=== PATIENT | female | born 1955 | race Caucasian/White ===

== ENCOUNTER → 2019-11-25 13:45 | Outpatient (BNVA) | payer MEDICAID, SELFPAY | PROVIDERS: PCP Family Medicine; Referring Provider Family Medicine; Visit Provider Internal Medicine | DX: E03.9 Hypothyroidism, unspecified (principal); E21.3 Hyperparathyroidism, unspecified; D35.02 Benign neoplasm of left adrenal gland; E55.9 Vitamin D deficiency, unspecified | CPT/HCPCS: 99214 ==

== ENCOUNTER 2019-11-26 08:34 | Outpatient (REF) | payer MEDICAID, SELFPAY | END 2019-11-26 08:35 | disposition home or self-care (01) | LOC: HO.LAB 08:34 | PROVIDERS: PCP Family Medicine; Visit Provider Internal Medicine | DX: E55.9 Vitamin D deficiency, unspecified (principal); E03.9 Hypothyroidism, unspecified; E21.3 Hyperparathyroidism, unspecified ==

== ENCOUNTER 2019-11-27 06:18 | Outpatient (REF) | payer MEDICAID, SELFPAY ==
[2019-11-27 07:30] LABS: Calcium 8.5 mg/dL (8.4-10.2)
[2019-11-27 11:39] LABS: Albumin Level 4.1 g/dL (3.5-5.0); Anion Gap 12 (12-20); Blood Urea Nitrogen 15 mg/dL (9-16); Carbon Dioxide 28 mmol/L (22-29); Chloride 103 mmol/L (96-108); Estimated Glomerular Filt Rate > 60; Glucose Random 317 mg/dL (60-115); Sodium 139 mmol/L (135-145)
[2019-11-27 12:01] LABS: Free T4 (Free Thyroxine) 0.99 ng/dL (0.71-1.85); Vitamin D 25-OH Total 27.6 ng/mL (>30)
== END 2019-11-27 06:19 | disposition home or self-care (01) ==
LOC: HO.LAB 06:18
PROVIDERS: PCP Family Medicine; Visit Provider Internal Medicine
DX: E21.3 Hyperparathyroidism, unspecified (principal)
CPT/HCPCS: 80048; 82040; 82306; 82310; 84439; 84443

== ENCOUNTER 2019-12-05 10:10 | Outpatient (REF) | payer MEDICAID, SELFPAY ==
--- NOTE | 2019-12-05 | US_ITS ---
EXAMINATION: US THYROID CLINICAL INFORMATION: Hypothyroidism. COMPARISON: CT soft tissue neck 07/05/2018. TECHNIQUE: Linear transducer ge-scale and color Doppler examination with attention to the region of the thyroid. FINDINGS: SIZE: Measurements of the thyroid lobes and nodules are given in sagittal, anteroposterior and transverse dimensions respectively. Right Thyroid Lobe: 4.1 x 1.5 x 1.2 cm, volume 3.7 mL. Parenchyma: The gland echotexture is homogeneous. Thyroid vascularity is normal. Left Thyroid Lobe: 3.5 x 1.5 x 0.9 cm, volume 2.6 mL. Parenchyma: The gland echotexture is homogeneous. Thyroid vascularity is normal. Isthmus: 0.3 cm in maximum AP dimension. RIGHT THYROID LOBE: There are 2 nodules seen. 1. Location: Lower pole. Size: 0.4 x 0.3 x 0.3 cm. Nodule characteristics: Hypoechoic with smooth margins. Calcification present without intranodular flow. This appears cystic. 2. Location: Lower pole. Size: 0.3 x 0.2 x 0.2 cm. Nodule characteristics: Hypoechoic with smooth margins. No internal calcification or intranodular flow. This appears cystic. ISTHMUS: No nodules. LEFT THYROID LOBE: No nodules. NODES: No lymphadenopathy is seen in the tissue surrounding the thyroid gland. IMPRESSION: Subcentimeter nodules in the right lobe of the thyroid gland which appear cystic. No suspicious findings.
== END 2019-12-05 10:11 | disposition home or self-care (01) ==
LOC: HO.US 10:10
PROVIDERS: PCP Family Medicine; Visit Provider Internal Medicine
DX: E03.9 Hypothyroidism, unspecified (principal)
CPT/HCPCS: 76536

== ENCOUNTER 2019-12-20 13:53 | Outpatient (REF) | payer MEDICAID, SELFPAY ==
--- NOTE | 2019-12-20 13:56 | CT_ITS ---
EXAMINATION: CT ABDOMEN WITHOUT AND WITH CONTRAST CLINICAL INFORMATION: Benign neoplasm of left adrenal gland. COMPARISON: CT abdomen and pelvis 08/08/2014. TECHNIQUE: Contiguous axial thin section helical images of the abdomen were performed before and after the administration of oral contrast and 85 mL of Omnipaque 350 intravenous contrast. The data set was reformatted in the coronal and sagittal planes and reviewed on an independent workstation. This CT examination was performed using dose optimization techniques as appropriate, variously including the following: *Automated exposure control *Adjustment of mA and/or kV according to patient size (this includes techniques or standardized protocols for targeted exams where dose is matched to indication/reason for exam; i.e. extremities or head) *Use of iterative reconstruction technique DLP: 660 mGy-cm FINDINGS: LUNG BASES: The heart size is normal. There is a 4 mm right middle lobe nodule image 03/02. The rest of the lower lobes are unremarkable. The heart size is normal. LIVER, GALLBLADDER, AND BILIARY TREE: The liver is normal size, shape and density. No focal lesion or intrahepatic ductal dilatation seen. There are several mobile radiopaque gallstones without wall thickening. PANCREAS: The pancreas is unremarkable. SPLEEN: Unremarkable. ADRENAL GLANDS AND KIDNEYS: There is focal nodular enlargement left adrenal gland measuring 7 mm. Immediately postcontrast it measures 98 Hounsfield units and on 15-minute delayed image it measures 55 Hounsfield units. The absolute washout is 56.6% and relative washout is 43.9%. Most likely adenoma or benign tissue. The right adrenal gland is relatively unremarkable. No abnormal enhancement seen. Kidneys are normal size, shape and position. There is normal cortical thickness. Postcontrast there are symmetrical bilateral nephrograms without focal lesion. There is good opacification of bilateral extrarenal kidney pelvis and proximal ureters without any intraluminal filling defect. BOWEL LOOPS: There is scattered stool and gas seen throughout the colon without distention. The small-bowel loops are normal caliber. The terminal ileum is unremarkable. Appendix is normal. The stomach is unremarkable. LYMPH NODES: Normal. VASCULAR: There are mild atherosclerotic changes of abdominal aorta without aneurysmal dilatation. BONES: There is mild spondylosis lower dorsal and mid lumbar spine. No lytic process. CT/CT abdomen wo/w con IMPRESSION: Small benign adenoma left adrenal gland. Unremarkable right adrenal gland. Mild constipation.
[2019-12-20] MEDS: iohexoL 350 MG/ML 100 ML INFUS..BTL IV (15:07)
== END 2019-12-20 13:54 | disposition home or self-care (01) ==
LOC: HO.CT 13:53
PROVIDERS: Visit Provider Internal Medicine
DX: D35.02 Benign neoplasm of left adrenal gland (principal)
CPT/HCPCS: 74170; Q9967

== ENCOUNTER → 2020-01-20 07:35 | Outpatient (BNVA) | payer MEDICAID, SELFPAY | PROVIDERS: PCP Family Medicine; Visit Provider Internal Medicine | DX: Z76.89 Persons encountering health services in other specified circumstances (principal) ==

== ENCOUNTER 2020-01-21 06:35 | Outpatient (REF) | payer MEDICAID, SELFPAY ==
[2020-01-21 07:47] LABS: Calcium 8.8 mg/dL (8.4-10.2)
[2020-01-21 07:56] LABS: Albumin Level 4.3 g/dL (3.5-5.0); Anion Gap 12 (12-20); Blood Urea Nitrogen 10 mg/dL (9-16); Calcium 8.8 mg/dL (8.4-10.2); Carbon Dioxide 30 mmol/L (22-29); Chloride 104 mmol/L (96-108); Estimated Glomerular Filt Rate > 60; Glucose Random 189 mg/dL (60-115); Potassium 4.2 mmol/l (3.3-5.1); Sodium 142 mmol/L (135-145)
[2020-01-21 08:11] LABS: Free T4 (Free Thyroxine) 0.95 ng/dL (0.71-1.85); Thyroid Stimulating Hormone 7.19 uIU/mL (0.32-4.0); Vitamin D 25-OH Total 28.5 ng/mL (>30)
[2020-01-22 21:32] LABS: DHEA Sulfate 67 mcg/dL (12-133)
[2020-01-22 22:43] LABS: Adrenocorticotropic Hormone 21 pg/mL (6-50)
[2020-01-24 06:58] LABS: PTHI 72 pg/mL (14-64); Triiodothyronine T3 Total 128 ng/dL (76-181)
[2020-01-25 11:27] LABS: Metanephrine, Free 50 pg/mL (<=57); Normetanephrines, Free 100 pg/mL (<=148); Total Metanephrine, Free 150 pg/mL (<=205)
[2020-01-25 14:32] LABS: Calcium (PTHI) 9.5 mg/dL (8.6-10.4)
[2020-01-25 19:12] LABS: 11-Deoxycortisol, LC/MS <20 ng/dL
[2020-01-29 16:13] LABS: Catecholamine Frac, Total 705 pg/mL
== END 2020-01-21 06:36 | disposition home or self-care (01) ==
LOC: HO.LAB 06:35
PROVIDERS: PCP Family Medicine; Visit Provider Internal Medicine
DX: E55.9 Vitamin D deficiency, unspecified (principal); E03.9 Hypothyroidism, unspecified; E04.2 Nontoxic multinodular goiter; D35.02 Benign neoplasm of left adrenal gland; E21.3 Hyperparathyroidism, unspecified
CPT/HCPCS: 80048; 82024; 82040; 82088; 82306; 82310; 82384; 82533; 82627; 82634; 83835; 83970; 84244; 84439; 84443; 84480

== ENCOUNTER → 2020-03-12 09:54 | Outpatient (BNVA) | payer MEDICAID, SELFPAY | PROVIDERS: PCP Family Medicine; Visit Provider Internal Medicine Pulmonary Disease | DX: R91.1 Solitary pulmonary nodule (principal) | CPT/HCPCS: 99202 ==

== ENCOUNTER → 2020-03-23 07:55 | Outpatient (BNVA) | payer MEDICAID, SELFPAY | PROVIDERS: PCP Family Medicine; Visit Provider Internal Medicine ==

== ENCOUNTER 2020-04-15 09:28 | Outpatient (REF) | payer MEDICAID, SELFPAY ==
--- NOTE | ~2020-04-15 | CT_ITS ---
EXAMINATION: CT CHEST WITHOUT CONTRAST CLINICAL INFORMATION: Solitary pulmonary nodule COMPARISON: 05/25/2019. CT abdomen pelvis 12/20/2019 TECHNIQUE: Multidetector volumetric CT imaging of the chest was done. Axial MIP volume rendering provided. Sagittal and coronal reformatted images were obtained. This CT examination was performed using dose optimization techniques as appropriate, variously including the following: *Automated exposure control *Adjustment of mA and/or kV according to patient size (this includes techniques or standardized protocols for targeted exams where dose is matched to indication/reason for exam; i.e. extremities or head) *Use of iterative reconstruction technique DLP: 114 mGy-cm FINDINGS: RACING SECRETARY AND HANDICAPPER: No additional findings. LUNGS: 4.8 mm groundglass opacity in the right lung apex image 68/347. Typically no follow-up is required for groundglass opacities less than 5 mm in size. Likely atelectasis in the anterior aspect of the left lower lobe and posterior aspect of the lingula, adjacent the left major fissure. There is a 3 mm left upper lobe nodule in image 110; this was present 05/25/2019 and is unchanged. MEDIASTINUM: No hilar or mediastinal lymphadenopathy. Normal heart size. PLEURA: There is no pleural effusion. No pleural mass or thickening. AXILLA: No lymphadenopathy. UPPER ABDOMEN: Calcified gallstones are seen in the gallbladder. No adrenal mass. OSSEOUS STRUCTURES: Multilevel degenerative changes of the thoracic spine are present. No acute or suspicious osseous abnormality. CT/CT chest wo con IMPRESSION: Right middle lobe nodule seen. A 3 mm left upper lobe nodule was present for 06/10/2019 and is unchanged suggesting a benign etiology. There is likely atelectasis at the left lung base.
== END 2020-04-15 09:29 | disposition home or self-care (01) ==
LOC: HO.CT 09:28
PROVIDERS: Visit Provider Internal Medicine Pulmonary Disease
DX: R91.1 Solitary pulmonary nodule (principal)
CPT/HCPCS: 71250

== ENCOUNTER 2020-04-21 15:39 | Outpatient (REF) | payer MEDICAID, SELFPAY ==
--- NOTE | ~2020-04-21 | MM_ITS ---
EXAMINATION: MM SCREENING DIGITAL BREAST TOMOSYNTHESIS, BILATERAL CLINICAL INFORMATION: Screening. Asymptomatic. The lifetime risk of breast cancer based on the Tyrer-Cuzick Model is 5%. COMPARISON: Mammography: 04/16/2019, 03/05/2018, 02/01/2017 TECHNIQUE: Digital breast tomosynthesis is performed in both the craniocaudal and mediolateral oblique views along with computer-aided detection (CAD). Synthesized 2D images are generated from the tomosynthesis. FINDINGS: The breasts are almost entirely fatty (ACR BI-RADS breast composition Category a). There are background fibroglandular and stromal densities similar to prior studies. There is no developing density or interval mass or architectural abnormality. No abnormal calcifications. The axilla and skin contours are unremarkable. MM/MM tomosynthesis screening BI IMPRESSION: No mammographic evidence of malignancy. ASSESSMENT: BI-RADS 1: Negative RECOMMENDATION: Routine annual mammography screening. This patient's information was entered into a reminder system with a target due date for their next mammogram.
== END 2020-04-21 15:40 | disposition home or self-care (01) ==
LOC: HO.MAMMO 15:39
PROVIDERS: PCP Family Medicine; Visit Provider Family Medicine
DX: Z12.31 Encounter for screening mammogram for malignant neoplasm of breast (principal)
CPT/HCPCS: 77063; 77067

== ENCOUNTER 2020-05-27 06:15 | Outpatient (REF) | payer MEDICAID, SELFPAY ==
[2020-05-27 07:57] LABS: Albumin Level 4.2 g/dL (3.5-5.0); Anion Gap 11 (12-20); Blood Urea Nitrogen 15 mg/dL (9-16); Calcium 9.2 mg/dL (8.4-10.2); Carbon Dioxide 30 mmol/L (22-29); Chloride 102 mmol/L (96-108); Estimated Glomerular Filt Rate > 60; Glucose Random 337 mg/dL (60-115); Potassium 4.4 mmol/L (3.3-5.1); Sodium 139 mmol/L (135-145)
[2020-05-27 08:18] LABS: Free T4 (Free Thyroxine) 0.84 ng/dL (0.71-1.85); Thyroid Stimulating Hormone 3.48 uIU/mL (0.32-4.0); Vitamin D 25-OH Total 27.1 ng/mL (>30)
[2020-05-28 11:26] LABS: Calcium (PTHI) 9.2 mg/dL (8.6-10.4); PTHI 69 pg/mL (14-64)
[2020-05-28 21:28] LABS: Adrenocorticotropic Hormone 16 pg/mL (6-50)
[2020-06-02 07:32] LABS: Renin 5.91 ng/mL/h (0.25-5.82)
== END 2020-05-27 06:16 | disposition home or self-care (01) ==
LOC: HO.LAB 06:15
PROVIDERS: PCP Family Medicine; Visit Provider Internal Medicine
DX: E21.3 Hyperparathyroidism, unspecified (principal); D35.02 Benign neoplasm of left adrenal gland; E55.9 Vitamin D deficiency, unspecified; E04.2 Nontoxic multinodular goiter
CPT/HCPCS: 36415; 80048; 82024; 82040; 82088; 82306; 82533; 83970; 84244; 84439; 84443

== ENCOUNTER → 2020-07-13 08:10 | Outpatient (BNVA) | payer MEDICAID, SELFPAY | PROVIDERS: PCP Family Medicine; Visit Provider Internal Medicine ==

== ENCOUNTER 2020-08-20 07:23 | Outpatient (REF) | payer MEDICAID, SELFPAY ==
[2020-08-21 08:17] LABS: Cortisol 30 Minute 25.3 mcg/dL; Cortisol 60 Minute 30.6 mcg/dL; Cortisol Baseline 11.5 mcg/dL
== END 2020-08-20 07:24 | disposition home or self-care (01) ==
LOC: HO.MDS 07:23
PROVIDERS: PCP Family Medicine; Visit Provider Internal Medicine
DX: E27.40 Unspecified adrenocortical insufficiency (principal)
CPT/HCPCS: 36415; 82533; 96374; J0834

== ENCOUNTER → 2020-09-14 08:39 | Outpatient (BNVA) | payer MEDICAID, SELFPAY | PROVIDERS: Visit Provider Internal Medicine ==

== ENCOUNTER 2020-09-21 09:31 | Outpatient (REF) | payer MEDICAID, SELFPAY ==
--- NOTE | ~2020-09-21 | CT_ITS ---
EXAMINATION: CT CHEST WITHOUT CONTRAST CLINICAL INFORMATION: Follow up pulmonary nodules. COMPARISON: March 2020 TECHNIQUE: Multidetector volumetric CT imaging of the chest was done. Axial MIP volume rendering provided. Sagittal and coronal reformatted images were obtained. This CT examination was performed using dose optimization techniques as appropriate, variously including the following: *Automated exposure control *Adjustment of mA and/or kV according to patient size (this includes techniques or standardized protocols for targeted exams where dose is matched to indication/reason for exam; i.e. extremities or head) *Use of iterative reconstruction technique DLP: 153 mGy-cm. FINDINGS: LUNGS: Exam is limited due to artifact from respiratory motion. There is a 2 mm right apical nodule, axial image 62 series 7 that is stable. The 5 mm ground-glass attenuation right upper lobe nodule, axial image 112 series 7 is stable. The 4 mm left upper lobe nodule, axial image 149 series 7 is stable. There is atelectasis at the lung bases. MEDIASTINUM: There is atherosclerotic disease and mild coronary artery calcification. The mediastinum is otherwise normal. PLEURA: There is no pleural effusion. No pleural mass or thickening. AXILLA: No lymphadenopathy. UPPER ABDOMEN: There are gallstones in the gallbladder. OSSEOUS STRUCTURES: There are degenerative changes of the spine. CT/CT chest wo con IMPRESSION: Stable pulmonary nodules.
== END 2020-09-21 09:32 | disposition home or self-care (01) ==
LOC: HO.CT 09:31
PROVIDERS: PCP Family Medicine; Visit Provider Internal Medicine Pulmonary Disease
DX: R91.1 Solitary pulmonary nodule (principal)
CPT/HCPCS: 71250

== ENCOUNTER → 2020-10-01 15:17 | Outpatient (BNVA) | payer MEDICAID, SELFPAY | PROVIDERS: PCP Family Medicine; Visit Provider Internal Medicine Pulmonary Disease | DX: R91.1 Solitary pulmonary nodule (principal); E04.2 Nontoxic multinodular goiter; E03.9 Hypothyroidism, unspecified; E21.3 Hyperparathyroidism, unspecified; E78.5 Hyperlipidemia, unspecified; G62.9 Polyneuropathy, unspecified | CPT/HCPCS: 99212 ==

== ENCOUNTER 2020-12-17 06:19 | Outpatient (REF) | payer MEDICAID, SELFPAY ==
[2020-12-17 07:13] LABS: Alanine Aminotransferase 27 U/L (0-31); Albumin Level 3.9 g/dL (3.5-5.0); Alkaline Phosphatase 85 U/L (39-117); Anion Gap 11 (12-20); Aspartate Amino Transferase 18 U/L (5-31); Bilirubin Total 0.5 mg/dL (0.0-1.0); Blood Urea Nitrogen 11 mg/dL (9-16); Calcium 8.9 mg/dL (8.4-10.2); Carbon Dioxide 29 mmol/L (22-29); Chloride 105 mmol/L (96-108); Estimated Glomerular Filt Rate > 60; Glucose Random 292 mg/dL (60-115); Phosphorus 3.4 mg/dL (2.7-4.5); Potassium 4.2 mmol/L (3.3-5.1); Sodium 141 mmol/L (135-145); Total Protein 6.2 g/dL (6.5-8.0)
[2020-12-17 07:34] LABS: Free T4 (Free Thyroxine) 0.92 ng/dL (0.71-1.85); Thyroid Stimulating Hormone 5.34 uIU/mL (0.32-4.0); Vitamin D 25-OH Total 30.7 ng/mL (>30)
[2020-12-19 01:51] LABS: Triiodothyronine T3 Total 104 ng/dL (76-181)
[2020-12-21 11:06] LABS: Metanephrine, Free 47 pg/mL (<=57); Normetanephrines, Free 81 pg/mL (<=148); Total Metanephrine, Free 128 pg/mL (<=205)
[2020-12-22 04:01] LABS: Calcium (PTHI) 8.8 mg/dL (8.6-10.4); PTHI 76 pg/mL (14-64)
[2020-12-27 09:32] LABS: Catecholamine Frac, Total 500 pg/mL
== END 2020-12-17 06:20 | disposition home or self-care (01) ==
LOC: HO.LAB 06:19
PROVIDERS: PCP Family Medicine; Visit Provider Internal Medicine
DX: E21.3 Hyperparathyroidism, unspecified (principal); E55.9 Vitamin D deficiency, unspecified; E04.2 Nontoxic multinodular goiter; D35.02 Benign neoplasm of left adrenal gland
CPT/HCPCS: 36415; 80053; 82306; 82384; 83835; 83970; 84100; 84439; 84443; 84480

== ENCOUNTER 2020-12-21 09:43 | Outpatient (REF) | payer MEDICAID, SELFPAY ==
[2020-12-21 11:22] LABS: Creatinine, mg/dL 53.68
[2020-12-21 11:59] LABS: Creatinine, 24Hr Urine 0.4 G/Day (1.0-2.0); Total Volume 24 Hour Urine 825 mL
[2020-12-24 23:47] LABS: Metanephrine, Free 24U 69 mcg/24 h (90-315); Normetanephrine, Free 24U 153 mcg/24 h (122-676); Total Metanephrine, Free 24U 222 mcg/24 h (224-832); Total Volume 24U 825 mL
[2020-12-25 21:41] LABS: CATF, 24 Ur Volume 825 mL; CATF-24Ur Creatinine 0.43 g/24 h (0.50-2.15); Catecholamines,Tot. (E+NE) 24U 25 mcg/24 h (26-121); Cortisol Free, 24 Hr Urine 9.7 mcg/24 h (4.0-50.0); Creatinine, 24 Hr Urine 0.44 g/24 h (0.50-2.15); Dopamine, 24 Ur 136 mcg/24 h (52-480); Norepinephrine, 24 Ur 25 mcg/24 h (15-100); Total Volume, 24 Hr Urine 825 mL
[2020-12-25 22:37] LABS: Calcium, 24 Hr Urine 107 mg/24 h; Calcium/Creatinine Ratio 241 mg/g creat (30-275); Creatinine 24Hr Urine 0.45 g/24 h (0.50-2.15)
== END 2020-12-21 09:44 | disposition home or self-care (01) ==
LOC: HO.LNP 09:43
PROVIDERS: Visit Provider Internal Medicine
DX: D35.02 Benign neoplasm of left adrenal gland (principal); E21.3 Hyperparathyroidism, unspecified
CPT/HCPCS: 82340; 82384; 82530; 82570; 83835

== ENCOUNTER → 2021-01-04 11:49 | Outpatient (BNVA) | payer MEDICAID, SELFPAY | PROVIDERS: PCP Family Medicine; Visit Provider Internal Medicine ==

== ENCOUNTER 2021-01-19 12:41 | Outpatient (REF) | payer MEDICAID, SELFPAY ==
--- NOTE | 2021-01-19 16:50 | MHC.AU.MED ---
Medical Clearance for Hearing Instrumentation Date: 01/19/21 Patient Name: Cori Marino Date of : 1955 Referring Provider: Alma Quijano MD We have seen your patient on 01/19/21 and have determined that they are a candidate for amplification (See accompanying report). Specifically, they would benefit from: Hearing aid use in both ears There is a statute that addresses Medical Evaluation Requirements prior to fitting a patient with a hearing aid. According to [place] statute 265 CMR:6.03(1), (a) General. Except as provided in 265 CMR 6.03(1)(b), a hearing therapist shall not sell a hearing aid unless the prospective user has presented to the hearing therapist a written statement signed by a licensed physician that states that the patient's hearing loss has been medically evaluated and the patient may be considered a candidate for a hearing aid. The medical evaluation must have taken place within the preceding six months. Please note: Due to the [place] Statute referenced above, we cannot accept a signature other than that of a licensed physician. GATHERING MACHINE FEEDER and PA signatures cannot be accepted. I am in agreement with the above recommendation. There is no medical contraindication for hearing instrumentation. Physician Signature Date Physician Name (Printed)
--- NOTE | 2021-01-19 16:51 | MHC.AU.AHA ---
Adult Audiological Evaluation Date of Visit: 01/19/21 Armored Transport Service Manager Used: Angolan- In Person Reason for Appointment: Audiological re-evaluation to monitor the status of Ms. Marino's hearing loss. She has a known bilateral, sensorineural hearing loss. She has used a hearing aid in her right ear, but notes that it was lost. She is interested in pursuing a new hearing aid, and would like to try hearing aids in both ears. She notes significant difficulties hearing and understanding speech in most situations. [place] [facility] [place] Moderate to profound sensorineural hearing loss bilaterally. Medical History: Medical History: Diabetes, High Blood Pressure Medical History: Peripheral neuropathy, allergic rhinosinusitis, Positive Antinuclear antibody, retinopathy of both eyes, coronary artery disease, Cardiac catheterization 05/27/17, asthma, inflammatory arthritis, Medication List: See list Hearing Instrument History- Right Ear: Rotor Winder: GetPromotd Model: Rambus V50-SP Serial Number: [id number] Battery Size: 13 Repair Warranty: 07/13/2017 Loss and Damage Warranty: 07/13/2017 Dispensed By: [facility] Date of Fittin05/04/2015 Otoscopy: Right Ear: Unremarkable Left Ear: Unremarkable Hearing Evaluation: Transducer(s) Used: Insert Earphones, Bone Conduction Method: Conventional Audiometry Stimuli Used: Pure Tones Right Ear: Description of Hearing: Moderately-severe to severe sensorineural hearing loss from 250-8000 Hz. Left Ear: Description of Hearing: Moderately-severe to profound sensorineural hearing loss from 250-8000 Hz. Speech Recognition Threshold (SRT): Method Used: Recorded Lists Stimuli Used: Angolan Trisyllable Words Right Ear: 80 dBHL Left Ear: 80 dBHL Word Discrimination: Method: Recorded Lists Word Lists Used: Lista Bisil?bica (Angolan) Right Ear: 84% at 100 dBHL Left Ear: 72% at 100 dBHL Comparison: Compared to the most recent evaluation: Hearing is stable. Recommendations: Audiological re-evaluation in one year. Trial with amplification is recommended. Medical clearance from a physician is required before fitting. Hearing Aid Fitting will be scheduled when all materials arrive. Hearing aid(s) will be ordered after approval is received. Diagnosis: Primary Diagnosis: H90.3 Bilateral Sensorineural Hearing Loss Services Performed: Comprehensive Audiological Evaluation (CPT 34943) Signature: Provider: Shiv Fall, CCC-A
--- NOTE | 2021-01-19 16:52 | MHC.AU.HAS ---
Hearing Aid Evaluation Date of Visit: 01/19/21 Road Mixer Operator Used: Syriac- In Person Historical Information: Description of Hearing: Moderately-severe to severe/profound sensorineural hearing loss bilaterally. Current personal amplification information, if applicable: 2015 Phonak Bolero V50-SP Summary: Updated binaural amplification is recommended as Ms. Marino has lost her previous hearing aids. Her previous aids were over 5 years old, and she is due for updated hearing aids. Discussed options with Ms. Marino. She found the last ones very uncomfortable due to the large standard earmold. She is interested in a JAM style hearing aid with a small earmold. She is interested in rechargeability. Hearing Aid Prescription: Based on the individual?s shared listening needs, communication environments, dexterity, desire for connectivity, and personal preferences, the following prescription for amplification has been made: Right ear: Office Messenger: Phonak Model: Audeo P70-R Battery Size: Rechargeable Color: H0 - Beige Family Medicine Physician Assistant: Size 0 P Type of Mold: cShell Left ear: Left ear prescription to be same as Right Hearing Aid above: Office Messenger: Phonak Model: Audeo P70-R Battery Size: Rechargeable Color: H0-Beige Family Medicine Physician Assistant: Szie 0 P Type of Mold: cShell Plan of Care: Earmold Impressions Taken. Medical Clearance to be requested from PCP/ENT. Hearing Instrument Fitting to be scheduled when materials arrive. Hearing aids will be ordered once medical clearance is received. Primary Diagnosis: H90.3 Bilateral Sensorineural Hearing Loss Signature: Provider: Shiv Fall, ZBIGNIEW-A
== END 2021-01-19 12:42 | disposition home or self-care (01) ==
LOC: HO.SH 12:41
PROVIDERS: Visit Provider Family Medicine
DX: Z46.1 Encounter for fitting and adjustment of hearing aid (principal); H90.3 Sensorineural hearing loss, bilateral
CPT/HCPCS: 92557; 92591; V5275

== ENCOUNTER 2021-01-29 09:10 | Outpatient (REF) | payer MEDICAID, SELFPAY ==
[2021-01-29 10:10] LABS: Alanine Aminotransferase 21 U/L (0-31); Alkaline Phosphatase 85 U/L (39-117); Anion Gap 12 (12-20); Aspartate Amino Transferase 18 U/L (5-31); Bilirubin Total 0.6 mg/dL (0.0-1.0); Blood Urea Nitrogen 9 mg/dL (9-16); Calcium 9.2 mg/dL (8.4-10.2); Carbon Dioxide 29 mmol/L (22-29); Chloride 104 mmol/L (96-108); Estimated Glomerular Filt Rate > 60; Glucose Random 387 mg/dL (60-115); Phosphorus 3.4 mg/dL (2.7-4.5); Potassium 4.7 mmol/L (3.3-5.1); Sodium 140 mmol/L (135-145); Total Protein 6.3 g/dL (6.5-8.0)
[2021-01-29 10:20] LABS: Free T4 (Free Thyroxine) 1.03 ng/dL (0.71-1.85); Thyroid Stimulating Hormone 3.11 uIU/mL (0.32-4.0); Vitamin D 25-OH Total 30.1 ng/mL (>30)
[2021-02-01 16:26] LABS: Calcium (PTHI) 9.1 mg/dL (8.6-10.4); PTHI 49 pg/mL (14-64)
== END 2021-01-29 09:11 | disposition home or self-care (01) ==
LOC: HO.LAB 09:10
PROVIDERS: PCP Family Medicine; Visit Provider Internal Medicine
DX: E03.9 Hypothyroidism, unspecified (principal); E55.9 Vitamin D deficiency, unspecified
CPT/HCPCS: 36415; 80053; 82306; 83970; 84100; 84439; 84443

== ENCOUNTER 2021-02-02 10:10 | Outpatient (REF) | payer MEDICAID, SELFPAY ==
--- NOTE | ~2021-02-02 | CT_ITS ---
EXAMINATION: CT ABDOMEN WITHOUT AND WITH CONTRAST CLINICAL INFORMATION: Left adrenal lesion COMPARISON: Previous CT of the abdomen and pelvis most recent November 2019 TECHNIQUE: Contiguous axial thin section helical images of the abdomen were performed before and after the administration of oral contrast and 85 mL of Omnipaque 350 intravenous contrast. The data set was reformatted in the coronal and sagittal planes and reviewed on an independent workstation. This CT examination was performed using dose optimization techniques as appropriate, variously including the following: *Automated exposure control *Adjustment of mA and/or kV according to patient size (this includes techniques or standardized protocols for targeted exams where dose is matched to indication/reason for exam; i.e. extremities or head) *Use of iterative reconstruction technique DLP: 419 mGy-cm FINDINGS: LUNG BASES: Unremarkable LIVER, GALLBLADDER, AND BILIARY TREE: The liver is normal in size, shape and attenuation. No focal liver lesion. There are gallstones in the gallbladder. PANCREAS: Unremarkable SPLEEN: Unremarkable ADRENAL GLANDS AND KIDNEYS: There is an 8 x 10 mm left adrenal nodule. This may be minimally increased from 8 mm in size on November 2019 exam. Hounsfield units precontrast measure 21. Immediate Hounsfield units following IV contrast measure 123. Delayed Hounsfield units postcontrast measure 48. Washout percentages are 61 and 75%. This is suggestive of a benign adenoma. The right adrenal gland is normal. BOWEL LOOPS: Unremarkable LYMPH NODES: Normal. VASCULAR: Unremarkable. BONES: Degenerative changes of the spine. CT/CT abdomen wo/w con IMPRESSION: 8 x 10 mm left adrenal nodule suggestive of a benign adenoma. Gallstones. Fleischner guidelines were followed.
[2021-02-02] MEDS: iohexoL 350 MG/ML 100 ML INFUS..BTL IV (11:07)
== END 2021-02-02 10:11 | disposition home or self-care (01) ==
LOC: HO.CT 10:10
PROVIDERS: PCP Family Medicine; Visit Provider Internal Medicine
DX: D35.02 Benign neoplasm of left adrenal gland (principal)
CPT/HCPCS: 74170; Q9967

== ENCOUNTER 2021-02-10 14:25 | Outpatient (REF) | payer MEDICAID, SELFPAY ==
--- NOTE | ~2021-02-10 | US_ITS ---
EXAMINATION: US THYROID CLINICAL INFORMATION: Nontoxic multinodular goiter. COMPARISON: Ultrasound soft tissue head/neck thyroid dated 12/05/2019. CT soft tissue neck 07/05/2018. TECHNIQUE: Linear transducer grayscale and color Doppler examination with attention to the region of the thyroid. FINDINGS: SIZE: Measurements of the thyroid lobes and nodules are given in sagittal, anteroposterior and transverse dimensions respectively. Right Thyroid Lobe: 3.2 x 0.7 x 0.9 cm, volume 1.06 mL. Previously 4.1 x 1.5 x 1.2 cm, volume 3.7 mL. Parenchyma: The gland echotexture is homogeneous. Thyroid vascularity is normal. Left Thyroid Lobe: 3.5 x 0.9 x 0.9 cm, volume 1.5 mL. Previously 3.5 x 1.5 x 0.9 cm, volume 2.6 mL. Parenchyma: The gland echotexture is homogeneous. Thyroid vascularity is normal. Isthmus: 0.4 cm in maximum AP dimension. Previously 0.3 cm. Estimated total number of nodules greater than or equal to 1 cm: 0. Counsellors nodules are described as follows: 1. Location: Right inferior. Size: 0.3 x 0.3 x 0.4 cm, volume 0.02 mL. Previously: 0.4 x 0.3 x 0.3 cm, volume 0.02 mL. Nodule characteristics: Composition: Cystic(0). ACR TI-RADS total points: 0 ACR TI-RADS category: 1 Significant change in size (>/= 20% in 2 dimensions and minimal increase of 2 mm or 50% or greater increase in volume): Change in features: Change in ACR TI-RADS risk category: 2. Location: Right inferior. Size: 0.2 x 0.2 x 0.2 cm, volume 0.004 mL. Previously: 0.3 x 0.2 x 0.2 cm, volume 0.005 mL. Nodule characteristics: Composition: Cystic(0). ACR TI-RADS total points: 0 ACR TI-RADS category: 1 Significant change in size (>/= 20% in 2 dimensions and minimal increase of 2 mm or 50% or greater increase in volume): Change in features: Change in ACR TI-RADS risk category: 3. Location: Left mid. Size: 0.3 x 0.2 x 0.2 cm, volume 0.005 mL. Previously: Not documented on the prior study. Nodule characteristics: Composition: Cystic(0). ACR TI-RADS total points: 0 ACR TI-RADS category: 1 NODES: No lymphadenopathy is seen in the tissue surrounding the thyroid gland. US/US thyroid IMPRESSION: Small thyroid gland. Stable small bilateral thyroid nodules. ACR TI-RADS RECOMMENDATION REFERENCE: Ultrasound-guided fine-needle aspiration, followup ultrasound, no further follow up. * TR1 (0 point) and TR 2 (2 points): No FNA or follow up * TR3 (3 points): FNA if more than or equal to 2.5 cm in maximum dimension, followup ultrasound in 1, 3 and 5 years if 1.5 to 2.4 cm in maximum dimension. * TR4 (4-6 points): FNA if more than or equal to 1.5 cm in maximum dimension, followup ultrasound in 1, 2, 3 and 5 years if 1 to 1.4 cm in maximum dimension. * TR5 (more than or equal to 7 points): FNA if more than or equal to 1 cm in maximum dimension, followup ultrasound every year for 5 years if 0.5 to 0.9 cm in maximum dimension. * TR3, TR4 or TR5 nodules that are below the size threshold for follow up receive no follow up.
== END 2021-02-10 14:26 | disposition home or self-care (01) ==
LOC: HO.US 14:25
PROVIDERS: PCP Family Medicine; Visit Provider Internal Medicine
DX: E04.2 Nontoxic multinodular goiter (principal)
CPT/HCPCS: 76536

== ENCOUNTER 2021-03-10 09:20 | Outpatient (REF) | payer MEDICAID, SELFPAY | END 2021-03-10 09:21 | disposition home or self-care (01) | LOC: HO.HAP 09:20 | PROVIDERS: Visit Provider Family Medicine | DX: Z46.1 Encounter for fitting and adjustment of hearing aid (principal); H90.3 Sensorineural hearing loss, bilateral | CPT/HCPCS: V5011; V5020; V5160; V5261; V5264 ==

== ENCOUNTER 2021-03-24 13:45 | Outpatient (REF) | payer MEDICAID, SELFPAY | END 2021-03-24 13:46 | disposition home or self-care (01) | LOC: HO.HAP 13:45 | PROVIDERS: Visit Provider Family Medicine | DX: Z13.89 Encounter for screening for other disorder (principal) ==

== ENCOUNTER 2021-04-07 16:57 | Emergency (ER) | payer MEDICAID, SELFPAY ==
--- NOTE | ~2021-04-07 | CT_ITS ---
EXAMINATION: CT HEAD WITHOUT CONTRAST CLINICAL INFORMATION: Left-sided mastoiditis. COMPARISON: None TECHNIQUE: Contiguous axial imaging was performed from the skull base to vertex without intravenous administration of contrast. Coronal and sagittal reformatted images are performed at CT scanner This CT examination was performed using dose optimization techniques as appropriate, variously including the following: *Automated exposure control *Adjustment of mA and/or kV according to patient size (this includes techniques or standardized protocols for targeted exams where dose is matched to indication/reason for exam; i.e. extremities or head) *Use of iterative reconstruction technique DLP: 668 mGy-cm FINDINGS: There is no evidence of acute intracranial hemorrhage or territorial infarction. No abnormal mass effect or midline shift is seen. Hinds to white matter differentiation is well preserved. No extra-axial fluid collections are identified. The ventricles are normal in size. There is no abnormal attenuation within the brain parenchyma. The osseous structures and soft tissues are normal. The mastoid air cells, middle ear cavities and visualized portions of the paranasal sinuses are well aerated. CT/CT head/brain wo con IMPRESSION: No acute intracranial pathology. Normal aeration of the visualized paranasal sinuses and mastoid air cells and middle ear cavities.
[2021-04-07 17:31] VITALS: BP 136/44; PULSE 58; RESP 16; TEMP 36.4; O2SAT 96; BMI 38.1
[2021-04-07 17:58] LABS: MANUAL DIFF FLAG NO
[2021-04-07 18:01] LABS: Basophils Percent Auto 0.1 % (0-2); Eosinophils Absolute Auto 0.1 X10*3/uL (0.0-0.4); Eosinophils Percent Auto 0.6 % (0-4); Hematocrit 40.3 % (37.0-47.0); Hemoglobin 14.2 g/dl (12.0-16.0); Imm Gran Abs Auto 0.02 X10*3/uL (0.00-0.03); Imm Gran Pct Auto 0.2 % (0.0-0.4); Lymphocytes Absolute Auto 2.1 X10*3/uL (1.2-4.9); Lymphocytes Percent Auto 26.1 % (20-40); Mean Corpuscular HGB Conc 35.2 g/dl (31.0-35.0); Mean Corpuscular Hemoglobin 31.2 pg (27.0-33.0); Mean Corpuscular Volume 88.6 fL (80.0-98.0); Monocytes Absolute Auto 0.6 X10*3/uL (0.1-1.2); Neutrophils Absolute Auto 5.3 x10*3/uL (2.0-8.3); Platelet Count 197 X10*3/uL (160-400); Red Blood Count 4.55 X10*6/uL (4.20-5.50); Red Cell Distribution Width 13.2 % (11.0-16.0); White Blood Count 8.1 X10*3/uL (4.8-10.8)
[2021-04-07 18:14] LABS: Anion Gap 12 (12-20); Blood Urea Nitrogen 12 mg/dL (9-16); Calcium 9.7 mg/dL (8.4-10.2); Carbon Dioxide 32 mmol/L (22-29); Chloride 99 mmol/L (96-108); Creatinine Clr Calc Pharmacy 29.4; Estimated Glomerular Filt Rate 54; Glucose Random 313 mg/dL (60-115); Potassium 4.8 mmol/L (3.3-5.1); Sodium 138 mmol/L (135-145)
--- NOTE | 2021-04-07 19:55 | ED.HA ---
HPI - Headache General Chief Complaint: Headache Stated Complaint: headache and lump on neck Time Seen by Provider: 04/07/21 19:54 Source: patient and family Mode of arrival: ambulatory Limitations: no limitations History of Present Illness HPI Narrative: Patient complaining of headache and left ear pain for last 2 days headache is localized more behind the left ear no fever no chills, no ear discharge no recent head injury Related Data Home Medications Medication Instructions Recorded Confirmed albuterol sulfate 90 mcg/actuation 2 puff INHALATION Q4-6H PRN 11/25/19 01/04/21 aerosol inhaler amitriptyline 25 mg tablet 25 mg PO DAILY 11/25/19 01/04/21 aspirin 81 mg tablet,delayed 81 mg PO DAILY 11/25/19 01/04/21 release (Adult Aspirin Regimen) atorvastatin 40 mg tablet 40 mg PO DAILY 11/25/19 01/04/21 buspirone 15 mg tablet 15 mg PO BID 11/25/19 01/04/21 cholecalciferol (vitamin D3) 25 25 mcg PO DAILY 11/25/19 01/04/21 mcg (1,000 unit) capsule cyanocobalamin (vitamin B-12) 1,000 mcg PO DAILY 11/25/19 01/04/21 1,000 mcg capsule fluticasone propionate 220 1 puff INHALATION Q12H 11/25/19 01/04/21 mcg/actuation HFA aerosol inhaler (Flovent HFA) fluticasone propionate 50 1 spray INTRANASAL DAILY 11/25/19 01/04/21 mcg/actuation nasal spray,suspension gabapentin 300 mg capsule 300 mg PO BID 11/25/19 01/04/21 hydroxychloroquine 200 mg tablet 200 mg PO DAILY 11/25/19 01/04/21 ibuprofen 600 mg tablet 600 mg PO TID 11/25/19 01/04/21 lisinopril 2.5 mg tablet 2.5 mg PO DAILY 11/25/19 01/04/21 loratadine 10 mg tablet (Allergy 10 mg PO DAILY 11/25/19 01/04/21 Relief (loratadine)) metformin 500 mg tablet 500 mg PO DAILY 11/25/19 01/04/21 mirtazapine 30 mg tablet 30 mg PO BEDTIME 11/25/19 01/04/21 omeprazole 20 mg capsule,delayed 20 mg PO DAILY 11/25/19 01/04/21 release insulin glargine 100 unit/mL (3 24 unit SUBCUT QPM ml 03/23/20 01/04/21 mL) subcutaneous pen (Lantus Solostar U-100 Insulin) tramadol 50 mg tablet 50 mg PO DAILY 03/23/20 01/04/21 insulin lispro 100 unit/mL 3 unit SUBCUT TID ml 09/14/20 01/04/21 subcutaneous pen (Humalog KwikPen (U-100) Insulin) Previous Rx's Medication Instructions Recorded levothyroxine 50 mcg capsule 50 mcg PO DAILY 30 Days #30 cap 01/04/21 amoxicillin 875 mg-potassium 1 tab PO BID #20 tab 04/07/21 clavulanate 125 mg tablet tramadol 50 mg tablet 50 mg PO Q8H PRN #20 tab 04/07/21 Allergies Allergy/AdvReac Type Severity Reaction Status Date / Time No Known Allergies Allergy Mild NONE Verified 04/07/21 17:31 Review of Systems Review of Systems: Yes all other systems are reviewed and are negative [facility] Past Medical History Medical History 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 Asthma HLD (hyperlipidemia) Hyperparathyroidism Hypothyroidism Multinodular thyroid Peripheral neuropathy Pulmonary nodule T2DM (type 2 diabetes mellitus) Vitamin D deficiency Surgical History History of surgery on arm Hx of section Hx of tubal ligation Family History Family History Mother Diabetes Social History Social History Alcohol intake: current Alcohol intake frequency: does not drink Patient Tobacco Use Status: Never used Tobacco Advance Directives: Yes Advance Directives on File: Yes Advance Directives Date on File: 12/05/19 Physical Exam Vital Signs: Vital Signs: Last Vital Signs Temp 98.2 F 04/07/21 21:35 Pulse 57 04/07/21 21:35 Resp 16 04/07/21 21:35 BP 128/49 L 04/07/21 21:35 Pulse Ox 97 04/07/21 21:35 BMI result Body Mass Index 38.1 Appearance: Alert. Oriented X3. No acute distress. ENT: Pharynx normal. Oral Mucosa moist ,erythematous left tympanic , tenderness left mastoid area with slight soft tissue swelling tympanic membrane intact no discharge Neck: Normal inspection. Neck supple. CVS: Normal heart rate and rhythm. Pulses normal. Respiratory: No respiratory distress. Equal air entry bilateral, no wheezing/rales/rhonchi Abdomen: Soft and nontender. Bowel sounds are present, no mass palpable, Skin: Skin warm and dry. Normal skin color. Normal skin turgor. Extremities: No lower extremity edema. No calf tenderness Neuro: Oriented X 3. No motor deficit. No sensory deficit.No cerebellar signs , cranial nerves II-XII intact MDM - Headache Medical Records Medical records narrative: CT scan is negative for mastoiditis patient pain likely from otitis media Lab Data Attestation: I reviewed the patient's lab results. Result diagrams: 04/07/21 17:53 04/07/21 17:53 Labs: Lab Results 04/07/21 04/07/21 04/07/21 Range/Units 17:53 17:53 17:53 WBC 8.1 (4.8-10.8) X10*3/uL RBC 4.55 (4.20-5.50) X10*6/uL Hgb 14.2 (12.0-16.0) g/dl Hct 40.3 (37.0-47.0) % MCV 88.6 (80.0-98.0) fL MCH 31.2 (27.0-33.0) pg MCHC 35.2 H (31.0-35.0) g/dl RDW 13.2 (11.0-16.0) % Plt Count 197 (160-400) X10*3/uL MPV 10.0 (9.4-12.3) fL Immature Gran % (Auto) 0.2 (0.0-0.4) % Neut % (Auto) 66.0 (45-73) % Lymph % (Auto) 26.1 (20-40) % Carbon % (Auto) 7.0 (2-11) % Eos % (Auto) 0.6 (0-4) % Baso % (Auto) 0.1 (0-2) % Lymph # (Auto) 2.1 (1.2-4.9) X10*3/uL Carbon # (Auto) 0.6 (0.1-1.2) X10*3/uL Eos # (Auto) 0.1 (0.0-0.4) X10*3/uL Baso # (Auto) 0.0 (0.0-0.2) X10*3/uL Abs Immat Gran (auto) 0.02 (0.00-0.03) X10*3/uL Absolute Neuts (auto) 5.3 (2.0-8.3) x10*3/uL Absolute Nucleated RBC 0.000 (0.0-0.012) X10*3/uL Nucleated RBC % (auto) 0.0 (0.0-0.2) /100WBC ESR 17 (0-20) MM/HR Sodium 138 (135-145) mmol/L Potassium 4.8 (3.3-5.1) mmol/L Chloride 99 (96-108) mmol/L Carbon Dioxide 32 H (22-29) mmol/L Anion Gap 12 (12-20) BUN 12 (9-16) mg/dL Creatinine 1.03 (0.5-1.4) mg/dL Estim Creat Clear Calc 29.4 Estimated GFR 54 Random Glucose 313 H (60-115) mg/dL Calcium 9.7 (8.4-10.2) mg/dL C-Reactive Protein 0.63 H (< or = 0.50) mg/dL Discharge Plan Discharge Clinical Impression: Acute left otitis media Patient Disposition: Home, Self-Care Instructions: Ear Infection (ED) Additional Instructions: Take antibiotic as advised Pain medication as advised Follow with PCP if not better Prescriptions: New tramadol 50 mg tablet 50 mg PO Q8H PRN (Reason: pain) Qty: 20 0RF amoxicillin-pot clavulanate 875-125 mg tablet 1 tab PO BID Qty: 20 0RF No Action insulin lispro [Humalog KwikPen Insulin] 100 unit/mL insulin pen 3 unit subcut TID 0RF levothyroxine 50 mcg capsule 50 mcg PO DAILY 30 Days Qty: 30 11RF buspirone 15 mg tablet 15 mg PO BID 0RF lisinopril 2.5 mg tablet 2.5 mg PO DAILY 0RF loratadine [Allergy Relief (loratadine)] 10 mg tablet 10 mg PO DAILY 0RF metformin 500 mg tablet 500 mg PO DAILY 0RF Flovent HFA 220 mcg/actuation HFA aerosol inhaler 1 puff inhalation Q12H 0RF fluticasone propionate 50 mcg/actuation spray,suspension 1 spray intranasal DAILY 0RF Rx Instructions: administer into each nostril gabapentin 300 mg capsule 300 mg PO BID 0RF aspirin [Adult Aspirin Regimen] 81 mg tablet,delayed release (DR/EC) 81 mg PO DAILY 0RF cyanocobalamin (vitamin B-12) 1,000 mcg capsule 1,000 mcg PO DAILY 0RF albuterol sulfate 90 mcg/actuation HFA aerosol inhaler 2 puff inhalation Q4-6H PRN0RF ibuprofen 600 mg tablet 600 mg PO TID 0RF amitriptyline 25 mg tablet 25 mg PO DAILY 0RF cholecalciferol (vitamin D3) 25 mcg (1,000 unit) capsule 25 mcg PO DAILY 0RF mirtazapine 30 mg tablet 30 mg PO BEDTIME 0RF omeprazole 20 mg capsule,delayed release(DR/EC) 20 mg PO DAILY 0RF atorvastatin 40 mg tablet 40 mg PO DAILY 0RF hydroxychloroquine 200 mg tablet 200 mg PO DAILY 0RF tramadol 50 mg tablet 50 mg PO DAILY 0RF Lankaitlinus Solostar U-100 Insulin 100 unit/mL (3 mL) insulin pen 24 unit subcut QPM 0RF Interventions: ED Discharge Assessment Last Done: 04/07/21 21:40 Discharge Date/Time: 04/07/21 21:42
[2021-04-07 20:13] VITALS: BP 122/42; PULSE 61; RESP 18; O2SAT 97
[2021-04-07] MEDS: traMADoL HCL 50 MG TABLET PO (20:22)
[2021-04-07] MEDS: Amoxicillin/Potassium Clav 875 MG TABLET PO (20:22)
[2021-04-07 20:29] LABS: C Reactive Protein 0.63 mg/dL (< or = 0.50)
[2021-04-07 20:54] LABS: Erythrocyte Sedimentation Rate 17 MM/HR (0-20)
[2021-04-07 21:35] VITALS: BP 128/49; PULSE 57; RESP 16; TEMP 36.8; O2SAT 97
== END 2021-04-07 21:42 | disposition home or self-care (01) ==
PROVIDERS: Emergency Provider Internal Medicine
DX: H66.92 Otitis media, unspecified, left ear (principal); E11.9 Type 2 diabetes mellitus without complications; E78.5 Hyperlipidemia, unspecified; Z79.4 Long term (current) use of insulin; Z79.82 Long term (current) use of aspirin; Z79.02 Long term (current) use of antithrombotics/antiplatelets
CPT/HCPCS: 36415; 70450; 80048; 85025; 85652; 86140; 99284

== ENCOUNTER 2021-04-22 | Outpatient (REF) | payer MEDICAID, SELFPAY ==
--- NOTE | ~2021-04-22 | CT_ITS ---
EXAMINATION: CT CHEST WITHOUT CONTRAST CLINICAL INFORMATION: Solitary pulmonary nodule. COMPARISON: Previous chest CT September 2020 TECHNIQUE: Multidetector volumetric CT imaging of the chest was done. Axial MIP volume rendering provided. Sagittal and coronal reformatted images were obtained. This CT examination was performed using dose optimization techniques as appropriate, variously including the following: *Automated exposure control *Adjustment of mA and/or kV according to patient size (this includes techniques or standardized protocols for targeted exams where dose is matched to indication/reason for exam; i.e. extremities or head) *Use of iterative reconstruction technique DLP: 163 mGy-cm FINDINGS: LUNGS: Exam is limited due to artifact from respiratory motion. There is a 2 mm right apical nodule (axial image 69 series 5) that is stable. There is a 5 mm heterogeneous or semisolid predominately ground-glass attenuation right upper lobe nodule (axial image 112 series 5) that is stable. There is a 3 mm left upper lobe nodule (axial image 138 series 5) that is stable. There is a 3 mm superior segment left lower lobe nodule (axial image 193 series 5) that is new. The 2 lateral pulmonary nodules in the left upper and left lower lobes are triangular in shape and are suggestive of intrapulmonary lymph nodes. No other new pulmonary nodule is seen. There is scarring or subsegmental atelectasis in the left lower lobe and lingula. MEDIASTINUM: There is coronary artery calcification. The mediastinum is otherwise normal. PLEURA: There is no pleural effusion. No pleural mass or thickening. AXILLA: No chest wall mass or enlarged axillary lymph nodes are seen. There is new stranding of the subcutaneous fat in the medial upper chest, for example axial image 19 series 3. Appearance is nonspecific. UPPER ABDOMEN: There are gallstones in the gallbladder. OSSEOUS STRUCTURES: There are degenerative changes of the spine. CT/CT chest wo con IMPRESSION: Limited exam due to artifact from respiratory motion. New superior segment left lower lobe nodule. This is triangular in shape and may represent an intrapulmonary lymph node. Otherwise, the pulmonary nodules are stable. Coronary artery calcification. New small area of stranding of the subcutaneous fat of the upper medial left chest wall. Gallstones. Fleischner guidelines were followed.
== END 2021-04-22 00:01 | disposition home or self-care (01) ==
LOC: HO.CT
PROVIDERS: Visit Provider Internal Medicine Pulmonary Disease
DX: R91.1 Solitary pulmonary nodule (principal)
CPT/HCPCS: 71250

== ENCOUNTER 2021-04-29 13:49 | Outpatient (REF) | payer MEDICAID, SELFPAY ==
--- NOTE | ~2021-04-29 | MM_ITS ---
EXAMINATION: MM SCREENING DIGITAL BREAST TOMOSYNTHESIS, BILATERAL CLINICAL INFORMATION: Screening. Asymptomatic. The lifetime risk of breast cancer based on the Tyrer-Cuzick Model is 5%. COMPARISON: Mammography: 04/21/2020, 04/16/2019, 03/05/2018 TECHNIQUE: Digital breast tomosynthesis is performed in both the craniocaudal and mediolateral oblique views along with computer-aided detection (CAD). Synthesized 2D images are generated from the tomosynthesis. FINDINGS: The breasts are almost entirely fatty (ACR BI-RADS breast composition Category a). There are no significant masses, abnormal calcifications, or other abnormalities. Background stromal and fibroglandular densities are stable. No developing density. There are no significant changes. MM/MM tomosynthesis screening BI IMPRESSION: No mammographic evidence of malignancy. ASSESSMENT: BI-RADS 1: Negative RECOMMENDATION: Routine annual mammography screening. This patient's information was entered into a reminder system with a target due date for their next mammogram.
== END 2021-04-29 13:50 | disposition home or self-care (01) ==
LOC: HO.MAMMO 13:49
PROVIDERS: Visit Provider Family Medicine
DX: Z12.31 Encounter for screening mammogram for malignant neoplasm of breast (principal)
CPT/HCPCS: 77063; 77067

== ENCOUNTER → 2021-05-05 14:52 | Outpatient (BNVA) | payer MEDICAID, SELFPAY | PROVIDERS: PCP Family Medicine; Visit Provider Internal Medicine Pulmonary Disease | DX: R91.8 Other nonspecific abnormal finding of lung field (principal) | CPT/HCPCS: 99212 ==

== ENCOUNTER 2021-06-12 11:23 | Emergency (ER) | payer MEDICAID, SELFPAY ==
--- NOTE | ~2021-06-12 | XR_ITS ---
EXAMINATION: XR CHEST CLINICAL INFORMATION: Shortness of breath COMPARISON: Previous chest x-ray most recent May [address] April 2021 TECHNIQUE: 2 views of the chest were obtained. FINDINGS: The cardiac and mediastinal contours are stable. The lungs are clear. There is no pleural effusion or pneumothorax. There are degenerative changes of the spine. XR/XR chest 2V IMPRESSION: Unremarkable examination.
[2021-06-12 11:46] VITALS: BP 160/34; PULSE 81; RESP 20; TEMP 37.4; O2SAT 95; BMI 30.2
[2021-06-12 12:14] LABS: COVID-19 Test Negative (Negative); IDNOW Serial# 55D5AD1C; Influenza A Positive (Negative); Influenza B2 Negative (Negative)
--- NOTE | 2021-06-12 13:01 | ED.GENADULT ---
HPI - General Adult General Chief complaint: General Medical Stated complaint: Fever/Cough/SOB Time Seen by Provider: 06/12/21 11:45 Source: patient, family (daughter) and japanese interpreter Mode of arrival: ambulatory Limitations: language barrier History of Present Illness HPI narrative: Patient is a 65 year old female presenting to the emergency department today with a cough and feeling generally unwell. Patient states that over the last few days, she has had a cough and felt generally unwell. Patient denies any dizziness, lightheadedness, abdominal pain, nausea, vomiting, fever, chills, blurry vision, double vision, loss of vision, chest pain, difficulty breathing, shortness of breath, back pain, night sweats, pain with urination, increased urinary frequency, increased urinary urgency, blood in her urine or stool, syncope or a near syncopal episode, recent trauma or falls, bowel incontinence, bladder incontinence, bowel retention, bladder retention, or any other complaints at this time. Onset (ago): day(s) Radiation: non-radiation Relieving factors: none Exacerbating factors: none Associated symptoms: cough Treatments prior to arrival: none Related Data Home Medications Medication Instructions Recorded Confirmed albuterol sulfate 90 mcg/actuation 2 puff INHALATION Q4-6H PRN 11/25/19 01/04/21 aerosol inhaler amitriptyline 25 mg tablet 25 mg PO DAILY 11/25/19 01/04/21 aspirin 81 mg tablet,delayed 81 mg PO DAILY 11/25/19 01/04/21 release (Adult Aspirin Regimen) atorvastatin 40 mg tablet 40 mg PO DAILY 11/25/19 01/04/21 buspirone 15 mg tablet 15 mg PO BID 11/25/19 01/04/21 cholecalciferol (vitamin D3) 25 25 mcg PO DAILY 11/25/19 01/04/21 mcg (1,000 unit) capsule cyanocobalamin (vitamin B-12) 1,000 mcg PO DAILY 11/25/19 01/04/21 1,000 mcg capsule fluticasone propionate 220 1 puff INHALATION Q12H 11/25/19 01/04/21 mcg/actuation HFA aerosol inhaler (Flovent HFA) fluticasone propionate 50 1 spray INTRANASAL DAILY 11/25/19 01/04/21 mcg/actuation nasal spray,suspension gabapentin 300 mg capsule 300 mg PO BID 11/25/19 01/04/21 hydroxychloroquine 200 mg tablet 200 mg PO DAILY 11/25/19 01/04/21 ibuprofen 600 mg tablet 600 mg PO TID 11/25/19 01/04/21 lisinopril 2.5 mg tablet 2.5 mg PO DAILY 11/25/19 01/04/21 loratadine 10 mg tablet (Allergy 10 mg PO DAILY 11/25/19 01/04/21 Relief (loratadine)) metformin 500 mg tablet 500 mg PO DAILY 11/25/19 01/04/21 mirtazapine 30 mg tablet 30 mg PO BEDTIME 11/25/19 01/04/21 omeprazole 20 mg capsule,delayed 20 mg PO DAILY 11/25/19 01/04/21 release insulin glargine 100 unit/mL (3 24 unit SUBCUT QPM ml 03/23/20 01/04/21 mL) subcutaneous pen (Lantus Solostar U-100 Insulin) insulin lispro 100 unit/mL 3 unit SUBCUT TID ml 09/14/20 01/04/21 subcutaneous pen (Humalog KwikPen (U-100) Insulin) Previous Rx's Medication Instructions Recorded levothyroxine 50 mcg capsule 50 mcg PO DAILY 30 Days #30 cap 01/04/21 tramadol 50 mg tablet 50 mg PO Q8H PRN #20 tab 04/07/21 albuterol sulfate 90 mcg/actuation 2 puff INHALATION Q6H PRN #8.5 g 06/12/21 aerosol inhaler levofloxacin 750 mg tablet 750 mg PO DAILY 5 Days #5 tab 06/12/21 prednisone 20 mg tablet 20 mg PO DAILY 12 Days #26 tab 06/12/21 Allergies Allergy/AdvReac Type Severity Reaction Status Date / Time No Known Allergies Allergy Mild NONE Verified 05/05/21 14:57 Review of Systems Constitutional: Constitutional: Reports no additional constitutional complaints, Denies chills, Denies fever(s) and Denies night sweats Eyes: Eyes: Reports no additional eye complaints, Denies blurry vision, Denies change in vision, Denies diplopia, Denies eye discharge, Denies loss of vision and Denies eye pain ENT: Denies dizziness Cardiovascular: Cardiovascular: Reports no additional cardiovascular complaints, Denies chest pain, Denies lightheadedness, Denies Loss of Consciousness and Denies dyspnea Respiratory: Respiratory: Reports no additional respiratory complaints, Reports cough and Denies dyspnea Gastrointestinal: Gastrointestinal: Reports no additional gastrointestinal complaints, Denies abdominal pain, Denies melena, Denies hematochezia, Denies change in bowel habits and Denies change in stool character Genitourinary: Genitourinary: Denies hematuria, Denies urinary frequency, Denies dysuria, Denies urinary incontinence, Denies urinary hesitancy and Denies urinary urgency Musculoskeletal: Musculoskeletal: Reports no additional musculoskeletal complaints, Denies numbness and Denies tingling Neurologic: Denies dizziness, Denies loss of vision, Denies numbness and Denies tingling Psychiatric: Psychiatric: Reports no additional psychiatric complaints Endocrine: Endocrine: Reports no additional endocrine complaints Hematologic/Lymphatic: Hematologic/Lymphatic: Reports no additional hematologic/lymphatic complaints Allergic/Immunologic: Allergic/Immunologic: Reports no additional allergic/immunologic complaints PMFSH Past Medical History Attestation statement: The following information was validated with the patient. 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 Asthma HLD (hyperlipidemia) Hyperparathyroidism Hypothyroidism Multinodular thyroid Peripheral neuropathy Pulmonary nodule T2DM (type 2 diabetes mellitus) Vitamin D deficiency Surgical History History of surgery on arm Hx of section Hx of tubal ligation Family History Family History Mother Diabetes Social History Social History Alcohol intake: current Alcohol intake frequency: does not drink Patient Tobacco Use Status: Never used Tobacco Advance Directives: Yes Advance Directives Information Provided: Yes Advance Directives on File: No Advance Directives Date on File: 12/05/19 Physical Exam ED Vital Signs: Vital Signs - 24 hr 06/12/21 11:46 Temperature 99.4 F Pulse Rate 81 Respiratory Rate 20 Blood Pressure 160/34 H Pulse Oximetry 95 BMI result Body Mass Index 30.2 Const General: cooperative, no acute distress, alert and awake Nutritional Appearance: well nourished Orientation/consciousness: patient oriented x3 Limitations: no limitations HENMT Head: Yes normal to inspection and Yes atraumatic Ears: hearing grossly normal bilaterally and external ears normal General nose exam: Normal external nose present, no nasal discharge noted and no epistaxis Face and sinus: Yes normal facial exam, No abrasion and No laceration Mouth: Normal oral and palatal mucosa present, no drooling and no muffled voice Eyes General: appearance normal, both eyes and all related structures Periorbital: periorbital findings normal Eyelids: Yes eyelids normal Conjunctivae: conjunctivae normal Pupils: Equal, round and reactive pupils present EOM: EOMs intact bilaterally Neck Neck: Yes normal visual inspection, Yes full ROM and Yes no lymphadenopathy Chest Chest palpation & inspection: normal inspection of the chest Resp Effort & Inspection: normal respiratory effort and able to speak in complete sentences Auscultation: clear to auscultation bilaterally Cardio Rate: regular rate Rhythm: regular rhythm GI Inspection: Yes normal to inspection Neuro General: patient oriented x3 and moves all extremities Cranial nerves: Yes Equal, round and reactive pupils present Cognition (Neuro): normal cognition Motor exam (neuro): 5/5 motor strength present throughout Sensory Exam: Normal double simultaneous stimulation for sensation Coordination: [id number] test normal Extrem General: Yes normal to inspection, Yes full ROM and Yes capillary refill normal Psych Appearance: grossly normal Mental Status: mental status grossly normal Affect: normal affect Attitude: cooperative Thought process: Normal thought process present Thought content: Normal thought content present Insight: Good insight present (Psych) Medical Decision Making MDM Narrative Medical decision making narrative: Patient is a 65 year old female presenting to the emergency department today with a cough and feeling generally unwell. Patient's physical exam was unremarkable. Patient's rapid influenza was positive. Patient's chest x-ray showed no acute process. I explained my physical exam findings as well as all test results to the patient and the patient's daughter. I answered all questions asked by the patient and the patient's daughter. I stressed the importance of the patient taking her medication as prescribed. I stressed the importance of the patient following up with her primary care provider. I stressed the importance of the patient returning to the emergency department immediately if her symptoms were to worsen or if she were to develop any dizziness, shortness of breath, difficulty breathing, chest pain, blurry vision, loss of vision, nausea, vomiting, abdominal pain, fever, chills, back pain, or any other complaints. Patient and her daughter verbalized agreement and understanding with this treatment plan and discharge. Differential Diagnosis Differential Diagnosis: cough, URI, pneumonia, influenza Medical Records Medical records reviewed: Yes I reviewed the patient's medical records. Lab Data Lab results reviewed: Yes I reviewed the patient's lab results. Labs: Lab Results 06/12/21 06/12/21 Range/Units 11:50 11:50 COVID-19 (LEXA) Negative (Negative) COVID-19 Clin Com See Note Influenza Type A (NILES) Positive A (Negative) Influenza Type B (NILES) Negative (Negative) Influenza A & B Note See Note Imaging Data Chest x-ray: Attestation: I personally reviewed and interpreted this imaging study as follows: My impression: No acute process. Radiologist's impression: EXAMINATION: XR CHEST CLINICAL INFORMATION: Shortness of breath COMPARISON: Previous chest x-ray most recent May [address] April 2021 TECHNIQUE: 2 views of the chest were obtained. FINDINGS: The cardiac and mediastinal contours are stable. The lungs are clear. There is no pleural effusion or pneumothorax. There are degenerative changes of the spine. XR/XR chest 2V IMPRESSION: Unremarkable examination. Dictated By: Mariana Ibarra MD Signed By: Electronically signed by Mariana Ibarra MD 06/12/21 1249 Discharge Plan Discharge Clinical Impression: Influenza, Cough Patient Disposition: Home, Self-Care Additional Instructions: Follow up with your primary care provider. Return to the emergency department immediately if your symptoms worsen or if you develop any dizziness, shortness of breath, difficulty breathing, chest pain, blurry vision, loss of vision, nausea, vomiting, abdominal pain, fever, chills, back pain, or any other complaints. Prescriptions: New albuterol sulfate 90 mcg/actuation HFA aerosol inhaler 2 puff inhalation Q6H PRN (Reason: shortness of breath or wheezing) Qty: 8.5 0RF prednisone 20 mg tablet 20 mg PO DAILY 12 Days Qty: 26 0RF Rx Instructions: Take 3 tablets by mouth for 5 days THEN; Take 2 tablets by mouth for 4 days THEN; Take 1 tablet by mouth for 3 days levofloxacin 750 mg tablet 750 mg PO DAILY 5 Days Qty: 5 0RF No Action tramadol 50 mg tablet 50 mg PO Q8H PRN (Reason: pain) Qty: 20 0RF insulin lispro [Humalog KwikPen Insulin] 100 unit/mL insulin pen 3 unit subcut TID 0RF levothyroxine 50 mcg capsule 50 mcg PO DAILY 30 Days Qty: 30 11RF buspirone 15 mg tablet 15 mg PO BID 0RF lisinopril 2.5 mg tablet 2.5 mg PO DAILY 0RF loratadine [Allergy Relief (loratadine)] 10 mg tablet 10 mg PO DAILY 0RF metformin 500 mg tablet 500 mg PO DAILY 0RF Flovent HFA 220 mcg/actuation HFA aerosol inhaler 1 puff inhalation Q12H 0RF fluticasone propionate 50 mcg/actuation spray,suspension 1 spray intranasal DAILY 0RF Rx Instructions: administer into each nostril gabapentin 300 mg capsule 300 mg PO BID 0RF aspirin [Adult Aspirin Regimen] 81 mg tablet,delayed release (DR/EC) 81 mg PO DAILY 0RF cyanocobalamin (vitamin B-12) 1,000 mcg capsule 1,000 mcg PO DAILY 0RF albuterol sulfate 90 mcg/actuation HFA aerosol inhaler 2 puff inhalation Q4-6H PRN0RF ibuprofen 600 mg tablet 600 mg PO TID 0RF amitriptyline 25 mg tablet 25 mg PO DAILY 0RF cholecalciferol (vitamin D3) 25 mcg (1,000 unit) capsule 25 mcg PO DAILY 0RF mirtazapine 30 mg tablet 30 mg PO BEDTIME 0RF omeprazole 20 mg capsule,delayed release(DR/EC) 20 mg PO DAILY 0RF atorvastatin 40 mg tablet 40 mg PO DAILY 0RF hydroxychloroquine 200 mg tablet 200 mg PO DAILY 0RF Lantus Solostar U-100 Insulin 100 unit/mL (3 mL) insulin pen 24 unit subcut QPM 0RF Referrals: Alma Quijano MD [Primary Care Provider] - (Follow up with your PCP. ) Interventions: ED Discharge Assessment Last Done: 06/12/21 13:35 Discharge Date/Time: 06/12/21 13:37 Print Language: Jordanian
[2021-06-12] MEDS: Acetaminophen 325 MG TABLET 650 MG PO (13:05)
== END 2021-06-12 13:37 | disposition home or self-care (01) ==
PROVIDERS: Physician Assistant Medical; Emergency Provider Emergency Medicine; PCP Family Medicine
DX: J11.1 Influenza due to unidentified influenza virus with other respiratory manifestations (principal); R06.02 Shortness of breath; R50.9 Fever, unspecified; R05.9 Cough, unspecified; Z20.822 Contact with and (suspected) exposure to COVID-19; Z79.899 Other long term (current) drug therapy
CPT/HCPCS: 71046; 87502; 87635; 99283

== ENCOUNTER 2021-10-07 14:58 | Outpatient (REF) | payer MEDICAID, SELFPAY | END 2021-10-07 14:59 | disposition home or self-care (01) | LOC: HO.HAP 14:58 | PROVIDERS: Visit Provider Family Medicine | DX: Z46.1 Encounter for fitting and adjustment of hearing aid (principal); H90.3 Sensorineural hearing loss, bilateral | CPT/HCPCS: 92593 ==

== ENCOUNTER 2022-05-04 09:29 | Outpatient (REF) | payer MEDICAID, SELFPAY ==
--- NOTE | ~2022-05-04 | CT_ITS ---
EXAMINATION: CT CHEST WITHOUT CONTRAST CLINICAL INFORMATION: Solitary pulmonary nodule. COMPARISON: CT chest 04/22/2021. TECHNIQUE: Multidetector volumetric CT imaging of the chest was done. Axial MIP volume rendering provided. Sagittal and coronal reformatted images were obtained. This CT examination was performed using dose optimization techniques as appropriate, variously including the following: *Automated exposure control *Adjustment of mA and/or kV according to patient size (this includes techniques or standardized protocols for targeted exams where dose is matched to indication/reason for exam; i.e. extremities or head) *Use of iterative reconstruction technique DLP: 125 mGy-cm. FINDINGS: IMAGERY INTELLIGENCE: Well-expanded lungs. LUNGS: The lungs are well expanded without acute pneumonic process. There is minimal bilateral apical parenchymal scarring and pleural thickening. There is a 2 mm right apical nodule axial image 62/6, a 5 mm ill-defined density in right upper lobe axial image 112/6, a 2 mm calcified nodule left upper lobe axial image 147/6, previously measured 3 mm, a 2 mm nodule along the left major fissure axial image 235/6, a linear 4 mm thickening along right major fissure axial image 234/6, linear atelectasis left lower lobe axial image 318/6 and a 2 mm nodule right lower lobe medial basal segment axial image 349/6. MEDIASTINUM: The thyroid lobes are symmetrical and normal. The central trachea and bronchi are widely patent. Heart size and the great vessels are normal caliber. No abnormal size mediastinal or hilar lymph nodes seen. Central trachea and the bronchi widely patent. No pericardial effusion seen. CORONARY ARTERY CALCIFICATION: Mild coronary artery calcifications are present. PLEURA: There is no pleural effusion. No pleural mass or thickening. AXILLA: No lymphadenopathy. UPPER ABDOMEN: Visualized liver, spleen, pancreas and bilateral adrenal glands unremarkable. There are multiple radiopaque gallstones without wall thickening. OSSEOUS STRUCTURES: No aggressive lytic or sclerotic process seen. There is mild ventral spondylosis mid and lower dorsal spine. CT/CT chest wo IV con IMPRESSION: 1. Multiple bilateral pulmonary nodules, largest measuring 5 mm in right upper lobe. These nodules are stable. No new nodules seen. Minimal atelectatic changes as described above. 2. No abnormal mediastinal or axillary lymph nodes seen. 3. Cholelithiasis without wall thickening. Fleischner guidelines were followed.
== END 2022-05-04 09:30 | disposition home or self-care (01) ==
LOC: HO.CT 09:29
PROVIDERS: PCP Family Medicine; Visit Provider Internal Medicine Pulmonary Disease
DX: R91.1 Solitary pulmonary nodule (principal)
CPT/HCPCS: 71250

== ENCOUNTER 2022-05-05 13:39 | Outpatient (REF) | payer MEDICAID, SELFPAY ==
--- NOTE | ~2022-05-05 | MM_ITS ---
EXAMINATION: MM SCREENING DIGITAL BREAST TOMOSYNTHESIS, BILATERAL CLINICAL INFORMATION: Screening. Asymptomatic. The lifetime risk of breast cancer based on the Tyrer-Cuzick Model is 4%. COMPARISON: Mammography: April 29, 2021 and studies dating back to October 03, 2013 TECHNIQUE: Digital breast tomosynthesis is performed in both the craniocaudal and mediolateral oblique views along with computer-aided detection (CAD). Synthesized 2D images are generated from the tomosynthesis. FINDINGS: The breasts are almost entirely fatty (ACR BI-RADS breast composition Category a). There are no significant masses, abnormal calcifications, or other abnormalities. MM/MM tomosynthesis screening BI IMPRESSION: No significant changes from prior exam. ASSESSMENT: BI-RADS 1: Negative RECOMMENDATION: Routine annual mammography screening. This patient's information was entered into a reminder system with a target due date for their next mammogram.
== END 2022-05-05 13:40 | disposition home or self-care (01) ==
LOC: HO.MAMMO 13:39
PROVIDERS: PCP Family Medicine; Visit Provider Family Medicine
DX: Z12.31 Encounter for screening mammogram for malignant neoplasm of breast (principal)
CPT/HCPCS: 77063; 77067

== ENCOUNTER 2022-05-23 09:37 | Emergency (ER) | payer MEDICAID, SELFPAY ==
--- NOTE | ~2022-05-23 | CT_ITS ---
EXAMINATION: CT ABDOMEN AND PELVIS WITH CONTRAST CLINICAL INFORMATION: Abdominal pain COMPARISON: 02/02/2021 TECHNIQUE: Multidetector volumetric images were obtained from the superior aspect of the liver through the pubic symphysis following administration 85 mL of Omnipaque 350 intravenous contrast. Sagittal and coronal reformatted images were obtained on the technologist's workstation. Oral contrast: No This CT examination was performed using dose optimization techniques as appropriate, variously including the following: *Automated exposure control *Adjustment of mA and/or kV according to patient size (this includes techniques or standardized protocols for targeted exams where dose is matched to indication/reason for exam; i.e. extremities or head) *Use of iterative reconstruction technique DLP: 420 mGy-cm FINDINGS: LUNG BASES: Bibasilar atelectasis. LIVER, GALLBLADDER, AND BILIARY TREE: The liver is normal in size, shape, and attenuation. No focal hepatic lesion or biliary ductal dilatation is present. Stones in the gallbladder lumen. No definite wall thickening or adjacent inflammation. Possible gallbladder wall polyp. This measures 0.4 cm. PANCREAS: Mild atrophy with no focal abnormality. SPLEEN: Unremarkable. ADRENAL GLANDS: Mild thickening of the left adrenal gland again noted, unchanged. KIDNEYS AND URETERS: The kidneys are normal in size, shape, and attenuation. No hydronephrosis, hydroureter, or calculi seen. No perinephric stranding. BLADDER: Unremarkable. GASTROINTESTINAL TRACT: The stomach is unremarkable. Normal caliber small bowel. No obstruction. Diminutive appendix is unremarkable. No colonic wall thickening or inflammation. Scattered diverticulosis without diverticulitis. This is greatest at the sigmoid colon. No free air or free fluid. ABDOMINAL WALL: No significant hernia is appreciated. LYMPH NODES: Normal. VASCULAR: Normal caliber aorta with moderate atherosclerotic calcification. PELVIC VISCERA: Anteverted uterus with subtle lobulation, suggestive of fibroids. No adnexal mass. OSSEOUS STRUCTURES: No acute or suspicious osseous abnormality. Moderate degenerative change throughout the spine. CT/CT abdomen pelvis w IV con IMPRESSION: 1. No acute findings in the abdomen or pelvis. No inflammatory changes. 2. Cholelithiasis. Possible gallbladder wall polyp. Consider nonemergent ultrasound evaluation. 3. Colonic diverticulosis without diverticulitis. Fleischner guidelines were followed.
[2022-05-23 09:45] VITALS: BP 131/38; PULSE 61; RESP 18; TEMP 36.6; O2SAT 98; BMI 36.9
--- NOTE | 2022-05-23 09:56 | ED_ITS ---
HPI - General Adult General Chief complaint: Abdominal Pain Stated complaint: lump on abd painful Time Seen by Provider: 05/23/22 09:56 Source: patient and brim blocker Mode of arrival: ambulatory Limitations: language barrier History of Present Illness HPI narrative: Patient is a 66 year old assigned female at with a history of hypothyroidism presenting to the emergency department today with a moving bump in her abdomen. Patient states that she has been feeling a bump on her lower right abdominal quadrant that moves at times and causes intermittent pain. Patient denies any dizziness, lightheadedness, nausea, vomiting, fever, chills, blurry vision, double vision, loss of vision, chest pain, difficulty breathing, shortness of breath, back pain, night sweats, pain with urination, increased urinary frequency, increased urinary urgency, blood in her urine or stool, syncope or a near syncopal episode, recent trauma or falls, bowel incontinence, bladder incontinence, bowel retention, bladder retention, or any other complaints at this time. MD complaint: abdominal pain Onset (ago): day(s) Location: abdomen and right Radiation: non-radiation Severity: mild Severity scale (1-10): 3 Relieving factors: none Exacerbating factors: none Associated symptoms: denies other symptoms Treatments prior to arrival: none Related Data Home Medications Medication Instructions Recorded Confirmed albuterol sulfate 90 mcg/actuation 2 puff inhalation Q4-6H PRN 11/25/19 01/04/21 aerosol inhaler amitriptyline 25 mg tablet 25 mg PO DAILY 11/25/19 01/04/21 aspirin 81 mg tablet,delayed 81 mg PO DAILY 11/25/19 01/04/21 release (Adult Aspirin Regimen) atorvastatin 40 mg tablet 40 mg PO DAILY 11/25/19 01/04/21 buspirone 15 mg tablet 15 mg PO BID 11/25/19 01/04/21 cholecalciferol (vitamin D3) 25 25 mcg PO DAILY 11/25/19 01/04/21 mcg (1,000 unit) capsule cyanocobalamin (vitamin B-12) 1,000 mcg PO DAILY 11/25/19 01/04/21 1,000 mcg capsule fluticasone propionate 220 1 puff inhalation Q12H 11/25/19 01/04/21 mcg/actuation HFA aerosol inhaler (Flovent HFA) fluticasone propionate 50 1 spray intranasal DAILY 11/25/19 01/04/21 mcg/actuation nasal spray,suspension gabapentin 300 mg capsule 300 mg PO BID 11/25/19 01/04/21 hydroxychloroquine 200 mg tablet 200 mg PO DAILY 11/25/19 01/04/21 ibuprofen 600 mg tablet 600 mg PO TID 11/25/19 01/04/21 lisinopril 2.5 mg tablet 2.5 mg PO DAILY 11/25/19 01/04/21 loratadine 10 mg tablet (Allergy 10 mg PO DAILY 11/25/19 01/04/21 Relief (loratadine)) metformin 500 mg tablet 500 mg PO DAILY 11/25/19 01/04/21 mirtazapine 30 mg tablet 30 mg PO BEDTIME 11/25/19 01/04/21 omeprazole 20 mg capsule,delayed 20 mg PO DAILY 11/25/19 01/04/21 release insulin glargine 100 unit/mL (3 24 unit subcut QPM 03/23/20 01/04/21 mL) subcutaneous pen (Lantus Solostar U-100 Insulin) insulin lispro 100 unit/mL 3 unit subcut TID 09/14/20 01/04/21 subcutaneous pen (Humalog KwikPen (U-100) Insulin) Previous Rx's Medication Instructions Recorded levothyroxine 50 mcg capsule 50 mcg PO DAILY 30 days #30 caps 01/04/21 tramadol 50 mg tablet 50 mg PO Q8H PRN pain #20 tabs 04/07/21 albuterol sulfate 90 mcg/actuation 2 puff inhalation Q6H PRN 06/12/21 aerosol inhaler shortness of breath or wheezing #8.5 grams levofloxacin 750 mg tablet 750 mg PO DAILY 5 days #5 tabs 06/12/21 prednisone 20 mg tablet 20 mg PO DAILY 12 days #26 tabs 06/12/21 Allergies Allergy/AdvReac Type Severity Reaction Status Date / Time No Known Allergies Allergy Mild NONE Verified 05/23/22 09:44 Review of Systems Constitutional: Constitutional: Reports no additional constitutional complaints, Denies chills, Denies fever(s) and Denies night sweats Eyes: Eyes: Reports no additional eye complaints, Denies blurry vision, Denies change in vision, Denies diplopia, Denies eye discharge, Denies loss of vision and Denies eye pain ENT: Denies dizziness Cardiovascular: Cardiovascular: Reports no additional cardiovascular complaints, Denies chest pain, Denies lightheadedness, Denies Loss of Consciousness and Denies dyspnea Respiratory: Respiratory: Reports no additional respiratory complaints and Denies dyspnea Gastrointestinal: Gastrointestinal: Reports no additional gastrointestinal complaints, Reports abdominal pain, Denies melena, Denies hematochezia, Denies change in bowel habits and Denies change in stool character Genitourinary: Genitourinary: Denies hematuria, Denies urinary frequency, Denies dysuria, Denies urinary incontinence, Denies urinary hesitancy and Denies urinary urgency Musculoskeletal: Musculoskeletal: Reports no additional musculoskeletal complaints, Denies numbness and Denies tingling Neurologic: Denies dizziness, Denies loss of vision, Denies numbness and Denies tingling Psychiatric: Psychiatric: Reports no additional psychiatric complaints Endocrine: Endocrine: Reports no additional endocrine complaints Hematologic/Lymphatic: Hematologic/Lymphatic: Reports no additional hematologic/lymphatic complaints Allergic/Immunologic: Allergic/Immunologic: Reports no additional allergic/immunologic complaints [facility] Past Medical History Attestation statement: The following information was validated with the patient. 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 Asthma HLD (hyperlipidemia) Hyperparathyroidism Hypothyroidism Multinodular thyroid Peripheral neuropathy Pulmonary nodule T2DM (type 2 diabetes mellitus) Vitamin D deficiency Surgical History History of surgery on arm Hx of section Hx of tubal ligation Family History Family History Mother Diabetes Social History Social History Alcohol intake: never Patient Tobacco Use Status: Never used Tobacco Smoked in Last 30 Days: No Use of substances other than those prescribed or required for medical reasons: No Advance Directives: No Advance Directives Information Provided: Yes Advance Directives Date on File: 12/05/19 Patient : No Physical Exam ED Vital Signs: Vital Signs - 24 hr 05/23/22 09:45 05/23/22 12:00 Temperature 98 F 97.7 F Pulse Rate 61 58 Respiratory Rate 18 12 Blood Pressure 131/38 L 133/51 L Pulse Oximetry 98 98 Oxygen Delivery Method Room Air Room Air BMI result Body Mass Index 36.9 Const General: cooperative, no acute distress, alert and awake Nutritional Appearance: well nourished Orientation/consciousness: patient oriented x3 Limitations: no limitations HENMT Head: Yes normal to inspection and Yes atraumatic Ears: hearing grossly normal bilaterally and external ears normal General nose exam: Normal external nose present, no nasal discharge noted and no epistaxis Face and sinus: Yes normal facial exam, No abrasion and No laceration Mouth: Normal oral and palatal mucosa present, no drooling and no muffled voice Eyes General: appearance normal, both eyes and all related structures Periorbital: periorbital findings normal Eyelids: Yes eyelids normal Conjunctivae: conjunctivae normal Pupils: Equal, round and reactive pupils present EOM: EOMs intact bilaterally Neck Neck: Yes normal visual inspection, Yes full ROM and Yes no lymphadenopathy Chest Chest palpation & inspection: normal inspection of the chest Resp Effort & Inspection: normal respiratory effort and able to speak in complete sentences Auscultation: clear to auscultation bilaterally Cardio Rate: regular rate Rhythm: regular rhythm GI Other: scar present in the center of the abodmen Palpation (GI): Soft to palpation, not firm, nontender and no guarding Neuro General: patient oriented x3 and moves all extremities Cranial nerves: Yes Equal, round and reactive pupils present Cognition (Neuro): normal cognition Motor exam (neuro): 5/5 motor strength present throughout Sensory Exam: Normal double simultaneous stimulation for sensation Coordination: [id number] test normal Extrem General: Yes normal to inspection, Yes full ROM and Yes capillary refill normal Psych Appearance: grossly normal Mental Status: mental status grossly normal Affect: normal affect Attitude: cooperative Thought process: Normal thought process present Thought content: Normal thought content present Insight: Good insight present (Psych) Medications Administered Discontinued Medications Generic Name Dose Route Start Last Admin Trade Name Freq PRN Reason Stop Dose Admin Iohexol 100 ml 05/23/22 12:02 05/23/22 12:02 Iohexol 350 Mg/Ml 100 Ml Infus..Btl IV 05/23/22 12:03 85 ml ONCE ONE Administration Medical Decision Making Medical Decision Making MDM Narrative: Patient is a 66 year old assigned female at with a history of hypothyroidism presenting to the emergency department today with intermittent abdominal pain with a moving lump . Patient's physical exam was unremarkable. Patient's blood work was unremarkable. Patient's urine showed no acute process. Patient's abdominal CT showed no acute process. I explained my physical exam findings as well as all test results to the patient and the patient's daughter. I answered all questions asked by the patient and the patient's daughter. I stressed the importance of the patient taking her medication as prescribed. I stressed the importance of the patient following up with her primary care provider and a GI Specialist. I stressed the importance of the patient returning to the emergency department immediately if her symptoms were to worsen or if she were to develop any dizziness, shortness of breath, difficulty breathing, chest pain, blurry vision, loss of vision, nausea, vomiting, abdominal pain, fever, chills, back pain, or any other complaints. Patient and the patient's daughter verbalized agreement and understanding with this treatment plan and discharge. Differential Diagnosis Differential Diagnoses: The differential diagnosis associated with the presentation includes gastritis, gas, abdominal pain Lab Data MDM Lab Attestation statement: I reviewed the patient's lab results. 05/23/22 11:01 05/23/22 11:00 Labs: Lab Results 05/23/22 05/23/22 05/23/22 Range/Units 11:00 11:00 11:01 WBC 6.2 (4.8-10.8) X10*3/uL RBC 4.12 L (4.20-5.50) X10*6/uL Hgb 13.1 (12.0-16.0) g/dl Hct 38.4 (37.0-47.0) % MCV 93.2 (80.0-98.0) fL MCH 31.8 (27.0-33.0) pg MCHC 34.1 (31.0-35.0) g/dl RDW 13.0 (11.0-16.0) % Plt Count 173 (160-400) X10*3/uL MPV 10.4 (9.4-12.3) fL Immature Gran % (Auto) 0.6 H (0.0-0.4) % Neut % (Auto) 66.2 (45-73) % Lymph % (Auto) 23.7 (20-40) % Price % (Auto) 8.8 (2-11) % Eos % (Auto) 0.5 (0-4) % Baso % (Auto) 0.2 (0-2) % Lymph # (Auto) 1.5 (1.2-4.9) X10*3/uL Price # (Auto) 0.6 (0.1-1.2) X10*3/uL Eos # (Auto) 0.0 (0.0-0.4) X10*3/uL Baso # (Auto) 0.0 (0.0-0.2) X10*3/uL Abs Immat Gran (auto) 0.04 H (0.00-0.03) X10*3/uL Absolute Neuts (auto) 4.1 (2.0-8.3) x10*3/uL Absolute Nucleated RBC 0.000 (0.0-0.012) X10*3/uL Nucleated RBC % (auto) 0.0 (0.0-0.2) /100WBC Sodium 139 (135-145) mmol/L Potassium 4.7 (3.3-5.1) mmol/L Chloride 104 (96-108) mmol/L Carbon Dioxide 30 H (22-29) mmol/L Anion Gap 10 L (12-20) BUN 13 (9-16) mg/dL Creatinine 0.91 (0.5-1.4) mg/dL Estim Creat Clear Calc 32.2 Estimated GFR > 60 Random Glucose 309 H (60-115) mg/dL Calcium 8.9 D (8.4-10.2) mg/dL Magnesium 1.9 (1.6-2.6) mg/dL Total Bilirubin 0.7 (0.0-1.0) mg/dL AST 20 (5-31) U/L ALT 23 (0-31) U/L Alkaline Phosphatase 79 (39-117) U/L Total Protein 5.7 L (6.5-8.0) g/dL Albumin 3.8 (3.5-5.0) g/dL Urine Color Urine Appearance Urine pH (5.0-9.0) Ur Specific [place] (1.005-1.025) Urine Protein (Neg-Trace) mg/dL Urine Glucose (UA) (Negative) mg/dL Urine Ketones (Negative) mg/dL Urine Blood (Negative) Urine Nitrite (Negative) Ur Leukocyte Esterase (Negative) COVID-19 (LEXA) Negative (Negative) COVID-19 Clin Com See Note 05/23/22 Range/Units 12:58 WBC (4.8-10.8) X10*3/uL RBC (4.20-5.50) X10*6/uL Hgb (12.0-16.0) g/dl Hct (37.0-47.0) % MCV (80.0-98.0) fL MCH (27.0-33.0) pg MCHC (31.0-35.0) g/dl RDW (11.0-16.0) % Plt Count (160-400) X10*3/uL MPV (9.4-12.3) fL Immature Gran % (Auto) (0.0-0.4) % Neut % (Auto) (45-73) % Lymph % (Auto) (20-40) % Price % (Auto) (2-11) % Eos % (Auto) (0-4) % Baso % (Auto) (0-2) % Lymph # (Auto) (1.2-4.9) X10*3/uL Price # (Auto) (0.1-1.2) X10*3/uL Eos # (Auto) (0.0-0.4) X10*3/uL Baso # (Auto) (0.0-0.2) X10*3/uL Abs Immat Gran (auto) (0.00-0.03) X10*3/uL Absolute Neuts (auto) (2.0-8.3) x10*3/uL Absolute Nucleated RBC (0.0-0.012) X10*3/uL Nucleated RBC % (auto) (0.0-0.2) /100WBC Sodium (135-145) mmol/L Potassium (3.3-5.1) mmol/L Chloride (96-108) mmol/L Carbon Dioxide (22-29) mmol/L Anion Gap (12-20) BUN (9-16) mg/dL Creatinine (0.5-1.4) mg/dL Estim Creat Clear Calc Estimated GFR Random Glucose (60-115) mg/dL Calcium (8.4-10.2) mg/dL Magnesium (1.6-2.6) mg/dL Total Bilirubin (0.0-1.0) mg/dL AST (5-31) U/L ALT (0-31) U/L Alkaline Phosphatase (39-117) U/L Total Protein (6.5-8.0) g/dL Albumin (3.5-5.0) g/dL Urine Color Yellow Urine Appearance Clear Urine pH 6.0 (5.0-9.0) Ur Specific [place] >= 1.030 H (1.005-1.025) Urine Protein Negative (Neg-Trace) mg/dL Urine Glucose (UA) 250 H (Negative) mg/dL Urine Ketones Negative (Negative) mg/dL Urine Blood Negative (Negative) Urine Nitrite Negative (Negative) Ur Leukocyte Esterase Negative (Negative) COVID-19 (LEXA) (Negative) COVID-19 Clin Com Independent Interpretation I performed an independent interpretation of an: CT Scan Interpretation: My interpretation is in agreement with the radiologist's impression of this imaging study. -- EXAMINATION: CT ABDOMEN AND PELVIS WITH CONTRAST? CLINICAL INFORMATION: Abdominal pain? COMPARISON: 02/02/2021 ? TECHNIQUE: Multidetector volumetric images were obtained from the superior aspect of the liver through the pubic symphysis following administration 85 mL of Omnipaque 350 intravenous contrast. Sagittal and coronal reformatted images were obtained on the technologist's workstation.? Oral contrast: No This CT examination was performed using dose optimization techniques as appropriate, variously including the following: *Automated exposure control *Adjustment of mA and/or kV according to patient size (this includes techniques or standardized protocols for targeted exams where dose is matched to indication/reason for exam; i.e. extremities or head) *Use of iterative reconstruction technique DLP: 420 mGy-cm FINDINGS: LUNG BASES: Bibasilar atelectasis.? LIVER, GALLBLADDER, AND BILIARY TREE: The liver is normal in size, shape, and attenuation. No focal hepatic lesion or biliary ductal dilatation is present. Stones in the gallbladder lumen. No definite wall thickening or adjacent inflammation. Possible gallbladder wall polyp. This measures 0.4 cm.? PANCREAS: Mild atrophy with no focal abnormality.? SPLEEN: Unremarkable.? ADRENAL GLANDS: Mild thickening of the left adrenal gland again noted, unchanged.? KIDNEYS AND URETERS: The kidneys are normal in size, shape, and attenuation. No hydronephrosis, hydroureter, or calculi seen. No perinephric stranding. ? BLADDER: Unremarkable.? GASTROINTESTINAL TRACT: The stomach is unremarkable. Normal caliber small bowel. No obstruction. Diminutive appendix is unremarkable. No colonic wall thickening or inflammation. Scattered diverticulosis without diverticulitis. This is greatest at the sigmoid colon. No free air or free fluid.? ABDOMINAL WALL: No significant hernia is appreciated.? LYMPH NODES: Normal. VASCULAR: Normal caliber aorta with moderate atherosclerotic calcification. PELVIC VISCERA: Anteverted uterus with subtle lobulation, suggestive of fibroids. No adnexal mass.? OSSEOUS STRUCTURES: No acute or suspicious osseous abnormality. Moderate degenerative change throughout the spine.? CT/CT abdomen pelvis w IV con IMPRESSION: 1.? No acute findings in the abdomen or pelvis. No inflammatory changes. 2.? Cholelithiasis. Possible gallbladder wall polyp. Consider nonemergent ultrasound evaluation. 3.? Colonic diverticulosis without diverticulitis. ? Fleischner guidelines were followed. Dictated By: Nino Dietrich MD Signed By: Electronically signed by Nino Dietrich MD 05/23/22 [id number] Independent Historian Clinical information obtained from an independent historian. History obtained from or confirmed by: Other (patient's daughter) Discharge Plan Discharge Clinical Impression: Abdominal pain Patient Disposition: Home, Self-Care Instructions: Abdominal Pain (ED) Additional Instructions: Follow up with your primary care provider and a GI specialist. Return to the emergency department immediately if your symptoms worsen or if you develop any dizziness, shortness of breath, difficulty breathing, chest pain, blurry vision, loss of vision, nausea, vomiting, abdominal pain, fever, chills, back pain, or any other complaints. Ami un seguimiento con carmen proveedor de atenci?n primaria y un especialista en gastroenterolog?a. Regrese al departamento de emergencias de inmediato si rosaline s?ntomas empeoran o si presenta mareos, falta de aire, dificultad para respirar, dolor de pecho, visi?n borrosa, p?rdida de la visi?n, n?useas, v?mitos, dolor abdominal, fiebre, escalofr?os, dolor de espalda o cualquier otras quejas. Prescriptions: No Action albuterol sulfate 90 mcg/actuation HFA aerosol inhaler 2 puff inhalation Q6H PRN (Reason: shortness of breath or wheezing) Qty: 8.5 0RF prednisone 20 mg tablet 20 mg PO DAILY 12 Days Qty: 26 0RF Rx Instructions: Take 3 tablets by mouth for 5 days THEN; Take 2 tablets by mouth for 4 days THEN; Take 1 tablet by mouth for 3 days levofloxacin 750 mg tablet 750 mg PO DAILY 5 Days Qty: 5 0RF tramadol 50 mg tablet 50 mg PO Q8H PRN (Reason: pain) Qty: 20 0RF insulin lispro [Humalog KwikPen Insulin] 100 unit/mL insulin pen 3 unit subcut TID levothyroxine 50 mcg capsule 50 mcg PO DAILY 30 Days Qty: 30 11RF buspirone 15 mg tablet 15 mg PO BID lisinopril 2.5 mg tablet 2.5 mg PO DAILY loratadine [Allergy Relief (loratadine)] 10 mg tablet 10 mg PO DAILY metformin 500 mg tablet 500 mg PO DAILY Flovent HFA 220 mcg/actuation HFA aerosol inhaler 1 puff inhalation Q12H fluticasone propionate 50 mcg/actuation spray,suspension 1 spray intranasal DAILY Rx Instructions: administer into each nostril gabapentin 300 mg capsule 300 mg PO BID aspirin [Adult Aspirin Regimen] 81 mg tablet,delayed release (DR/EC) 81 mg PO DAILY cyanocobalamin (vitamin B-12) 1,000 mcg capsule 1,000 mcg PO DAILY albuterol sulfate 90 mcg/actuation HFA aerosol inhaler 2 puff inhalation Q4-6H PRN ibuprofen 600 mg tablet 600 mg PO TID amitriptyline 25 mg tablet 25 mg PO DAILY cholecalciferol (vitamin D3) 25 mcg (1,000 unit) capsule 25 mcg PO DAILY mirtazapine 30 mg tablet 30 mg PO BEDTIME omeprazole 20 mg capsule,delayed release(DR/EC) 20 mg PO DAILY atorvastatin 40 mg tablet 40 mg PO DAILY hydroxychloroquine 200 mg tablet 200 mg PO DAILY Lantus Solostar U-100 Insulin 100 unit/mL (3 mL) insulin pen 24 unit subcut QPM Referrals: Alma Quijano MD [Primary Care Provider] - Print Language: Kyrgyz
--- NOTE | 2022-05-23 11:05 | PC.NURSE ---
Addendum entered by Diana Singer RN 05/23/22 13:43: rt abd soft, non tender to palpation Original Note: assumed care for this patient at 11 am, patient a&ox3, c/o rt abd pain, iv inserted, labs drawn, family at bedside, vss, pt awaiting ct scan, call burton within reach will continue to monitor.
[2022-05-23 11:06] LABS: MANUAL DIFF FLAG NO
[2022-05-23 11:13] LABS: Basophils Percent Auto 0.2 % (0-2); Eosinophils Percent Auto 0.5 % (0-4); Hematocrit 38.4 % (37.0-47.0); Hemoglobin 13.1 g/dl (12.0-16.0); Imm Gran Abs Auto 0.04 X10*3/uL (0.00-0.03); Imm Gran Pct Auto 0.6 % (0.0-0.4); Lymphocytes Absolute Auto 1.5 X10*3/uL (1.2-4.9); Lymphocytes Percent Auto 23.7 % (20-40); Mean Corpuscular HGB Conc 34.1 g/dl (31.0-35.0); Mean Corpuscular Hemoglobin 31.8 pg (27.0-33.0); Mean Corpuscular Volume 93.2 fL (80.0-98.0); Mean Platelet Volume 10.4 fL (9.4-12.3); Monocytes Absolute Auto 0.6 X10*3/uL (0.1-1.2); Monocytes Percent Auto 8.8 % (2-11); Neutrophils Absolute Auto 4.1 x10*3/uL (2.0-8.3); Neutrophils Percent Auto 66.2 % (45-73); Platelet Count 173 X10*3/uL (160-400); Red Blood Count 4.12 X10*6/uL (4.20-5.50); White Blood Count 6.2 X10*3/uL (4.8-10.8)
[2022-05-23 11:36] LABS: Alanine Aminotransferase 23 U/L (0-31); Albumin Level 3.8 g/dL (3.5-5.0); Alkaline Phosphatase 79 U/L (39-117); Anion Gap 10 (12-20); Aspartate Amino Transferase 20 U/L (5-31); Bilirubin Total 0.7 mg/dL (0.0-1.0); Blood Urea Nitrogen 13 mg/dL (9-16); Calcium 8.9 mg/dL (8.4-10.2); Carbon Dioxide 30 mmol/L (22-29); Chloride 104 mmol/L (96-108); Creatinine Clr Calc Pharmacy 32.2; Estimated Glomerular Filt Rate > 60; Glucose Random 309 mg/dL (60-115); Magnesium 1.9 mg/dL (1.6-2.6); Potassium 4.7 mmol/L (3.3-5.1); Sodium 139 mmol/L (135-145); Total Protein 5.7 g/dL (6.5-8.0)
[2022-05-23 11:43] LABS: COVID-19 Test Negative (Negative); IDNOW Serial# 9DB6401D
--- NOTE | 2022-05-23 11:50 | PC.NURSE ---
pt to ct scan
[2022-05-23 12:00] VITALS: BP 133/51; PULSE 58; RESP 12; TEMP 36.5; O2SAT 98
[2022-05-23] MEDS: iohexoL 350 MG/ML 100 ML INFUS..BTL IV (12:02)
--- NOTE | 2022-05-23 12:26 | PC.NURSE ---
pt reporting right abd pain with palpation. vitals stable. will cont to monitor
--- NOTE | 2022-05-23 13:00 | PC.NURSE ---
pt ambulated with stby assist to bathroom- urine obtained
[2022-05-23 13:10] LABS: Appearance Urine Clear; Color Urine Yellow; Glucose Urine UA 250 mg/dL (Negative); Leukocyte Esterase Urine Negative (Negative); Nitrite Urine Negative (Negative); Specific Gravity - Urine >= 1.030 (1.005-1.025); Urine Blood Negative (Negative); Urine Ketones Negative (Negative); Urine Protein Negative (Neg-Trace)
[2022-05-23 13:45] VITALS: BP 127/54; PULSE 60; RESP 16; O2SAT 98
== END 2022-05-23 13:48 | disposition home or self-care (01) ==
PROVIDERS: Physician Assistant Medical; Emergency Provider Emergency Medicine; PCP Family Medicine
DX: R10.9 Unspecified abdominal pain (principal); R19.03 Right lower quadrant abdominal swelling, mass and lump; Z79.899 Other long term (current) drug therapy; Z20.822 Contact with and (suspected) exposure to COVID-19; Z20.828 Contact with and (suspected) exposure to other viral communicable diseases
CPT/HCPCS: 74177; 80053; 81003; 83735; 85025; 87635; 99284; Q9967

== ENCOUNTER → 2022-06-30 14:46 | Outpatient (BNVA) | payer MEDICAID, SELFPAY | PROVIDERS: PCP Family Medicine; Visit Provider Internal Medicine Pulmonary Disease | DX: J45.909 Unspecified asthma, uncomplicated (principal); R91.1 Solitary pulmonary nodule | CPT/HCPCS: 99212 ==

== ENCOUNTER 2022-07-08 09:32 | Outpatient (REF) | payer MEDICAID, SELFPAY ==
--- NOTE | ~2022-07-08 | US_ITS ---
EXAMINATION: US ABDOMEN COMPLETE CLINICAL INFORMATION: Abdominal pain. COMPARISON: CT abdomen and pelvis 05/23/2022. TECHNIQUE: Real-time imaging of the abdominal viscera. FINDINGS: PANCREAS: Pancreas is limited for evaluation, being obscured by bowel ABDOMINAL AORTA: The proximal, mid, and distal segments are normal in caliber. INFERIOR VENA CAVA: Visualized portions are normal. LIVER: Normal. The liver is normal in size. The liver contour is normal. Parenchymal echogenicity is normal. No focal hepatic lesion. There is no intrahepatic biliary duct dilatation seen. GALLBLADDER: The gallbladder is physiologically distended. Multiple mobile gallstones are present. No evidence of gallbladder wall thickening or pericholecystic fluid. COMMON BILE DUCT: Not seen RIGHT KIDNEY: Normal. No hydronephrosis. No renal calculi or focal parenchymal lesions. The kidney measures 10.2 cm in maximum dimension. LEFT KIDNEY: Normal. No hydronephrosis. No renal calculi or focal parenchymal lesions. The kidney measures 10.6 cm in maximum dimension. SPLEEN: Normal. The spleen measures 11.7 cm in maximum dimension. FREE FLUID: None. US/US abdomen complete IMPRESSION: Cholelithiasis.
== END 2022-07-08 09:33 | disposition home or self-care (01) ==
LOC: HO.US 09:32
PROVIDERS: PCP Family Medicine; Visit Provider Family Medicine
DX: K82.4 Cholesterolosis of gallbladder (principal)
CPT/HCPCS: 76700

== ENCOUNTER → 2022-07-29 10:30 | Outpatient (BNVA) | payer MEDICAID, SELFPAY | PROVIDERS: PCP Family Medicine; Referring Provider Family Medicine; Visit Provider Surgery | DX: K80.50 Calculus of bile duct without cholangitis or cholecystitis without obstruction (principal) | CPT/HCPCS: 99202 ==

== ENCOUNTER 2022-08-17 06:09 | Day surgery (SDC) | payer MEDICAID, SELFPAY ==
--- NOTE | 2022-08-16 12:05 | HO.ANESPROP2 ---
Documented by User: Michelle Maddox NP 08/16/22 13:51 HPI - Anesthesia Eval Consult details Narrative: 66yo F for Cholecystectomy Laparoscopic,poss open Stable at f/u cardiology office visit 11/2021 - nonobstructive CAD without any CP/palps; htn well controlled; ECHO ok. 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 Asthma HLD (hyperlipidemia) Hyperparathyroidism Hypothyroidism Multinodular thyroid Peripheral neuropathy Pulmonary nodule T2DM (type 2 diabetes mellitus) Vitamin D deficiency Family History Family History (Updated 07/29/22 @ 11:00 by YIMI Lundberg) Mother Diabetes Family/Other Breast cancer Surgical History Surgical History (Updated 08/15/22 @ 10:31 by Myrtle Hawkins RN) H/O colonoscopy History of surgery on arm Hx of section Hx of tubal ligation Social History Social History Alcohol intake: never Patient Tobacco Use Status: Never used Tobacco Advance Directives Date on File: 12/05/19 Meds Allergies Allergy/AdvReac Type Severity Reaction Status Date / Time No Known Allergies Allergy Mild NONE Verified 07/29/22 10:56 Home Medications Medication Instructions Recorded Confirmed Last Taken Type amitriptyline 25 mg tablet 25 mg PO DAILY 11/25/19 08/15/22 Unknown History aspirin 81 mg tablet,delayed 81 mg PO DAILY 11/25/19 08/15/22 Unknown History release (Adult Aspirin Regimen) atorvastatin 40 mg tablet 40 mg PO DAILY 11/25/19 08/15/22 Unknown History buspirone 15 mg tablet 15 mg PO BID 11/25/19 08/15/22 Unknown History cholecalciferol (vitamin D3) 25 25 mcg PO DAILY 11/25/19 08/15/22 Unknown History mcg (1,000 unit) capsule cyanocobalamin (vitamin B-12) 1,000 mcg PO DAILY 11/25/19 08/15/22 Unknown History 1,000 mcg capsule fluticasone propionate 220 1 puff inhalation Q12H 11/25/19 08/15/22 Unknown History mcg/actuation HFA aerosol inhaler (Flovent HFA) fluticasone propionate 50 1 spray intranasal DAILY 11/25/19 08/15/22 Unknown History mcg/actuation nasal spray,suspension gabapentin 300 mg capsule 300 mg PO BID 11/25/19 08/15/22 Unknown History lisinopril 2.5 mg tablet 2.5 mg PO DAILY 11/25/19 08/15/22 Unknown History loratadine 10 mg tablet (Allergy 10 mg PO DAILY 11/25/19 08/15/22 Unknown History Relief (loratadine)) mirtazapine 30 mg tablet 30 mg PO BEDTIME 11/25/19 08/15/22 Unknown History omeprazole 20 mg capsule,delayed 20 mg PO DAILY 11/25/19 08/15/22 Unknown History release insulin glargine 100 unit/mL (3 24 unit subcut QPM 03/23/20 08/15/22 Unknown History mL) subcutaneous pen (Lantus Solostar U-100 Insulin) insulin lispro 100 unit/mL 3 unit subcut TID 09/14/20 08/15/22 Unknown History subcutaneous pen (Humalog KwikPen (U-100) Insulin) dulaglutide 1.5 mg/0.5 mL 1.5 mg subcut QWEEK 07/29/22 08/15/22 Unknown History subcutaneous pen injector (Trulicity) Exam Exam Date and Time: August 16, 2022 1205 Pertinent Lab Results Pertinent Lab Results: Laboratory Tests 05/23/22 05/23/22 11:00 11:01 WBC 6.2 Hgb 13.1 Hct 38.4 Plt Count 173 Sodium 139 Potassium 4.7 Chloride 104 Carbon Dioxide 30 H BUN 13 Creatinine 0.91 Narrative Narrative: ECHO 11/2021 1. Nml LV function 2. LV systolic function nml with EF 65-70% 3. Diastolic filling pattern nml 4. 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 Asthma HLD (hyperlipidemia) Hyperparathyroidism Hypothyroidism Multinodular thyroid Peripheral neuropathy Pulmonary nodule T2DM (type 2 diabetes mellitus) Vitamin D deficiency Family History Family History (Updated 07/29/22 @ 11:00 by YIMI Lundberg) Mother Diabetes Family/Other Breast cancer Family history of problems with anesthesia: No Surgical History Surgical History (Updated 08/15/22 @ 10:31 by Myrtle Hawkins RN) H/O colonoscopy History of surgery on arm Hx of section Hx of tubal ligation History of Problems with Anesthesia: No Social History Social History Alcohol intake: never Patient Tobacco Use Status: Never used Tobacco Advance Directives Date on File: 12/05/19 Meds Allergies Allergy/AdvReac Type Severity Reaction Status Date / Time No Known Allergies Allergy Mild NONE Verified 07/29/22 10:56 Home Medications Medication Instructions Recorded Confirmed Last Taken Type amitriptyline 25 mg tablet 25 mg PO DAILY 11/25/19 08/15/22 Unknown History aspirin 81 mg tablet,delayed 81 mg PO DAILY 11/25/19 08/15/22 Unknown History release (Adult Aspirin Regimen) atorvastatin 40 mg tablet 40 mg PO DAILY 11/25/19 08/15/22 Unknown History buspirone 15 mg tablet 15 mg PO BID 11/25/19 08/15/22 Unknown History cholecalciferol (vitamin D3) 25 25 mcg PO DAILY 11/25/19 08/15/22 Unknown History mcg (1,000 unit) capsule cyanocobalamin (vitamin B-12) 1,000 mcg PO DAILY 11/25/19 08/15/22 Unknown History 1,000 mcg capsule fluticasone propionate 220 1 puff inhalation Q12H 11/25/19 08/15/22 Unknown History mcg/actuation HFA aerosol inhaler (Flovent HFA) fluticasone propionate 50 1 spray intranasal DAILY 11/25/19 08/15/22 Unknown History mcg/actuation nasal spray,suspension gabapentin 300 mg capsule 300 mg PO BID 11/25/19 08/15/22 Unknown History lisinopril 2.5 mg tablet 2.5 mg PO DAILY 11/25/19 08/15/22 Unknown History loratadine 10 mg tablet (Allergy 10 mg PO DAILY 11/25/19 08/15/22 Unknown History Relief (loratadine)) mirtazapine 30 mg tablet 30 mg PO BEDTIME 11/25/19 08/15/22 Unknown History omeprazole 20 mg capsule,delayed 20 mg PO DAILY 11/25/19 08/15/22 Unknown History release insulin glargine 100 unit/mL (3 24 unit subcut QPM 03/23/20 08/15/22 Unknown History mL) subcutaneous pen (Lantus Solostar U-100 Insulin) insulin lispro 100 unit/mL 3 unit subcut TID 09/14/20 08/15/22 Unknown History subcutaneous pen (Humalog KwikPen (U-100) Insulin) dulaglutide 1.5 mg/0.5 mL 1.5 mg subcut QWEEK 07/29/22 08/15/22 Unknown History subcutaneous pen injector (Trulicity) Exam Airway Mallampati Class: III TM Dist: <=3cm Neck ROM: Full Denture: Upper and Lower Loose/Missing/Broken Teeth: Yes, Upper and Lower Heart: ok. See above. Lungs: ok. Assessment and Plan Assessment Anesthesia Assessment: Anesthesia Plan Discussed and Chart Reviewed Final Anesthetic Review Family History of Problems with Anesthesia: No History of Problems with Anesthesia: No NPO: Yes ASA Class: III Final Preanesthetic Review: No Changes in Pt Med Stat, Meds/Allgs Chart Reviewed, Consent Obtained/Reviewed and Anes Risks/Benef Reviewed Patient Risk: Intermediate Procedure Risk: Intermediate Anesthetic Plan Anesthetic Plan: GA and Agree w/ Assess. and Plan Disposition: Standard PACU
[2022-08-17 06:32] VITALS: BMI 37.5
[2022-08-17 06:33] VITALS: BP 133/29; PULSE 63; RESP 16; TEMP 36.2; O2SAT 97
[2022-08-17] MEDS: Lactated Ringers 1,000 ML 100 ML IVCONT (06:46)
[2022-08-17 06:48] LABS: Glucose, Whole Blood 201 mg/dL (60-115)
--- NOTE | 2022-08-17 07:27 | MHC.SHP ---
Pre-Procedural Eval Section A Date of Service: 08/17/22 The patient is an INPATIENT: No Changes since office visit: Yes Patient answered all questions; No Cold of Flu in the past 2 weeks, No New Medical Problems and No Changes in Medication The History & Physical has been completed within 30 days and I have reviewed it.: Yes Section B Chief Complaint: Calculus of bile duct without cholangitis or bassam Allergies: Allergies Allergy/AdvReac Type Severity Reaction Status Date / Time No Known Allergies Allergy Mild NONE Verified 07/29/22 10:56 Plan Diagnosis/Plan: Unchanged I have reviewed the history and physical and performed a pertinent physical examination on my patient. No changes have occurred unless specified. Time Spent With Patient Time: Total time managing care of this patient today ____ minutes.
--- NOTE | 2022-08-17 07:31 | W.PM.OPN ---
Operative Note Operative Note Date of Service: 08/17/22 Narrative: Preoperative diagnosis: biliary colic Postoperative diagnosis: Same Procedure: Laparoscopic cholecystectomy Surgeon: Antonio Mistry MD Librarian Head: Clementine Hutson RN Anesthesia: General endotracheal Indications for procedure: 66-year-old female patient presenting with complaints of upper abdominal pain in the right upper quadrant associated with fatty food intake found to have gallstones within the gallbladder Operative findings: evidence of chronic cholecystitis with adhesions to the gallbladder wall. Specimen: gallbladder Estimated blood loss: Less than 2 mL Complications: none Procedure details: Patient was brought to the OR and placed in a supine position. After administering general anesthesia the patient's abdomen was prepped with ChloraPrep and draped in a sterile fashion. Local anesthesia consisting of 0.5% Sensorcaine without epinephrine was infiltrated in a periumbilical region. A 5 mm incision was made above the umbilicus in a transverse fashion. The Veress needle was then inserted while elevating abdominal cavity with towel clips. After positive drop test the abdomen was insufflated to a pressure of 15 mm of mercury. The Veress needle was then removed and a 5 mm trocar inserted. The camera was inserted in the abdomen explored. A 12 mm trocar was then placed in the epigastrium. Two 5 mm trocars placed in the right upper quadrant by the special ed assistant. The patient was placed in reverse Trendelenburg positioning and rotated to the left. The gallbladder was grasped with the fundus and retracted cephalad by the special ed assistant. The infundibulum was then grasped and retracted away from the liver bed, also by the special ed assistant. The Dolphin dissected was then used by the surgeon to dissect the peritoneum off the infundibulum to reveal the junction with the cystic duct. Cystic artery was noted slightly medial and posterior to the cystic duct. After obtaining a critical view the cystic duct was doubly clipped and divided. The cystic artery was then doubly clipped and divided. The gallbladder was then dissected off the liver bed using electrocautery with an L hook. Hemostasis was assured all times using the electrocautery. When the gallbladder is completely dissected off the liver bed was placed in an Endo-Catch bag and brought out through the epigastric incision. The gallbladder was sent to pathology for further examination. The abdomen was then re-examined. The liver bed was irrigated and suctioned dry. No bleeding or bile leak could be identified. CO2 was then evacuated and all trocars removed. Fascia was closed at the epigastric incision using a [id number] Polysorb suture. Skin was closed in all incisions using a subcuticular 4 0 Polysorb suture by both the surgeon and special ed assistant. Sterile dressings consisting of Steri-Strips, 2 x 2 gauze, and Tegaderm were then applied. The patient tolerated the procedure well. Sponge instrument and needle counts reported as correct. The patient was transferred to PACU in stable condition.
[2022-08-17 08:52] VITALS: BP 134/50; BP 143/55; PULSE 59; RESP 10; RESP 11; TEMP 36.1; O2SAT 94; O2SAT 95
[2022-08-17 08:57] VITALS: BP 152/65; PULSE 67; RESP 9; O2SAT 95
[2022-08-17] MEDS: oxyCODONE HCl Immed Release 5 MG TABLET PO (09:06)
[2022-08-17 09:07] VITALS: BP 151/53; PULSE 93; RESP 14; O2SAT 95
[2022-08-17 09:22] VITALS: BP 138/49; PULSE 58; RESP 14; TEMP 36.2; O2SAT 95
== END 2022-08-17 09:55 | disposition home or self-care (01) ==
PROVIDERS: PCP Family Medicine; Visit Provider Surgery
PROC: 0FT44ZZ Resection of Gallbladder, Percutaneous Endoscopic Approach (ICD-10-PCS; CPT 47562; principal; 2022-08-17 07:30)
DX: K80.10 Calculus of gallbladder with chronic cholecystitis without obstruction (principal); E11.9 Type 2 diabetes mellitus without complications; D35.02 Benign neoplasm of left adrenal gland; G62.9 Polyneuropathy, unspecified; E04.2 Nontoxic multinodular goiter; E78.5 Hyperlipidemia, unspecified; E55.9 Vitamin D deficiency, unspecified; J45.909 Unspecified asthma, uncomplicated; Z79.51 Long term (current) use of inhaled steroids; Z79.4 Long term (current) use of insulin; Z79.85 Long-term (current) use of injectable non-insulin antidiabetic drugs; Z79.82 Long term (current) use of aspirin; Z79.899 Other long term (current) drug therapy; Z98.890 Other specified postprocedural states
CPT/HCPCS: 47562; 82947; 88304; J1885; J2405; J3010

== ENCOUNTER → 2022-08-26 10:12 | Outpatient (BNVA) | payer MEDICAID, SELFPAY | PROVIDERS: PCP Family Medicine; Visit Provider Surgery ==

== ENCOUNTER 2022-09-02 08:05 | Outpatient (REF) | payer MEDICAID, SELFPAY ==
[2022-09-02 12:04] LABS: Creatinine Urine 140.89 mg/dL; Microalbum/Creatinine Ratio Ur 8.5 ug/mg cr
[2022-09-02 12:36] LABS: Estimated Average Glucose 183 mg/dL
[2022-09-02 13:05] LABS: Vitamin B12 1243 pg/mL (200-900)
[2022-09-02 13:13] LABS: Alanine Aminotransferase 24 U/L (0-31); Alkaline Phosphatase 86 U/L (39-117); Anion Gap 11 (12-20); Aspartate Amino Transferase 20 U/L (5-31); Bilirubin Total 0.7 mg/dL (0.0-1.0); Blood Urea Nitrogen 15 mg/dL (9-16); Carbon Dioxide 30 mmol/L (22-29); Chloride 104 mmol/L (96-108); Cholesterol 147 mg/dL; Estimated Glomerular Filt Rate > 60; Glucose Random 223 mg/dL (60-115); HDL Cholesterol 40 mg/dL; LDL Cholesterol Calculated 81 mg/dl; Potassium 4.2 mmol/L (3.3-5.1); Sodium 141 mmol/L (135-145); Total Protein 6.7 g/dL (6.5-8.0); Triglycerides 133 mg/dL
[2022-09-02 13:14] LABS: Free T4 (Free Thyroxine) 0.86 ng/dL (0.71-1.85); Thyroid Stimulating Hormone 4.08 uIU/mL (0.32-4.0)
== END 2022-09-02 08:06 | disposition home or self-care (01) ==
LOC: HO.CHCLDS 08:05
PROVIDERS: Visit Provider Family Medicine
DX: E11.65 Type 2 diabetes mellitus with hyperglycemia (principal); Z79.4 Long term (current) use of insulin; E03.9 Hypothyroidism, unspecified
CPT/HCPCS: 36415; 80053; 80061; 82043; 82607; 83036; 84439; 84443

== ENCOUNTER 2023-05-02 13:37 | Outpatient (REF) | payer OTHER, SELFPAY ==
[2023-05-04 15:19] LABS: C. trachomatis RNA TMA NOT DETECTED (NOT DETECTED); Candida glabrata RNA NOT DETECTED (NOT DETECTED); Candida species RNA DETECTED (NOT DETECTED); N. gonorrhoeae RNA TMA NOT DETECTED (NOT DETECTED); Trichomonas vaginalis RNA NOT DETECTED (NOT DETECTED)
[2023-05-05 06:33] LABS: HPV mRNA E6/E7 rflx Not Detected (Not Detected)
== END 2023-05-02 13:38 | disposition home or self-care (01) ==
LOC: HO.LNP 13:37
PROVIDERS: Visit Provider Family Medicine
DX: Z01.419 Encounter for gynecological examination (general) (routine) without abnormal findings (principal); N89.8 Other specified noninflammatory disorders of vagina
CPT/HCPCS: 81513; 87481; 87491; 87591; 87624; 87661; 88142

== ENCOUNTER 2023-05-08 13:26 | Outpatient (REF) | payer OTHER, SELFPAY | END 2023-05-08 13:27 | disposition home or self-care (01) | LOC: HO.MAMMO 13:26 | PROVIDERS: PCP Family Medicine; Visit Provider Family Medicine | DX: Z12.31 Encounter for screening mammogram for malignant neoplasm of breast (principal) | CPT/HCPCS: 77063; 77067 ==

== ENCOUNTER → 2023-05-08 13:45 | Outpatient (BNV) | payer OTHER, SELFPAY | PROVIDERS: PCP Family Medicine; Visit Provider Radiology Diagnostic Radiology | DX: Z12.31 Encounter for screening mammogram for malignant neoplasm of breast (principal) | CPT/HCPCS: 77063; 77067 ==

== ENCOUNTER 2023-05-15 08:51 | Outpatient (REF) | payer OTHER, SELFPAY ==
--- NOTE | ~2023-05-15 | CT_ITS ---
EXAMINATION: CT CHEST WITHOUT CONTRAST CLINICAL INFORMATION: Solitary pulmonary nodule COMPARISON: 05/04/2022. TECHNIQUE: Multidetector volumetric CT imaging of the chest was done. Axial MIP volume rendering provided. Sagittal and coronal reformatted images were obtained. This CT examination was performed using dose optimization techniques as appropriate, variously including the following: *Automated exposure control *Adjustment of mA and/or kV according to patient size (this includes techniques or standardized protocols for targeted exams where dose is matched to indication/reason for exam; i.e. 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 LUNGS: Evaluation limited by body habitus and respiratory motion. Trachea and bronchi are patent. Unchanged left lower lobe linear scarring/atelectasis. No consolidations. RUL: No change in ill-defined opacity 5:106, 2 mm medial apical nodule, 5:50. RLL: No change 2 mm medial, 5:355. JERED: No change 2 mm, 5:148. MEDIASTINUM: Unremarkable thyroid. No pathologic lymphadenopathy. Heart size within normal limits. No pericardial effusion. Nonaneurysmal aorta with atherosclerotic calcifications. Nonenlarged pulmonary arteries. CORONARY ARTERY CALCIFICATION: Mild. PLEURA: There is no pleural effusion. No pleural mass or thickening. Previously described left major fissural nodularity and right major fissural thickening not appreciated on today's study. AXILLA: No lymphadenopathy. UPPER ABDOMEN: Status post cholecystectomy. OSSEOUS STRUCTURES: Unremarkable. CT/CT chest wo IV con IMPRESSION: Stable pulmonary nodules. Interval cholecystectomy.
== END 2023-05-15 08:52 | disposition home or self-care (01) ==
LOC: HO.CT 08:51
PROVIDERS: PCP Family Medicine; Visit Provider Internal Medicine Pulmonary Disease
DX: R91.1 Solitary pulmonary nodule (principal)
CPT/HCPCS: 71250

== ENCOUNTER 2023-05-26 08:59 | Outpatient (REF) | payer OTHER, SELFPAY ==
--- NOTE | ~2023-05-26 | MM_ITS ---
EXAMINATION: BONE DENSITOMETRY CLINICAL INDICATION: Postmenopausal. COMPARISON: This is the patient's baseline examination. TECHNIQUE: Using a [employer] DXA System (software version: 13.1) manufactured by [employer], dual-energy x-ray absorptiometry was performed of the lumbar spine and left hip. The images are of good technical quality. Summary results are attached. FINDINGS: LEFT FEMUR, NECK: BMD 0.538 g/cm2, Z-score -1.9, T-score -3.6, osteoporosis. LEFT FEMUR, TOTAL: BMD 0.582 g/cm2, Z-score -2.0, T-score -3.4, osteoporosis. AP SPINE L1-L4: BMD 1.093 g/cm2, Z-score 1.2, T-score -0.7, normal. IDENTIFIED RISK FACTORS: Menopause, rheumatoid arthritis, secondary osteoporosis (hyperthyroidism). HISTORY OF FRACTURE: None listed. MEDICATIONS: Vitamin D. MM/XR DEXA axial skeleton IMPRESSION: 1. DIAGNOSIS: Osteoporosis based on the lowest T-score value of -3.6 in the femoral neck applying World Health Organization criteria. 2. 10-YEAR FRACTURE RISK PREDICTION, FRAX: According to the guidelines, FRAX calculation should only be performed on patients in the osteopenia bone density category. Therefore, FRAX was not performed on this patient. 3. Treatment Recommendations: NOF guidelines recommend consideration for treatment in postmenopausal women and men age 50 and older presenting with the following: -A hip or vertebral (clinical or morphometric) fracture. -T-score less than or equal to -2.5 at the femoral neck or spine after appropriate evaluation to exclude secondary causes. -Low bone mass at the hip or spine and a 10-year fracture probability by FRAX of greater than or equal to 3% for hip fracture or greater than or equal to 20% for major osteoporotic fracture based on the [place] adapted WHO algorithm. 4. Other Recommendations: All treatment decisions require clinical judgment and consideration of individual patient factors, including patient preferences, comorbidities, previous drug use, risk factors not captured in the FRAX model (e.g. frailty, falls, vitamin D deficiency, increased bone turnover, interval significant decline in bone density) and possible under or overestimation of fracture risk by FRAX. Additional medical evaluation for secondary cause of low bone mineral density may be appropriate. FUTURE SCAN RECOMMENDATION: People with diagnosed cases of osteoporosis or at high risk for fracture should have regular bone mineral density tests. For patients eligible for Medicare, routine testing is allowed once every 2 years. The testing frequency can be increased to one year for patients who have rapidly progressing disease, those who are receiving or discontinuing medical therapy to restore bone mass, or have additional risk factors.
== END 2023-05-26 09:00 | disposition home or self-care (01) ==
LOC: HO.MAMMO 08:59
PROVIDERS: PCP Family Medicine; Visit Provider Family Medicine
DX: Z13.820 Encounter for screening for osteoporosis (principal); Z78.0 Asymptomatic menopausal state
CPT/HCPCS: 77080

== ENCOUNTER 2023-06-07 13:45 | Outpatient (AMB) | payer OTHER, SELFPAY ==
[2023-06-07 13:53] VITALS: BP 108/62; PULSE 66; O2SAT 97; BMI 37.7
--- NOTE | 2023-06-07 13:53 | MHC.OFFVIS ---
Intake Vital Signs 06/07/23 13:53 Height 4 ft Weight 123 lb 7.342 oz BMI 37.7 BP 108/62 Blood Pressure Location Rt brachial Position Sitting Pulse 66 Pulse Source Pulse Oximeter Pulse Oximetry (%) 97 Oxygen Delivery Method Room Air Intake Visit Reasons: pulmonary nodules Allergies No Known Allergies Allergy (Mild, Verified 06/07/23 13:56) NONE HPI pulmonary nodules HPI Details 67-year-old lady, lifetime nonsmoker, has had a CT abdomen for an ongoing endocrinologic workup that demonstrated 4 mm lower lobe lung nodule and the she was referred for further follow-up and evaluation.? Patient denies any family or personal history of lung disease.? She denies any pulmonary related concerns or complaints at this time. Patient has had a follow-up CT scan in April of 2023 that showed stable pulmonary nodules. She has been previously using Flovent with good control of her asthma symptoms that has recently been switched to Asmanex secondary to Flovent no longer being available. She denies any recent exacerbations. 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 Asthma HLD (hyperlipidemia) Hyperparathyroidism Hypothyroidism Multinodular thyroid Peripheral neuropathy Pulmonary nodule T2DM (type 2 diabetes mellitus) Vitamin D deficiency Surgical History H/O colonoscopy History of surgery on arm Hx laparoscopic cholecystectomy (08/17/22) Hx of section Hx of tubal ligation Family History Mother Diabetes Family/Other Breast cancer Social History Alcohol intake: never Patient Tobacco Use Status: Never used Tobacco Advance Directives Date on File: 12/05/19 Review of Systems Const Denies daytime sleepiness, Denies excessive sweating, Denies fatigue, Denies fever(s), Denies lethargy, Denies malaise, Denies night sweats, Denies snoring and Denies weight loss Eyes Denies blurry vision and Denies itchy eyes ENT Denies nasal congestion, Denies post nasal drip, Denies sinus pain, Denies sinus pressure and Denies other ( Thrush) Card Denies chest pain, Denies pedal edema, Denies dyspnea, Denies orthopnea and Denies paroxysmal nocturnal dyspnea Resp Denies cough, Denies hemoptysis, Denies excessive phlegm production, Denies dyspnea, Denies snoring and Denies wheezing GI Denies abdominal pain and Denies heartburn Musc Denies myalgias, Denies arthralgias and Denies joint swelling Skin/Breast Denies rash Neuro Denies memory loss and Denies seizure-like activity Psych Denies abnormal sleep pattern, Denies anxiety and Denies memory loss Endo Denies excessive sweating, Denies fatigue and Denies heat intolerance Edmundo/Lymph Denies easy bruising Aller/Immun Denies itchy eyes, Denies seasonal rhinorrhea and Denies wheezing Physical Exam Vital Signs: Last Vital Signs Pulse 66 06/07/23 13:53 BP 108/62 06/07/23 13:53 Pulse Ox 97 06/07/23 13:53 Oxygen Delivery Method Room Air 06/07/23 13:53 BMI result Body Mass Index 37.7 Const General: no acute distress and alert Nutritional Appearance: not obese Orientation/consciousness: Other orientation findings ( oriented) HEENT Head: Yes atraumatic Eyes General: appearance normal, both eyes and all related structures Sclerae: sclerae normal EOM: EOMs intact bilaterally Neck Neck: Yes supple Lymphatic: no lymphadenopathy noted Resp Effort & Inspection: normal respiratory effort and no use of accessory muscles Auscultation: clear to auscultation bilaterally Cardio Rate: regular rate Rhythm: regular rhythm Heart sounds: no gallops, no murmurs and no rubs Skin General skin exam: other ( warm) Extrem General: No clubbing, No cyanosis and No edema Assessment & Plan Assessment & Plan (1) Asthma: Code(s): J45.909 - Unspecified asthma, uncomplicated Plan: Well controlled on Asmanex and albuterol MDI. Continue current regimen. (2) Pulmonary nodule: Code(s): R91.1 - Solitary pulmonary nodule Plan: Follow-up CT chest reviewed, stable pulmonary nodules. Will repeat CT chest in 12 months, if stable at that time, then no further imaging follow-up would be required. Orders: Orders CT chest wo IV con 05/06/24 R91.1 - Solitary pulmonary nodule Coding Level of Care Code Est Pt Level 4 (14435) Diagnoses Asthma J45.909 Pulmonary nodule R91.1
== END 2023-06-07 14:22 | disposition home or self-care (01) ==
PROVIDERS: PCP Family Medicine; Visit Provider Internal Medicine Pulmonary Disease
DX: J45.909 Unspecified asthma, uncomplicated (principal); R91.1 Solitary pulmonary nodule
CPT/HCPCS: 99214

== ENCOUNTER → 2023-06-07 13:45 | Outpatient (BNVA) | payer OTHER, SELFPAY | PROVIDERS: PCP Family Medicine; Visit Provider Internal Medicine Pulmonary Disease | DX: R91.1 Solitary pulmonary nodule (principal); J45.909 Unspecified asthma, uncomplicated | CPT/HCPCS: 99212 ==

== ENCOUNTER 2023-08-01 08:23 | Outpatient (REF) | payer OTHER, SELFPAY ==
[2023-08-01 11:56] LABS: Creatinine Urine 80.05 mg/dL; Microalbum/Creatinine Ratio Ur 22.4 ug/mg cr (<30)
[2023-08-01 12:14] LABS: Alanine Aminotransferase 18 U/L (0-31); Albumin Level 4.1 g/dL (3.5-5.0); Alkaline Phosphatase 68 U/L (39-117); Anion Gap 12 (12-20); Aspartate Amino Transferase 16 U/L (5-31); Bilirubin Direct 0.2 mg/dL (0.0-0.5); Bilirubin Total 0.6 mg/dL (0.0-1.0); Blood Urea Nitrogen 17 mg/dL (9-16); Calcium 9.5 mg/dL (8.4-10.2); Carbon Dioxide 27 mmol/L (22-29); Chloride 108 mmol/L (96-108); Cholesterol 125 mg/dL (<200); Estimated Glomerular Filt Rate > 60; Glucose Random 161 mg/dL (60-115); HDL Cholesterol 34 mg/dL (>40); LDL Cholesterol Calculated 73 mg/dL (<100); Potassium 4.1 mmol/L (3.3-5.1); Sodium 143 mmol/L (135-145); Total Protein 7.3 g/dL (6.5-8.0); Triglycerides 93 mg/dL (<150)
[2023-08-01 12:17] LABS: Free T4 (Free Thyroxine) 0.87 ng/dL (0.71-1.85); Thyroid Stimulating Hormone 3.13 uIU/mL (0.32-4.0)
[2023-08-01 12:53] LABS: Reflex LDLD? No
== END 2023-08-01 08:24 | disposition home or self-care (01) ==
LOC: HO.HHCL 08:23
PROVIDERS: Visit Provider Family Medicine
DX: E03.9 Hypothyroidism, unspecified (principal); E11.65 Type 2 diabetes mellitus with hyperglycemia; Z79.4 Long term (current) use of insulin
CPT/HCPCS: 36415; 80053; 80061; 82043; 82248; 82570; 84439; 84443

== ENCOUNTER 2023-11-20 09:22 | Outpatient (REF) | payer OTHER, SELFPAY ==
--- NOTE | ~2023-11-20 | XR_ITS ---
EXAMINATION: XR HIP, RIGHT CLINICAL INFORMATION: Right hip pain for 2 months COMPARISON: None available. TECHNIQUE: Two views of the right hip. FINDINGS: Normal bone mineralization. No fracture, dislocation, or suspicious focal bony abnormality. Normal alignment of the right hip joint. Femoral head demonstrates normal contour. Joint space is preserved. Minimal superolateral acetabular spurring. Soft tissues demonstrate mild vascular calcifications but are otherwise normal. Presumed metallic artifact lateral right hip region. XR/XR hip RT min 2V IMPRESSION: 1. No acute findings right hip. 2. Minimal osteoarthritis. Electronically signed by: Yariel Vasquez MD 01/26/2024 03:47 PM EST
== END 2023-11-20 09:23 | disposition home or self-care (01) ==
LOC: HO.XRAY 09:22
PROVIDERS: PCP Family Medicine; Visit Provider Family Medicine
DX: M25.551 Pain in right hip (principal)
CPT/HCPCS: 73502

== ENCOUNTER → 2023-11-20 09:26 | Outpatient (BNV) | payer OTHER, SELFPAY | PROVIDERS: PCP Family Medicine; Visit Provider Radiology Diagnostic Radiology | DX: M25.551 Pain in right hip (principal) | CPT/HCPCS: 73502 ==

== ENCOUNTER 2024-05-10 08:06 | Outpatient (REF) | payer OTHER, SELFPAY ==
--- NOTE | ~2024-05-10 | XR_ITS ---
EXAMINATION: XR WRIST 3 OR MORE VIEWS RIGHT, XR FOREARM 2 VIEWS RIGHT HISTORY: pain COMPARISON: There are no prior studies available for comparison. FINDINGS: Four views of the right wrist and AP and lateral views of the right forearm are submitted. Osseous mineralization is normal. The patient is status post internal fixation of the mid to distal radius and ulna with sideplates and multiple orthopedic screws. No acute fracture is seen. There is mild degenerative change of the wrist. The elbow joint spaces are maintained. There are vascular calcifications. XR/XR forearm RT 2V IMPRESSION: Internal fixation of the mid to distal radius and ulna. No acute fracture is seen. Electronically signed by: Baltazar Barba MD 05/10/2024 09:31 AM EDT
--- NOTE | ~2024-05-10 | XR_ITS ---
EXAMINATION: XR WRIST 3 OR MORE VIEWS RIGHT, XR FOREARM 2 VIEWS RIGHT HISTORY: pain COMPARISON: There are no prior studies available for comparison. FINDINGS: Four views of the right wrist and AP and lateral views of the right forearm are submitted. Osseous mineralization is normal. The patient is status post internal fixation of the mid to distal radius and ulna with sideplates and multiple orthopedic screws. No acute fracture is seen. There is mild degenerative change of the wrist. The elbow joint spaces are maintained. There are vascular calcifications. XR/XR wrist RT min 3V IMPRESSION: Internal fixation of the mid to distal radius and ulna. No acute fracture is seen. Electronically signed by: Baltazar Barba MD 05/10/2024 09:31 AM EDT
[2024-05-10 11:11] LABS: MANUAL DIFF FLAG NO
[2024-05-10 11:30] LABS: Basophils Percent Auto 0.1 % (0-2); Eosinophils Percent Auto 0.4 % (0-4); Hematocrit 41.5 % (37.0-47.0); Imm Gran Abs Auto 0.02 X10*3/uL (0.00-0.03); Imm Gran Pct Auto 0.3 % (0.0-0.4); Lymphocytes Absolute Auto 1.3 X10*3/uL (1.2-4.9); Lymphocytes Percent Auto 19.4 % (20-40); Mean Corpuscular HGB Conc 33.7 g/dl (31.0-35.0); Mean Corpuscular Hemoglobin 31.9 pg (27.0-33.0); Mean Corpuscular Volume 94.5 fL (80.0-98.0); Mean Platelet Volume 10.5 fL (9.4-12.3); Monocytes Absolute Auto 0.5 X10*3/uL (0.1-1.2); Monocytes Percent Auto 7.6 % (2-11); Neutrophils Absolute Auto 4.8 x10*3/uL (2.0-8.3); Neutrophils Percent Auto 72.2 % (45-73); Platelet Count 168 X10*3/uL (160-400); Red Blood Count 4.39 X10*6/uL (4.20-5.50); Red Cell Distribution Width 13.2 % (11.0-16.0); White Blood Count 6.7 X10*3/uL (4.8-10.8)
[2024-05-10 11:45] LABS: Alanine Aminotransferase 24 U/L (0-31); Alkaline Phosphatase 69 U/L (39-117); Anion Gap 11 (12-20); Aspartate Amino Transferase 23 U/L (5-31); Bilirubin Total 0.7 mg/dL (0.0-1.0); Blood Urea Nitrogen 14 mg/dL (9-16); Calcium 9.3 mg/dL (8.4-10.2); Carbon Dioxide 29 mmol/L (22-29); Chloride 107 mmol/L (96-108); Cholesterol 102 mg/dL (<200); Estimated Glomerular Filt Rate > 60; Glucose Random 141 mg/dL (60-115); HDL Cholesterol 35 mg/dL (>40); LDL Cholesterol Calculated 48 mg/dL (<100); Potassium 4.2 mmol/L (3.3-5.1); Sodium 143 mmol/L (135-145); Total Protein 6.9 g/dL (6.5-8.0); Triglycerides 97 mg/dL (<150)
[2024-05-10 12:04] LABS: TSH reflex Free T4 2.58 uIU/mL (0.32-4.0); Vitamin D 25-OH Total 40.6 ng/mL (>30)
[2024-05-10 12:09] LABS: Folate 12.1 ng/mL (> or = 4.0); Vitamin B12 1812 pg/mL (200-900)
[2024-05-10 12:25] LABS: Reflex LDLD? No
[2024-05-10 12:33] LABS: Microalbum/Creatinine Ratio Ur 9.3 ug/mg cr (<30)
== END 2024-05-10 08:07 | disposition home or self-care (01) ==
LOC: HO.HHCL 08:06
PROVIDERS: Visit Provider Family Medicine
DX: E11.65 Type 2 diabetes mellitus with hyperglycemia (principal); Z79.4 Long term (current) use of insulin; E53.8 Deficiency of other specified B group vitamins; E03.9 Hypothyroidism, unspecified; E55.9 Vitamin D deficiency, unspecified; M79.631 Pain in right forearm; M25.531 Pain in right wrist
CPT/HCPCS: 36415; 73090; 73110; 80053; 80061; 82043; 82306; 82570; 82607; 82746; 84443; 85025

== ENCOUNTER → 2024-05-10 08:38 | Outpatient (BNV) | payer OTHER, SELFPAY | PROVIDERS: Visit Provider Radiology Diagnostic Radiology | DX: M25.531 Pain in right wrist (principal); M79.631 Pain in right forearm | CPT/HCPCS: 73090; 73110 ==

== ENCOUNTER 2024-05-24 14:07 | Outpatient (REF) | payer OTHER, SELFPAY ==
--- OUTSIDE RECORDS SUMMARY | 2024-05-24 15:51 | XMS_ITS | Clinical Summary ---
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 daily Treatment Hx -Metformin was discontinued in April 2018 due to GI side effects. She could not tolerate even lower dosage or ER formulation. -Worked with ZANA RN and RD several times. -Prandin 1.5 mg was discontinued in april 2020 Last eye exam: Nov 2022, b/l non-proliferative diabetic retinopathy Last foot exam: 10/05/23. Pt has neuropathy. Pt has diabetic footwear Last microalbumin test: 08/01/23 UACR 22.4 Last lipid profile: 08/01/23 TC 125; TG 93; HDL 34; LDL 73 Last dental exam: edentulous Assessment & Plan (07/11/2023 11:11 AM EDT): - A1C 7.1% on 07/11/23 -Hx hypoglycemia (pt is hesitant to intensify treatment) -Continue working on lifestyle modifications -Glucose monitoring: Freestyle James CGM and Freestyle lite BG monitor -Continue Lantus 28 units qhs. -Continue bolus insulin, Humalog or Novolog 3 units breakfast, 4 units with large midday meal, 3 units with afternoon meal, 2 units with large nighttime snack -Continue Trulicity 4.5 mg weekly -Continue Dapagliflozin (Farxiga) 10 mg daily -Consider SGLT-2 inhibitor for cardiac benefit in the future if she needs an additional medication Treatment Hx -Metformin was discontinued in April 2018 due to GI side effects. She could not tolerate even lower dosage or ER formulation. -Worked with CDE RN and RD several times. -Prandin 1.5 mg was discontinued in april 2020 -Currently co-managed with our pharmacist, Jose Angel Martinez, [facility], PharmD. Last seen in Nov 2022. Last eye exam: Nov 2021, b/l non-proliferative diabetic retinopathy Last foot exam: 09/01/22. Pt has neuropathy. Pt has diabetic footwear Last microalbumin test: 09/02/22 UACR 8.5 Last lipid profile: 09/02/22 TC 147; TG 133; HDL 40; LDL 81 Last dental exam: edentulous Follow-up in 3 mo Assessment & Plan (05/15/2023 5:34 AM EDT): - A1C 7.9% on 04/26/23, 7.8% on 01/24/23, -Hx hypoglycemia (pt is hesitant to intensify treatment) -Continue working on lifestyle modifications -Glucose monitoring: Freestyle James CGM and Freestyle lite BG monitor -Continue Lantus 28 units qhs. -Continue bolus insulin, Humalog or Novolog 3 units breakfast, 4 units with large midday meal, 3 units with afternoon meal, 2 units with large nighttime snack -Continue Trulicity 4.5 mg weekly -Continue Dapagliflozin (Farxiga) 10 mg daily -Consider SGLT-2 inhibitor for cardiac benefit in the future if she needs an additional medication Treatment Hx -Metformin was discontinued in April 2018 due to GI side effects. She could not tolerate even lower dosage or ER formulation. -Worked with ZANA RN and RD several times. -Prandin 1.5 mg was discontinued in april 2020 -Currently co-managed with our pharmacist, Jose Angel Martinez RPh, PharmD. Last seen in Nov 2022. Last eye exam: Nov 2021, b/l non-proliferative diabetic retinopathy Last foot exam: 09/01/22. Pt has neuropathy. Pt has diabetic footwear Last microalbumin test: 09/02/22 UACR 8.5 Last lipid profile: 09/02/22 TC 147; TG 133; HDL 40; LDL 81 Last dental exam: edentulous Follow-up in 3 mo Assessment & Plan (01/24/2023 1:35 PM EST): - A1C 7.8% on 01/24/23, slight improvement from 8.0% on 09/02/22 -Hx hypoglycemia (pt is hesitant to intensify treatment) -Continue working on lifestyle modifications -Glucose monitoring: Freestyle James CGM and Freestyle lite BG monitor -Continue Lantus 28 units qhs. -Continue bolus insulin, Humalog or Novolog 3 units breakfast, 4 units with large midday meal, 3 units with afternoon meal, 2 units with large nighttime snack -Continue Trulicity 3 mg weekly (increased in August 2021) -Consider SGLT-2 inhibitor for cardiac benefit in the future if she needs an additional medication Treatment Hx -Metformin was discontinued in April 2018 due to GI side effects. She could not tolerate even lower dosage or ER formulation. -Worked with ZANA RN and RD several times. -Prandin 1.5 mg was discontinued in april 2020 -Currently co-managed with our pharmacist, Jose Angel Martinez RPh, PharmD. Last seen in Nov 2022. Last eye exam: Nov 2021, b/l non-proliferative diabetic retinopathy Last foot exam: 09/01/22. Pt has neuropathy. Pt has diabetic footwear Last microalbumin test: 09/02/22 UACR 8.5 Last lipid profile: 09/02/22 TC 147; TG 133; HDL 40; LDL 81 Last dental exam: edentulous Follow-up in 3 mo Assessment & Plan (09/06/2022 4:34 PM EDT): A1C 8.1% on 06/07/22, worsened from 7.6% on 03/01/22 -a1c was not checked on 09/02/22 -Fluctuating BG, hypo and hyperglycemic episodes, less hypoglycemia recently; had frequent episodes of hyperglycemia -Continue working on lifestyle modifications -Will prescribe CGM; pt previously had test CGM but not for personal use -Continue Lantus 28 units qhs. -Continue bolus insulin, Humalog or Novolog 3 units breakfast, 4 units with large midday meal, 3 units with afternoon meal, 2 units with large nighttime snack -Continue Trulicity 1.5 mg weekly (increased in August 2021) -Consider SGLT-2 inhibitor for cardiac benefit in the future if she needs an additional medication Treatment Hx -Metformin was discontinued in April 2018 due to GI side effects. She could not tolerate even lower dosage or ER formulation. -Worked with MOHINDERE RN and RD several times. -Prandin 1.5 mg was discontinued in april 2020 Last eye exam: Nov 2021, b/l non-proliferative diabetic retinopathy Last foot exam: 09/01/22. Pt has neuropathy. Pt has diabetic footwear Last microalbumin test: 08/10/21 UACR 15 Last lipid profile: 08/10/21 TC 201; TG 173; HDL 39; LDL 131 Last dental exam: edentulous Follow-up in 3 mo Assessment & Plan (06/07/2022 4:32 PM EDT): A1C 8.1% on 06/07/22, worsened from 7.6% on 03/01/22 -Fluctuating BG, hypo and hyperglycemic episodes, less hypoglycemia recently; had frequent episodes of hyperglycemia -Continue working on lifestyle modifications -s/p CGM evaluation by ZANA MARSHALL -Continue Lantus 28 units qhs. -Continue bolus insulin, Humalog or Novolog 3 units breakfast, 4 units with large midday meal, 3 units with afternoon meal, 2 units with large nighttime snack -Continue Trulicity 1.5 mg weekly (increased in August 2021) -Consider SGLT-2 inhibitor for cardiac benefit in the future if she needs an additional medication Treatment Hx -Metformin was discontinued in April 2018 due to GI side effects. She could not tolerate even lower dosage or ER formulation. -Worked with ZANA RN and RD several times. -Prandin 1.5 mg was discontinued in april 2020 Last eye exam: Nov 2021, b/l non-proliferative diabetic retinopathy Last foot exam: 07/06/21. Pt has neuropathy. Pt has diabetic footwear Last microalbumin test: 08/10/21 UACR 15 Last lipid profile: 08/10/21 TC 201; TG 173; HDL 39; LDL 131 Last dental exam: edentulous Follow-up in 3 mo Assessment & Plan (03/01/2022 6:45 AM EST): -A1C 8.4% -Fluctuating BG, hypo and hyperglycemic episodes, less hypoglycemia recently -Continue working on lifestyle modifications -s/p CGM evaluation by ZANA MARSHALL -Continue Lantus to 28 units qhs. -Continue bolus insulin, Humalog or Novolog 3 units with each meal -Continue Trulicity 1.5 mg weekly (increased in August 2021) -Consider SGLT-2 inhibitor for cardiac benefit in the future if she needs an additional medication Treatment Hx -Metformin was discontinued in April 2018 due to GI side effects. She could not tolerate even lower dosage or ER formulation. -Worked with ZANA RN and RD several times. -Prandin 1.5 mg was discontinued in april 2020 Last eye exam: Nov 2021, b/l non-proliferative diabetic retinopathy Last foot exam: 07/06/21. Pt has neuropathy. Pt has diabetic footwear Last microalbumin test: 08/10/21 UACR 15 Last lipid profile: 08/10/21 TC 201; TG 173; HDL 39; LDL 131 Last dental exam: edentulous Follow-up in 3 mo Uterine leiomyoma 09/18/2014 Diabetic neuropathy 05/15/2014 Assessment & Plan (02/01/2024 5:39 PM EST): -currently prescribed gabapentin by bending roll hand. -current gabapentin dose is 800 mg bid, and it seems high for pt -discussed about judicious use Assessment & Plan (09/01/2022 12:42 PM EDT): -currently prescribed gabapentin by bending roll hand. -current gabapentin dose is 800 mg bid, and it seems high for pt -discussed about judicious use Assessment & Plan (06/21/2022 9:25 AM EDT): -currently prescribed gabapentin by bending roll hand. -current gabapentin dose is 800 mg bid, and it seems high for pt -discussed about judicious use Assessment & Plan (03/01/2022 6:30 AM EST): -currently prescribed gabapentin by bending roll hand. -current gabapentin dose is 800 mg bid, and it seems high for pt -discussed about judicious use Allergic rhinitis 08/03/2012 Assessment & Plan (03/02/2022 3:13 PM EST): -continue montelukast, cetirizine, and fluticasone nasal Dyslipidemia 04/26/2012 Assessment & Plan (05/08/2024 5:34 AM EDT): Last lipid profile: 08/01/23 -Current medication(s): Atorvastatin 80 mg -According to ACC/AHA guideline, high intensity statin therapy is recommended. -continue working on lifestyel modifications Assessment & Plan (02/03/2024 6:37 AM EST): Last lipid profile: 08/01/23 -Current medication(s): Atorvastatin 80 mg -According to ACC/AHA guideline, high intensity statin therapy is recommended. -continue working on lifestyel modifications Assessment & Plan (10/08/2023 6:57 AM EDT): Last lipid profile: 08/01/23 -Current medication(s): Atorvastatin 80 mg -According to ACC/AHA guideline, high intensity statin therapy is recommended. -continue working on lifestyel modifications Assessment & Plan (07/11/2023 11:14 AM EDT): Last lipid profile:09/02/22 TC 147; TG 133; HDL 40; LDL 81 -Current medication(s): Atorvastatin 40 mg at bedtime, will increase to 80 mg -According to ACC/AHA guideline, high intensity statin therapy is recommended. -continue working on lifestyel modifications -Check lipid profile q6-12 mo. Assessment & Plan (05/02/2023 5:17 AM EDT): Last lipid profile:09/02/22 TC 147; TG 133; HDL 40; LDL 81 -Current medication(s): Atorvastatin 40 mg at bedtime -According to ACC/AHA guideline, high intensity statin therapy is recommended. -continue working on lifestyel modifications -Check lipid profile q6-12 mo. Assessment & Plan (09/06/2022 4:32 PM EDT): Last lipid profile: 08/10/21 TC 201; TG 173; HDL 39; LDL 131 -Current medication(s): Atorvastatin 40 mg at bedtime -According to ACC/AHA guideline, high intensity statin therapy is recommended. -continue working on lifestyel modifications -Check lipid profile q6-12 mo. Assessment & Plan (06/07/2022 5:12 PM EDT): Last lipid profile: 08/10/21 TC 201; TG 173; HDL 39; LDL 131 -Current medication(s): Atorvastatin 40 mg at bedtime -According to ACC/AHA guideline, 10-year ASCVD risk is 8.7%, and high intensity statin therapy is recommended. According to ATPIII guideline, pt's goal LDL is < 100. Emphasized the importance of lifestyle modification. Repeat fasting lipid profile in 1 year. Positive YAHAIRA (antinuclear antibody) 11/16/2011 Vitamin B12 deficiency 10/21/2011 Assessment & Plan (05/08/2024 1:08 PM EDT): - Ordered Vitamin B12 (Cobalamin) and Folate Panel, Serum 05/08/24 - Ordered CBC auto differential 05/08/24 Obesity 10/21/2011 Peripheral neuropathy 10/10/2011 Resolved Problems Problem Noted Date Diagnosed Date Resolved Date Biliary colic 10/21/2022 10/08/2023 Cholelithiasis 06/07/2022 01/24/2023 Assessment & Plan (09/06/2022 4:29 PM EDT): - s/p laparoscopic cholecystectomy on 08/17/22 - Pt is recovering slowly from surgery Assessment & Plan (06/21/2022 9:27 AM EDT): - Incidental fiding on CT Scan - pt has abdominal pain, especially RUQ. - discussed about elective cholecystectomy - CT Scan on 05/23/22, recommended follow-up ultrasound due to gallbladder polyp - will evaluate with Ultrasound Cholelithiasis with obstruction 12/11/2014 06/07/2022 Encounters Date Type Department Care Team Description 05/08/2024 9:30 AM EDT Office Visit [facility] [address] [place] [address] Alma Quijano MD Primary hypertension (Primary Dx); Coronary artery disease involving [place] coronary artery of [place] heart without angina pectoris; Moderate persistent asthma without complication; Type 2 diabetes mellitus with hyperglycemia, with long-term current use of insulin ([facility]); Dyslipidemia; Major depressive disorder, remission status unspecified, unspecified whether recurrent; Bilateral hearing loss, unspecified hearing loss type; Osteoporosis without current pathological fracture, unspecified osteoporosis type; Acquired hypothyroidism; Vitamin D deficiency; Vitamin B12 deficiency; Right forearm pain; Right wrist pain; History of fracture of forearm; Dietary counseling; Exercise counseling; Class 1 obesity due to excess calories with serious comorbidity and body mass index (BMI) of 30.0 to 30.9 in adult 05/08/2024 Travel 05/06/2024 Telephone [facility] [address] [place] [address] Alma Quijano MD chart prep 05/02/2024 Refill [facility] [address], [place] [phone] Alma Quijano MD 04/22/2024 Travel 03/10/2024 Refill [facility] [address], [place] [phone] Alma Quijano MD Vitamin B12 deficiency from Last 3 Months Immunizations Name Administration Dates Next Due Hep B, adult 03/17/2015,05/15/2014,05/20/2013 Influenza High-dose Quadriva lent Preservative Free 01/24/2023 Influenza injectable quadriv alent IIV4 with preservative 01/10/2017,12/29/2015,12/11/2014 Influenza injectable quadriv alent preservative free 11/25/2021,11/09/2019,12/31/2018,03/07,05/15/2014 Influenza, IIV3, injectable 11/19/2010,1 ,10/28/2008,11/29,01/04/2006,02/18/2005,01/23/2004 ,12/12/2001,05/06/2001,12/19/2000,12/21 Influenza, Split (incl. ani fied surface antigen) 12/03/2012,10/21/2011 Pneumococcal Conjugate PCV 20 01/24/2023 Pneumococcal Polysaccharide PPSV23 08/27/2007, RSV Bivalent 04/26/2023 TD (adult), 2 Lf tetanus tox oid, preservative free, adsorbed 04/14/2008,08/18/1997 Tdap 07/06/2021,01/26/2020,06/29/2011 Zoster, Recombinant 09/16/2019,02/25/2019 Social History Tobacco Use Types Packs/Day Years Used Date Smoking Tobacco: Never Passive Smoke Exposure: Never Smokeless Tobacco: Never Tobacco Cessation:Counseling Given: Not Answered Alcohol Use Standard Drinks/Week Comments Never 0 (1 standard drink = 0.6 oz pur e alcohol) Depression Answer Date Recorded Patient Health Questionnaire-9 Score 5 01/31/2024 Patient Health Questionnaire-9 Score 5 01/31/2024 Last PHQ-9: Questionnaire Data Not on file 1 04/02/2023 Housing Stability Answer Date Recorded What is your housing situation today? I have clarissa lucas 01/31/[address] you li ve. Do you have problems with any of the following? None of the above 01/31/2024 Food Insecurity Answer Date Recorded Within the past 12 months, y ou worried that your food would run out before you got money to buy more: Never True 01/31/2024 Within the past 12 months,th e food you bought just didn't last and you didn't have enough money to get more: Never True 12/2023 Transportation Answer Date Recorded In the past 12 months, has l ack of transportation kept you from medical appts, meetings, work or from getting things needed for daily living? No 01/31/2024 Utilities Answer Date Recorded In the past 12 months, has t he electric, gas, oil or water company threatened to shut off services in your home? No 01/31/2024 Depression Answer Date Recorded Patient Health Questionnaire-2 Score 2 01/31/2024 Internet Access Answer Date Recorded Internet Access Q1 Yes 01/31/2024 Internet Access Q2 Not on file 01/31/2024 Comments Unknown Sex and Gender Information Value Date Recorded Sex Assigned at Female 12/20/2021 10:14 AM EDT Legal Sex Female 10:14 AM EDT Gender Identity Female 12/20/2021 10:14 AM EDT Sexual Orientation Straight 12/20/2021 10 :14 AM EDT Last Filed Vital Signs Vital Sign Reading Time Taken Comments Blood Pressure 118/56 05/08/2024 9:39 AM EDT Pulse 59 05/08/2024 9:39 AM EDT Temperature 36.1 ??C (96.9 ??F) 05/08/2024 9:39 AM ED T Respiratory Rate 22 05/08/2024 9:39 AM EDT Oxygen Saturation 97% 05/08/2024 9:39 AM EDT Inhaled Oxygen Concentration - - Weight 53.3 kg (117 lb 6.4 oz) 05/08/2024 9:39 A M EDT Height 132.1 cm (4' 4 ) 05/08/2024 9:39 AM EDT Body Mass Index 30.53 05/08/2024 9:39 AM EDT Plan of Treatment Upcoming Encounters Date Type Department Care Team (Late st Contact Info) Description 07/25/2024 9:30 AM EDT Medication Management [facility] [address] [place] [address] Jose Angel Martinez, PharmD [address] [place] [address] Health Maintenance Due Date Last Done Comments CT Colonography 1955 FIT DNA/Cologuard 1955 FIT 1955 FOBT 1955 Sigmoidoscopy 1955 Hepatitis C Screening 12/15/1975 COVID-19 Vaccine ( season) 2023 01/25/2021, 01/04/2021 Influenza Vaccine (#1) 2023 3, 11/25/2021, 11/09/2019, Additional history exists Diabetes: Hemoglobin A1C 07/23/2024 025, 01/22/2024, 10/05/2023, Additional history exists Diabetes: Foot Exam 10/04/2024 10/05/2023, 10/05/2023, 10/05/2023, Additional history exists Eye Exam 12/09/2024 12/09/2022 Alcohol/Substance Use Screening 01/30/2025 01/31/2024 Depression Screening 01/30/2025 01/31/2024, 01/31/20 SDOH Screening 01/30/2025 01/31/2024 Mammogram 05/07/2025 05/08/2023, 04/20, 04/29/2021, Additional history exists Diabetes: Urine Protein Screening 05/10/2025 05/10/2024, 08/01/2023, 09/02/2022, Additional history exists Lipid Panel 05/10/2025 05/10/2024, 07/21, 09/02/2022, Additional history exists Tobacco Screening 05/12/2025 05/12/2024 Colonoscopy 01/05/2030 01/06/2020 Colorectal Cancer Screening 01/05/2030 DTaP/Tdap/Td Vaccines (4 - Td or Tdap) 07/07/2031 07/06/2021, 01/26/2020, 06/29/2011, Additional history exists Hepatitis B Vaccines Completed 03/17/2015, 05/15/2014, 05/20/2013 Zoster Vaccines Completed 09/16/2019, 02/25/2019 Pneumococcal Vaccine: 50+ Years Completed 01/24/2023, 08/27/2007, 03/07/2000 RSV Patients and Patients Aged 60 years or older Completed 04/26/2023 HPV/Cotest Discontinued 05/02/2023 Pap Smear Discontinued 05/02/2023 Cervical Cancer Screening Discontinued HIB Vaccines Aged Out No longer eligi ble based on patient's age to complete this topic HPV Vaccines Aged Out No longer eligi ble based on patient's age to complete this topic Hepatitis A Vaccines Aged Out No long er eligible based on patient's age to complete this topic IPV Vaccines Aged Out No longer eligi ble based on patient's age to complete this topic Meningococcal Vaccine Aged Out No mya daljit eligible based on patient's age to complete this topic RSV under 20 months Aged Out No longe r eligible based on patient's age to complete this topic Rotavirus Vaccines Aged Out No longer eligible based on patient's age to complete this topic Goals Goal Patient Goal Type Associated Problems Recent Progress Patient-Stated? Author Blood Pressure < 140/90 Blood Pressure 118/56(2024 9:39 AM EDT) No Jose Angel Martinez, Giovanna Hemoglobin A1c < 7 Result Component 7.7( 9:50 AM EST) No Jose Angel Martinez PharmD Procedures Procedure Name Priority Date/Time Associated Diagnosis Comments XR FOREARM 2 VIEWS RIGHT Routine 05/10/2024 8:38 AM EDT Right forearm pain Right wrist pain XR WRIST 3+ VIEWS RIGHT Routine 05/10/2024 8:38 AM EDT Right forearm pain Right wrist pain CBC WITH AUTO DIFFERENTIAL Routine 05/10/2024 8:09 AM EDT Vitamin B12 deficiency VITAMIN D,25-OH,TOTAL,IA Routine 05/10/2024 8:09 AM EDT Vitamin D deficiency TSH W/REFLEX TO FT4 Routine 05/10/2024 8 :09 AM EDT Acquired hypothyroidism COMPREHENSIVE METABOLIC PANEL Routine 05/10/2024 8:09 AM EDT Type 2 diabetes mellitus with hyperglycemia, with long-term current use of insulin ([facility]) ALBUMIN, RANDOM URINE W/CREATININE Routine 05/10/2024 8:09 AM EDT Type 2 diabetes mellitus with hyperglycemia, with long-term current use of insulin ([facility]) LIPID PANEL WITH REFLEX TO DIRECT LDL Routine 05/10/2024 8:09 AM EDT Type 2 diabetes mellitus with hyperglycemia, with long-term current use of insulin ([facility]) VITAMIN B12/FOLATE, SERUM PANEL Routine 05/10/2024 8:09 AM EDT Vitamin B12 deficiency POCT GLUCOSE Routine 05/08/2024 9:40 AM EDT Type 2 diabetes mellitus with hyperglycemia, with long-term current use of insulin ([facility]) POCT GLYCATED HEMOGLOBIN, TOTAL Routine 04/22/2024 9:50 AM EST Type 2 diabetes mellitus with hyperglycemia, with long-term current use of insulin ([facility]) BI MAMMOGRAM SCREENING TOMOSYNTHESIS BILATERAL Routine 05/08/2023 1:50 PM EDT HPV MRNA E6/E7 REFLEX TO HPV 16, 18/45 Routine 05/02/2023 9:48 AM EDT Encounter for well woman exam with routine gynecological exam PAP SMEAR Routine 05/02/2023 9:48 AM EDT Encounter for well woman exam with routine gynecological exam DIABETES EYE EXAM Routine 12/09/2022 COLONOSCOPY Routine 01/06/2020 from Last 3 Months or Most Recently Relevant to Health Maintenance Results * XR Wrist 3+ Views Right (05/10/2024 8:38 AM EDT) Anatomical Region Laterality Modality Upper Extremities, Wrist Right Radiogr aphic Imaging 05/10/2024 8:38 AM EDT Narrative 05/10/2024 9:34 AM EDT ? [facility] ?[address] ?[place] [address] ?XRay Report ? Signed ? Patient: Marino,Cori E ?MR#: [id number] ? : 1955 ?Acct:[id number] ? Age/Sex: 68 / F ?ADM Date: 03/21/25 ? Loc: HO.HHCL ? Attending Dr: Alma Quijano MD ? Ordering Physician: Alma Quijano MD ?? Date of Service: 05/10/24 ?? Procedure(s): XR wrist RT min 3V ?? Accession Number(s): [id number] ? cc: Alma Quijano MD ? EXAMINATION: ??XR WRIST 3 OR MORE VIEWS RIGHT, XR FOREARM 2 VIEWS RIGHT ? HISTORY: pain ? COMPARISON: There are no prior studies available for comparison. ? FINDINGS: ? Four views of the right wrist and AP and lateral views of the right ?? forearm are submitted. ??Osseous mineralization is normal. ??The patient ?? is status post internal fixation of the mid to distal radius and ulna ?? with sideplates and multiple orthopedic screws. No acute fracture is ?? seen. ??There is mild degenerative change of the wrist. The elbow joint ?? spaces are maintained. ??There are vascular calcifications. ? XR/XR wrist RT min 3V ?? IMPRESSION: ? Internal fixation of the mid to distal radius and ulna. No acute ?? fracture is seen. ? Electronically signed by: ??Baltazar Barba MD ??05/10/2024 09:31 AM EDT ? Dictated By: ?Baltazar Barba MD ? Signed By: ?<Electronically signed by Baltazar Barba MD in OV> ?05/10/24 0931 ? DD/ 0838 ? TD/TT: 05/10/24 0900 ? Watch Assembler: ? Procedure Note Belen Jolly - 05/10/2024 [place] [address] XRay Report Signed Patient: Cori Marino EMR#: [id number] : 1955cct:[id number] Age/Sex: 68 / FADM Date: 05/10/24 Loc: HO.HHCL Attending Dr: Alma Quijano MD Ordering Physician: Alma Quijano MD Date of Service: 05/10/24 Procedure(s): XR wrist RT min 3V Accession Number(s): [id number] cc: Alma Quijano MD EXAMINATION: XR WRIST 3 OR MORE VIEWS RIGHT, XR FOREARM 2 VIEWS RIGHT HISTORY: pain COMPARISON: There are no prior studies available for comparison. FINDINGS: Four views of the right wrist and AP and lateral views of the right forearm are submitted. Osseous mineralization is normal. The patient is status post internal fixation of the mid to distal radius and ulna with sideplates and multiple orthopedic screws. No acute fracture is seen. There is mild degenerative change of the wrist. The elbow joint spaces are maintained. There are vascular calcifications. XR/XR wrist RT min 3V IMPRESSION: Internal fixation of the mid to distal radius and ulna. No acute fracture is seen. Electronically signed by: Baltazar Barba MD 05/10/2024 09:31 AM EDT RP Dictated By: Baltazar Barba MD Signed By: <Electronically signed by Baltazar Barba MD in OV> 05/10/24930 DD/ 7 TD/TT: 05/10/24 09 Watch Assembler: us Alma Quijano MD IMG XR PROCEDURES Final Result * XR Forearm 2 Views Right (05/10/2024 8:38 AM EDT) Anatomical Region Laterality Modality Upper Extremities, Forearm Right Radio graphic Imaging 05/10/2024 8:38 AM EDT Narrative 05/10/2024 9:34 AM EDT ? [facility] ?[address] ?[place] [address] ?XRay Report ? Signed ? Patient: Cori Marino ?MR#: [id number] ? : 1955 ?Acct:[id number] ? Age/Sex: 68 / F ?ADM Date: 05/10/24 ? Loc: HO.HHCL ? Attending Dr: Alma Quijano MD ? Ordering Physician: Alma Quijano MD ?? Date of Service: 05/10/24 ?? Procedure(s): XR forearm RT 2V ?? Accession Number(s): [id number] ? cc: Alma Quijano MD ? EXAMINATION: ??XR WRIST 3 OR MORE VIEWS RIGHT, XR FOREARM 2 VIEWS RIGHT ? HISTORY: pain ? COMPARISON: There are no prior studies available for comparison. ? FINDINGS: ? Four views of the right wrist and AP and lateral views of the right ?? forearm are submitted. ??Osseous mineralization is normal. ??The patient ?? is status post internal fixation of the mid to distal radius and ulna ?? with sideplates and multiple orthopedic screws. No acute fracture is ?? seen. ??There is mild degenerative change of the wrist. The elbow joint ?? spaces are maintained. ??There are vascular calcifications. ? XR/XR forearm RT 2V ?? IMPRESSION: ? Internal fixation of the mid to distal radius and ulna. No acute ?? fracture is seen. ? Electronically signed by: ??Baltazar Barba MD ??05/10/2024 09:31 AM EDT ? Dictated By: ?Baltazar Barba MD ? Signed By: ?<Electronically signed by Baltazar Barba MD in OV> ?05/10/24 0931 ? DD/ 0838 ? TD/TT: 05/10/24 0900 ? Watch Assembler: ? Procedure Note Rik, Image - 05/10/2024 [place] [address] XRay Report Signed Patient: Cori Marino EMR#: [id number] : 1955cct:[id number] Age/Sex: 68 / FADM Date: 05/10/24 Loc: .[facility] Attending Dr: Alma Quijano MD Ordering Physician: Alma Quijano MD Date of Service: 05/10/24 Procedure(s): XR forearm RT 2V Accession Number(s): [id number] cc: Alma Quijano MD EXAMINATION: XR WRIST 3 OR MORE VIEWS RIGHT, XR FOREARM 2 VIEWS RIGHT HISTORY: pain COMPARISON: There are no prior studies available for comparison. FINDINGS: Four views of the right wrist and AP and lateral views of the right forearm are submitted. Osseous mineralization is normal. The patient is status post internal fixation of the mid to distal radius and ulna with sideplates and multiple orthopedic screws. No acute fracture is seen. There is mild degenerative change of the wrist. The elbow joint spaces are maintained. There are vascular calcifications. XR/XR forearm RT 2V IMPRESSION: Internal fixation of the mid to distal radius and ulna. No acute fracture is seen. Electronically signed by: Baltazar Barba MD 05/10/2024 09:31 AM EDT RP Dictated By: Baltazar Barba MD Signed By: <Electronically signed by Baltazar Barba MD in OV> 05/10/24930 DD/ 7 TD/TT: 05/10/24 09 Watch Assembler: Alma Quijano MD IMG XR PROCEDURES Final Result * Vitamin D, 25-Hydroxy, Total, Immunoassay (05/10/2024 8:09 AM EDT) Vitamin D 25-OH Total 40.6 >30 ng/mL [facility] Comment: Health Based Reference Values*< 20 ??ng/mL ??Oxvkrtktg37-11 ng/mL ??Insufficient> 30 ??ng/mL ??Sufficient*Eboni REID. N Engl J Med. 2007;357:266-280There is no well-established upper level of normal vitamin Dlevels. Some laboratories use 50 ng/mL as an upper limit ofnormal. However, toxicity is patient-dependent and may occurat any level. Careful correlation with the patient'spresentation is necessary and, if there is concern forvitamin D toxicity, treatment should be consideredirrespective of the serum level.Care must be taken in interpreting Vitamin D results fromdifferent laboratories and methodologies. ??Published datademonstrated that results from patients undergoinghemodialysis may show a negative bias when tested withvarious automated 25-OH vitamin D assays when compared toLC- MS/MS.When testing samples from patients whose predominant form ofVitamin D is Vitamin D2, such as patients receiving VitaminD2 supplementation, results that are subtherapeutic shouldbe confirmed with another method such as LC-MS/MS. Blood Venous blood specimen / Unknown 05/10/2024 8:09 AM EDT 05/10/2024 11:07 AM EDT us Alma Quijano MD LAB BLOOD ORDERABLES Final Resul t [facility] [address] [place] [phone] * (ABNORMAL) Vitamin B12 (Cobalamin) and Folate Panel, Serum (05/10/2024 8:09 AM EDT) Vitamin B12 1,812(H) 200 - 900 pg/mL [facility] Comment:NORMAL 200-900 PG/ML INDETERMINATE 160-199 PG/ML DEFICIENT < 160 PG/ML Folate 12.1 > or = 4.0 ng/mL [facility] Comment:Reference Values:> o r = 4.0 ng/mL< 4.0 ng/mL suggests folate deficiency Methotrexate, aminopterin and folinic acid(leucovorin) are chemotherapeutic agents whose molecularstructures are similar to folate; therefore, the Architectfolate assay cannot be used for patients using these drugs. Blood 05/10/2024 8:09 AM EDT 05/10/2024 11:07 AM EDT Alma Quijano MD LAB BLOOD ORDERABLES Final Resul t [facility] [address] [place] [phone] * TSH with Reflex to Free T4 (05/10/2024 8:09 AM EDT) Pathologist [facility] TSH reflex Free T4 2.58 0.32 - 4.0 uIU/mL [facility] Blood 05/10/2024 8:09 AM EDT 05/10/2024 11:07 AM EDT Alma Quijano MD LAB BLOOD ORDERABLES Final Resul t [facility] [address] [place] [phone] * (ABNORMAL) Lipid Panel with Reflex to Direct LDL (05/10/2024 8:09 AM EDT) Triglycerides 97 <150 mg/dL [facility] Comment:Desirable Triglyceri de: less than 150 mg/dLBorderline High Triglyceride 150-199 mg/dLHigh Triglyceride: 200-499 mg/dLVery High Triglyceride: greater than or equal to 5OO mg/dL Cholesterol 102 <200 mg/dL [facility] Comment:Desirable Cholestero l: less than 200 mg/dLBorderline High Cholesterol: 200-239 mg/dLHigh Cholesterol: greater than 239 mg/dL LDL Cholesterol Calculated 48 <100 mg/dL [facility] Comment:Desirable LDL: less than 100 mg/dLNear Optimal/Above Optimal LDL: 110- 129 mg/dLBorderline High LDL: 130-159 mg/dLHigh LDL: 160-189 mg/dLVery High LDL: greater than or equal to 190 mg/dL HDL Cholesterol 35(L) >40 mg/dL [facility] Comment:Desirable HDL: great er than 40 mg/dL Note: This HDL assay may give artificially low results in patients with liver disease. Blood 05/10/2024 8:09 AM EDT 05/10/2024 11:07 AM EDT us Alma Quijano MD LAB BLOOD ORDERABLES Final Resul t Performing Organization Address City/[facility] Co de Phone Number [facility] [address] [place], [place] [phone] * Albumin, Random Urine W/Creatinine (05/10/2024 8:09 AM EDT) Creatinine, Urine 64.00 mg/dL [facility] Microalbumin Urine 6.0 mg/L [facility] Microalbum Creatinine Ratio Ur 9.3 <30 ug/mg cr [facility] Comment:Albumin/Creatinine R atio Reference Ranges: Normal: < 30 ug/mg creatinine Microalbuminuria: 30 - 300 ug/mg creatinineClinical Albuminuria: > 300 ug/mg creatinine Urine 05/10/2024 8:09 AM EDT 05/10/2024 11:18 AM EDT us Alma Quijano MD LAB URINE ORDERABLES Final Resul t [facility] [address] [place] [phone] [phone] * (ABNORMAL) CBC auto differential (05/10/2024 8:09 AM EDT) White Blood Count 6.7 4.8 - 10.8 X10*3/uL [facility] Red Blood Count 4.39 4.20 - 5.50 X10*6/uL [facility] Hemoglobin 14.0 12.0 - 16.0 g/dl [facility] Hematocrit 41.5 37.0 - 47.0 % [facility] Mean Corpuscular Volume 94.5 80.0 - 98.0 fL [facility] Mean Corpuscular Hemoglobin 31.9 27.0 - 33.0 pg [facility] Mean Corpuscular HGB Conc 33.7 31.0 - 35.0 g/dl [facility] Red Cell Distribution Width 13.2 11.0 - 16.0 % [facility] Platelet Count 168 160 - 400 X10*3/uL [facility] Mean Platelet Volume 10.5 9.4 - 12.3 fL [facility] Neutrophils Percent Auto 72.2 45 - 73 % [facility] Imm Gran Pct Auto 0.3 0.0 - 0.4 % [facility] Lymphocytes Percent Auto 19.4(L) 20 - 40 % [facility] Monocytes Percent Auto 7.6 2 - 11 % [facility] Eosinophils Percent Auto 0.4 0 - 4 % [facility] Basophils Percent Auto 0.1 0 - 2 % [facility] NRBC Pct Auto 0.0 0.0 - 0.2 /100WBC [facility] Neutrophils Absolute Auto 4.8 2.0 - 8.3 x10*3/uL [facility] Imm Gran Abs Auto 0.02 0.00 - 0.03 X10*3/uL [facility] Lymphocytes Absolute Auto 1.3 1.2 - 4.9 X10*3/uL [facility] Monocytes Absolute Auto 0.5 0.1 - 1.2 X10*3/uL [facility] Eosinophils Absolute Auto 0.0 0.0 - 0.4 X10*3/uL [facility] Basophils Absolute Auto 0.0 0.0 - 0.2 X10*3/uL [facility] NRBC Abs Auto 0.000 0.0 - 0.012 X10*3/uL [facility] Blood Venous blood specimen / Unknown 05/10/2024 8:09 AM EDT 05/10/2024 11:07 AM EDT us Alma Quijano MD LAB BLOOD ORDERABLES Final Resul t [facility] [address] [place] [phone] * (ABNORMAL) Comprehensive Metabolic Panel (05/10/2024 8:09 AM EDT) Sodium 143 135 - 145 mmol/L [facility] Potassium 4.2 3.3 - 5.1 mmol/L [facility] Chloride 107 96 - 108 mmol/L [facility] Carbon Dioxide 29 22 - 29 mmol/L [facility] Anion Gap 11(L) 12 - 20 [facility] Urea Nitrogen (BUN) 14 9 - 16 mg/dL [facility] Creatinine, Serum 0.76 0.5 - 1.4 mg/dL [facility] Estimated Glomerular Filt Rate >60 [facility] Comment:Chronic Kidney Disea se: Estimated GFR < 60 mL/min/1.94j3Hxrddp Kidney Disease: Estimated GFR < 15 mL/min/1.73m2 Glucose 141(H) 60 - 115 mg/dL [facility] Calcium 9.3 8.4 - 10.2 mg/dL [facility] Bilirubin, Total 0.7 0.0 - 1.0 mg/dL [facility] Aspartate Amino Transferase 23 5 - 31 U/L [facility] Alanine Aminotransferase 24 0 - 31 U/L [facility] Total Protein 6.9 6.5 - 8.0 g/dL [facility] Albumin Level 4.0 3.5 - 5.0 g/dL [facility] Alkaline Phosphatase 69 39 - 117 U/L [facility] Blood Venous blood specimen / Unknown 05/10/2024 8:09 AM EDT 05/10/2024 11:07 AM EDT Alma Quijano MD LAB BLOOD ORDERABLES Final Resul t [facility] [address] [place] [phone] * (ABNORMAL) POCT glucose manually resulted (05/08/2024 9:40 AM EDT) Glucose Blood, POC 275(A) 60 - 200 mg/dL QC Media Lot # [id number] Lot# Expiration Date Blood Capillary blood specimen / Unknown 05/08/2024 9:40 AM EDT Alma Quijano MD POINT OF CARE TEST ENTER/EDIT OR DERABLES Final Result * (ABNORMAL) POCT HGB A1C (04/22/2024 9:50 AM EST) Hemoglobin A1C 7.7(A) 4.0 - 6.0 % QC Media Lot # [id number] Lot# Expiration Date Blood 04/22/2024 9:50 AM EST Alma Quijano MD POINT OF CARE TEST ENTER/EDIT OR DERABLES Final Result * BI Mammogram Screening Tomosynthesis Bilateral (05/08/2023 1:50 PM EDT) Anatomical Region Laterality Modality Breast Bilateral Mammography 05/08/2023 1:50 PM EDT Narrative 05/30/2023 11:19 PM EDT ? [place] [facility] ? [address] ?[place] [address] ? Mammography Report ? Signed ? Patient: Marino,Cori E ?MR#: [id number] ? : 1955 ?Acct:[id number] ? Age/Sex: 67 / F ?ADM Date: 05/08/23 ? Loc: HO.MAMMO ? Attending Dr: Alma Quijano MD ? Ordering Physician: Alma Quijano MD ?Results: 1Negative ? Date of Service: 05/08/23 ?Follow Up: 1 Year From Orig ?? inal Mammogram ? Procedure(s): MM tomosynthesis screening BI ?? Accession Number(s): [id number] ? cc: Alma Quijano MD ? EXAMINATION: ?? MM SCREENING DIGITAL BREAST TOMOSYNTHESIS, BILATERAL ? CLINICAL INFORMATION: ? Screening. Asymptomatic. ? COMPARISON: ?? Mammography: This study is compared with prior exams dating back to ?? 2019. ? TECHNIQUE: ?? Digital breast tomosynthesis is performed in both the craniocaudal and ?? mediolateral oblique views along with computer-aided detection (CAD). ?? Synthesized 2D images are generated from the tomosynthesis. ? FINDINGS: ?? The breasts are almost entirely fatty (ACR BI-RADS breast composition ?? Category a). ? There are no significant masses, abnormal calcifications, or other ?? abnormalities. ? MM/MM tomosynthesis screening BI ?? IMPRESSION: ?? No mammographic evidence of malignancy. ? ASSESSMENT: ? BI-RADS BI-RADS 1 - Negative ? RECOMMENDATION: ?? Routine annual mammography screening. ? 1 year F/U ? This examination should not preclude the clinical evaluation of a ?? suspicious palpable abnormality. ? This patient's information was entered into a reminder system with a ?? target due date for their next mammogram. ? Dictated By: ?Rachana Magaña MD ? Signed By: ?<Electronically signed by Rachana Magaña MD in OV> ? 05/30/232315 ? DD/ 1350 ? TD/TT: ? Watch Assembler: ? Procedure Note Rik, Belen - 05/30/2023 [place] [facility] [address] [place] [address] Mammography Report Signed Patient: Cori Marino EMR#: [id number] : 1955cct:[id number] Age/Sex: 67 / FADM Date: 05/08/23 Loc: TIM Attending Dr: Alma Quijano MD Ordering Physician: Alma Quijano MDResults: 1Negative Date of Service: 05/08/23Follow Up: 1 Year From Orig inal Mammogram Procedure(s): MM tomosynthesis screening BI Accession Number(s): [id number] cc: Alma Quijano MD EXAMINATION: MM SCREENING DIGITAL BREAST TOMOSYNTHESIS, BILATERAL CLINICAL INFORMATION: Screening. Asymptomatic. COMPARISON: Mammography: This study is compared with prior exams dating back to 2019. TECHNIQUE: Digital breast tomosynthesis is performed in both the craniocaudal and mediolateral oblique views along with computer-aided detection (CAD). Synthesized 2D images are generated from the tomosynthesis. FINDINGS: The breasts are almost entirely fatty (ACR BI-RADS breast composition Category a). There are no significant masses, abnormal calcifications, or other abnormalities. MM/MM tomosynthesis screening BI IMPRESSION: No mammographic evidence of malignancy. ASSESSMENT: BI-RADS BI-RADS 1 - Negative RECOMMENDATION: Routine annual mammography screening. 1 year F/U This examination should not preclude the clinical evaluation of a suspicious palpable abnormality. This patient's information was entered into a reminder system with a target due date for their next mammogram. Dictated By: Rachana Magaña MD Signed By: <Electronically signed by Rachana Magaña MD in OV> 05/30/23 2316 DD/ 1350 TD/TT: Watch Assembler: Alma Quijano MD IMG BI PROCEDURES Final Result * HPV mRNA E6/E7 w/Reflex to HPV Genotypes 16, 18/45 (05/02/2023 9:48 AM EDT) HPV nRNA E6/E7 Not Detected Not Detected [facility] Comment:Methodology: Transcr iption-Mediated AmplificationThis assay detects E6/E7 viral messenger RNA (mRNA) from 14high-risk HPV types (16,18,31,33,35,39,45,51,52,56,58,59,66,68).Cervical sources are required for HPV testing.If a vaginal source from a patient who has had atotal hysterectomy with removal of cervix wassubmitted, please contact the testing laboratoryfor alternative testing options.For additional information, please refer tohttp://education.[employer]/faq/VOL194e0(This link if provided for information/educational purposes only.)THIS TEST WAS PERFORMED AT:[facility] [place] [phone] GODINEZ MD HPV mRNA E6/E7 [facility] HPV 16 RNA [facility] HPV 18/45 RNA [facility] Vaginal Fluid Cervix uteri structure / Unknown 05/02/2023 9:48 AM EDT 05/03/2023 2:23 PM EDT Narrative [facility] - 05/05/2023 7:38 AM EDT Collection Date: [id number] by: KIMI Colby: Cervix Alma Quijano MD LAB CYTOLOGY ORDERABLES Final Re sult [facility] [address] [place] [address] [phone] * Pap Smear (05/02/2023 9:48 AM EDT) Swab 05/02/2023 9:48 AM EDT 05/03/2023 12:25 PM EDT Narrative [facility] - 05/11/2023 6:49 AM EDT ----- ------- Name: Cori Marino ? Age/Sex: 67/F ? : 1955 Unit#: [id number] ?? Attend Dr: Alma Quijano MD ?Re05/02/23 ?Status: DEP REF ? Location: HO.LNP ?Disch: ? ----- ------- SPEC : [id number] ? RECD: 05/03/23-7110 ? STATUS: ??SOUT ? REQ NUM: [id number] ? VU: 05/02/23 ? SUBM DR: Alma Quijano MD ? ENTERED: ??05/03/23-1251 ?SP TYPE: Pap Smr ?OTHR DR: ? ORDERED: ??Pap Smear ? Interpretation ?? Satisfactory for evaluation. ?? No endocervical cells seen. ?? Fungal organisms consistent with Carmelita species. ?? Negative for intraepithelial lesion or malignancy. ?HPV mRNA E6/E7: ?NOT DETECTED ? This assay detects E6/E7 viral messenger RNA (mRNA) from 14 high-risk HPV types (16, 18, ?? 31, 33, 35, 39, 45, 51, 52, 56, 58, 59, 66, 68) ?? HPV testing performed by [facility], [place], [place]. ??See reference laboratory ?? portion of the EMR for entire report. ?Clinical Information LMP: Postmenopausal Previous PAP test: Unknown date/findings ? Material Received ?? ThinPrep-Vaginal/Cervical ----- ------- Signed (signature on file) HAZEL Brown ([facility]) 05/11/23 0649 ? ----- ------- ? END OF REPORT ? Alma Quijano MD LAB CYTOLOGY ORDERABLES Final Re sult [facility] [address] [place] [address] [phone] * Diabetes Eye Exam (12/09/2022) Eye Exam Normal Normal [facility] HEALTH MAINTENANCE Final Result * Colonoscopy (01/06/2020) Colonoscopy Normal Normal Jarrett Craft MD HEALTH MAINTENANCE Final Res ult from Last 3 Months or Most Recently Relevant to Health Maintenance Insurance [facility] Care Teams Exhibits Curator Relationship Specialty Start Date End Date Alma Quijano MD [address] [place] [phone] PCP - General Family Medicine 02/20/18 Jose Angel Martinez, PharmD [address] [place] [phone] Pharmacist Internal Medicine 09/19/22
--- OUTSIDE RECORDS SUMMARY | 2024-05-24 15:51 | XMS_ITS | Encounter Summary ---
Author Organization [employer] Address [address] [facility] [address] [address] [place] [address] Care Team Providers Care Video Game Designer Name Role Phone Alma Quijano MD Primary Care Provider [phone] Jose Angel Martinez PharmD Unavailable [phone] Encounter Details Date Type Department Care Team (Late st Contact Info) Description 01/24/2023 Abstract [facility] [address] [place] [address] Ewa Waldrop [place] Social History Tobacco Use Types Packs/Day Years Used Date Smoking Tobacco: Never Passive Smoke Exposure: Never Smokeless Tobacco: Never Depression Answer Date Recorded Patient Health Questionnaire-9 Score 0 06/07/2022 Housing Stability Answer Date Recorded What is your housing situation today? I have clarissa lucas 12/05/[address] you li ve. Do you have problems with any of the following? None of the above 12/05/2022 Food Insecurity Answer Date Recorded Within the past 12 months, y ou worried that your food would run out before you got money to buy more: Never True 12/05/2022 Within the past 12 months,th e food you bought just didn't last and you didn't have enough money to get more: Never True Transportation Answer Date Recorded In the past 12 months, has l ack of transportation kept you from medical appts, meetings, work or from getting things needed for daily living? No 12/05/2022 Utilities Answer Date Recorded In the past 12 months, has t he electric, gas, oil or water company threatened to shut off services in your home? No 12/05/2022 Depression Answer Date Recorded Patient Health Questionnaire-2 Score 0 06/07/2022 Comments Unknown Sex and Gender Information Value Date Recorded Sex Assigned at Female 12/20/2021 10:14 AM EDT Legal Sex Female 10:14 AM EDT Gender Identity Female 12/20/2021 10:14 AM EDT Sexual Orientation Straight 12/20/2021 10 :14 AM EDT documented as of this encounter Plan of Treatment Upcoming Encounters Date Type Department Care Team (Late st Contact Info) Description 07/25/2024 9:30 AM EDT Medication Management [facility] [address] [place] [address] Jose Angel Martinez PharmD [address] [place] [address] documented as of this encounter Goals Goal Patient Goal Type Associated Problems Recent Progress Patient-Stated? Author Blood Pressure < 140/90 Blood Pressure 118/56(2024 9:39 AM EDT) No Jose Angel Martinez PharmD Hemoglobin A1c < 7 Result Component 7.7( 9:50 AM EST) No Jose Angel Martinez PharmD documented as of this encounter Procedures Procedure Name Priority Date/Time Associated Diagnosis Comments DIABETES EYE EXAM Routine 12/09/2022 documented in this encounter Results * Diabetes Eye Exam (12/09/2022) Eye Exam Normal Normal [facility] HEALTH MAINTENANCE Final Result documented in this encounter Visit Diagnoses Not on filedocumented in this encounter Additional Health Concerns Assessment Noted Time PHQ-9 Depression Total Score: 0 06/08/19 23 1:07 PM EDT documented as of this encounter Care Teams Video Game Designer Relationship Specialty Start Date End Date Alma Quijano MD [address] [place] [address] [phone] PCP - General Family Medicine 02/20/18 Jose Angel Martinez PharmD [address] [place] [phone] Pharmacist Internal Medicine 09/19/22 documented as of this encounter
--- OUTSIDE RECORDS SUMMARY | 2024-05-24 15:51 | XMS_ITS | Encounter Summary ---
Author Organization [employer] Address [address] [facility] 7t [place] [address] Care Team Providers Care Polysomnographic Technician Name Role Phone Alma Quijano MD Primary Care Provider [phone] Jose Angel Martinez PharmD Unavailable [phone] Reason for Visit * Reason Onset Date Comments Appointment Request 11/08/2022 Encounter Details Date Type Department Care Team ([facility] st Contact Info) Description 11/08/2022 Telephone [facility] MEDICINE [address] [place], [place] [phone] Alma Quijano MD [address] [place], [place] [phone] Appointment Request Social History Tobacco Use Types Packs/Day Years Used Date Smoking Tobacco: Never Passive Smoke Exposure: Never Smokeless Tobacco: Never Depression Answer Date Recorded Patient Health Questionnaire-9 Score 0 06/07/2022 Depression Answer Date Recorded Patient Health Questionnaire-2 Score 0 06/07/2022 Comments Unknown Sex and Gender Information Value Date Recorded Sex Assigned at Female 12/20/2021 10:14 AM EDT Legal Sex Female 10:14 AM EDT Gender Identity Female 12/20/2021 10:14 AM EDT Sexual Orientation Straight 12/20/2021 10 :14 AM EDT documented as of this encounter Miscellaneous Notes * Telephone Encounter - Nya Snow - 11/08/2022 9:41 AM EDT Tc from patients daughter calling to r/s 12/05/22 f/u appt, due to traveling. Patient will be back 12/15/22. [employer] Operator attempted to r/s appt and was unable to due to last week being unavailable. documented in this encounter Plan of Treatment Upcoming Encounters Date Type Department Care Team (Late st Contact Info) Description 07/25/2024 9:30 AM EDT Medication Management [facility] MEDICINE [address] [place] [address] Jose Angel Martinez PharmD [address] [place] [address] documented as of this encounter Goals Goal Patient Goal Type Associated Problems Recent Progress Patient-Stated? Author Blood Pressure < 140/90 Blood Pressure 118/56(2024 9:39 AM EDT) No Jose Angel Martinez PharmD Hemoglobin A1c < 7 Result Component 7.7( 9:50 AM EST) No Jose Angel Martinez PharmD documented as of this encounter Visit Diagnoses Not on filedocumented in this encounter Additional Health Concerns Assessment Noted Time PHQ-9 Depression Total Score: 0 06/08/19 23 1:07 PM EDT documented as of this encounter Care Teams Polysomnographic Technician Relationship Specialty Start Date End Date Alma Quijano MD [address] [place] [address] PCP - General Family Medicine 02/20/18 Jose Angel Martinez PharmD [address] [place] [address] Pharmacist Internal Medicine 09/19/22 documented as of this encounter
--- OUTSIDE RECORDS SUMMARY | 2024-05-24 15:51 | XMS_ITS | Encounter Summary ---
Author Organization [facility] [facility] Address [address] [facility] 7t [place] [address] Care Team Providers Care Administration Internship Name Role Phone Alma Quijano MD Primary Care Provider [phone] Jose Angel Martinez PharmD Unavailable [phone] Encounter Details Date Type Department Care Team (Late Contact Info) Description 07/13/2022 Orders Only [facility] MEDICINE [address] [place] [address] Alma Quijano MD [address] [place] [address] Calculus of gallbladder without cholecystitis without obstruction (Primary Dx); RUQ pain Social History Tobacco Use Types Packs/Day Years [...] Encounters Date Type Department Care Team (Late Contact Info) Description 07/25/2024 9:30 AM EDT Medication Management [facility] MEDICINE [address] [place] [phone] Jose Angel Martinez, PharmD 230 [place] [address] documented as of this encounter Visit Diagnoses Diagnosis Calculus of gallbladder without cholecystitis without obstruction- Primary RUQ pain Abdominal pain, right upper quadrant documented in this encounter Additional Health Concerns Assessment Noted Time PHQ-9 Depression Total Score: 0 06/08/19 23 1:07 PM EDT documented as of this encounter Care Teams Administration Internship Relationship Specialty Start Date End Date Alma Quijano MD 230 [place] [address] PCP - General Family Medicine 02/20/18 Jose Angel Martinez, MarissaD [address] [place] [address] Pharmacist Internal Medicine 09/19/22 documented as of this encounter
--- OUTSIDE RECORDS SUMMARY | 2024-05-24 15:51 | XMS_ITS | Encounter Summary ---
Author Organization [employer] Address [address] [facility] 7t [place] [address] Care Team Providers Care Disaster Recovery Analyst Name Role Phone Alma Quijano MD Primary Care Provider [phone] Jose Angel Martinez PharmD Unavailable [phone] Encounter Details Date Type Department Care Team (Late st Contact Info) Description 01/24/2023 Abstract [facility] MEDICINE 230 [place] [address] Alma Quijano MD 230 [place], [place] [phone] Social History Tobacco Use Types Packs/Day Years [...] Description 07/25/2024 9:30 AM EDT Medication Management [facility] MEDICINE 230 [place] [address] Jose Angel Martinez PharmD 230 [place], [place] [phone] documented as of this encounter Goals Goal Patient Goal Type Associated Problems Recent Progress Patient-Stated? Author Blood Pressure < 140/90 Blood Pressure 118/56(2024 9:39 AM EDT) No Jose Angel Martinez PharmD Hemoglobin A1c < 7 Result Component 7.7( 9:50 AM EST) No Jose Angel Martinez PharmD documented as of this encounter Procedures Procedure Name Priority Date/Time Associated Diagnosis Comments COLONOSCOPY Routine 01/06/2020 documented in this encounter Results * Hm Colonoscopy (01/06/2020) Colonoscopy Normal Normal Jarrett Craft MD HEALTH MAINTENANCE Final Res ult documented in this encounter Visit Diagnoses Not on filedocumented in this encounter Additional Health Concerns Assessment Noted Time PHQ-9 Depression Total Score: 0 06/08/19 23 1:07 PM EDT documented as of this encounter Care Teams Disaster Recovery Analyst Relationship Specialty Start Date End Date Alma Quijano MD [address] [place] [address] [phone] PCP - General Family Medicine 02/20/18 Jose Angel Martinez PharmD [address] [place] [address] [phone] Pharmacist Internal Medicine 09/19/22 documented as of this encounter
--- OUTSIDE RECORDS SUMMARY | 2024-05-24 15:51 | XMS_ITS | Encounter Summary ---
Author Organization [email or web address] [facility] Address [address] [place] [address] 7[place] [address] Care Team Providers Care Admitting Manager Name Role Phone Alma Quijano MD Primary Care Provider [phone] Jose Angel Martinez PharmD Unavailable [phone] Reason for Visit * Reason Comments Med Refill Encounter Details Date Type Department Care Team (Late Contact Info) Description 07/27/2022 Refill [facility] MEDICINE [address] [place] [phone] Alma Quijano MD [address] [place] [phone] Social History Tobacco Use Types Packs/Day Years [...] Description 07/25/2024 9:30 AM EDT Medication Management [facility] MEDICINE [address] [place] [address] Jose Angel Martinez, PharmD 230 [place] [address] documented as of this encounter Visit Diagnoses Not on filedocumented in this encounter Additional Health Concerns Assessment Noted Time PHQ-9 Depression Total Score: 0 06/08/19 23 1:07 PM EDT documented as of this encounter Care Teams Admitting Manager Relationship Specialty Start Date End Date Alma Quijano MD 230 [place] [address] PCP - General Family Medicine 02/20/18 Jose Angel Martinez, MarissaD 230 [place] [address] Pharmacist Internal Medicine 09/19/22 documented as of this encounter
--- OUTSIDE RECORDS SUMMARY | 2024-05-24 15:51 | XMS_ITS | Encounter Summary ---
Author Organization [employer] Address 75 [facility] 7t [place] [address] Care Team Providers Care Bowling Teacher Name Role Phone Alma Quijano MD Primary Care Provider [phone] Jose Angel Martinez PharmD Unavailable [phone] Reason for Visit * Reason Comments Med Refill Encounter Details Date Type Department Care Team ([facility] Contact Info) Description 03/17/2023 Refill [facility] MEDICINE 230 [place], [place] [phone] Jose Angel Martinez, PharmD 230 [place] [address] Type 2 diabetes mellitus with hyperglycemia, with long-term current use of insulin ([facility]) Social History Tobacco Use Types Packs/Day Years [...] Description 07/25/2024 9:30 AM EDT Medication Management [facility] MEDICINE 230 [place], [place] [phone] Jose Angel Martinez PharmD [address] [place] [address] documented as of this encounter Goals Goal Patient Goal Type Associated Problems Recent Progress Patient-Stated? Author Blood Pressure < 140/90 Blood Pressure 118/56(2024 9:39 AM EDT) No Jose Angel Martinez PharmD Hemoglobin A1c < 7 Result Component 7.7( 9:50 AM EST) No Jose Angel Martinez PharmD documented as of this encounter Visit Diagnoses Diagnosis Type 2 diabetes mellitus with hyperglycemia, with long-term current use of insulin ([facility]) documented in this encounter Additional Health Concerns Assessment Noted Time PHQ-9 Depression Total Score: 0 06/08/19 23 1:07 PM EDT documented as of this encounter Care Teams Bowling Teacher Relationship Specialty Start Date End Date Alma Quijano MD [address] [place] [address] [phone] PCP - General Family Medicine 02/20/18 Jose Angel Martinez PharmD [address] [place] [phone] Pharmacist Internal Medicine 09/19/22 documented as of this encounter
--- OUTSIDE RECORDS SUMMARY | 2024-05-24 15:51 | XMS_ITS | Encounter Summary ---
Author Organization [employer] Address [address] [facility] 7t [place] [address] Care Team Providers Care Architectural Drafting Instructor Name Role Phone Alma Quijano MD Primary Care Provider [phone] Jose Angel Martinez PharmD Unavailable [phone] Encounter Details Date Type Department Care Team ([facility] Contact Info) Description 02/28/2022 Orders Only [facility] [address] [place], [place] [phone] Anu Robledo LPN Social History Tobacco Use Types Packs/Day Years Used Date Smoking Tobacco: Never Assessed Comments Unknown Sex and Gender Information Value Date Recorded Sex Assigned at Female 12/20/2021 10:14 AM EDT Legal Sex Female 10:14 AM EDT Gender Identity Female 12/20/2021 10:14 AM EDT Sexual Orientation Straight 12/20/2021 10 :14 AM EDT COVID-19 Exposure Response Date Recorded In the last 10 days, have yo u been in contact with someone who was confirmed or suspected to have Coronavirus/COVID-19? No / Unsure 03/01/2022 1:13 PM EST documented as of this encounter Plan of Treatment Upcoming Encounters Date Type Department Care Team (Late Contact Info) Description 07/25/2024 9:30 AM EDT Medication Management [facility] MEDICINE 230 [place] [address] Jose Angel Martinez, PharmD 230 [place] [address] documented as of this encounter Visit Diagnoses Not on filedocumented in this encounter Care Teams Architectural Drafting Instructor Relationship Specialty Start Date End Date Alma Quijano MD 230 [place] [address] PCP - General Family Medicine 02/20/18 Jose Angel Martinez, PharmD [address] [place] [address] Pharmacist Internal Medicine 09/19/22 documented as of this encounter
--- OUTSIDE RECORDS SUMMARY | 2024-05-24 15:51 | XMS_ITS | Encounter Summary ---
Author Organization [employer] Address [address] [facility] 7t [place] [address] Care Team Providers Care Steno Typist Name Role Phone Alma Quijano MD Primary Care Provider [phone] Jose Angel Martinez PharmD Unavailable [phone] Encounter Details Date Type Department Care Team (Late st Contact Info) Description 05/26/2023 Orders Only [facility] MEDICINE 230 [place], [place] [phone] Alma Quijano MD 230 [place], [place] [phone] Osteoporosis, unspecified osteoporosis type, unspecified pathological fracture presence (Primary Dx) Social History Tobacco Use Types Packs/Day Years [...] Description 07/25/2024 9:30 AM EDT Medication Management [facility] MEDICINE 230 [place] [address] Jose Angel Martinez PharmD 230 [place] [address] documented as of this encounter Goals Goal Patient Goal Type Associated Problems Recent Progress Patient-Stated? Author Blood Pressure < 140/90 Blood Pressure 118/56(2024 9:39 AM EDT) No Jose Angel Martinez PharmD Hemoglobin A1c < 7 Result Component 7.7( 9:50 AM EST) No Jose Angel Martinez PharmD documented as of this encounter Visit Diagnoses Diagnosis Osteoporosis, unspecified osteoporosis type, unspecified pathological fracture presence- Primary documented in this encounter Additional Health Concerns Assessment Noted Time PHQ-9 Depression Total Score: 0 06/08/19 23 1:07 PM EDT documented as of this encounter Care Teams Steno Typist Relationship Specialty Start Date End Date Alma Quijano MD [address] [place] [address] PCP - General Family Medicine 02/20/18 Jose Angel Martinez PharmD [address] [place] [phone] Pharmacist Internal Medicine 09/19/22 documented as of this encounter
--- OUTSIDE RECORDS SUMMARY | 2024-05-24 15:51 | XMS_ITS | Encounter Summary ---
Author Organization [employer] [facility] Address [address] [place] [address] 7[address] [place] [address] Care Team Providers Care Executive Wellness Programs Director Name Role Phone Alma Quijano MD Primary Care Provider [phone] Jose Angel Martinez PharmD Unavailable [phone] Reason for Visit * Reason Comments Med Refill Encounter Details Date Type Department Care Team ([facility] Contact Info) Description 05/09/2022 Refill [facility] MEDICINE [address] [place] [address] Alma Quijano MD 230 [place] [address] Social History Tobacco Use Types Packs/Day Years Used Date Smoking Tobacco: Never Passive Smoke Exposure: Never Smokeless Tobacco: Never Comments Unknown Sex and Gender Information Value Date Recorded Sex Assigned at Female 12/20/2021 10:14 AM EDT Legal Sex Female 10:14 AM EDT Gender Identity Female 12/20/2021 10:14 AM EDT Sexual Orientation Straight 12/20/2021 10 :14 AM EDT documented as of this encounter Plan of Treatment Upcoming Encounters Date Type Department Care Team ([facility] Contact Info) Description 07/25/2024 9:30 AM EDT Medication Management [facility] MEDICINE [address] [place] [address] Jose Angel Martinez, PharmD [address] [place] [address] documented as of this encounter Visit Diagnoses Not on filedocumented in this encounter Care Teams Executive Wellness Programs Director Relationship Specialty Start Date End Date Alma Quijano MD [address] [place] [address] PCP - General Family Medicine 02/20/18 Jose Angel Martinez, MarissaD [address] [place] [phone] Pharmacist Internal Medicine 09/19/22 documented as of this encounter
--- OUTSIDE RECORDS SUMMARY | 2024-05-24 15:51 | XMS_ITS | Encounter Summary ---
Author Organization [employer] Address [address] [facility] 7t [place] [address] Care Team Providers Care Media Reconciliation Specialist Name Role Phone Alma Quijano MD Primary Care Provider [phone] Jose Angel Martinez PharmD Unavailable [phone] Encounter Details Date Type Department Care Team (Late st Contact Info) Description 07/31/2023 Orders Only [facility] MEDICINE 230 [place], [place] [phone] Alma Quijano MD 230 [place], [place] [phone] Type 2 diabetes mellitus with hyperglycemia, with long-term current use of insulin ([facility]) (Primary Dx); Osteoporosis without current pathological fracture, unspecified osteoporosis type; Primary hypertension; Acquired hypothyroidism Social History Tobacco Use Types Packs/Day Years [...] 9:30 AM EDT Medication Management [facility] MEDICINE 230 [place], [place] [phone] Jose Angel Martinez PharmD [address] [place], [place] [phone] Scheduled Orders Name Type Priority Associated Diagnoses Orde r Schedule Lipid Panel with Reflex to Direct LDL Lab Routine Type 2 diabetes mellitus with hyperglycemia, with long-term current use of insulin (CMS/HCC) Expected: 07/31/2023 (Approximate), Expires: 07/30/2024 documented as of this encounter Goals Goal Patient Goal Type Associated Problems Recent Progress Patient-Stated? Author Blood Pressure < 140/90 Blood Pressure 118/56(2024 9:39 AM EDT) No Jose Angel Martinez PharmD Hemoglobin A1c < 7 Result Component 7.7( 9:50 AM EST) No Jose Angel Martinez PharmD documented as of this encounter Procedures Procedure Name Priority Date/Time Associated Diagnosis Comments ALBUMIN, RANDOM URINE W/CREATININE Routine 08/01/2023 8:24 AM EDT Type 2 diabetes mellitus with hyperglycemia, with long-term current use of insulin (CMS/HCC) TSH Routine 08/01/2023 8:24 AM EDT Acquired hypothyroidism T4, FREE Routine 08/01/2023 8:24 AM EDT Acquired hypothyroidism COMPREHENSIVE METABOLIC PANEL Routine 08/01/2023 8:24 AM EDT Type 2 diabetes mellitus with hyperglycemia, with long-term current use of insulin ([facility]) documented in this encounter Results * TSH (08/01/2023 8:24 AM EDT) Thyroid Stimulating Hormone 3.13 0.32 - 4.0 uIU/mL [facility] Comment:Note: A sustained TS H level above 2.5 uIU/mL may warrant further investigation. TSH 3rd Generation ([facility]) Blood Venous blood specimen / Unknown 08/01/2023 8:24 AM EDT 08/01/2023 11:09 AM EDT Alma Quijano MD LAB BLOOD ORDERABLES Final Resul t Performing Organization Address [facility]/ZIP Co de Phone Number [facility] [address] [place] [phone] * T4, Free (08/01/2023 8:24 AM EDT) Free T4 (Free Thyroxine) 0.87 0.71 - 1.85 ng/dL [facility] Blood Venous blood specimen / Unknown 08/01/2023 8:24 AM EDT 08/01/2023 11:09 AM EDT Alma Quijano MD LAB BLOOD ORDERABLES Final Resul t Performing Organization Address [facility]/ZIP Co de Phone Number [facility] [address] [place] [phone] * (ABNORMAL) Comprehensive Metabolic Panel (08/01/2023 8:24 AM EDT) Sodium 143 135 - 145 mmol/L [facility] Potassium 4.1 3.3 - 5.1 mmol/L [facility] Chloride 108 96 - 108 mmol/L [facility] Carbon Dioxide 27 22 - 29 mmol/L [facility] Anion Gap 12 12 - 20 [facility] Urea Nitrogen (BUN) 17(H) 9 - 16 mg/dL [facility] Creatinine, Serum 0.79 0.5 - 1.4 mg/dL [facility] Estimated Glomerular Filt Rate >60 [facility] Comment:NOTE: For -Am erican individuals, multiply the result by 1.210.Chronic Kidney Disease: Estimated GFR < 60 mL/min/1.02l7Sdrabu Kidney Disease: Estimated GFR < 15 mL/min/1.73m2 Glucose 161(H) 60 - 115 mg/dL [facility] Calcium 9.5 8.4 - 10.2 mg/dL [facility] Bilirubin, Total 0.6 0.0 - 1.0 mg/dL [facility] Aspartate Amino Transferase 16 5 - 31 U/L [facility] Alanine Aminotransferase 18 0 - 31 U/L [facility] Total Protein 7.3 6.5 - 8.0 g/dL [facility] Albumin Level 4.1 3.5 - 5.0 g/dL [facility] Alkaline Phosphatase 68 39 - 117 U/L [facility] Blood Venous blood specimen / Unknown 08/01/2023 8:24 AM EDT 08/01/2023 11:09 AM EDT us Alma Quijano MD LAB BLOOD ORDERABLES Final Resul t [facility] [address] [place] [phone] * Albumin, Random Urine W/Creatinine (08/01/2023 8:24 AM EDT) Creatinine, Urine 80.05 mg/dL [facility] Microalbumin Urine 18.0 mg/L [facility] Microalbum Creatinine Ratio Ur 22.4 <30 ug/mg cr [facility] Comment:Albumin/Creatinine R atio Reference Ranges: Normal: < 30 ug/mg creatinine Microalbuminuria: 30 - 300 ug/mg creatinineClinical Albuminuria: > 300 ug/mg creatinine Urine 08/01/2023 8:24 AM EDT 08/01/2023 11:14 AM EDT Alma Quijano MD LAB URINE ORDERABLES Final Resul t [facility] [address] [place] [phone] documented in this encounter Visit Diagnoses Diagnosis Type 2 diabetes mellitus with hyperglycemia, with long-term current use of insulin ([facility])- Primary Osteoporosis without current pathological fracture, unspecified osteoporosis type Primary hypertension Unspecified essential hypertension Acquired hypothyroidism Unspecified hypothyroidism documented in this encounter Additional Health Concerns Assessment Noted Time PHQ-9 Depression Total Score: 0 06/08/19 23 1:07 PM EDT documented as of this encounter Care Teams Media Reconciliation Specialist Relationship Specialty Start Date End Date Alma Quijano MD [address] [place] [address] PCP - General Family Medicine 02/20/18 Jose Angel Martinez, PharmD [address] [place] [address] Pharmacist Internal Medicine 09/19/22 documented as of this encounter
--- OUTSIDE RECORDS SUMMARY | 2024-05-24 15:51 | XMS_ITS | Encounter Summary ---
Author Organization [employer] [facility] Address [address] [place] [address] 7[place] [address] Care Team Providers Care Casing Soaker Name Role Phone Alma Quijano MD Primary Care Provider [phone] Jose Angel Martinez PharmD Unavailable [phone] Encounter Details Date Type Department Care Team (Late Contact Info) Description 09/08/2022 Orders Only [facility] MEDICINE [address] [place] [address] [phone] Alma Quijano MD [address] [place] [address] [phone] Acquired hypothyroidism (Primary Dx) Social History Tobacco Use Types [...] Description 07/25/2024 9:30 AM EDT Medication Management [facility] MEDICINE [address] [place] [address] [phone] Jose Angel Martinez, PharmD [address] [place], [place] [phone] Scheduled Orders Name Type Priority Associated Diagnoses Orde r Schedule TSH W/Reflex to FT4 Lab Routine Acquired hypothyroidism Expected: 12/09/2022 (Approximate), Expires: 09/09/2023 documented as of this encounter Visit Diagnoses Diagnosis Acquired hypothyroidism- Primary Unspecified hypothyroidism documented in this encounter Additional Health Concerns Assessment Noted Time PHQ-9 Depression Total Score: 0 06/08/19 1:07 PM EDT documented as of this encounter Care Teams Casing Soaker Relationship Specialty Start Date End Date Alma Quijano MD [address] [place] [address] PCP - General Family Medicine 02/20/18 Jose Angel Martinez, MarissaD [address] [place] [phone] Pharmacist Internal Medicine 09/19/22 documented as of this encounter
--- OUTSIDE RECORDS SUMMARY | 2024-05-24 15:51 | XMS_ITS | Encounter Summary ---
Author Organization [facility] [facility] Address [address] [facility] [address] [place] [address] Care Team Providers Care Tour Narrator Name Role Phone Alma Quijano MD Primary Care Provider [phone] Jose Angel Martinez PharmD Unavailable [phone] Encounter Details Date Type Department Care Team (Late Contact Info) Description 03/01/2022 Abstract [facility] [address] [place] [phone] Alma Quijano MD [address] [place] [address] [phone] Social History Tobacco Use Types Packs/Day Years [...] Medication Management [facility] [address] [place] [phone] Jose Angel Martinez, PharmD [address] [place] [address] documented as of this encounter Visit Diagnoses Not on filedocumented in this encounter Care Teams Tour Narrator Relationship Specialty Start Date End Date Alma Quijano MD [address] [place] [address] PCP - General Family Medicine 02/20/18 Jose Angel Martinez PharmD [address] [place] [address] Pharmacist Internal Medicine 09/19/22 documented as of this encounter
--- OUTSIDE RECORDS SUMMARY | 2024-05-24 15:51 | XMS_ITS | Encounter Summary ---
Author Organization [employer] Address [address] [facility] 7[address] [place] [address] Care Team Providers Care Piercing Mill Operator Name Role Phone Alma Quijano MD Primary Care Provider [phone] Jose Angel Martinez PharmD Unavailable [phone] Reason for Referral * Consultation (Routine) - Authorized Specialty Diagnoses / Procedures Referred By Contirais t Referred To Contact Pharmacy Diagnoses Type 2 diabetes mellitus with hyperglycemia, with long-term current use of insulin (CMS/HCC) Primary hypertension Moderate persistent asthma without complication Alma Quijano MD [address] [place] [phone] Phone: tel: fax: Referral ID Status Reason Start Date Expiration Date Visits Requested Visits Authorized [id number] Authorized Consult and Treat 01/02/2024 01/01/2025 6 6 Encounter Details Date Type Department Care Team ([facility] st Contact Info) Description 01/02/2024 Orders Only [facility] [address] [place] [address] [phone] Alma Quijano MD [address] [place] [phone] Type 2 diabetes mellitus with hyperglycemia, with long-term current use of insulin (CMS/HCC) (Primary Dx); Primary hypertension; Moderate persistent asthma without complication Social History Tobacco Use Types Packs/Day Years Used Date Smoking Tobacco: Never Passive Smoke Exposure: Never Smokeless Tobacco: Never Alcohol Use Standard Drinks/Week Comments Never 0 [...] Description 07/25/2024 9:30 AM EDT Medication Management [facility] [address] [place] [address] Jose Angel Martinez, PharmD [address] [place] [address] Scheduled Referrals Name Type Priority Associated Diagnoses Orde r Schedule Referral to Pharmacy CDTM Outpatient Referral Routine Type 2 diabetes mellitus with hyperglycemia, with long-term current use of insulin ([facility]) Primary hypertension Moderate persistent asthma without complication Ordered: 01/02/2024 documented as of this encounter Goals Goal Patient Goal Type Associated Problems Recent Progress Patient-Stated? Author Blood Pressure < 140/90 Blood Pressure 118/56(2024 9:39 AM EDT) No Jose Angel Martinez PharmD Hemoglobin A1c < 7 Result Component 7.7( 5 9:50 AM EST) No Jose Angel Martinez PharmD documented as of this encounter Visit Diagnoses Diagnosis Type 2 diabetes mellitus with hyperglycemia, with long-term current use of insulin ([facility])- Primary Primary hypertension Unspecified essential hypertension Moderate persistent asthma without complication documented in this encounter Additional Health Concerns Assessment Noted Time PHQ-9 Depression Total Score: 0 06/08/19 23 1:07 PM EDT documented as of this encounter Care Teams Piercing Mill Operator Relationship Specialty Start Date End Date Alma Quijano MD [address] [place] [address] PCP - General Family Medicine 02/20/18 Jose Angel Martinez PharmD [address] [place] [address] Pharmacist Internal Medicine 09/19/22 documented as of this encounter
--- OUTSIDE RECORDS SUMMARY | 2024-05-24 15:51 | XMS_ITS | Encounter Summary ---
Author Organization [employer] [facility] Address [address] [place] [address] [address] [place] [address] Care Team Providers Care Accounting Machine Servicer Name Role Phone Alma Quijano MD Primary Care Provider [phone] Jose Angel Martinez PharmD Unavailable [phone] Reason for Visit * Reason Comments Med Refill Encounter Details Date Type Department Care Team ([facility] Contact Info) Description 04/28/2022 Refill [facility] [address] [place] [phone] Geetha Macedo ANP [address] [place] [address] Social History Tobacco Use Types Packs/Day Years [...] Upcoming Encounters Date Type Department Care Team ([facility] Contact Info) Description 07/25/2024 9:30 AM EDT Medication Management [facility] [address] [place] [phone] Jose Angel Martinez, PharmD [address] [place] [address] documented as of this encounter Visit Diagnoses Not on filedocumented in this encounter Care Teams Accounting Machine Servicer Relationship Specialty Start Date End Date Alma Quijano MD [address] [place] [address] PCP - General Family Medicine 02/20/18 Jose Angel Martinez, MarissaD [address] [place] [address] Pharmacist Internal Medicine 09/19/22 documented as of this encounter
--- OUTSIDE RECORDS SUMMARY | 2024-05-24 15:51 | XMS_ITS | Encounter Summary ---
Author Organization [employer] [facility] Address [address] [place] [address] [address] [place] [address] Care Team Providers Care Heel Sander Name Role Phone Alma Quijano MD Primary Care Provider [phone] Jose Angel Martinez PharmD Unavailable [phone] Reason for Visit * Reason Comments Med Refill Encounter Details Date Type Department Care Team ([facility] Contact Info) Description 10/19/2022 Refill [facility] [address] [place] [phone] Name, MD Jovi [address] [place] [phone] Vitamin B12 deficiency Social History Tobacco Use Types Packs/Day Years [...] Description 07/25/2024 9:30 AM EDT Medication Management [facility] [address] [place] [phone] Jose Angel Martinez, PharmD [address] [place] [phone] documented as of this encounter Goals Goal Patient Goal Type Associated Problems Recent Progress Patient-Stated? Author Blood Pressure < 140/90 Blood Pressure 118/56(2024 9:39 AM EDT) No Jose Angel Martinez PharmD Hemoglobin A1c < 7 Result Component 7.7( 9:50 AM EST) No Jose Angel Martinez PharmD documented as of this encounter Visit Diagnoses Diagnosis Vitamin B12 deficiency Other B-complex deficiencies documented in this encounter Additional Health Concerns Assessment Noted Time PHQ-9 Depression Total Score: 0 06/08/19 23 1:07 PM EDT documented as of this encounter Care Teams Heel Sander Relationship Specialty Start Date End Date Alma Quijano MD [address] [place] [address] PCP - General Family Medicine 02/20/18 Jose Angel Martinez PharmD [address] [place] [address] Pharmacist Internal Medicine 09/19/22 documented as of this encounter
== END 2024-05-24 14:08 | disposition home or self-care (01) ==
LOC: HO.MAMMO 14:07
PROVIDERS: PCP Family Medicine; Visit Provider Family Medicine
DX: Z12.31 Encounter for screening mammogram for malignant neoplasm of breast (principal)
CPT/HCPCS: 77063; 77067

== ENCOUNTER → 2024-05-24 14:30 | Outpatient (BNV) | payer OTHER, SELFPAY | PROVIDERS: PCP Family Medicine; Visit Provider Internal Medicine | DX: Z12.31 Encounter for screening mammogram for malignant neoplasm of breast (principal) | CPT/HCPCS: 77063; 77067 ==

== ENCOUNTER 2024-06-05 09:52 | Outpatient (REF) | payer OTHER, SELFPAY ==
--- NOTE | ~2024-06-05 | CT_ITS ---
CLINICAL HISTORY: R91.1 - Solitary pulmonary nodule CT chest with contrast Comparison: 05/15/2023 Findings: Stable tiny bilateral nodules. No acute infiltrate or new nodule. Stable left lower lobe linear scar. No significant mediastinal adenopathy. No significant free pleural fluid. No significant focal bony abnormalities. Impression: No acute processes This document has been electronically signed by: Sandro Douglas MD on 06/05/2024 22:02:02
--- OUTSIDE RECORDS SUMMARY | 2024-06-05 11:13 | XMS_ITS | Clinical Summary ---
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 [phone] GODINEZ MD HPV mRNA E6/E7 [facility] HPV 16 [facility] HPV 18/45 RNA [facility] Vaginal Fluid Cervix uteri structure / Unknown 05/02/2023 9:48 AM EDT 05/03/2023 2:23 PM EDT [facility] - 05/05/2023 7:38 AM EDT Collection Date: [id number] by: KIMI Colby: Cervix Alma Quijano MD LAB CYTOLOGY ORDERABLES Final Re sult [facility] [address] [place] [phone] [phone] * Pap Smear (05/02/2023 9:48 AM EDT) Swab 05/02/2023 9:48 AM EDT 05/03/2023 12:25 PM EDT [facility] - 05/11/2023 6:49 AM EDT ----- ------- Name: MarinoCori newman ? Age/Sex: 67/F ? : 1955 Unit#: [id number] ?? Attend Dr: Alma Quijano MD ?Re05/02/23 ?Status: DEP REF ? Location: HO.LNP ?Disch: ? ----- ------- SPEC : [id number] ? RECD: 05/03/23 ? STATUS: ??SOUT ? REQ NUM: [id number] ? VU: 05/02/23-947 ? SUBM DR: Alma Quijano MD ? [...] 66, 68) ?? HPV testing performed by [facility], [place], [place]. ??See reference laboratory ?? portion of the EMR for entire report. ?Clinical Information LMP: Postmenopausal Previous PAP test: Unknown date/findings ? Material Received ?? ThinPrep-Vaginal/Cervical ----- ------- Signed (signature on file) HAZEL Brown (ASCP) 05/11/23 0649 ? ----- ------- ? END OF REPORT ? Alma Quijano MD LAB CYTOLOGY ORDERABLES Final Re sult [facility] [address] [place] [address] [phone] * Diabetes Eye Exam (12/09/2022) Eye Exam Normal Normal [facility] HEALTH MAINTENANCE Final Result * Colonoscopy (01/06/2020) Colonoscopy Normal Normal Jarrett Craft MD HEALTH MAINTENANCE Final Res ult from Last 3 Months or Most Recently Relevant to Health Maintenance Insurance [facility] Care Teams Manager Study Relationship Specialty Start Date End Date Alma Quijano MD [address] [place] [address] PCP - General Family Medicine 02/20/18 Jose Angel Martinez, MarissaD [address] [place] [address] Pharmacist Internal Medicine 09/19/22
--- OUTSIDE RECORDS SUMMARY | 2024-06-05 11:13 | XMS_ITS | Encounter Summary ---
Author Organization [employer] [facility] Address [address] [place] [address] [address] [place] [address] Care Team Providers Care Red Cap Name Role Phone Alma Quijano MD Primary Care Provider [phone] Jose Angel Martinez PharmD Unavailable [phone] Reason for Visit * Reason Comments Med Refill Encounter Details Date Type Department Care Team ([facility] Contact Info) Description 05/09/2022 Refill [facility] [address] [place] [address] Alma Quijano MD [address] [place] [address] Social History Tobacco Use Types Packs/Day Years [...] Upcoming Encounters Date Type Department Care Team ([facility] Contact Info) Description 07/25/2024 9:30 AM EDT Medication Management [facility] [address] [place] [address] Jose Angel Martinez, PharmD [address] [place] [address] documented as of this encounter Visit Diagnoses Not on filedocumented in this encounter Care Teams Red Cap Relationship Specialty Start Date End Date Alma Quijano MD [address] [place] [phone] PCP - General Family Medicine 02/20/18 Jose Angel Martinez, MarissaD [address] [place] [address] Pharmacist Internal Medicine 09/19/22 documented as of this encounter
--- OUTSIDE RECORDS SUMMARY | 2024-06-05 11:13 | XMS_ITS | Encounter Summary ---
Author Organization [employer] Address [address] [facility] 7t [place] [address] Care Team Providers Care Transfer Car Operator Drier Name Role Phone Alma Quijano MD Primary Care Provider [phone] Jose Angel Martinez PharmD Unavailable [phone] Encounter Details Date Type Department Care Team (Late st Contact Info) Description 05/24/2024 Orders Only [facility] [address] [place], [place] [phone] Alma Quijano MD [address] [place], [place] [phone] Social History Tobacco Use Types Packs/Day Years [...] Description 07/25/2024 9:30 AM EDT Medication Management [facility] [address] [place] [address] Jose Angel Martinez PharmD [address] [place] [address] documented as of this encounter Goals Goal [...] TOMOSYNTHESIS BILATERAL Routine 05/24/2024 2:15 PM EDT documented in this encounter Results * BI Mammogram Screening Tomosynthesis Bilateral (05/24/2024 2:15 PM EDT) Anatomical Region Laterality Modality Breast Bilateral Mammography 05/24/2024 2:15 PM EDT Narrative 05/31/2024 3:24 PM EDT ? [facility] ? [address] ?[place] [address] ?[phone] ? Mammography Report ? Signed ? Patient: Marino,Cori E ?MR#: [id number] ? : 1955 ?Acct:[id number] ? Age/Sex: 68 / F ?ADM Date: 05/24/24 ? Loc: HO.MAMMO ? Attending Dr: Alma Quijano MD ? Ordering Physician: Alma Quijano MD ?Results: 1Negative ? Date of Service: 05/24/24 ?Follow Up: 1 Year From Orig ?? inal Mammogram ? Procedure(s): MM tomosynthesis screening BI ?? Accession Number(s): [id number] ? cc: Alma Quijano MD ? EXAMINATION: [...] ??Aminata Garland DO ??05/31/2024 03:21 PM EDT ? Dictated By: ?Aminata Garland DO ? Signed By: ?<Electronically signed by Aminata Garland, DO in OV> ? 05/31/24 1521 ? DD/ 1415 ? TD/TT: 05/24/24 1436 ? Training And Development Assistant: ? Procedure Note Tihsater, Image - 05/31/2024 [facility] [address] [place] [address] Mammography Report Signed Patient: Cori Marino EMR#: [id number] : 1955cct:[id number] Age/Sex: 68 / FADM Date: 05/24/24 Loc: TIM Attending Dr: Alma Quijano MD Ordering Physician: Alma Quijano MDResults: 1Negative Date of Service: 05/24/24Follow Up: 1 Year From Orig inal Mammogram Procedure(s): MM tomosynthesis screening BI Accession Number(s): [id number] cc: Alma Quijano MD EXAMINATION: MM SCREENING [...] Aminata Garland DO 05/31/2024 03:21 PM EDT RP Dictated By: Aminata Garland DO Signed By: <Electronically signed by Aminata Garland DO in OV> 05/31/24 1521 DD/ 1415 TD/TT: 05/24/24 1436 Training And Development Assistant: Alma Quijano MD IMG BI PROCEDURES Final Result documented in this encounter Visit Diagnoses Not on filedocumented in this encounter Additional Health Concerns Assessment Noted Time PHQ-9 Depression Total Score: 5 01/31/20 24 11:17 AM EST documented as of this encounter Care Teams Transfer Car Operator Drier Relationship Specialty Start Date End Date Alma Quijano MD [address] [place] [address] PCP - General Family Medicine 02/20/18 Jose Angel Martinez, Giovanna [address] [place] [address] Pharmacist Internal Medicine 09/19/22 documented as of this encounter
--- OUTSIDE RECORDS SUMMARY | 2024-06-05 11:13 | XMS_ITS | Encounter Summary ---
Author Organization [employer] [facility] Address [address] [place] [address] [address] [address] Care Team Providers Care Bottle Capper Name Role Phone Alma Quijano MD Primary Care Provider [phone] Jose Angel Martinez PharmD Unavailable [phone] Reason for Visit * Reason Comments Med Refill Encounter Details Date Type Department Care Team ([facility] Contact Info) Description 04/28/2022 Refill [facility] [address] [place] [address] Geetha Macedo ANP [address] [place] [address] Social History Tobacco Use Types Packs/Day Years [...] Upcoming Encounters Date Type Department Care Team ([facility] Contact Info) Description 07/25/2024 9:30 AM EDT Medication Management [facility] [address] [place] [phone] Jose Angel Martinez, PharmD [address] [place] [address] documented as of this encounter Visit Diagnoses Not on filedocumented in this encounter Care Teams Bottle Capper Relationship Specialty Start Date End Date Alma Quijano MD [address] [place] [address] PCP - General Family Medicine 02/20/18 Jose Angel Martinez, MarissaD [address] [place] [address] Pharmacist Internal Medicine 09/19/22 documented as of this encounter
--- OUTSIDE RECORDS SUMMARY | 2024-06-05 11:13 | XMS_ITS | Encounter Summary ---
Author Organization [email or web address] Address [address] [facility] 7t [place] [address] Care Team Providers Care Forms Examiner Name Role Phone Alma Quijano MD Primary Care Provider Jose Angel Martinez PharmD Unavailable [phone] Reason for Referral * Consultation (Routine) - Authorized Specialty Diagnoses / Procedures Referred By Contirais t Referred To Contact Pharmacy Diagnoses Type 2 diabetes mellitus with hyperglycemia, with long-term current use of insulin (CMS/HCC) Primary hypertension Moderate persistent asthma without complication Alma Quijano MD [address] [place] [address] Phone: tel: fax: Referral ID Status Reason Start Date Expiration Date Visits Requested Visits Authorized [id number] Authorized Consult and Treat 01/02/2024 01/01/2025 6 6 Encounter Details Date Type Department Care Team ([facility] st Contact Info) Description 01/02/2024 Orders Only [facility] [address] [place] [address] Alma Quijano MD [address] [place] [address] Type 2 diabetes mellitus with hyperglycemia, with [...] Description 07/25/2024 9:30 AM EDT Medication Management [facility] [address] [place] [address] Jose Angel Martinez, PharmD [address] [place] [address] Scheduled Referrals Name Type Priority Associated Diagnoses Orde r Schedule Referral to Pharmacy CDTM Outpatient Referral Routine Type 2 diabetes mellitus with hyperglycemia, with long-term current use of insulin ([facility]) Primary hypertension Moderate persistent asthma without complication [...] hyperglycemia, with long-term current use of insulin ([facility])- Primary Primary hypertension Unspecified essential hypertension Moderate persistent asthma without complication documented in this encounter Additional Health Concerns Assessment Noted Time PHQ-9 Depression Total Score: 0 06/08/19 23 1:07 PM EDT documented as of this encounter Care Teams Forms Examiner Relationship Specialty Start Date End Date Alma Quijano MD [address] [place] [address] PCP - General Family Medicine 02/20/18 Jose Angel Martinez PharmD [address] [place] [address] Pharmacist Internal Medicine 09/19/22 documented as of this encounter
--- OUTSIDE RECORDS SUMMARY | 2024-06-05 11:14 | XMS_ITS | Encounter Summary ---
Author Organization [email or web address] Address [address] [facility] 7t [place] [address] Care Team Providers Care Elementary School Director Name Role Phone Alma Quijano MD Primary Care Provider [phone] Jose Angel Martinez PharmD Unavailable [phone] Encounter Details Date Type Department Care Team (Late st Contact Info) Description 07/31/2023 Orders Only [facility] [address] [place], [place] [phone] Alma Quijano MD [address] [place], [place] [phone] Type 2 diabetes mellitus with hyperglycemia, with long-term current use of insulin ([facility]) (Primary Dx); Osteoporosis without current pathological fracture, [...] Medication Management [facility] [address] [place], [place] [phone] Jose Angel Martinez PharmD [address] [place], [place] [phone] Scheduled Orders Name Type Priority Associated Diagnoses [...] hyperglycemia, with long-term current use of insulin ([facility]) documented in this encounter Results * TSH (08/01/2023 8:24 AM EDT) Thyroid Stimulating Hormone 3.13 0.32 - 4.0 uIU/mL [facility] Comment:Note: A sustained TS H level above 2.5 uIU/mL may warrant further investigation. TSH 3rd Generation ([facility]) Blood Venous blood specimen / Unknown 08/01/2023 8:24 AM EDT 08/01/2023 11:09 AM EDT Alma Quijano MD LAB BLOOD ORDERABLES Final Resul t Performing Organization Address [facility]/ZIP Co de Phone Number [facility] [address] [place] [phone] * T4, Free (08/01/2023 8:24 AM EDT) Free T4 (Free Thyroxine) 0.87 0.71 - 1.85 ng/dL [facility] Blood Venous blood specimen / Unknown 08/01/2023 8:24 AM EDT 08/01/2023 11:09 AM EDT Alma Quijano MD LAB BLOOD ORDERABLES Final Resul t Performing Organization Address [facility]/ZIP Co de Phone Number [facility] [address] [place] [phone] * (ABNORMAL) Comprehensive Metabolic Panel (08/01/2023 8:24 AM EDT) Sodium 143 135 - 145 mmol/L [facility] Potassium 4.1 3.3 - 5.1 mmol/L [facility] Chloride 108 96 - 108 mmol/L [facility] Carbon Dioxide 27 22 - 29 mmol/L [facility] Anion Gap 12 12 - 20 [facility] Urea Nitrogen (BUN) 17(H) 9 - 16 mg/dL [facility] Creatinine, Serum 0.79 0.5 - 1.4 mg/dL [facility] Estimated Glomerular Filt Rate >60 [facility] Comment:NOTE: For -Am erican individuals, multiply the result by 1.210.Chronic Kidney Disease: Estimated GFR < 60 mL/min/1.02q1Izystk Kidney Disease: Estimated GFR < 15 mL/min/1.73m2 Glucose 161(H) 60 - 115 mg/dL [facility] Calcium 9.5 8.4 - 10.2 mg/dL [facility] Bilirubin, Total 0.6 0.0 - 1.0 mg/dL [facility] Aspartate Amino Transferase 16 5 - 31 U/L [facility] Alanine Aminotransferase 18 0 - 31 U/L [facility] Total Protein 7.3 6.5 - 8.0 g/dL [facility] Albumin Level 4.1 3.5 - 5.0 g/dL [facility] Alkaline Phosphatase 68 39 - 117 U/L [facility] Blood Venous blood specimen / Unknown 08/01/2023 8:24 AM EDT 08/01/2023 11:09 AM EDT us Alma Quijano MD LAB BLOOD ORDERABLES Final Resul t [facility] [address] [place] [phone] * Albumin, Random Urine W/Creatinine (08/01/2023 8:24 AM EDT) Creatinine, Urine 80.05 mg/dL [facility] Microalbumin Urine 18.0 mg/L [facility] Microalbum Creatinine Ratio Ur 22.4 <30 ug/mg cr [facility] Comment:Albumin/Creatinine R atio Reference Ranges: Normal: < 30 ug/mg creatinine Microalbuminuria: 30 - 300 ug/mg creatinineClinical Albuminuria: > 300 ug/mg creatinine Urine 08/01/2023 8:24 AM EDT 08/01/2023 11:14 AM EDT Alma Quijano MD LAB URINE ORDERABLES Final Resul t [facility] [address] [place] [address] [phone] documented in this encounter Visit Diagnoses Diagnosis Type 2 diabetes mellitus with hyperglycemia, with long-term current use of insulin ([facility])- Primary Osteoporosis without current pathological fracture, unspecified osteoporosis type Primary hypertension Unspecified essential hypertension Acquired hypothyroidism Unspecified hypothyroidism documented in this encounter Additional Health Concerns Assessment Noted Time PHQ-9 Depression Total Score: 0 06/08/19 23 1:07 PM EDT documented as of this encounter Care Teams Elementary School Director Relationship Specialty Start Date End Date Alma Quijano MD [address] [place] [address] PCP - General Family Medicine 02/20/18 Jose Angel Martinez, PharmD [address] [place] [address] Pharmacist Internal Medicine 09/19/22 documented as of this encounter
--- OUTSIDE RECORDS SUMMARY | 2024-06-05 11:14 | XMS_ITS | Encounter Summary ---
Author Organization [employer] Address [address] [facility] 7t [place] [address] Care Team Providers Care Toll Transmission Worker Name Role Phone Alma Quijano MD Primary Care Provider [phone] Jose Angel Martinez PharmD Unavailable [phone] Encounter Details Date Type Department Care Team (Late st Contact Info) Description 01/24/2023 Abstract [facility] [address] [place] [address] Ewa Waldrop [place] Social History Tobacco Use [...] Medication Management [facility] [address] [place] [address] Jose Angel Martinez PharmD [address] [place] [address] documented as of this encounter Goals Goal [...] Eye Exam (12/09/2022) Eye Exam Normal Normal [facility] HEALTH MAINTENANCE Final Result documented in this encounter Visit Diagnoses Not on filedocumented in this encounter Additional Health Concerns Assessment Noted Time PHQ-9 Depression Total Score: 0 06/08/19 23 1:07 PM EDT documented as of this encounter Care Teams Toll Transmission Worker Relationship Specialty Start Date End Date Alma Quijano MD [address] [place] [phone] PCP - General Family Medicine 02/20/18 Jose Angel Martinez PharmD [address] [place] [phone] Pharmacist Internal Medicine 09/19/22 documented as of this encounter
--- OUTSIDE RECORDS SUMMARY | 2024-06-05 11:14 | XMS_ITS | Encounter Summary ---
Author Organization [employer] [facility] Address [address] [place] [address] [address] [address] Care Team Providers Care Research Associate Professor Name Role Phone Alma Quijano MD Primary Care Provider [phone] Jose Angel Martinez PharmD Unavailable [phone] Reason for Visit * Reason Comments Med Refill Encounter Details Date Type Department Care Team ([facility] Contact Info) Description 10/19/2022 Refill [facility] [address] [place] [phone] Name, MD Jovi [address] [place] [address] Vitamin B12 deficiency Social History Tobacco Use [...] Description 07/25/2024 9:30 AM EDT Medication Management [facility] [address] [place] [phone] Jose Angel Martinez, PharmD [address] [place] [address] documented as of this encounter Goals Goal [...] documented as of this encounter Care Teams Research Associate Professor Relationship Specialty Start Date End Date Alma Quijano MD [address] [place] [address] PCP - General Family Medicine 02/20/18 Jose Angel Martinez PharmD [address] [place] [address] Pharmacist Internal Medicine 09/19/22 documented as of this encounter
--- OUTSIDE RECORDS SUMMARY | 2024-06-05 11:14 | XMS_ITS | Encounter Summary ---
Author Organization [employer] Address [address] [facility] 7t [place] [address] Care Team Providers Care Christmas Tree Grower Name Role Phone Alma Quijano MD Primary Care Provider [phone] Jose Angel Martinez PharmD Unavailable [phone] Reason for Visit * Reason Comments Med Refill Encounter Details Date Type Department Care Team ([facility] Contact Info) Description 06/01/2024 Refill [facility] [address] [place] [address] Alma Quijano MD [address] [place] [address] Dyslipidemia Social History Tobacco Use Types Packs/Day Years [...] 9:30 AM EDT Medication Management [facility] [address] [place] [phone] Jose Angel Martinez PharmD [address] [place] [address] documented as of this encounter Goals Goal Patient Goal Type Associated Problems Recent Progress Patient-Stated? Author Blood Pressure < 140/90 Blood Pressure 118/56(2024 9:39 AM EDT) No Jose Angel Martinez PharmD Hemoglobin A1c < 7 Result Component 7.7( 9:50 AM EST) No Jose nAgel Martinez PharmD documented as of this encounter Visit Diagnoses Diagnosis Dyslipidemia Other and unspecified hyperlipidemia documented in this encounter Additional Health Concerns Assessment Noted Time PHQ-9 Depression Total Score: 5 01/31/20 24 11:17 AM EST documented as of this encounter Care Teams Christmas Tree Grower Relationship Specialty Start Date End Date Alma Quijano MD [address] [place] [address] PCP - General Family Medicine 02/20/18 Jose Angel Martinez PharmD [address] [place] [phone] Pharmacist Internal Medicine 09/19/22 documented as of this encounter
--- OUTSIDE RECORDS SUMMARY | 2024-06-05 11:14 | XMS_ITS | Encounter Summary ---
Author Organization [employer] [facility] Address [address] [place] [address] [address] [place] [address] Care Team Providers Care Shotgun Shell Reprinting Unit Operator Name Role Phone Alma Quijano MD Primary Care Provider [phone] Jose Angel Martinez PharmD Unavailable [phone] Reason for Visit * Reason Comments Med Refill Encounter Details Date Type Department Care Team (Late Contact Info) Description 07/27/2022 Refill [facility] MEDICINE [address] [place] [address] Alma Quijano MD [address] [place] [address] Social History Tobacco Use Types Packs/Day Years [...] 9:30 AM EDT Medication Management [facility] MEDICINE [address] [place] [address] Jose Angel Martinez, PharmD 230 [place] [address] documented as of this encounter Visit Diagnoses Not on filedocumented in this encounter Additional Health Concerns Assessment Noted Time PHQ-9 Depression Total Score: 0 06/08/19 23 1:07 PM EDT documented as of this encounter Care Teams Shotgun Shell Reprinting Unit Operator Relationship Specialty Start Date End Date Alma Quijano MD 230 [place] [address] PCP - General Family Medicine 02/20/18 Jose Angel Martinez, MarissaD 230 [place] [address] Pharmacist Internal Medicine 09/19/22 documented as of this encounter
--- OUTSIDE RECORDS SUMMARY | 2024-06-05 11:14 | XMS_ITS | Encounter Summary ---
Author Organization [employer] Address [address] [facility] 7t [place] [address] Care Team Providers Care Dermatologist Managing Partner Name Role Phone Alma Quijano MD Primary Care Provider [phone] Jose Angel Martinez PharmD Unavailable [phone] Reason for Visit * Reason Comments Med Refill Encounter Details Date Type Department Care Team ([facility] Contact Info) Description 06/05/2024 Refill [facility] MEDICINE 230 [place], [place] [phone] Alma Quijano MD 230 [place] [address] Social History Tobacco Use Types Packs/Day Years [...] Description 07/25/2024 9:30 AM EDT Medication Management [facility] MEDICINE 230 [place] [address] Jose Angel Martinez PharmD 230 [place] [address] documented as of this encounter Goals Goal [...] documented as of this encounter Care Teams Dermatologist Managing Partner Relationship Specialty Start Date End Date Alma Quijano MD [address] [place] [address] PCP - General Family Medicine 02/20/18 Jose Angel Martinez PharmD [address] [place] [address] Pharmacist Internal Medicine 09/19/22 documented as of this encounter
--- OUTSIDE RECORDS SUMMARY | 2024-06-05 11:14 | XMS_ITS | Encounter Summary ---
Author Organization [employer] [facility] Address 75 [facility] 7t [place] [address] Care Team Providers Care Electron Beam Photo Mask Maker Name Role Phone Alma Quijano MD Primary Care Provider [phone] Jose Angel Martinez PharmD Unavailable [phone] Encounter Details Date Type Department Care Team (Late Contact Info) Description 03/01/2022 Abstract [facility] MEDICINE [address] [place] [phone] Alma Quijano MD [address] [place] [address] [phone] Social History Tobacco Use Types Packs/Day Years [...] Medication Management [facility] MEDICINE [address] [place] [address] Jose Angel Martinez, PharmD 230 [place] [address] documented as of this encounter Visit Diagnoses Not on filedocumented in this encounter Care Teams Electron Beam Photo Mask Maker Relationship Specialty Start Date End Date Alma Quijano MD 230 [place] [address] PCP - General Family Medicine 02/20/18 Jose Angel Martinez PharmD 230 [place] [address] Pharmacist Internal Medicine 09/19/22 documented as of this encounter
--- OUTSIDE RECORDS SUMMARY | 2024-06-05 11:14 | XMS_ITS | Encounter Summary ---
Author Organization [employer] Address [address] [facility] 7t [place] [address] Care Team Providers Care Rail Detector Car Operator Name Role Phone Alma Quijano MD Primary Care Provider [phone] Jose Angel Martinez PharmD Unavailable [phone] Encounter Details Date Type Department Care Team ([facility] Contact Info) Description 02/28/2022 Orders Only [facility] CHC MED & PEDS [address] [place], [place] [phone] Anu Robledo LPN Social History Tobacco Use [...] 9:30 AM EDT Medication Management [facility] MEDICINE 230 [place] [address] Jose Angel Martinez, PharmD 230 [place] [address] documented as of this encounter Visit Diagnoses Not on filedocumented in this encounter Care Teams Rail Detector Car Operator Relationship Specialty Start Date End Date Alma Quijano MD 230 [place] [address] PCP - General Family Medicine 02/20/18 Jose Angel Martinez, PharmD [address] [place] [address] Pharmacist Internal Medicine 09/19/22 documented as of this encounter
--- OUTSIDE RECORDS SUMMARY | 2024-06-05 11:14 | XMS_ITS | Encounter Summary ---
Author Organization [employer] Address [address] [facility] 7t [place] [address] Care Team Providers Care Product Marketing Coordinator Name Role Phone Alma Quijano MD Primary Care Provider [phone] Jose Angel Martinez PharmD Unavailable [phone] Reason for Visit * Reason Onset Date Comments Appointment Request 11/08/2022 Encounter Details Date Type Department Care Team ([facility] st Contact Info) Description 11/08/2022 Telephone [facility] MEDICINE 230 [place], [place] [phone] Alma Quijano MD 230 [place], [place] [phone] Appointment Request Social History Tobacco Use Types [...] to traveling. Patient will be back 12/15/22. Other Sports Coach Or Instructor attempted to r/s appt and was unable to due to last week being unavailable. documented in this encounter Plan of Treatment Upcoming Encounters Date Type Department Care Team (Late st Contact Info) Description 07/25/2024 9:30 AM EDT Medication Management [facility] MEDICINE 230 [place] [address] Jose Angel Martinez PharmD 230 [place] [address] documented as of this encounter Goals Goal [...] documented as of this encounter Care Teams Product Marketing Coordinator Relationship Specialty Start Date End Date Alma Quijano MD 230 [place] [address] PCP - General Family Medicine 02/20/18 Jose Angel Martinez PharmD 230 [place] [address] Pharmacist Internal Medicine 09/19/22 documented as of this encounter
--- OUTSIDE RECORDS SUMMARY | 2024-06-05 11:14 | XMS_ITS | Encounter Summary ---
Author Organization [employer] Address [address] [facility] 7t [place] [address] Care Team Providers Care Roofing Layer Name Role Phone Alma Quijano MD Primary Care Provider [phone] Jose Angel Martinez PharmD Unavailable [phone] Encounter Details Date Type Department Care Team (Late st Contact Info) Description 01/24/2023 Abstract [facility] MEDICINE 230 [place] [address] Alma Quijano MD 230 [place], [place] [phone] Social History Tobacco Use Types Packs/Day Years [...] Description 07/25/2024 9:30 AM EDT Medication Management [facility] MEDICINE 230 [place] [address] Jose Angel Martinez PharmD 230 [place], [place] [phone] documented as of this encounter Goals Goal [...] documented as of this encounter Care Teams Roofing Layer Relationship Specialty Start Date End Date Alma Quijano MD [address] [place] [address] [phone] PCP - General Family Medicine 02/20/18 Jose Angel Martinez PharmD [address] [place] [address] [phone] Pharmacist Internal Medicine 09/19/22 documented as of this encounter
--- OUTSIDE RECORDS SUMMARY | 2024-06-05 11:14 | XMS_ITS | Encounter Summary ---
Author Organization [employer] [facility] Address [address] [place] [address] 7t [place] [address] Care Team Providers Care Staff Respiratory Therapist Name Role Phone Alma Quijano MD Primary Care Provider [phone] Jose Angel Martinez PharmD Unavailable [phone] Encounter Details Date Type Department Care Team (Late Contact Info) Description 09/08/2022 Orders Only [facility] MEDICINE [address] [place] [address] [phone] Alma Quijano MD [address] [place] [address] [phone] Acquired hypothyroidism (Primary Dx) Social History Tobacco [...] Description 07/25/2024 9:30 AM EDT Medication Management [facility] MEDICINE [address] [place] [address] [phone] Jose Angel Martinez, PharmD 230 [place], [place] [phone] Scheduled Orders Name Type Priority Associated Diagnoses Orde r Schedule TSH W/Reflex to FT4 Lab Routine Acquired hypothyroidism Expected: 12/09/2022 (Approximate), Expires: 09/09/2023 documented as of this encounter Visit Diagnoses Diagnosis Acquired hypothyroidism- Primary Unspecified hypothyroidism documented in this encounter Additional Health Concerns Assessment Noted Time PHQ-9 Depression Total Score: 0 06/08/19 1:07 PM EDT documented as of this encounter Care Teams Staff Respiratory Therapist Relationship Specialty Start Date End Date Alma Quijano MD 230 [place] [address] PCP - General Family Medicine 02/20/18 Jose Angel Martinez, MarissaD [address] [place] [address] Pharmacist Internal Medicine 09/19/22 documented as of this encounter
--- OUTSIDE RECORDS SUMMARY | 2024-06-05 11:14 | XMS_ITS | Encounter Summary ---
Author Organization [employer] Address 75 [facility] 7t [place] [address] Care Team Providers Care Blueprint Reproducer Name Role Phone Alma Quijano MD Primary Care Provider [phone] Jose Angel Martinez PharmD Unavailable [phone] Encounter Details Date Type Department Care Team (Late st Contact Info) Description 05/26/2023 Orders Only [facility] MEDICINE 230 [place], [place] [phone] Alma Quijano MD 230 [place], [place] [phone] Osteoporosis, unspecified osteoporosis type, unspecified pathological fracture [...] Description 07/25/2024 9:30 AM EDT Medication Management [facility]ICINE 230 [place] [address] Jose Angel Martinez PharmD 230 [place] [address] documented as of this encounter Goals Goal [...] documented as of this encounter Care Teams Blueprint Reproducer Relationship Specialty Start Date End Date Alma Quijano MD [address] [place] [address] PCP - General Family Medicine 02/20/18 Jose Angel Martinez PharmD [address] [place] [address] Pharmacist Internal Medicine 09/19/22 documented as of this encounter
--- OUTSIDE RECORDS SUMMARY | 2024-06-05 11:14 | XMS_ITS | Encounter Summary ---
Author Organization [employer] [facility] Address [address] [facility] 7t [place] [address] Care Team Providers Care Supervisor Cook Room Name Role Phone Alma Quijano MD Primary Care Provider [phone] Jose Angel Martinez PharmD Unavailable [phone] Encounter Details Date Type Department Care Team (Late Contact Info) Description 07/13/2022 Orders Only [facility] MEDICINE [address] [place] [address] Alma Quijano MD [address] [place] [address] Calculus of gallbladder without cholecystitis without obstruction [...] Description 07/25/2024 9:30 AM EDT Medication Management [facility] MEDICINE [address] [place] [address] Jose Angel Martinez, PharmD 230 [place] [address] documented as of this encounter Visit Diagnoses Diagnosis Calculus of gallbladder without cholecystitis without obstruction- Primary RUQ pain Abdominal pain, right upper quadrant documented in this encounter Additional Health Concerns Assessment Noted Time PHQ-9 Depression Total Score: 0 06/08/19 23 1:07 PM EDT documented as of this encounter Care Teams Supervisor Cook Room Relationship Specialty Start Date End Date Alma Quijano MD 230 [place] [address] PCP - General Family Medicine 02/20/18 Jose Angel Martinez, MarissaD 230 [place] [address] Pharmacist Internal Medicine 09/19/22 documented as of this encounter
--- OUTSIDE RECORDS SUMMARY | 2024-06-05 11:14 | XMS_ITS | Encounter Summary ---
Author Organization [employer] Address [address] [facility] 7t [place] [address] Care Team Providers Care Siphoner Name Role Phone Alma Quijano MD Primary Care Provider Jose Angel Martinez PharmD Unavailable [phone] Reason for Visit * Reason Comments Med Refill Encounter Details Date Type Department Care Team ([facility] Contact Info) Description 03/17/2023 Refill [facility] MEDICINE 230 [place], [place] [phone] Jose Angel Martinez, PharmD 230 [place] [address] Type 2 diabetes mellitus with hyperglycemia, with long-term current use of insulin ([facility]) Social History Tobacco Use Types Packs/Day [...] Description 07/25/2024 9:30 AM EDT Medication Management [facility] MEDICINE 230 [place], [place] [phone] Jose Angel Martinez PharmD [address] [place] [address] documented as of this encounter Goals Goal [...] hyperglycemia, with long-term current use of insulin ([facility]) documented in this encounter Additional Health Concerns Assessment Noted Time PHQ-9 Depression Total Score: 0 06/08/19 23 1:07 PM EDT documented as of this encounter Care Teams Siphoner Relationship Specialty Start Date End Date Alma Quijano MD [address] [place] [address] [phone] PCP - General Family Medicine 02/20/18 Jose Angel Martinez PharmD [address] [place] [address] Pharmacist Internal Medicine 09/19/22 documented as of this encounter
== END 2024-06-05 09:53 | disposition home or self-care (01) ==
LOC: HO.CT 09:52
PROVIDERS: PCP Family Medicine; Visit Provider Internal Medicine Pulmonary Disease
DX: R91.1 Solitary pulmonary nodule (principal)
CPT/HCPCS: 71250

== ENCOUNTER → 2024-06-05 09:54 | Outpatient (BNV) | payer OTHER, SELFPAY | PROVIDERS: PCP Family Medicine; Visit Provider Radiology Diagnostic Radiology | DX: R91.1 Solitary pulmonary nodule (principal) | CPT/HCPCS: 71250 ==

== ENCOUNTER 2024-06-14 09:45 | Outpatient (REF) | payer OTHER, SELFPAY ==
--- NOTE | ~2024-06-14 | XR_ITS ---
EXAMINATION: XR FOREARM, RIGHT CLINICAL INFORMATION: M79.631 - Pain in right forearm COMPARISON: 05/10/2024. TECHNIQUE: AP and lateral views of the right forearm were obtained. FINDINGS: No acute fracture, dislocation, or suspicious bone lesion. There is normal bone mineralization. Plate and screw fixation of the mid to distal ulnar and radial diaphyses, with hardware appearing intact, well seated, without abnormality. Healed fractures of the mid to distal diaphyses of the radius and ulna. Mild degenerative changes in the wrists in the elbow joint. Soft tissues demonstrate diffuse vascular calcification. XR/XR forearm RT 2V IMPRESSION: Internal fixation of the mid to distal radius and ulnar diaphyses, without complication evident. No acute findings. Diffuse vascular calcifications. Electronically signed by: Yariel Vasquez MD 06/17/2024 02:43 PM EDT
--- OUTSIDE RECORDS SUMMARY | 2024-06-14 11:21 | XMS_ITS | Encounter Summary ---
Author Organization [employer] Address 75 [facility] 7t [place] [address] Care Team Providers Care Manager Of Maintenance Name Role Phone Alma Quijano MD Primary Care Provider [phone] Jose Angel Martinez PharmD Unavailable [phone] Reason for Visit * Reason Comments Med Refill Encounter Details Date Type Department Care Team ([facility] Contact Info) Description 03/17/2023 Refill [facility] MEDICINE 230 [place], [place] [phone] Jose Angel Martinez, PharmD 230 [place] [address] Type 2 diabetes mellitus with hyperglycemia, with long-term current use of insulin ([facility]) Social History Tobacco Use Types Packs/Day [...] Description 07/25/2024 9:30 AM EDT Medication Management [facility] MEDICINE 230 [place], [place] [phone] Jose Angel Martinez PharmD [address] [place] [address] documented as of this encounter Goals Goal [...] hyperglycemia, with long-term current use of insulin ([facility]) documented in this encounter Additional Health Concerns Assessment Noted Time PHQ-9 Depression Total Score: 0 06/08/19 23 1:07 PM EDT documented as of this encounter Care Teams Manager Of Maintenance Relationship Specialty Start Date End Date Alma Quijano MD [address] [place] [address] [phone] PCP - General Family Medicine 02/20/18 Jose Angel Martinez PharmD [address] [place] [address] Pharmacist Internal Medicine 09/19/22 documented as of this encounter
--- OUTSIDE RECORDS SUMMARY | 2024-06-14 11:21 | XMS_ITS | Encounter Summary ---
Author Organization [employer] Address 75 [facility] 7t [place] [address] Care Team Providers Care Binder Caser Name Role Phone Alma Quijano MD Primary Care Provider [phone] Jose Angel Martinez PharmD Unavailable [phone] Encounter Details Date Type Department Care Team (Late st Contact Info) Description 01/24/2023 Abstract [facility] MEDICINE 230 [place] [address] Alma Quijano MD 230 [place], [place] [phone] Social History Tobacco Use Types Packs/Day Years [...] Description 07/25/2024 9:30 AM EDT Medication Management [facility] MEDICINE 230 [place] [address] Jose Angel Martinez PharmD 230 [place], [place] [phone] documented as of this encounter Goals Goal [...] documented as of this encounter Care Teams Binder Caser Relationship Specialty Start Date End Date Alma Quijano MD [address] [place] [address] [phone] PCP - General Family Medicine 02/20/18 Jose Angel Martinez PharmD [address] [place] [address] [phone] Pharmacist Internal Medicine 09/19/22 documented as of this encounter
--- OUTSIDE RECORDS SUMMARY | 2024-06-14 11:21 | XMS_ITS | Encounter Summary ---
Author Organization [employer] Address 75 [facility] 7t [place] [address] Care Team Providers Care Superintendent Quarry Name Role Phone Alma Quijano MD Primary Care Provider [phone] Jose Angel Martinez PharmD Unavailable [phone] Encounter Details Date Type Department Care Team ([facility] Contact Info) Description 02/28/2022 Orders Only [facility] CHC MED & PEDS [address] [place], [place] [phone] Anu Robledo LPN Social History Tobacco Use [...] Description 07/25/2024 9:30 AM EDT Medication Management [facility] MEDICINE 230 [place] [address] Jose Angel Martinez, PharmD 230 [place] [address] documented as of this encounter Visit Diagnoses Not on filedocumented in this encounter Care Teams Superintendent Quarry Relationship Specialty Start Date End Date Alma Quijano MD 230 [place] [address] PCP - General Family Medicine 02/20/18 Jose Angel Martinez, PharmD [address] [place] [address] Pharmacist Internal Medicine 09/19/22 documented as of this encounter
--- OUTSIDE RECORDS SUMMARY | 2024-06-14 11:21 | XMS_ITS | Encounter Summary ---
Author Organization [employer] Address [address] [facility] 7t [place] [address] Care Team Providers Care Workforce Planning Analyst Name Role Phone Alma Quijano MD Primary Care Provider [phone] Jose Angel Martinez PharmD Unavailable [phone] Encounter Details Date Type Department Care Team (Late st Contact Info) Description 05/26/2023 Orders Only [facility] MEDICINE 230 [place], [place] [phone] Alma Quijano MD 230 [place], [place] [phone] Osteoporosis, unspecified osteoporosis type, unspecified pathological fracture [...] Description 07/25/2024 9:30 AM EDT Medication Management [facility] MEDICINE 230 [place] [address] Jose Angel Martinez PharmD 230 [place] [address] documented as of this encounter Goals Goal [...] documented as of this encounter Care Teams Workforce Planning Analyst Relationship Specialty Start Date End Date Alma Quijano MD [address] [place] [address] PCP - General Family Medicine 02/20/18 Jose Angel Martinez PharmD [address] [place] [phone] Pharmacist Internal Medicine 09/19/22 documented as of this encounter
--- OUTSIDE RECORDS SUMMARY | 2024-06-14 11:21 | XMS_ITS | Encounter Summary ---
Author Organization [facility] Address [address] [place] [address] [address] [place] [address] Care Team Providers Care Head Stock Transfer Clerk Name Role Phone Alma Quijano MD Primary Care Provider [phone] Jose Angel Martinez PharmD Unavailable [phone] Reason for Visit * Reason Comments Med Refill Encounter Details Date Type Department Care Team ([facility] Contact Info) Description 10/19/2022 Refill [facility] [address] [place] [phone] Name, MD Jovi [address] [place] [phone] Vitamin B12 deficiency Social History Tobacco Use [...] 07/25/2024 9:30 AM EDT Medication Management [facility] [address] [place] [phone] Jose Angel Martinez, PharmD [address] [place] [address] documented as of this encounter Goals Goal [...] documented as of this encounter Care Teams Head Stock Transfer Clerk Relationship Specialty Start Date End Date Alma Quijano MD [address] [place] [address] PCP - General Family Medicine 02/20/18 Jose Angel Martinez PharmD [address] [place] [address] Pharmacist Internal Medicine 09/19/22 documented as of this encounter
--- OUTSIDE RECORDS SUMMARY | 2024-06-14 11:21 | XMS_ITS | Encounter Summary ---
Author Organization [employer] Address [address] [facility] 7t [place] [address] Care Team Providers Care Care Taker Name Role Phone Alma Quijano MD Primary Care Provider [phone] Jose Angel Martinez PharmD Unavailable [phone] Reason for Referral * Consultation (Routine) - Authorized Specialty Diagnoses / Procedures Referred By Contirais t Referred To Contact Pharmacy Diagnoses Type 2 diabetes mellitus with hyperglycemia, with long-term current use of insulin (CMS/HCC) Primary hypertension Moderate persistent asthma without complication Alma Quijano MD [address] [place] [phone] Phone: tel: fax: Referral ID Status Reason Start Date Expiration Date Visits Requested Visits Authorized [id number] Authorized Consult and Treat 01/02/2024 01/01/2025 6 6 Encounter Details Date Type Department Care Team ([facility] st Contact Info) Description 01/02/2024 Orders Only [facility] [address] [place] [phone] Alma Quijano MD [address] [place] [phone] Type 2 diabetes mellitus with hyperglycemia, with [...] 9:30 AM EDT Medication Management [facility] [address] [place] [address] Jose Angel Martinez, PharmD [address] [place] [address] Scheduled Referrals Name Type Priority Associated Diagnoses Orde r Schedule Referral to Pharmacy CDTM Outpatient Referral Routine Type 2 diabetes mellitus with hyperglycemia, with long-term current use of insulin ([facility]) Primary hypertension Moderate persistent asthma without complication [...] hyperglycemia, with long-term current use of insulin ([facility])- Primary Primary hypertension Unspecified essential hypertension Moderate persistent asthma without complication documented in this encounter Additional Health Concerns Assessment Noted Time PHQ-9 Depression Total Score: 0 06/08/19 23 1:07 PM EDT documented as of this encounter Care Teams Care Taker Relationship Specialty Start Date End Date Alma Quijano MD [address] [place] [address] PCP - General Family Medicine 02/20/18 Jose Angel Martinez PharmD [address] [place] [address] Pharmacist Internal Medicine 09/19/22 documented as of this encounter
--- OUTSIDE RECORDS SUMMARY | 2024-06-14 11:21 | XMS_ITS | Encounter Summary ---
Author Organization [employer] Address [address] [facility] 7t [place] [address] Care Team Providers Care Generator Man Name Role Phone Alma Quijano MD Primary Care Provider [phone] Jose Angel Martinez PharmD Unavailable [phone] Encounter Details Date Type Department Care Team (Late st Contact Info) Description 01/24/2023 Abstract [facility] [address] [place] [address] Ewa Waldrop [place] Social History Tobacco Use [...] Description 07/25/2024 9:30 AM EDT Medication Management [facility] [address] [place] [address] Jose Angel Martinez PharmD [address] [place] [address] documented as of this encounter Goals Goal [...] Eye Exam (12/09/2022) Eye Exam Normal Normal [facility] HEALTH MAINTENANCE Final Result documented in this encounter Visit Diagnoses Not on filedocumented in this encounter Additional Health Concerns Assessment Noted Time PHQ-9 Depression Total Score: 0 06/08/19 23 1:07 PM EDT documented as of this encounter Care Teams Generator Man Relationship Specialty Start Date End Date Alma Quijano MD [address] [place] [address] [phone] PCP - General Family Medicine 02/20/18 Jose Angel Martinez PharmD [address] [place] [phone] Pharmacist Internal Medicine 09/19/22 documented as of this encounter
--- OUTSIDE RECORDS SUMMARY | 2024-06-14 11:21 | XMS_ITS | Encounter Summary ---
Author Organization [facility] [facility] Address [address] [facility] 7t [place] [address] Care Team Providers Care Representative Phlebotomy Services Name Role Phone Alma Quijano MD Primary Care Provider [phone] Jose Angel Martinez PharmD Unavailable [phone] Encounter Details Date Type Department Care Team (Late Contact Info) Description 03/01/2022 Abstract [facility] [address] [place] [phone] Alma Quijano MD [address] [place] [address] [phone] Social History Tobacco Use Types Packs/Day Years [...] 9:30 AM EDT Medication Management [facility] [address] [place] [phone] Jose Angel Martinez, PharmD [address] [place] [address] documented as of this encounter Visit Diagnoses Not on filedocumented in this encounter Care Teams Representative Phlebotomy Services Relationship Specialty Start Date End Date Alma Quijano MD [address] [place] [address] PCP - General Family Medicine 02/20/18 Jose Angel Martinez PharmD [address] [place] [address] Pharmacist Internal Medicine 09/19/22 documented as of this encounter
--- OUTSIDE RECORDS SUMMARY | 2024-06-14 11:21 | XMS_ITS | Encounter Summary ---
Author Organization [employer] [facility] Address [address] [place] [address] 7t [place] [address] Care Team Providers Care Ham Sawyer Name Role Phone Alma Quijano MD Primary Care Provider [phone] Jose Angel Martinez PharmD Unavailable [phone] Encounter Details Date Type Department Care Team (Late Contact Info) Description 09/08/2022 Orders Only [facility] [address] [place] [address] [phone] Alma Quijano MD [address] [place] [address] [phone] Acquired hypothyroidism (Primary Dx) Social History Tobacco [...] Management [facility] [address] [place] [address] [phone] Jose Angel Martinez, PharmD [address] [place], [place] [phone] Scheduled Orders Name Type Priority Associated Diagnoses Orde r Schedule TSH W/Reflex to FT4 Lab Routine Acquired hypothyroidism Expected: 12/09/2022 (Approximate), Expires: 09/09/2023 documented as of this encounter Visit Diagnoses Diagnosis Acquired hypothyroidism- Primary Unspecified hypothyroidism documented in this encounter Additional Health Concerns Assessment Noted Time PHQ-9 Depression Total Score: 0 06/08/19 1:07 PM EDT documented as of this encounter Care Teams Ham Sawyer Relationship Specialty Start Date End Date Alma Quijano MD [address] [place] [address] PCP - General Family Medicine 02/20/18 Jose Angel Martinez, MarissaD [address] [place] [phone] Pharmacist Internal Medicine 09/19/22 documented as of this encounter
--- OUTSIDE RECORDS SUMMARY | 2024-06-14 11:21 | XMS_ITS | Encounter Summary ---
Author Organization [employer] Address [address] [facility] 7t [place] [address] Care Team Providers Care Supervisor Meter Shop Name Role Phone Alma Qiujano MD Primary Care Provider [phone] Jose Angel Martinez PharmD Unavailable [phone] Reason for Visit * Reason Onset Date Comments Appointment Request 11/08/2022 Encounter Details Date Type Department Care Team ([facility] st Contact Info) Description 11/08/2022 Telephone [facility] [address] [place], [place] [phone] Alma Quijano MD [address] [place], [place] [phone] Appointment Request Social History Tobacco Use Types [...] to traveling. Patient will be back 12/15/22. Inshore Undersea Warfare Officer attempted to r/s appt and was unable to due to last week being unavailable. documented in this encounter Plan of Treatment Upcoming Encounters Date Type Department Care Team (Late st Contact Info) Description 07/25/2024 9:30 AM EDT Medication Management [facility] [address] [place] [address] Jose Angel Martinez PharmD [address] [place] [address] documented as of this encounter Goals Goal Patient Goal Type Associated Problems Recent Progress Patient-Stated? Author Blood Pressure < 140/90 Blood Pressure 118/56(2024 9:39 AM EDT) No Jose Angel Martinez PharmD Hemoglobin A1c < 7 Result Component 7.7( 9:50 AM EST) No oJse Angel Martinez PharmD documented as of this encounter Visit Diagnoses Not on filedocumented in this encounter Additional Health Concerns Assessment Noted Time PHQ-9 Depression Total Score: 0 06/08/19 23 1:07 PM EDT documented as of this encounter Care Teams Supervisor Meter Shop Relationship Specialty Start Date End Date Alma Quijano MD [address] [place] [address] PCP - General Family Medicine 02/20/18 Jose Angel Martinez PharmD [address] [place] [address] Pharmacist Internal Medicine 09/19/22 documented as of this encounter
--- OUTSIDE RECORDS SUMMARY | 2024-06-14 11:21 | XMS_ITS | Clinical Summary ---
Author Organization [employer] Address [address] [facility] [address] [place] [address] Care Team Providers Care Talent Development Coordinator Name Role Phone Alma Quijano MD Primary Care Provider [phone] Jose Angel Martinez PharmD Unavailable [phone] Allergies Active Allergy Reactions Criticality Noted Date Comments Glyburide Hives 03/22/2010 Pioglitazone Unknown 03/22/2010 Medications Blood Glucose Monitoring Suppl (PopUpStyle Minotola Lite) w/Device kit USE TO TEST BLOOD [...] polyneuropathy, with long-term current use of insulin ([facility]) USE TWICE DAILY DIRECTED 100 each 023 Active TRUEplus Lancets 33G miscIndications: Type 2 diabetes mellitus with hyperglycemia ([facility]) TEST BLOOD SUGAR SIX TIMES DAILY 200 each Active lidocaine (Lidoderm) 5 % patch Apply 1 patch topically in the morning. Remove & discard patch within 12 hours or as directed by MD. 30 patch Active Diclofenac Sodium 1 % gel APPLY 2-3 GRAMS TO AFFECTED AREA(S) TWICE DAILY NEEDED FOR PAIN Active Continuous Glucose Acid Cleaner (PopUpStyle James 2 Rolla) deviceIndication s:Type 2 diabetes mellitus with hyperglycemia, with long-term current use of insulin ([facility]) Use as directed 1 each Active Aspirin Low Dose 81 MG EC tabletIndication s:At high risk for cardiovascular disease TAKE 1 TABLET BY MOUTH AT BEDTIME 90 tablet 3 Active cetirizine (ZyrTEC) 10 MG tablet TAKE 1 TABLET BY MOUTH ONCE DAILY NEEDED 90 tablet 3 024 Active empagliflozin (Jardiance) 25 MGIndications:Ty pe 2 diabetes mellitus with hyperglycemia, with long-term current use of insulin (CMS/HCC) Take 1 tablet (25 mg) by mouth Once per day. 90 tablet 1 Active erythromycin (Romycin) 5 MG/GM ophthalmic ointment Apply Amount per Dose: 0.5 inch (~1 cm) per dose. 1 g 1 Active Pentips Generic Pen Boswell 32G X 4 MM miscIndications: Type 2 diabetes mellitus with diabetic polyneuropathy, with long-term current use of insulin ([facility]) USE DIRECTED FOUR TIMES DAILY 100 each 024 Active Mometasone Furoate (Asmanex HFA) 200 MCG/ACT aerosol INHALE 1 PUFF TWICE DAILY. RINSE MOUTH AFTER USING. 13 g Active Continuous Glucose Sensor (FreeStyle James 2 Sensor) miscIndications: Type 2 diabetes mellitus with hyperglycemia, with long-term current use of insulin ([facility]) USE DIRECTED AND CHANGE EVERY 14 DAYS 2 each Active glucose blood (FreeStyle Precision Burton Test) test stripIndications :Type 2 diabetes mellitus with hyperglycemia, with long-term current use of insulin ([facility]) TEST BLOOD SUGAR up to three times daily NEEDED for hypoglycemia or sensor failure. 50 strip Active cholecalciferol (Vitamin D-3) 25 MCG tabletIndication s:Vitamin B12 deficiency TAKE 1 TABLET BY MOUTH EVERY MORNING 90 tablet 025 Active omeprazole (PriLOSEC) [address] capsule TAKE 1 CAPSULE BY MOUTH EVERY MORNING 90 capsule 025 Active cyanocobalamin (Vitamin B-12) 1000 MCG tabletIndication s:Vitamin B12 deficiency TAKE 1 TABLET BY MOUTH EVERY MORNING 90 tablet 1 025 Active alendronate (Fosamax) 70 MG tablet take 1 tablet once a week with 6 to 8 oz of water 30 min before first food of day. do not lie down for 30 minutes 4 tablet 11 025 Active Trulicity 4.5 MG/0.5ML solution auto-injectorInd ications:Type 2 diabetes mellitus with hyperglycemia, with long-term current use of insulin ([facility]) INJECT ONE PEN (= 4.5MG) SUBCUTANEOUSLY ONCE A WEEK DIRECTED 2 mL 5 025 Active Lantus SoloStar 100 UNIT/ML penIndications:D iabetic polyneuropathy associated with type 2 diabetes mellitus ([facility]) INJECT 28 UNITS SUBCUTANEOUSLY EVERY EVENING DIRECTED 10 mL 2 025 Active atorvastatin (Lipitor) 80 MG tabletIndication s:Dyslipidemia TAKE 1 TABLET BY MOUTH EVERY EVENING 30 tablet 11 025 Active lisinopril 5 MG tablet TAKE 1 TABLET BY MOUTH EVERY MORNING 90 tablet 3 025 Active montelukast (Singulair) 10 MG tablet TAKE 1 TABLET BY MOUTH EVERY EVENING 90 tablet 3 025 Active Lantus SoloStar 100 UNIT/ML penIndications:D iabetic polyneuropathy associated with type 2 diabetes mellitus ([facility]) INJECT 28 UNITS SUBCUTANEOUSLY EVERY EVENING DIRECTED 10 mL 024 2024 Discontinued(R eorder (will not trigger notification to Pharmacy)) lisinopril 5 MG tablet TAKE 1 TABLET BY MOUTH EVERY MORNING 90 tablet 3 024 2024 Discontinued montelukast (Singulair) 10 MG tablet TAKE 1 TABLET BY MOUTH EVERY EVENING 90 tablet 3 024 2024 Discontinued atorvastatin (Lipitor) 80 MG tabletIndication s:Dyslipidemia Take 1 tablet (80 mg) by mouth at bedtime. 30 tablet 024 2024 Discontinued Dulaglutide (Trulicity) 4.5 MG/0.5ML solution auto-injectorInd ications:Type 2 diabetes mellitus with hyperglycemia, with long-term current use of insulin ([facility]) Inject 4.5 mg under the [...] Assessment & Plan (06/07/2022 5:13 PM EDT): -[facility] provider: Frankie Maloney -Current medications: fluoxetine 20 mg daily; mirtazapine 15 mg qhs -Buspirone was discontinued by her psychiatrist. -Continue current [facility] session. Hypothyroidism 03/01/2022 Assessment & [...] Plan (02/01/2024 5:39 PM EST): -Co-managed with cardiolgoist CLARA, last seen in Dec 2022 -05/27/17 Cardiac [...] Plan (07/11/2023 11:09 AM EDT): -Co-managed with cardiolTEN feliciano, last [...] Plan (06/07/2022 1:11 PM EDT): -Co-managed with cardiolgoTEN garcia, last seen in Nov 2021 -05/27/17 Cardiac [...] Plan (03/02/2022 3:12 PM EST): -Co-managed with cardiolTEN feliciano, last seen in Nov 2021 -05/27/17 Cardiac [...] Plan (02/03/2024 6:37 AM EST): -S provider: Frankie Maloney -Current medications: fluoxetine 20 mg daily; mirtazapine 15 mg qhs -Buspirone was discontinued by her psychiatrist. -Continue current [facility] session. Assessment & Plan (01/24/2023 1:37 PM EST): -[facility] provider: Frankie Maloney -Current medications: fluoxetine 20 mg daily; mirtazapine 15 mg qhs -Buspirone was discontinued by her psychiatrist. -Continue current [facility] session. Assessment & Plan (09/01/2022 12:46 PM EDT): -[facility] provider: Frankie Maloney -Current medications: fluoxetine 20 mg daily; mirtazapine 15 mg qhs -Buspirone was discontinued by her psychiatrist. -Continue current [facility] session. Assessment & Plan (06/07/2022 5:13 PM EDT): -[facility] provider: Frankie Maloney -Current medications: fluoxetine 20 mg daily; mirtazapine 15 mg qhs -Buspirone was discontinued by her psychiatrist. -Continue current [facility] session. Asthma 03/17/2015 Assessment & [...] co-managed with our pharmacist, Jose Angel Martinez, [facility], PharmD. Last seen in Nov [...] co-managed with our pharmacist, Jose Angel Martinez, [facility], PharmD. Last seen in Nov [...] co-managed with our pharmacist, Jose Angel Martinez [facility], PharmD. Last seen in Nov [...] 5:39 PM EST): -currently prescribed gabapentin by historical records administrator. -current gabapentin dose is 800 mg bid, and it seems high for pt -discussed about judicious use Assessment & Plan (09/01/2022 12:42 PM EDT): -currently prescribed gabapentin by historical records administrator. -current gabapentin dose is 800 mg bid, and it seems high for pt -discussed about judicious use Assessment & Plan (06/21/2022 9:25 AM EDT): -currently prescribed gabapentin by historical records administrator. -current gabapentin dose is 800 mg bid, and it seems high for pt -discussed about judicious use Assessment & Plan (03/01/2022 6:30 AM EST): -currently prescribed gabapentin by historical records administrator. -current gabapentin dose is 800 mg bid, [...] 06/05/2024 Refill [facility] [address] [place] [address] Alma Quijano MD 06/01/2024 Refill [facility] [address] [place] [address] Alma Quijano MD Dyslipidemia 05/28/2024 Refill [facility] [address] [place] [address] Alma Quijano MD Diabetic polyneuropathy associated with type 2 diabetes mellitus ([facility]) 05/27/2024 Refill [facility] [address] [place] [address] Jose Angel Martinez, Giovanna Type 2 diabetes mellitus with hyperglycemia, with long-term current use of insulin ([facility]) 05/24/2024 Orders Only [facility] [address] [place] [address] Alma Quijano MD 05/08/2024 9:30 AM EDT Office Visit [facility] [address] [place] [phone] Alma Quijano MD Primary hypertension (Primary Dx); Coronary artery disease involving re[place]sp[place] coronary artery of re[place]-sparks heart without angina pectoris; Moderate persistent asthma without complication; Type 2 diabetes mellitus with hyperglycemia, with long-term current use of insulin ([facility]); Dyslipidemia; Major depressive disorder, remission [...] 30.9 in adult 05/08/2024 Travel 05/06/[address] [address] Alma Quijano MD chart prep 05/02/[address] [address] Alma Quijano MD 04/22/2024 Travel from Last 3 Months Immunizations Name Administration [...] is your housing situation today? I have clarissakhris lucas 01/31/[address] you [...] Medication Management [facility] [address] [place] [address] Jose Angel Martinez, PharmD [address] [place], [place] [phone] Health Maintenance Due Date Last Done Comments CT Colonography 1955 FIT DNA/Cologuard 1955 FIT 1955 FOBT 1955 Sigmoidoscopy 1955 Hepatitis C Screening 12/15/1975 COVID-19 Vaccine ( season) 2023 01/25/2021, 01/04/2021 Influenza Vaccine (#1) 2023 3, 11/25/2021, 11/09/2019, Additional history exists Diabetes: Hemoglobin A1C 07/23/2024 032 025, 01/22/2024, 10/05/2023, Additional history exists Diabetes: Foot Exam 10/04/2024 10/05/2023, 10/05/2023, 10/05/2023, Additional history exists Eye Exam 12/09/2024 12/09/2022 Alcohol/Substance Use Screening 01/30/2025 01/31/2024 Depression Screening 01/30/2025 01/31/2024, 01/31/20 SDOH Screening 01/30/2025 01/31/2024 Diabetes: Urine Protein [...] 9:39 AM EDT) No Jose Angel Martinez, PharmD Hemoglobin A1c < 7 Result Component 7.7( 9:50 AM EST) Jose Angel Thomason PharmD Procedures Procedure Name Priority Date/Time Associated Diagnosis Comments CT CHEST WO CONTRAST Routine 06/05/2024 10:02 PM EDT BI MAMMOGRAM SCREENING TOMOSYNTHESIS BILATERAL Routine 05/24/2024 [...] with long-term current use of insulin (CMS/HCC) ALBUMIN, RANDOM URINE W/CREATININE Routine 05/10/2024 8:09 AM EDT Type 2 diabetes mellitus with hyperglycemia, with long-term current use of insulin (CMS/HCC) LIPID PANEL WITH REFLEX TO DIRECT LDL Routine 05/10/2024 8:09 AM EDT Type 2 diabetes mellitus with hyperglycemia, with long-term current use of insulin (CMS/HCC) VITAMIN B12/FOLATE, SERUM PANEL Routine 05/10/2024 8:09 AM EDT Vitamin B12 deficiency POCT GLUCOSE Routine 05/08/2024 9:40 AM EDT Type 2 diabetes mellitus with hyperglycemia, with long-term current use of insulin (CMS/HCC) POCT GLYCATED HEMOGLOBIN, TOTAL Routine 04/22/2024 9:50 AM EST Type 2 diabetes mellitus with hyperglycemia, with long-term current use of insulin ([facility]) HPV MRNA E6/E7 REFLEX TO HPV 16, 18/45 Routine 05/02/2023 9:48 AM EDT Encounter for well woman exam with routine gynecological exam PAP SMEAR Routine 05/02/2023 9:48 AM EDT Encounter for well woman exam with routine gynecological exam HM DIABETES EYE EXAM Routine 12/09/2022 COLONOSCOPY Routine 01/06/2020 from Last 3 Months or Most Recently Relevant to Health Maintenance Results * CT Chest w/o Contrast (06/05/2024 10:02 PM EDT) Anatomical Region Laterality Modality Body, Chest Computed Tomogra phy 06/05/2024 10:0 2 PM EDT Narrative 06/05/2024 10:03 PM EDT ? [facility] ?[address] ?[place] [address] ? CT Scan Report ? Signed ? Patient: Cori Marino ?MR#: [id number] ? : 1955 ?Acct:[id number] ? Age/Sex: 68 / F ?ADM Date: 06/05/24 ? Loc: HO.CT ? Attending Dr: Pastor Wright MD ? Ordering Physician: Pastor Wright MD ?? Date of Service: 06/05/24 ?? Procedure(s): CT chest wo IV con ?? Accession Number(s): [id number] ? cc: Pastor Wright MD; Alma Quijano MD ? Report Number: ?? [id number]: Total DLP = ??228.00 mGy-cm ? CLINICAL HISTORY: R91.1 - Solitary pulmonary nodule ? CT chest with contrast ? Comparison: 05/15/2023 ? Findings: ? Stable tiny bilateral nodules. ?? No acute infiltrate or new nodule. ?? Stable left lower lobe linear scar. ?? No significant mediastinal adenopathy. ?? No significant free pleural fluid. ?? No significant focal bony abnormalities. ? Impression: ? No acute processes ? This document has been electronically signed by: Sandro Douglas MD on ?? 06/05/2024 22:02:02 ? Dictated By: ?Sandro Douglas MD ? Signed By: ?<Electronically signed by Sandro Douglas MD in OV> ? 06/05/242202 ? DD/ 01 ? TD/TT: 06/05/242201 ? Machine Dyer: ? Procedure Note Donotmilkainterpreter, Image - 06/05/[address] [address] [address] Scan Report Signed Patient: Cori Marino EMR#: [id number] : 1955cct:[id number] Age/Sex: 68 / FADM Date: 06/05/24 Loc: HO.CT Attending Dr: Pastor Wright MD Ordering Physician: Pastor Wright MD Date of Service: 06/05/24 Procedure(s): CT chest wo IV con Accession Number(s): [id number] cc: Pastor Wright MD; Alma Quijano MD Report Number: [id number]: Total DLP = 228.00 mGy-cm CLINICAL HISTORY: R91.1 - Solitary pulmonary nodule CT chest with contrast Comparison: 05/15/2023 Findings: Stable tiny bilateral nodules. No acute infiltrate or new nodule. Stable left lower lobe linear scar. No significant mediastinal adenopathy. No significant free pleural fluid. No significant focal bony abnormalities. Impression: No acute processes This document has been electronically signed by: Sandro Douglas MD on 06/05/2024 22:02:02 Dictated By: Sandro Douglas MD Signed By: <Electronically signed by Sandro Douglas MD in OV> 06/05/242202 DD/ 01 TD/TT: 06/05/242201 Machine Dyer: us [facility] External Provider IMG CT PROCEDURES Final Result * BI Mammogram Screening Tomosynthesis Bilateral (05/24/2024 2:15 PM EDT) Anatomical Region Laterality Modality Breast Bilateral Mammography 05/24/2024 2:15 PM EDT Narrative 05/31/2024 3:24 PM EDT ? [facility] ? [address] ?[place] [address] ?[phone] ? Mammography Report ? Signed ? Patient: Marino,Cori E ?MR#: [id number] ? : 1955 ?Acct:[id number] ? Age/Sex: 68 / F ?ADM Date: 05/24/24 ? Loc: HO.MAMMO ? Attending Dr: Alma Quijano MD ? Ordering Physician: Alma Quijano MD ?Results: 1Negative ? Date of Service: 05/24/24 ?Follow Up: 1 Year From Orig ?? inal Mammogram ? Procedure(s): MM tomosynthesis screening BI ?? Accession Number(s): [id number] ? cc: Alma Quijano MD ? EXAMINATION: [...] DD/ 1415 ? TD/TT: 05/24/24 1436 ? Machine Dyer: ? Procedure Note Rik, Belen - 05/31/2024 [place] [facility] [address] [place] [address] Mammography Report Signed Patient: Cori Marino EMR#: [id number] : 8Acct:[id number] Age/Sex: 68 / FADM Date: 05/24/24 Loc: TIM Attending Dr: Alma Quijano MD Ordering Physician: Alma Quijano MDResults: 1Negative Date of Service: 05/24/24Follow Up: 1 Year From Orig inal Mammogram Procedure(s): MM tomosynthesis screening BI Accession Number(s): [id number] cc: Alma Quijano MD EXAMINATION: MM SCREENING [...] 05/31/24 1521 DD/ 1415 TD/TT: 05/24/24 1436 Machine Dyer: Alma Quijano MD IMG BI PROCEDURES Final Result * XR Wrist 3+ Views Right (05/10/2024 8:38 AM EDT) Anatomical Region Laterality Modality Upper Extremities, Wrist Right Radiogr aphic Imaging 05/10/2024 8:38 AM EDT Narrative 05/10/2024 9:34 AM EDT ? [facility] ?[address] ?[place] [address] ?XRay Report ? Signed ? Patient: Marino,Cori E ?MR#: [id number] ? : 1955 ?Acct:[id number] ? Age/Sex: 68 / F ?ADM Date: 03/21/25 ? Loc: HO.HHCL ? Attending Dr: Alma Quijano MD ? Ordering Physician: Alma Quijano MD ?? Date of Service: 05/10/24 ?? Procedure(s): XR wrist RT min 3V ?? Accession Number(s): [id number] ? cc: Alma Quijano MD ? EXAMINATION: [...] DD/ 0838 ? TD/TT: 05/10/24 0900 ? Machine Dyer: ? Procedure Note Belen Jolly - 05/10/[address] [address] XRay Report Signed Patient: Cori Marino EMR#: [id number] : 1955cct:[id number] Age/Sex: 68 / FADM Date: 05/10/24 Loc: HO.HHCL Attending Dr: Alma Quijano MD Ordering Physician: Alma Quijano MD Date of Service: 05/10/24 Procedure(s): XR wrist RT min 3V Accession Number(s): [id number] cc: Alma Quijano MD EXAMINATION: XR WRIST [...] signed by Baltazar Barba MD in OV> 05/10/2431 DD/ TD/TT: 05/10/24 09 Machine Dyer: us Alma Quijano MD IMG XR PROCEDURES Final Result * XR Forearm 2 Views Right (05/10/2024 8:38 AM EDT) Anatomical Region Laterality Modality Upper Extremities, Forearm Right Radio graphic Imaging 05/10/2024 8:38 AM EDT Narrative 05/10/2024 9:34 AM EDT ? [facility] ?[address] ?[place] [address] ?XRay Report ? Signed ? Patient: Cori Marino ?MR#: [id number] ? : 1955 ?Acct:[id number] ? Age/Sex: 68 / F ?ADM Date: 05/10/24 ? Loc: HO.HHCL ? Attending Dr: Alma Quijano MD ? Ordering Physician: Alma Quijano MD ?? Date of Service: 05/10/24 ?? Procedure(s): XR forearm RT 2V ?? Accession Number(s): [id number] ? cc: Alma Quijano MD ? EXAMINATION: [...] MD in OV> ?05/10/24 0931 ? DD/ 08 ? TD/TT: 05/10/24 0900 ? Machine Dyer: ? Procedure Note Donotmilkainterpreter, Image - 05/10/[address] [address] XRay Report Signed Patient: Cori Marino EMR#: [id number] : 1955cct:[id number] Age/Sex: 68 / FADM Date: 05/10/24 Loc: [facility] Attending Dr: Alma Quijano MD Ordering Physician: Alma Quijano MD Date of Service: 05/10/24 Procedure(s): XR forearm RT 2V Accession Number(s): [id number] cc: Alma Quijano MD EXAMINATION: XR WRIST [...] Baltazar Barba MD 05/10/2024 09:31 AM EDT Dictated By: Baltazar Barba MD Signed By: <Electronically signed by Baltazar Barba MD in OV> 05/10/24930 DD/ 7 TD/TT: 05/10/24 09 Machine Dyer: Alma Quijano MD IMG XR PROCEDURES Final Result * Vitamin D, 25-Hydroxy, Total, Immunoassay (05/10/2024 8:09 AM EDT) Vitamin D 25-OH Total 40.6 >30 ng/mL [facility] Comment: Health Based Reference Values*< 20 ??ng/mL ??Lybzecrpf02-90 ng/mL ??Insufficient> 30 ??ng/mL ??Sufficient*Eboni REID. N [...] t [facility] [address] [place] [address] [phone] * (ABNORMAL) Vitamin B12 (Cobalamin) and Folate [...] ORDERABLES Final Resul t Performing Organization Address City/[facility] Co de Phone Number [facility] [address] [place] [phone] * TSH with Reflex to Free T4 (05/10/2024 8:09 AM EDT) TSH reflex Free T4 2.58 0.32 - 4.0 uIU/mL [facility] Blood 05/10/2024 8:09 AM EDT 05/10/2024 11:07 AM EDT us Alma Quijano MD LAB BLOOD ORDERABLES Final Resul t Performing Organization Address City/[facility]/ZIP Co de Phone Number [facility] [address] [place] [phone] * (ABNORMAL) Lipid Panel with Reflex to Direct LDL (05/10/2024 8:09 AM EDT) Triglycerides 97 <150 mg/dL [facility] Comment:Desirable Triglyceri de: less than 150 [...] 190 mg/dL HDL Cholesterol 35(L) >40 mg/dL [facility] Comment:Desirable HDL: great er than 40 mg/dL Note: This HDL assay may give artificially low results in patients with liver disease. Blood 05/10/2024 8:09 AM EDT 05/10/2024 11:07 AM EDT us Alma Quijano MD LAB BLOOD ORDERABLES Final Resul t Performing Organization Address [facility] Co de Phone Number [facility] [address] [place] [phone] * Albumin, Random Urine W/Creatinine (05/10/2024 8:09 AM EDT) Creatinine, Urine 64.00 mg/dL [facility] Microalbumin Urine 6.0 mg/L [facility] Microalbum Creatinine Ratio Ur 9.3 <30 ug/mg cr [facility] Comment:Albumin/Creatinine R atio Reference Ranges: Normal: < 30 ug/mg creatinine Microalbuminuria: 30 - 300 ug/mg creatinineClinical Albuminuria: > 300 ug/mg creatinine Urine 05/10/2024 8:09 AM EDT 05/10/2024 11:18 AM EDT us Alma Quijano MD LAB URINE ORDERABLES Final Resul t Performing Organization Address City/[facility]/ZIP Co de Phone Number [facility] [address] [place] [phone] * (ABNORMAL) CBC auto differential (05/10/2024 [...] [facility] [address] [place] [phone] [phone] * (ABNORMAL) Comprehensive Metabolic Panel (05/10/2024 [...] Kidney Disea se: Estimated GFR < 60 mL/min/1.71d6Vmblje Kidney Disease: Estimated GFR < 15 mL/min/1.73m2 Glucose 141(H) 60 - 115 mg/dL [facility] Calcium 9.3 8.4 - 10.2 mg/dL [...] t [facility] [address] [place] [phone] * (ABNORMAL) POCT glucose manually resulted (05/08/2024 9:40 AM EDT) Pathologist [facility] Glucose Blood, POC 275(A) 60 - 200 mg/dL QC Media Lot # [id number] Lot# Expiration Date Blood Capillary blood specimen / Unknown 05/08/2024 9:40 AM EDT Alma Quijano MD POINT OF CARE TEST ENTER/EDIT OR DERABLES Final Result * (ABNORMAL) POCT HGB A1C (04/22/2024 9:50 AM EST) Pathologist [facility] Hemoglobin A1C 7.7(A) 4.0 - 6.0 % QC Media Lot # [id number] Lot# Expiration Date Blood 04/22/2024 9:50 AM EST Alma Quijano MD POINT OF CARE TEST ENTER/EDIT OR DERABLES Final Result * HPV mRNA E6/E7 w/Reflex to HPV Genotypes 16, 18/45 (05/02/2023 9:48 AM EDT) Pathologist [facility] HPV nRNA E6/E7 Not Detected Not Detected [facility] Comment:Methodology: Transcr iption-Mediated AmplificationThis assay detects E6/E7 viral messenger RNA (mRNA) from 14high-risk HPV types (16,18,31,33,35,39,45,51,52,56,58,59,66,68).Cervical sources are required for HPV testing.If a vaginal source from a patient who has had atotal hysterectomy with removal of cervix wassubmitted, please contact the testing laboratoryfor alternative testing options.For additional information, please refer [email or web address]/PWU902y6(This link if provided for information/educational purposes only.)THIS TEST WAS PERFORMED AT:[employer] [place] [phone] GODINEZ MD HPV mRNA E6/E7 TNP [facility] HPV 16 RNA TNP [facility] HPV 18/45 RNA TNP [facility] Vaginal Fluid Cervix uteri structure / Unknown 05/02/2023 9:48 AM EDT 05/03/2023 2:23 PM EDT [facility] - 05/05/2023 7:38 AM EDT Collection Date: [id number] by: KIMI Colby: Cervix us Alma Quijano MD LAB CYTOLOGY ORDERABLES Final Re sult [facility] [address] [place] [phone] * Pap Smear (05/02/2023 9:48 AM EDT) Swab 05/02/2023 9:48 AM EDT 05/03/2023 12:25 PM EDT [facility] - 05/11/2023 6:49 AM EDT ----- ------- Name: Cori Marino ? Age/Sex: 67/F ? : 1955 Unit#: [id number] ?? Attend Dr: Alma Quijano MD ?Re05/02/23 ?Status: DEP REF ? Location: HO.LNP ?Disch: ? ----- ------- SPEC : [id number] ? RECD: 05/03/23-5 ? STATUS: ??SOUT ? REQ NUM: [id number] ? VU: 05/02/23 ? SUBM DR: Alma [...] 68, 70) ?? HPV testing performed by [employer], [place], [place]. ??See reference laboratory ?? portion of the EMR for entire report. ?Clinical Information LMP: Postmenopausal Previous PAP test: Unknown date/findings ? Material Received ?? ThinPrep-Vaginal/Cervical ----- ------- Signed (signature on file) HAZEL Brown (ASCP) 05/11/23 0649 ? ----- ------- ? END OF REPORT ? us Alma Quijano MD LAB CYTOLOGY ORDERABLES Final Re sult [facility] [address] [place] [phone] * Diabetes Eye Exam (12/09/2022) Eye Exam Normal Normal Eye [facility] HEALTH MAINTENANCE Final Result * Hm Colonoscopy (01/06/2020) Colonoscopy Normal Normal Jarrett Craft MD HEALTH MAINTENANCE Final Res ult from Last 3 Months or Most Recently Relevant to Health Maintenance Insurance - [employer] Care Teams Talent Development Coordinator Relationship Specialty Start Date End Date Alma Quijano MD [address] [place] [phone] PCP - General Family Medicine 02/20/18 Jose Angel Martinez, PharmD [address] [place] [address] Pharmacist Internal Medicine 09/19/22
--- OUTSIDE RECORDS SUMMARY | 2024-06-14 11:21 | XMS_ITS | Encounter Summary ---
Author Organization [employer] [facility] Address [address] [place] [address] [address] [place] [address] Care Team Providers Care Warehouse Supervisor Name Role Phone Alma Quijano MD Primary Care Provider [phone] Jose Angel Martinez PharmD Unavailable [phone] Reason for Visit * Reason Comments Med Refill Encounter Details Date Type Department Care Team ([facility] Contact Info) Description 05/09/2022 Refill [facility] [address] [place] [phone] Alma Quijano MD [address] [place] [address] Social History Tobacco Use Types Packs/Day Years [...] Upcoming Encounters Date Type Department Care Team ([facility] Contact Info) Description 07/25/2024 9:30 AM EDT Medication Management [facility] [address] [place] [phone] Jose Angel Martinez, PharmD [address] [place] [address] documented as of this encounter Visit Diagnoses Not on filedocumented in this encounter Care Teams Warehouse Supervisor Relationship Specialty Start Date End Date Alma Quijano MD [address] [place] [phone] PCP - General Family Medicine 02/20/18 Jose Angel Martinez, MarissaD [address] [place] [phone] Pharmacist Internal Medicine 09/19/22 documented as of this encounter
--- OUTSIDE RECORDS SUMMARY | 2024-06-14 11:21 | XMS_ITS | Encounter Summary ---
Author Organization [employer] [facility] Address [address] [place] [address] [address] [address] Care Team Providers Care Active Directory Administrator Name Role Phone Alma Quijano MD Primary Care Provider [phone] Jose Angel Martinez PharmD Unavailable [phone] Reason for Visit * Reason Comments Med Refill Encounter Details Date Type Department Care Team ([facility] Contact Info) Description 04/28/[address] [facility] [address] [place] [phone] Geetha Macedo ANP [address] [place] [address] Social History Tobacco Use Types Packs/Day Years [...] Upcoming Encounters Date Type Department Care Team ([facility] Contact Info) Description 07/25/2024 9:30 AM EDT Medication Management [facility] [address] [place] [phone] Jose Angel Martinez, PharmD [address] [place] [address] documented as of this encounter Visit Diagnoses Not on filedocumented in this encounter Care Teams Active Directory Administrator Relationship Specialty Start Date End Date Alma Quijano MD [address] [place] [address] PCP - General Family Medicine 02/20/18 Jose Angel Martinez, MarissaD [address] [place] [address] Pharmacist Internal Medicine 09/19/22 documented as of this encounter
--- OUTSIDE RECORDS SUMMARY | 2024-06-14 11:21 | XMS_ITS | Encounter Summary ---
Author Organization [employer] [facility] Address [address] [place] [address] [address] [address] Care Team Providers Care Tourist Cabin Keeper Name Role Phone Alma Quijano MD Primary Care Provider [phone] Jose Angel Martinez PharmD Unavailable [phone] Reason for Visit * Reason Comments Med Refill Encounter Details Date Type Department Care Team (Late Contact Info) Description 07/27/2022 Refill [facility] [address] [place] [phone] Alma Quijano MD [address] [place] [phone] Social History Tobacco Use Types Packs/Day Years [...] 07/25/2024 9:30 AM EDT Medication Management [facility] [address] [place] [phone] Jose Angel Martinez, PharmD [address] [place] [address] documented as of this encounter Visit Diagnoses Not on filedocumented in this encounter Additional Health Concerns Assessment Noted Time PHQ-9 Depression Total Score: 0 06/08/19 23 1:07 PM EDT documented as of this encounter Care Teams Tourist Cabin Keeper Relationship Specialty Start Date End Date Alma Quijano MD [address] [place] [address] PCP - General Family Medicine 02/20/18 Jose Angel Martinez, MarissaD [address] [place] [address] Pharmacist Internal Medicine 09/19/22 documented as of this encounter
--- OUTSIDE RECORDS SUMMARY | 2024-06-14 11:21 | XMS_ITS | Encounter Summary ---
Author Organization [employer] [facility] Address [address] [facility] 7t [place] [address] Care Team Providers Care Business Quality Assurance Analyst Name Role Phone Alma Quijano MD Primary Care Provider [phone] Jose Angel Martinez PharmD Unavailable [phone] Encounter Details Date Type Department Care Team (Late Contact Info) Description 07/13/2022 Orders Only [facility] [address] [place] [phone] Alma Quijano MD [address] [place] [phone] Calculus of gallbladder without cholecystitis without obstruction [...] Description 07/25/2024 9:30 AM EDT Medication Management [facility] [address] [place] [phone] Jose Angel Martinez, PharmD [address] [place] [address] documented as of this encounter Visit Diagnoses Diagnosis Calculus of gallbladder without cholecystitis without obstruction- Primary RUQ pain Abdominal pain, right upper quadrant documented in this encounter Additional Health Concerns Assessment Noted Time PHQ-9 Depression Total Score: 0 06/08/19 23 1:07 PM EDT documented as of this encounter Care Teams Business Quality Assurance Analyst Relationship Specialty Start Date End Date Alma Quijano MD [address] [place] [address] PCP - General Family Medicine 02/20/18 Jose Angel Martinez, MarissaD [address] [place] [address] Pharmacist Internal Medicine 09/19/22 documented as of this encounter
--- OUTSIDE RECORDS SUMMARY | 2024-06-14 11:21 | XMS_ITS | Encounter Summary ---
Author Organization [employer] Address [address] [facility] 7t [place] [address] Care Team Providers Care Prior Authorization Technician Name Role Phone Alma Quijano MD Primary Care Provider [phone] Jose Angel Martinez PharmD Unavailable [phone] Encounter Details Date Type Department Care Team (Late st Contact Info) Description 07/31/2023 Orders Only [facility] [address] [place], [place] [phone] Alma Quijano MD [address] [place], [place] [phone] Type 2 diabetes mellitus with hyperglycemia, with long-term current use of insulin ([facility]) (Primary Dx); Osteoporosis without current pathological fracture, [...] Medication Management [facility] [address] [place], [place] [phone] Jose Angel Martinez PharmD [address] [place], [place] [phone] Scheduled Orders Name Type Priority Associated Diagnoses [...] hyperglycemia, with long-term current use of insulin ([facility]) documented in this encounter Results * TSH (08/01/2023 8:24 AM EDT) Thyroid Stimulating Hormone 3.13 0.32 - 4.0 uIU/mL [facility] Comment:Note: A sustained TS H level above 2.5 uIU/mL may warrant further investigation. TSH 3rd Generation ([facility]) Blood Venous blood specimen / Unknown 08/01/2023 8:24 AM EDT 08/01/2023 11:09 AM EDT Alma Quijano MD LAB BLOOD ORDERABLES Final Resul t Performing Organization Address [facility]/ZIP Co de Phone Number [facility] [address] [place] [phone] * T4, Free (08/01/2023 8:24 AM EDT) Free T4 (Free Thyroxine) 0.87 0.71 - 1.85 ng/dL [facility] Blood Venous blood specimen / Unknown 08/01/2023 8:24 AM EDT 08/01/2023 11:09 AM EDT Alma Quijano MD LAB BLOOD ORDERABLES Final Resul t Performing Organization Address [facility]/ZIP Co de Phone Number [facility] [address] [place] [phone] * (ABNORMAL) Comprehensive Metabolic Panel (08/01/2023 8:24 AM EDT) Sodium 143 135 - 145 mmol/L [facility] Potassium 4.1 3.3 - 5.1 mmol/L [facility] Chloride 108 96 - 108 mmol/L [facility] Carbon Dioxide 27 22 - 29 mmol/L [facility] Anion Gap 12 12 - 20 [facility] Urea Nitrogen (BUN) 17(H) 9 - 16 mg/dL [facility] Creatinine, Serum 0.79 0.5 - 1.4 mg/dL [facility] Estimated Glomerular Filt Rate >60 [facility] Comment:NOTE: For -Am erican individuals, multiply the result by 1.210.Chronic Kidney Disease: Estimated GFR < 60 mL/min/[id number] Kidney Disease: Estimated GFR < 15 mL/min/1.73m2 Glucose 161(H) 60 - 115 mg/dL [facility] Calcium 9.5 8.4 - 10.2 mg/dL [facility] Bilirubin, Total 0.6 0.0 - 1.0 mg/dL [facility] Aspartate Amino Transferase 16 5 - 31 U/L [facility] Alanine Aminotransferase 18 0 - 31 U/L [facility] Total Protein 7.3 6.5 - 8.0 g/dL [facility] Albumin Level 4.1 3.5 - 5.0 g/dL [facility] Alkaline Phosphatase 68 39 - 117 U/L [facility] Blood Venous blood specimen / Unknown 08/01/2023 8:24 AM EDT 08/01/2023 11:09 AM EDT us Alma Quijano MD LAB BLOOD ORDERABLES Final Resul t [facility] [address] [place] [phone] * Albumin, Random Urine W/Creatinine (08/01/2023 8:24 AM EDT) Creatinine, Urine 80.05 mg/dL [facility] Microalbumin Urine 18.0 mg/L [facility] Microalbum Creatinine Ratio Ur 22.4 <30 ug/mg cr [facility] Comment:Albumin/Creatinine R atio Reference Ranges: Normal: < 30 ug/mg creatinine Microalbuminuria: 30 - 300 ug/mg creatinineClinical Albuminuria: > 300 ug/mg creatinine Urine 08/01/2023 8:24 AM EDT 08/01/2023 11:14 AM EDT Alma Quijano MD LAB URINE ORDERABLES Final Resul t [facility] [address] [place] [phone] documented in this encounter Visit Diagnoses Diagnosis Type 2 diabetes mellitus with hyperglycemia, with long-term current use of insulin ([facility])- Primary Osteoporosis without current pathological fracture, unspecified osteoporosis type Primary hypertension Unspecified essential hypertension Acquired hypothyroidism Unspecified hypothyroidism documented in this encounter Additional Health Concerns Assessment Noted Time PHQ-9 Depression Total Score: 0 06/08/19 23 1:07 PM EDT documented as of this encounter Care Teams Prior Authorization Technician Relationship Specialty Start Date End Date Alma Quijano MD [address] [place] [address] PCP - General Family Medicine 02/20/18 Jose Angel Martinez, PharmD [address] [place] [address] Pharmacist Internal Medicine 09/19/22 documented as of this encounter
== END 2024-06-14 09:46 | disposition home or self-care (01) ==
LOC: HO.HOSX 09:45
PROVIDERS: PCP Family Medicine
DX: S52.501D Unspecified fracture of the lower end of right radius, subsequent encounter for closed fracture with routine healing (principal); S52.201D Unspecified fracture of shaft of right ulna, subsequent encounter for closed fracture with routine healing; M79.631 Pain in right forearm; Z98.890 Other specified postprocedural states
CPT/HCPCS: 73090; 99202

== ENCOUNTER 2024-06-14 09:45 | Outpatient (AMB) | payer OTHER, SELFPAY ==
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
== END 2024-06-14 11:00 | disposition home or self-care (01) ==
LOC: HO.HOS 09:45
PROVIDERS: PCP Family Medicine
DX: M79.631 Pain in right forearm (principal); Z87.81 Personal history of (healed) traumatic fracture
CPT/HCPCS: 99203

== ENCOUNTER → 2024-06-14 10:44 | Outpatient (BNV) | payer OTHER, SELFPAY | PROVIDERS: PCP Family Medicine; Visit Provider Radiology Diagnostic Radiology | DX: S52.501A Unspecified fracture of the lower end of right radius, initial encounter for closed fracture (principal); S52.601A Unspecified fracture of lower end of right ulna, initial encounter for closed fracture | CPT/HCPCS: 73090 ==

== ENCOUNTER 2024-07-19 09:08 | Outpatient (RCR) | payer OTHER, SELFPAY ==
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
== END 2024-07-19 10:24 | disposition home or self-care (01) ==
LOC: HO.OT 09:08
PROVIDERS: PCP Family Medicine
DX: M79.631 Pain in right forearm (principal)
CPT/HCPCS: 97110; 97140; 97165

== ENCOUNTER 2024-08-06 08:45 | Outpatient (REF) | payer OTHER, SELFPAY ==
--- NOTE | ~2024-08-06 | XR_ITS ---
EXAMINATION: XR FOREARM, RIGHT CLINICAL INFORMATION: M79.631 - Pain in right forearm , follow-up post-ORIF COMPARISON: June 14 and July 10, 2024 TECHNIQUE: AP and lateral views of the right forearm were obtained. FINDINGS: Plate and screws traverse the middle third and distal third diaphysis of both the radius and ulna. Hardware is intact and there is no abnormal lucency at bone metal interfaces. There is mature appearing callus and remodeling. There is a teardrop shaped heterotopic ossification dorsal to the region of the distal fracture. There is severe atherosclerotic calcification involving the ulnar artery. There are osteophytes involving the elbow joint. XR/XR forearm RT 2V IMPRESSION: Healed radius and ulna post-ORIF with focal heterotopic ossification dorsal to the fracture. 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 Electronically signed by: Christian Nichols MD 08/06/2024 11:55 AM EDT
--- OUTSIDE RECORDS SUMMARY | 2024-08-07 09:13 | XMS_ITS | Encounter Summary ---
Author Organization [employer] Address [address] [facility] 7t [place] [address] Care Team Providers Care Toll Collector Supervisor Name Role Phone Alma Quijano MD Primary Care Provider [phone] Jose Angel Martinez PharmD Unavailable [phone] Reason for Referral * Consultation (Routine) - Pending Review Specialty Diagnoses / Procedures Referred By Contirais t Referred To Contact Pharmacy Diagnoses Type 2 diabetes mellitus with hyperglycemia, with long-term current use of insulin (CMS/HCC) Primary hypertension Moderate persistent asthma without complication Alma Quijano MD [address] [place] [phone] Phone: tel: fax: Referral ID Status Reason Start Date Expiration Date Visits Requested Visits Authorized [id number] Pending Review Consult and Treat 4 01/01/2025 6 6 Encounter Details Date Type Department Care Team ([facility] st Contact Info) Description 01/02/2024 Orders Only [facility] [address] [place] [phone] Alma Quijano MD [address] [place] [address] [phone] Type 2 diabetes mellitus with hyperglycemia, with [...] Description 08/19/2024 11:15 AM EDT Office Visit [facility] [address] [place] [address] Alma Quijano MD [address] [place] [address] Scheduled Referrals Name Type Priority Associated Diagnoses Orde r Schedule Referral to Pharmacy CDTM Outpatient Referral Routine Type 2 diabetes mellitus with hyperglycemia, with long-term current use of insulin ([facility]) Primary hypertension Moderate persistent asthma without [...] hyperglycemia, with long-term current use of insulin ([facility])- Primary Primary hypertension Unspecified essential hypertension Moderate persistent asthma without complication documented in this encounter Additional Health Concerns Assessment Noted Time PHQ-9 Depression Total Score: 0 06/08/19 23 1:07 PM EDT documented as of this encounter Care Teams Toll Collector Supervisor Relationship Specialty Start Date End Date Alma Quijano MD [address] [place] [address] PCP - General Family Medicine 02/20/18 Jose Angel Martinez, Giovanna [address] [place] [phone] Pharmacist Internal Medicine 09/19/22 documented as of this encounter
== END 2024-08-06 08:46 | disposition home or self-care (01) ==
LOC: HO.HOSX 08:45
PROVIDERS: Visit Provider Orthopaedic Surgery
DX: E11.9 Type 2 diabetes mellitus without complications (principal); M79.631 Pain in right forearm; Z96.9 Presence of functional implant, unspecified
CPT/HCPCS: 73090; 99202

== ENCOUNTER 2024-08-06 11:02 | Outpatient (AMB) | payer OTHER, SELFPAY ==
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
--- OUTSIDE RECORDS SUMMARY | 2024-08-06 12:36 | XMS_ITS | Encounter Summary ---
Author Organization [employer] Address [address] [facility] 7t [place] [address] Care Team Providers Care Director [employer] Name Role Phone Alma Quijano MD Primary Care Provider [phone] Jose Angel Martinez PharmD Unavailable [phone] Reason for Referral * Consultation (Routine) - Pending Review Specialty Diagnoses / Procedures Referred By Contirais t Referred To Contact Pharmacy Diagnoses Type 2 diabetes mellitus with hyperglycemia, with long-term current use of insulin (CMS/HCC) Primary hypertension Moderate persistent asthma without complication Alma Quijano MD [address] [place] [phone] Phone: tel: fax: Referral ID Status Reason Start Date Expiration Date Visits Requested Visits Authorized [id number] Pending Review Consult and Treat 4 01/01/2025 6 6 Encounter Details Date Type Department Care Team ([facility] st Contact Info) Description 01/02/2024 Orders Only [facility] [address] [place] [id number] Alma Quijano MD [address] [place] [address] [phone] Type 2 diabetes mellitus with hyperglycemia, with [...] Care Team (Late st Contact Info) Description 08/19/2024 11:15 AM EDT Office Visit [facility] [address] [place] [address] Alma Quijano MD [address] [place] [address] Scheduled Referrals Name Type Priority Associated Diagnoses Orde r Schedule Referral to Pharmacy CDTM Outpatient Referral Routine Type 2 diabetes mellitus with hyperglycemia, with long-term current use of insulin ([facility]) Primary hypertension Moderate persistent asthma without complication Ordered: 01/02/2024 documented as of this encounter Goals Goal Patient Goal Type Associated Problems Recent Progress Patient-Stated? Author Blood Pressure < 140/90 Blood Pressure 112/60(2024 3:08 PM EDT) No Jose Angel Martinez, Giovanna Hemoglobin A1c < 7 Result Component 8(08/05/2024 3:18 PM EDT) No Jose Angel Martinez PharmD documented as of this encounter Visit Diagnoses Diagnosis Type 2 diabetes mellitus with hyperglycemia, with long-term current use of insulin ([facility])- Primary Primary hypertension Unspecified essential hypertension Moderate persistent asthma without complication documented in this encounter Additional Health Concerns Assessment Noted Time PHQ-9 Depression Total Score: 0 06/08/19 23 1:07 PM EDT documented as of this encounter Care Teams Director [employer] Relationship Specialty Start Date End Date Alma Quijano MD [address] [place] [address] PCP - General Family Medicine 02/20/18 Jose Angel Martinez, Giovanna [address] [place] [address] Pharmacist Internal Medicine 09/19/22 documented as of this encounter
== END 2024-08-06 12:05 | disposition home or self-care (01) ==
LOC: HO.HOS 11:03
PROVIDERS: PCP Family Medicine; Visit Provider Orthopaedic Surgery
DX: M79.631 Pain in right forearm (principal); Z96.9 Presence of functional implant, unspecified; E11.9 Type 2 diabetes mellitus without complications
CPT/HCPCS: 99204

== ENCOUNTER → 2024-08-06 11:10 | Outpatient (BNV) | payer OTHER, SELFPAY | PROVIDERS: Visit Provider Radiology Diagnostic Radiology | DX: M25.721 Osteophyte, right elbow (principal) | CPT/HCPCS: 73090 ==

== ENCOUNTER 2024-09-12 12:49 | Outpatient (REF) | payer OTHER, SELFPAY ==
[2024-09-12 13:34] LABS: MANUAL DIFF FLAG NO
[2024-09-12 14:14] LABS: Hematocrit 42.1 % (37.0-47.0); Hemoglobin 14.5 g/dl (12.0-16.0); Imm Gran Abs Auto 0.06 X10*3/uL (0.00-0.03); Imm Gran Pct Auto 0.7 % (0.0-0.4); Lymphocytes Absolute Auto 1.7 X10*3/uL (1.2-4.9); Mean Corpuscular HGB Conc 34.4 g/dl (31.0-35.0); Mean Corpuscular Hemoglobin 31.7 pg (27.0-33.0); Mean Corpuscular Volume 91.9 fL (80.0-98.0); NRBC Abs Auto 0.000 X10*3/uL (0.0-0.012); NRBC Pct Auto 0.0 /100WBC (0.0-0.2); Platelet Count 203 X10*3/uL (160-400); Red Blood Count 4.58 X10*6/uL (4.20-5.50); White Blood Count 8.1 X10*3/uL (4.8-10.8)
[2024-09-19 04:18] LABS: Class Alternaria alternata 0; Class Aspergillus fumigatus 0; Class Bermuda Grass 0; Class Birch 0; Class Cat Dander 0; Class Cladosporium herbarum 0; Class Cockroach 0; Class Common Ragweed 0; Class Cottonwood 0; Class Derm. pterony 0; Class Dermatophagoides farinae 0; Class Dog Dander 0; Class Elm 0; Class Maple Box Elder 0; Class Mountain Cedar 0; Class Mouse Urine Protein 0; Class Mugwort 0; Class Oak 0; Class Penicillium crysogenum 0; Class Rough Pigweed 0; Class Sheep Sorrel 0; Class Sycamore 0; Class Timothy Grass 0; Class Walnut Tree 0; Class White Ash 0; Class White Mulberry 0; D002 - IgE D farinae <0.10 kU/L; E001 - IgE Cat Dander <0.10 kU/L; E005 - IgE Dog Dander <0.10 kU/L; G006 - IgE Timothy Grass <0.10 kU/L; I006-IgE Cockroach, German <0.10 kU/L; M002 - IgE Cladosporium herbar <0.10 kU/L; M003 - IgE Aspergillus fumigat <0.10 kU/L; M006 - IgE Alternaria alternat <0.10 kU/L; T001 IgE Maple/Box Elder <0.10 kU/L; T006 - IgE Cedar, Mountain <0.10 kU/L; T007 - IgE Oak, White <0.10 kU/L; T008 IgE Elm, American <0.10 kU/L; T010 - IgE Walnut <0.10 kU/L; T011 - IgE Maple Leaf Sycamore <0.10 kU/L; T014 - IgE Cottonwood <0.10 kU/L; T015 - IgE Ash, White <0.10 kU/L; T070 - IgE White Mulberry <0.10 kU/L; W001 - IgE Ragweed, Short <0.10 kU/L; W006 - IgE Mugwort <0.10 kU/L; W014 IgE Pigweed, Common <0.10 kU/L; W018 IgE Sheep Sorrel <0.10 kU/L
== END 2024-09-12 12:50 | disposition home or self-care (01) ==
LOC: HO.LAB 12:49
PROVIDERS: PCP Family Medicine; Visit Provider Internal Medicine Pulmonary Disease
DX: J45.909 Unspecified asthma, uncomplicated (principal); Z91.09 Other allergy status, other than to drugs and biological substances; R91.1 Solitary pulmonary nodule
CPT/HCPCS: 36415; 82785; 85025; 86003; 99212

== ENCOUNTER 2024-09-12 12:49 | Outpatient (AMB) | payer OTHER, SELFPAY ==
--- NOTE | 2024-09-12 12:53 | A.OFFVIS_ITS ---
Vital Signs 09/12/24 12:54 Height 4 ft Weight 114 lb BMI 34.8 BP 104/48 L Blood Pressure Location Lt brachial Position Sitting Pulse 59 Pulse Source Pulse Oximeter Pulse Oximetry (%) 97 Oxygen Delivery Method Room Air Intake Visit Reasons: Asthma Slide Fastener Repairer Required: Yes Slide Fastener Repairer Name: Anu Kilpatrick JackHollis Allergies No Known Allergies Allergy (Mild, Verified 09/12/24 13:03) NONE HPI HPI Asthma: Details: 67-year-old lady, lifetime nonsmoker, has had a CT abdomen for an endocrinologic workup that demonstrated 4 mm lower lobe lung nodule and the she was referred for further follow-up and evaluation.? Patient denies any family or personal history of lung disease.? She denies any pulmonary related concerns or complaints at this time. Patient has had a follow-up CT scan in April of 2023 that showed stable pulmonary nodules. Her repeat CT scan in May of 2024 showed further stability. She continues to use Asmanex and albuterol MDI with good control of her asthma symptoms, however her allergy symptoms are not well controlled despite using Singulair and loratadine. 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 Asthma HLD (hyperlipidemia) Hyperparathyroidism Hypothyroidism Multinodular thyroid Peripheral neuropathy Pulmonary nodule T2DM (type 2 diabetes mellitus) Vitamin D deficiency Surgical History Hx laparoscopic cholecystectomy (08/17/22) H/O colonoscopy History of surgery on arm Hx of section Hx of tubal ligation Family History Mother Diabetes Family/Other Breast cancer Social History Alcohol intake: never Patient Tobacco Use Status: Never used Tobacco Advance Directives Date on File: 12/05/19 Review of Systems Const Denies daytime sleepiness, Denies excessive sweating, Denies fatigue, Denies fever(s), Denies lethargy, Denies malaise, Denies night sweats, Denies snoring and Denies weight loss Eyes Denies blurry vision and Denies itchy eyes ENT Denies nasal congestion, Denies post nasal drip, Denies sinus pain, Denies sinus pressure and Denies other ( Thrush) Card Denies chest pain, Denies pedal edema, Denies dyspnea, Denies orthopnea and Denies paroxysmal nocturnal dyspnea Resp Denies cough, Denies hemoptysis, Denies excessive phlegm production, Denies dyspnea, Denies snoring and Denies wheezing GI Denies abdominal pain and Denies heartburn Musc Denies myalgias, Denies arthralgias and Denies joint swelling Skin/Breast Denies rash Neuro Denies memory loss and Denies seizure-like activity Psych Denies abnormal sleep pattern, Denies anxiety and Denies memory loss Endo Denies excessive sweating, Denies fatigue and Denies heat intolerance Edmundo/Lymph Denies easy bruising Aller/Immun Denies itchy eyes, Denies seasonal rhinorrhea and Denies wheezing Physical Exam Vital Signs: Last Vital Signs Pulse 59 09/12/24 12:54 BP 104/48 L 09/12/24 12:54 Pulse Ox 97 09/12/24 12:54 Oxygen Delivery Method Room Air 09/12/24 12:54 BMI result Body Mass Index 34.8 Const General: no acute distress and alert Nutritional Appearance: not obese Orientation/consciousness: Other orientation findings ( oriented) HEENT Head: Yes atraumatic Eyes General: appearance normal, both eyes and all related structures Sclerae: sclerae normal EOM: EOMs intact bilaterally Neck Neck: Yes supple Lymphatic: no lymphadenopathy noted Resp Effort & Inspection: normal respiratory effort and no use of accessory muscles Auscultation: clear to auscultation bilaterally Cardio Rate: regular rate Rhythm: regular rhythm Heart sounds: no gallops, no murmurs and no rubs Skin General skin exam: other ( warm) Extrem General: No clubbing, No cyanosis and No edema Assessment & Plan Assessment & Plan (1) Asthma: Code(s): J45.909 - Unspecified asthma, uncomplicated Category: Medical Plan: Well controlled on Asmanex and albuterol MDI. Continue current regimen. (2) Pulmonary nodule: Code(s): R91.1 - Solitary pulmonary nodule Category: Medical Plan: Results of CT scan from May of 2024 reviewed, pulmonary nodules stable for paroxysmally 24 months, no further imaging follow-up is required. (3) Environmental allergies: Code(s): Z91.09 - Other allergy status, other than to drugs and biological substances Category: Medical Plan: Suboptimal control despite utilization of Singulair, loratadine, and Flonase. Will obtain IgE level, CBC with differential, and RAST panel for further evaluation. Orders: Orders Resp Allergy Profile Region I Today J45.909 - Unspecified asthma, uncomplicated Complete Blood Count Auto Diff Today J45.909 - Unspecified asthma, uncomplicated Coding Level of Care Code Est Pt Level 4 (74761) Complex EM visit Add On G2211 Diagnoses Asthma J45.909 Pulmonary nodule R91.1 Environmental allergies Z91.09
[2024-09-12 12:54] VITALS: BP 104/48; PULSE 59; O2SAT 97; BMI 34.8
--- OUTSIDE RECORDS SUMMARY | 2024-09-12 13:03 | XMS_ITS | Encounter Summary ---
Author Organization [employer] Address [address] [facility] [address] [place] [address] Care Team Providers Care Warehouse Packer Name Role Phone Alma Quijano MD Primary Care Provider Jose Angel Martinez PharmD Unavailable [phone] Reason for Referral * Consultation (Routine) - Pending Review Specialty Diagnoses / Procedures Referred By Contirais t Referred To Contact Pharmacy Diagnoses Type 2 diabetes mellitus with hyperglycemia, with long-term current use of insulin (CMS/HCC) Primary hypertension Moderate persistent asthma without complication Alma Quijano MD [address] [place] [address] Phone: tel: fax: Referral ID Status Reason Start Date Expiration Date Visits Requested Visits Authorized [id number] Pending Review Consult and Treat 4 01/01/2025 6 6 Encounter Details Date Type Department Care Team ([facility] st Contact Info) Description 01/02/2024 Orders Only [facility] [address] [place] [phone] Alma Quijano MD [address] [place] [address] [phone] Type 2 diabetes mellitus with hyperglycemia, with [...] Care Team (Late st Contact Info) Description 10/07/2024 1:45 PM EDT Office Visit [facility] [address] [place] [phone] Alma Quijano MD [address] [place] [phone] 11/11/2024 10:30 AM EDT Medication Management [facility] [address] [place] [phone] Jose Angel Martinez, PharmD [address] [place] [phone] Scheduled Referrals Name Type Priority Associated Diagnoses Orde r Schedule Referral to Pharmacy CDTM Outpatient Referral Routine Type 2 diabetes mellitus with hyperglycemia, with long-term current use of insulin ([facility]) Primary hypertension Moderate persistent asthma without [...] hyperglycemia, with long-term current use of insulin ([facility])- Primary Primary hypertension Unspecified essential hypertension Moderate persistent asthma without complication documented in this encounter Additional Health Concerns Assessment Noted Time PHQ-9 Depression Total Score: 0 06/08/19 23 1:07 PM EDT documented as of this encounter Care Teams Warehouse Packer Relationship Specialty Start Date End Date Alma Quijano MD [address] [place] [address] PCP - General Family Medicine 02/20/18 Jose Angel Martinez, Giovanna [address] [place] [address] Pharmacist Internal Medicine 09/19/22 documented as of this encounter
== END 2024-09-12 13:14 | disposition home or self-care (01) ==
LOC: HO.HPS 12:49
PROVIDERS: PCP Family Medicine; Visit Provider Internal Medicine Pulmonary Disease
DX: J45.909 Unspecified asthma, uncomplicated (principal); R91.1 Solitary pulmonary nodule; Z91.09 Other allergy status, other than to drugs and biological substances
CPT/HCPCS: 99214; G2211

== ENCOUNTER 2024-10-18 08:04 | Outpatient (REF) | payer OTHER, SELFPAY ==
[2024-10-18 12:55] LABS: Blood Urea Nitrogen 14 mg/dL (9-16); Estimated Glomerular Filt Rate > 60
== END 2024-10-18 08:05 | disposition home or self-care (01) ==
LOC: HO.HHCL 08:04
PROVIDERS: PCP Family Medicine; Visit Provider Family Medicine
DX: I10 Essential (primary) hypertension (principal)
CPT/HCPCS: 36415; 82565; 84520

== ENCOUNTER 2024-10-18 08:40 | Emergency (ER) | payer OTHER, SELFPAY ==
--- NOTE | ~2024-10-18 | XR_ITS ---
EXAMINATION: XR ABDOMEN KUB CLINICAL INDICATION: lower abdominal pain COMPARISON: None available. TECHNIQUE: AP view of the abdomen. FINDINGS: Bowel gas pattern is normal/nonspecific. There is no focally dilated loop. There is no evidence of obstruction. There is no large abdominal mass. There are vascular calcifications. No additional abnormal soft tissue calcification. There are cholecystectomy clips present. Imaged lung bases are grossly clear. No suspicious bony abnormality identified. There are degenerative changes within the spine and SI joints. XR/XR KUB IMPRESSION: No acute finding on AP abdomen. Electronically signed by: Yariel Vasquez MD 10/18/2024 09:55 AM EDT
[2024-10-18 08:59] VITALS: BP 121/30; PULSE 58; RESP 16; TEMP 36.6; O2SAT 98; BMI 34.5
--- NOTE | 2024-10-18 09:16 | ED.ABDPAIN ---
HPI - Abdominal Pain General Chief Complaint: Abdominal Pain Stated Complaint: Adb pain, hernia on c section scar severe pain Time Seen by Provider: 10/18/24 09:16 Source: patient, family (daughter) and fabric stretcher (Palestinian) Mode of arrival: ambulatory Limitations: language barrier (Palestinian) History of Present Illness ED Provider: CARI ALDRIDGE PA-C HPI narrative: 68-year-old Palestinian speaking female with pmhx significant for hyperparathyroidism, type 2 diabetes, HLD, asthma presents to the ED today with her daughter for evaluation of intermittent abdominal pain x2-3 days. Patient's daughter states that patient is currently following with her outpatient provider for this. She had outpatient blood work completed this morning and has a follow up appointment with them next week however patient's daughter felt as though she should come to the ED for further evaluation. She reports intermittent pain to lower abdomen along my c section scar . She states she might have a history of hernia in this region. She has not trialed anything for pain at home. She denies any pain at present. No complaints. Patient currently lives by herself home. Family states that she has had decreased p.o. intake over the last few days. Reports a normal bowel movement this morning. Denies nausea, vomiting, flank pain, dysuria, hematuria, diarrhea, constipation, chest pain, melena, hematochezia. Related Data Home Medications ?Medication ?Instructions ?Recorded ?Confirmed amitriptyline 25 mg tablet 25 mg PO DAILY 11/25/19 08/15/22 aspirin 81 mg tablet,delayed 81 mg PO DAILY 11/25/19 08/15/22 release (Adult Aspirin Regimen) atorvastatin 40 mg tablet 40 mg PO DAILY 11/25/19 08/15/22 buspirone 15 mg tablet 15 mg PO BID 11/25/19 08/15/22 cholecalciferol (vitamin D3) 25 25 mcg PO DAILY 11/25/19 08/15/22 mcg (1,000 unit) capsule cyanocobalamin (vitamin B-12) 1,000 mcg PO DAILY 11/25/19 08/15/22 1,000 mcg capsule fluticasone propionate 50 1 spray intranasal DAILY 11/25/19 08/15/22 mcg/actuation nasal spray,suspension gabapentin 300 mg capsule 300 mg PO BID 11/25/19 08/15/22 lisinopril 2.5 mg tablet 2.5 mg PO DAILY 11/25/19 08/15/22 loratadine 10 mg tablet (Allergy 10 mg PO DAILY 11/25/19 08/15/22 Relief (loratadine)) mirtazapine 30 mg tablet 30 mg PO BEDTIME 11/25/19 08/15/22 omeprazole 20 mg capsule,delayed 20 mg PO DAILY 11/25/19 08/15/22 release insulin glargine 100 unit/mL (3 24 unit subcut QPM 03/23/20 08/15/22 mL) subcutaneous pen (Lantus Solostar U-100 Insulin) insulin lispro 100 unit/mL 3 unit subcut TID 09/14/20 08/15/22 subcutaneous pen (Humalog KwikPen (U-100) Insulin) dulaglutide 1.5 mg/0.5 mL 1.5 mg subcut QWEEK 07/29/22 08/15/22 subcutaneous pen injector (Trulicity) alendronate 70 mg tablet 70 mg PO QWEEK 06/07/23 cetirizine 10 mg tablet 10 mg PO DAILY PRN 09/12/24 mometasone 200 mcg/actuation HFA 1 puff inhalation BID 09/12/24 aerosol inhaler (Asmanex HFA) montelukast 10 mg tablet 10 mg PO QPM 09/12/24 Previous Rx's ?Medication ?Instructions ?Recorded levothyroxine 50 mcg capsule 50 mcg PO DAILY 30 days #30 caps 01/04/21 Allergies Allergy/AdvReac Type Severity Reaction Status Date / Time No Known Allergies Allergy Mild NONE Verified 10/18/24 09:02 Review of Systems Review of Systems Yes all other systems are reviewed and are negative [facility] Past Medical History Attestation statement: The following information was validated with the patient. 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 Vitamin D deficiency Hypothyroidism Hyperparathyroidism Surgical History Hx laparoscopic cholecystectomy (08/17/22) H/O colonoscopy History of surgery on arm Hx of section Hx of tubal ligation Family History Family History Mother Diabetes Family/Other Breast cancer Social History Social History Alcohol intake: never Patient Tobacco Use Status: Never used Tobacco Advance Directives Date on File: 12/05/19 Physical Exam ED Vital Signs: Vital Signs - 24 hr 10/18/24 08:59 10/18/24 11:02 10/18/24 12:00 Temperature 97.9 F 97.9 F Pulse Rate 58 58 58 Respiratory Rate 16 18 16 Blood Pressure 121/30 L 120/42 L 121/60 Pulse Oximetry 98 97 98 Oxygen Delivery Method Room Air Room Air Room Air 10/18/24 12:29 Temperature 97.9 F Pulse Rate 58 Respiratory Rate 16 Blood Pressure 121/60 Pulse Oximetry 98 Oxygen Delivery Method Room Air BMI result Body Mass Index 34.5 vital sign stable General: Well appearing, in no acute distress. Skin: Warm, dry, intact. No rashes or lesions. Head: Normocephalic, atraumatic. EENT: Hearing is intact b/l. Neck: Trachea midline.? Cardiac: Chest wall symmetric. RRR. Lungs: Normal respiratory effort without accessory muscle use. Abdomen: Soft, nontender, non-distended. No rebound tenderness or guarding. Positive BS x4. umbilical scar noted. Ext: Upper and lower extremities atraumatic, without tenderness, deformity, swelling or erythema. Full ROM throughout. Neuro: AOx3. Normal speech. CN 2-12 grossly intact. Psych: Appropriate mood and affect. Responds appropriately to questions. Course Course Course Narrative: 1152 -- CBC without leukocytosis or left shift. No anemia. H&H stable. Chemistry without acute electrolyte abnormality requiring intervention. No KARL. Liver function WNL. Lipase WNL. Urine without infection. KUB unremarkable. No bowel obstruction. > patient's exam is quite unremarkable. Upon re-evaluation, patient sleeping peacefully on stretcher. Well-appearing, continues to deny any pain. She is currently being followed by gastroenterology outpatient. Has a follow up appointment with them this week. Discussed workup with patient and her daughter, we will be discharging her home with outpatient follow up. They are agreeable. Patient has remained stable throughout ED visit today. Discussed worrisome signs and symptoms and when to return to the ED. All questions answered at this time. Patient is agreeable with disposition and stable for discharge. Medical Decision Making Medical Decision Making [facility] Narrative: 68-year-old Palestinian speaking female with pmhx significant for hyperparathyroidism, type 2 diabetes, HLD, asthma presents to the ED today with her daughter for evaluation of intermittent abdominal pain x2-3 days. vital signs stable, she is well appearing and in NAD. on exam, abdomen is soft, nontender, non-distended. No rebound tenderness or guarding. Positive BS x4. umbilical scar noted. Differential include: abdominal hernia, gatritis, constipation less likely bowel obstruction Plan for labs, UA, and KUB No pain at present. Differential Diagnosis Differential Diagnoses: The differential diagnosis associated with the presentation includes as above Admission/Observation not indicated Lab Data [facility] Lab Attestation statement: I reviewed the patient's lab results. as above 10/18/24 09:52 10/18/24 09:52 Labs: Lab Results 10/18/24 10/18/24 Range/Units 09:52 11:02 WBC 5.6 (4.8-10.8) X10*3/uL RBC 4.39 (4.20-5.50) X10*6/uL Hgb 14.2 (12.0-16.0) g/dl Hct 40.3 (37.0-47.0) % MCV 91.8 (80.0-98.0) fL MCH 32.3 (27.0-33.0) pg MCHC 35.2 H (31.0-35.0) g/dl RDW 13.0 (11.0-16.0) % Plt Count 152 L D (160-400) X10*3/uL MPV 9.7 (9.4-12.3) fL Immature Gran % (Auto) 0.2 (0.0-0.4) % Neut % (Auto) 69.2 (45-73) % Lymph % (Auto) 21.1 (20-40) % [place] % (Auto) 8.8 (2-11) % Eos % (Auto) 0.5 (0-4) % Baso % (Auto) 0.2 (0-2) % Lymph # (Auto) 1.2 (1.2-4.9) X10*3/uL [place] # (Auto) 0.5 (0.1-1.2) X10*3/uL Eos # (Auto) 0.0 (0.0-0.4) X10*3/uL Baso # (Auto) 0.0 (0.0-0.2) X10*3/uL Abs Immat Gran (auto) 0.01 (0.00-0.03) X10*3/uL Absolute Neuts (auto) 3.9 (2.0-8.3) x10*3/uL Absolute Nucleated RBC 0.000 (0.0-0.012) X10*3/uL Nucleated RBC % (auto) 0.0 (0.0-0.2) /100WBC Sodium 145 (135-145) mmol/L Potassium 5.1 D (3.3-5.1) mmol/L Chloride 109 H (96-108) mmol/L Carbon Dioxide 31 H (22-29) mmol/L Anion Gap 10 L (12-20) BUN 15 (9-16) mg/dL Creatinine 0.85 (0.5-1.4) mg/dL Estim Creat Clear Calc 32.0 Estimated GFR > 60 Random Glucose 108 (60-115) mg/dL Calcium 9.3 (8.4-10.2) mg/dL Magnesium 2.4 (1.6-2.6) mg/dL Total Bilirubin 0.5 (0.0-1.0) mg/dL AST 23 (5-31) U/L ALT 22 (0-31) U/L Alkaline Phosphatase 66 (39-117) U/L Total Protein 6.6 (6.5-8.0) g/dL Albumin 4.2 (3.5-5.0) g/dL Lipase 9 (8-78) U/L Urine Color Yellow Urine Appearance Clear Urine pH 6.0 (5.0-9.0) Ur Specific [place] >= 1.030 H (1.005-1.025) Urine Protein Negative (Neg-Trace) mg/dL Urine Glucose (UA) >=1000 H (Negative) mg/dL Urine Ketones Negative (Negative) mg/dL Urine Blood Negative (Negative) Urine Nitrite Negative (Negative) Ur Leukocyte Esterase Negative (Negative) Urine RBC 0-2 (0-2) /HPF Urine WBC 0-5 (0-5) /HPF Ur Squamous Epith Cells 0-2 (0-2) /HPF Urine Bacteria None Seen (None Seen) Hyaline Casts 0-2 (0-2) /LPF Urine Yeast Present Independent Interpretation I performed an independent interpretation of an: Plain X-Ray Interpretation: KUB without obstruction Radiology Impression Discussion of test interpretation with radiology: I have reviewed the radiologist's reading. Radiologist Impression: Date of Service: 10/18/24 Procedure(s): XR KUB Accession Number(s): [id number] cc: Cari Aldridge; Alma Quijano MD~ EXAMINATION: XR ABDOMEN KUB CLINICAL INDICATION: lower abdominal pain COMPARISON: None available. TECHNIQUE: AP view of the abdomen. FINDINGS: Bowel gas pattern is normal/nonspecific. There is no focally dilated loop. There is no evidence of obstruction. There is no large abdominal mass. There are vascular calcifications. No additional abnormal soft tissue calcification. There are cholecystectomy clips present. Imaged lung bases are grossly clear. No suspicious bony abnormality identified. There are degenerative changes within the spine and SI joints. XR/XR KUB IMPRESSION: No acute finding on AP abdomen. Electronically signed by: Yariel Vasquez MD 10/18/2024 09:55 AM EDT RP Independent Historian Clinical information obtained from an independent historian. History obtained from or confirmed by: Other (daughter) External Record Review External record reviewed: Inpatient record Social Determinants Patient?s care significantly limited by Social Determinants of Health including: Other Social Determinant of Health Critical Care Time Critical Care Time Critical Care Time: No Discharge Plan Discharge Clinical Impression: Abdominal pain Patient Disposition: Home, Self-Care Instructions: Abdominal Pain (ED) Additional Instructions: You were evaluated in the ED today for abdominal pain. Your blood work, xray and urine results are reassuring. It is reassuring that you did not have any pain while you were in the ED today. If your pain returns, you may trial Tylenol. Please avoid NSAIDs as you are on aspirin. Please continue following up with your outpatient providers as scheduled. Return with any new or worsening symptoms. In the case of an emergency call 911. Prescriptions: No Action insulin lispro [Humalog KwikPen Insulin] 100 unit/mL insulin pen 3 unit subcut TID levothyroxine 50 mcg capsule 50 mcg PO DAILY 30 Days Qty: 30 11RF buspirone 15 mg tablet 15 mg PO BID lisinopril 2.5 mg tablet 2.5 mg PO DAILY loratadine [Allergy Relief (loratadine)] 10 mg tablet 10 mg PO DAILY fluticasone propionate 50 mcg/actuation spray,suspension 1 spray intranasal DAILY Rx Instructions: administer into each nostril gabapentin 300 mg capsule 300 mg PO BID aspirin [Adult Aspirin Regimen] 81 mg tablet,delayed release (DR/EC) 81 mg PO DAILY cyanocobalamin (vitamin B-12) 1,000 mcg capsule 1,000 mcg PO DAILY amitriptyline 25 mg tablet 25 mg PO DAILY cholecalciferol (vitamin D3) 25 mcg (1,000 unit) capsule 25 mcg PO DAILY mirtazapine 30 mg tablet 30 mg PO BEDTIME omeprazole 20 mg capsule,delayed release(DR/EC) 20 mg PO DAILY atorvastatin 40 mg tablet 40 mg PO DAILY Lantus Solostar U-100 Insulin 100 unit/mL (3 mL) insulin pen 24 unit subcut QPM alendronate 70 mg tablet 70 mg PO QWEEK Trulicity 1.5 mg/0.5 mL pen injector 1.5 mg subcut QWEEK cetirizine 10 mg tablet 10 mg PO DAILY PRN montelukast 10 mg tablet 10 mg PO QPM Asmanex HFA 200 mcg/actuation HFA aerosol inhaler 1 puff inhalation BID Referrals: Alma Quijano MD [Primary Care Provider, Internal Medicine] Interventions: ED Discharge Assessment Last Done: 10/18/24 12:29 Discharge Date/Time: 10/18/24 12:30 Print Language: Palestinian
[2024-10-18 09:58] LABS: Hematocrit 40.3 % (37.0-47.0); Hemoglobin 14.2 g/dl (12.0-16.0); Imm Gran Abs Auto 0.01 X10*3/uL (0.00-0.03); Imm Gran Pct Auto 0.2 % (0.0-0.4); Lymphocytes Absolute Auto 1.2 X10*3/uL (1.2-4.9); MANUAL DIFF FLAG NO; Mean Corpuscular HGB Conc 35.2 g/dl (31.0-35.0); Mean Corpuscular Hemoglobin 32.3 pg (27.0-33.0); Mean Corpuscular Volume 91.8 fL (80.0-98.0); NRBC Abs Auto 0.000 X10*3/uL (0.0-0.012); NRBC Pct Auto 0.0 /100WBC (0.0-0.2); Platelet Count 152 X10*3/uL (160-400); Red Blood Count 4.39 X10*6/uL (4.20-5.50); White Blood Count 5.6 X10*3/uL (4.8-10.8)
--- OUTSIDE RECORDS SUMMARY | 2024-10-18 09:59 | XMS_ITS | Encounter Summary ---
Author Organization [employer] Address [address] [facility] 7t h Floor [place] [id number] Care Team Providers Care Deicer Inspector Electric Name Role Phone Alma Quijano MD Primary Care Provider [phone] Jose Angel Martinez PharmD Unavailable [phone] Reason for Visit * Reason Comments Med Refill Encounter Details Date Type Department Care Team ([facility] Contact Info) Description 05/09/2022 Refill [facility] MEDICINE [address] [place] [phone] Alma Quijano MD [address] [place] [phone] Social History Tobacco Use Types Packs/Day Years [...] Upcoming Encounters Date Type Department Care Team ([facility] Contact Info) Description 11/05/2024 9:40 AM EDT Office Visit [facility] OPTOMETRY [address] [place], [place] [phone] 11/08/2024 9:30 AM EDT Clinical Support [facility] MEDICINE [address] [place] [address] 11/11/2024 10:30 AM EDT Medication Management [facility] MEDICINE [address] [place] [address] [phone] Jose Angel Martinez, PharmD [address] [place] [phone] documented as of this encounter Visit Diagnoses Not on filedocumented in this encounter Care Teams Deicer Inspector Electric Relationship Specialty Start Date End Date Alma Quijano MD [address] [place] [address] [phone] PCP - General Family Medicine 02/20/18 Jose Angel Martinez, MarissaD [address] [place] [phone] Pharmacist Internal Medicine 09/19/22 documented as of this encounter
--- OUTSIDE RECORDS SUMMARY | 2024-10-18 09:59 | XMS_ITS | Encounter Summary ---
Author Organization [employer] Address [address] [facility] 7t h Floor [place] [id number] Care Team Providers Care Fisheries Director Name Role Phone Alam Quijano MD Primary Care Provider [phone] Jose Angel Martinez PharmD Unavailable [phone] Reason for Visit * Reason Comments Med Refill Encounter Details Date Type Department Care Team ([facility] Contact Info) Description 04/28/2022 Refill [facility] MEDICINE [address] [place] [phone] Geetha Macedo ANP [address] [place] [address] Social History Tobacco Use Types Packs/Day Years [...] Upcoming Encounters Date Type Department Care Team ([facility] Contact Info) Description 11/05/2024 9:40 AM EDT Office Visit [facility] OPTOMETRY [address] [place], [place] [phone] 11/08/2024 9:30 AM EDT Clinical Support [facility] MEDICINE [address] [place], [place] [phone] 11/11/2024 10:30 AM EDT Medication Management [facility] MEDICINE [address] [place] [address] [phone] Jose Angel Martinez, PharmD [address] [place] [address] documented as of this encounter Visit Diagnoses Not on filedocumented in this encounter Care Teams Fisheries Director Relationship Specialty Start Date End Date Alma Quijano MD [address] [place] [phone] PCP - General Family Medicine 02/20/18 Jose Angel Martinez, MarissaD [address] [place] [address] [phone] Pharmacist Internal Medicine 09/19/22 documented as of this encounter
--- OUTSIDE RECORDS SUMMARY | 2024-10-18 09:59 | XMS_ITS | Encounter Summary ---
Author Organization [employer] Address [address] [facility] 7t [place] [address] Care Team Providers Care Aircraft Delivery Checker Name Role Phone Alma Quijano MD Primary Care Provider [phone] Jose Angel Martinez PharmD Unavailable [phone] Encounter Details Date Type Department Care Team (Late st Contact Info) Description 05/26/2023 Orders Only [facility] MEDICINE [address] [place], [place] [phone] Alma Quijano MD [address] [place], [place] [phone] Osteoporosis, unspecified osteoporosis type, unspecified pathological fracture [...] Care Team (Late st Contact Info) Description 11/05/2024 9:40 AM EDT Office Visit [facility] OPTOMETRY [address] [place] [address] 11/08/2024 9:30 AM EDT Clinical Support [facility] MEDICINE [address] [place] [phone] 11/11/2024 10:30 AM EDT Medication Management [facility] MEDICINE [address] [place] [phone] Jose Angel Martinez PharmD [address] [place] [address] [phone] documented as of this encounter Goals Goal Patient Goal Type Associated Problems Recent Progress Patient-Stated? Author Blood Pressure < 140/90 Blood Pressure 110/50(2024 1:53 PM EDT) No Jose Angel Martinez PharmD Hemoglobin A1c < 7 Result Component 7(10/07/2024 1:58 PM EDT) No Jose Angel Martinez PharmD documented as of this encounter Visit Diagnoses Diagnosis Osteoporosis, unspecified osteoporosis type, unspecified pathological fracture presence- Primary documented in this encounter Additional Health Concerns Assessment Noted Time PHQ-9 Depression Total Score: 0 06/08/19 23 1:07 PM EDT documented as of this encounter Care Teams Aircraft Delivery Checker Relationship Specialty Start Date End Date Alma Quijano MD [address] [place] [phone] PCP - General Family Medicine 02/20/18 Jose Angel Martinez PharmD [address] [place] [phone] Pharmacist Internal Medicine 09/19/22 documented as of this encounter
--- OUTSIDE RECORDS SUMMARY | 2024-10-18 09:59 | XMS_ITS | Encounter Summary ---
Author Organization [employer] Address [address] [facility] [place] [address] Care Team Providers Care Neighborhood Conservation Officer Name Role Phone Alma Quijano MD Primary Care Provider [phone] Jose Angel Martinez PharmD Unavailable [phone] Encounter Details Date Type Department Care Team (Late st Contact Info) Description 01/24/2023 Abstract [facility] MEDICINE [address] [place] [address] Ewa Waldrop [place] Social History Tobacco Use [...] Description 11/05/2024 9:40 AM EDT Office Visit [facility] OPTOMETRY [address] [place] [address] 11/08/2024 9:30 AM EDT Clinical Support [facility] MEDICINE [address] [place] [address] 11/11/2024 10:30 AM EDT Medication Management [facility] [address] [place] [address] Jose Angel Martinez PharmD [address] [place] [address] documented as of this encounter Goals Goal [...] encounter Results * Diabetes Eye Exam (12/09/2022) [facility] Signature Eye Exam Normal Normal [facility] Final Result documented in this encounter Visit Diagnoses Not on filedocumented in this encounter Additional Health Concerns Assessment Noted Time PHQ-9 Depression Total Score: 0 06/08/19 23 1:07 PM EDT documented as of this encounter Care Teams Neighborhood Conservation Officer Relationship Specialty Start Date End Date Alam Quijano MD [address] [place] [address] PCP - General Family Medicine 02/20/18 Jose Angel Martinez, PharmD [address] [place] [phone] Pharmacist Internal Medicine 09/19/22 documented as of this encounter
--- OUTSIDE RECORDS SUMMARY | 2024-10-18 09:59 | XMS_ITS | Encounter Summary ---
Author Organization [employer] Address [address] [facility] [address]t [place] [address] Care Team Providers Care Building Trades Instructor Name Role Phone Alma Quijano MD Primary Care Provider [phone] Jose Angel Martinez PharmD Unavailable [phone] Reason for Referral * Consultation (Routine) - Pending Review Specialty Diagnoses / Procedures Referred By Contirais t Referred To Contact Pharmacy Diagnoses Type 2 diabetes mellitus with hyperglycemia, with long-term current use of insulin (CMS/HCC) Primary hypertension Moderate persistent asthma without complication Alma Quijano MD [address] [place] [address] Phone: tel: fax: Referral ID Status Reason Start Date Expiration Date Visits Requested Visits Authorized [id number] Pending Review Consult and Treat 4 01/01/2025 6 6 Encounter Details Date Type Department Care Team ([facility] st Contact Info) Description 01/02/2024 Orders Only [facility] MEDICINE [address] [place] [phone] Alma Quijano MD [address] [place] [address] [phone] Type 2 diabetes mellitus with hyperglycemia, with [...] Description 11/05/2024 9:40 AM EDT Office Visit [facility] OPTOMETRY [address] [place] [address] 11/08/2024 9:30 AM EDT Clinical Support [facility] MEDICINE [address] [place] [address] 11/11/2024 10:30 AM EDT Medication Management [facility] MEDICINE [address] [place] [phone] Jose Angel Martinez, PharmD [address] [place] [address] Scheduled Referrals Name Type Priority Associated Diagnoses Orde r Schedule Referral to Pharmacy CDTM Outpatient Referral Routine Type 2 diabetes mellitus with hyperglycemia, with long-term current use of insulin ([facility]) Primary hypertension Moderate persistent asthma without complication Ordered: 01/02/2024 documented as of this encounter Goals Goal Patient Goal Type Associated Problems Recent Progress Patient-Stated? Author Blood Pressure < 140/90 Blood Pressure 110/50(2024 1:53 PM EDT) No Jose Angel Martinez, Giovanna Hemoglobin A1c < 7 Result Component 7(10/07/2024 1:58 PM EDT) No Jose Angel Martinez, Giovanna documented as of this encounter Visit Diagnoses Diagnosis Type 2 diabetes mellitus with hyperglycemia, with long-term current use of insulin ([facility])- Primary Primary hypertension Unspecified essential hypertension Moderate persistent asthma without complication documented in this encounter Additional Health Concerns Assessment Noted Time PHQ-9 Depression Total Score: 0 06/08/19 23 1:07 PM EDT documented as of this encounter Care Teams Building Trades Instructor Relationship Specialty Start Date End Date Alma Quijano MD [address] [place] [address] PCP - General Family Medicine 02/20/18 Jose Angel Martinez, MarissaD [address] [place] [address] Pharmacist Internal Medicine 09/19/22 documented as of this encounter
--- OUTSIDE RECORDS SUMMARY | 2024-10-18 09:59 | XMS_ITS | Encounter Summary ---
Author Organization [employer] Address [address] [facility] 7t [place] [address] Care Team Providers Care Hardware Test Engineer Name Role Phone Alma Quijano MD Primary Care Provider [phone] Jose Angel Martinez PharmD Unavailable [phone] Encounter Details Date Type Department Care Team (Late st Contact Info) Description 07/31/2023 Orders Only [facility] MED[facility] [address] [place], [place] [phone] Alma Quijano MD [address] [place], [place] [phone] Type 2 diabetes mellitus with hyperglycemia, with long-term current use of insulin ([facility]) (Primary Dx); Osteoporosis without current pathological [...] Description 11/05/2024 9:40 AM EDT Office Visit [facility] OPTOMETRY [address] [place] [address] 11/08/2024 9:30 AM EDT Clinical Support [facility] [address] [place] [address] 11/11/2024 10:30 AM EDT Medication Management [facility] [address] [place] [address] Jose Angel Martinez, Giovanna [address] [place] [address] Scheduled Orders Name Type Priority Associated Diagnoses Orde r Schedule Lipid Panel with Reflex to Direct LDL Lab Routine Type 2 diabetes mellitus with hyperglycemia, with long-term current use of insulin ([facility]) Expected: 07/31/2023 (Approximate), Expires: 07/30/2024 documented as of this encounter Goals Goal Patient Goal Type Associated Problems Recent Progress Patient-Stated? Author Blood Pressure < 140/90 Blood Pressure 110/50(2024 1:53 PM EDT) No Jose Angel Martinez, PharmJennifer Hemoglobin A1c < 7 Result Component 7(10/07/2024 1:58 PM EDT) No Jose Angel Martinez PharmD documented as of this encounter Procedures Procedure Name Priority Date/Time Associated Diagnosis Comments ALBUMIN, RANDOM URINE W/CREATININE Routine 08/01/2023 8:24 AM EDT Type 2 diabetes mellitus with hyperglycemia, with long-term current use of insulin ([facility]) TSH Routine 08/01/2023 8:24 AM EDT Acquired hypothyroidism T4, FREE Routine 08/01/2023 8:24 AM EDT Acquired hypothyroidism COMPREHENSIVE METABOLIC PANEL Routine 08/01/2023 8:24 AM EDT Type 2 diabetes mellitus with hyperglycemia, with long-term current use of insulin ([facility]) documented in this encounter Results * TSH (08/01/2023 8:24 AM EDT) Thyroid Stimulating Hormone 3.13 0.32 - 4.0 uIU/mL [facility] Comment:Note: A sustained TS H level above 2.5 uIU/mL may warrant further investigation. TSH 3rd Generation ([facility]) Blood Venous blood specimen / Unknown 08/01/2023 8:24 AM EDT 08/01/2023 11:09 AM EDT us Alma Quijano MD LAB BLOOD ORDERABLES Final Resul t Performing Organization Address City/[facility]/ZIP Co de Phone Number [facility] [address] [place] [phone] * T4, Free (08/01/2023 8:24 AM EDT) Free T4 (Free Thyroxine) 0.87 0.71 - 1.85 ng/dL [facility] Blood Venous blood specimen / Unknown 08/01/2023 8:24 AM EDT 08/01/2023 11:09 AM EDT us Alma Quijano MD LAB BLOOD ORDERABLES Final Resul t Performing Organization Address City/[facility]/ZIP Co de Phone Number [facility] [address] [place] [phone] * (ABNORMAL) Comprehensive Metabolic Panel (08/01/2023 8:24 AM EDT) Sodium 143 135 - 145 mmol/L [facility] Potassium 4.1 3.3 - 5.1 mmol/L [facility] Chloride 108 96 - 108 mmol/L [facility] Carbon Dioxide 27 22 - 29 mmol/L [facility] Anion Gap 12 12 - 20 [facility] Urea Nitrogen (BUN) 17(H) 9 - 16 mg/dL [facility] Creatinine, Serum 0.79 0.5 - 1.4 mg/dL [facility] Estimated Glomerular Filt Rate >60 [facility] Comment:NOTE: For -Am erican individuals, multiply the result by 1.210.Chronic Kidney Disease: Estimated GFR < 60 mL/min/1.40r8Vauigp Kidney Disease: Estimated GFR < 15 mL/min/1.73m2 Glucose 161(H) 60 - 115 mg/dL [facility] Calcium 9.5 8.4 - 10.2 mg/dL [facility] Bilirubin, Total 0.6 0.0 - 1.0 mg/dL [facility] Aspartate Amino Transferase 16 5 - 31 U/L [facility] Alanine Aminotransferase 18 0 - 31 U/L [facility] Total Protein 7.3 6.5 - 8.0 g/dL [facility] Albumin Level 4.1 3.5 - 5.0 g/dL [facility] Alkaline Phosphatase 68 39 - 117 U/L [facility] Blood Venous blood specimen / Unknown 08/01/2023 8:24 AM EDT 08/01/2023 11:09 AM EDT us Alma Quijano MD LAB BLOOD ORDERABLES Final Resul t [facility] [address] [place] [phone] * Albumin, Random Urine W/Creatinine (08/01/2023 8:24 AM EDT) Creatinine, Urine 80.05 mg/dL [facility] Microalbumin Urine 18.0 mg/L [facility] Microalbum Creatinine Ratio Ur 22.4 <30 ug/mg cr [facility] Comment:Albumin/Creatinine R atio Reference Ranges: Normal: < 30 ug/mg creatinine Microalbuminuria: 30 - 300 ug/mg creatinineClinical Albuminuria: > 300 ug/mg creatinine Urine 08/01/2023 8:24 AM EDT 08/01/2023 11:14 AM EDT us Alma Quijano MD LAB URINE ORDERABLES Final Resul t [facility] [address] [place] [phone] documented in this encounter Visit Diagnoses Diagnosis Type 2 diabetes mellitus with hyperglycemia, with long-term current use of insulin ([facility])- Primary Osteoporosis without current pathological fracture, unspecified osteoporosis type Primary hypertension Unspecified essential hypertension Acquired hypothyroidism Unspecified hypothyroidism documented in this encounter Additional Health Concerns Assessment Noted Time PHQ-9 Depression Total Score: 0 06/08/19 23 1:07 PM EDT documented as of this encounter Care Teams Hardware Test Engineer Relationship Specialty Start Date End Date Alma Quijano MD [address] [place] [address] PCP - General Family Medicine 02/20/18 Jose Angel Martinez, MarissaD [address] [place] [address] Pharmacist Internal Medicine 09/19/22 documented as of this encounter
--- OUTSIDE RECORDS SUMMARY | 2024-10-18 09:59 | XMS_ITS | Encounter Summary ---
Author Organization [employer] Address [address] [facility] 7t [place] [address] Care Team Providers Care Market Investigator Name Role Phone Alma Quijano MD Primary Care Provider [phone] Jose Angel Martinez PharmD Unavailable [phone] Reason for Visit * Reason Comments Med Refill Encounter Details Date Type Department Care Team ([facility] Contact Info) Description 10/14/2024 Refill [facility] MEDICINE [address] [place] [address] Jose Angel Martinez, PharmD [address] [place] [address] Type 2 diabetes mellitus with hyperglycemia, with long-term current use of insulin ([facility]) Social History Tobacco Use Types Packs/Day Years [...] Description 11/05/2024 9:40 AM EDT Office Visit [facility] OPTOMETRY [address] [place] [address] 11/08/2024 9:30 AM EDT Clinical Support [facility] [address] [place] [phone] 11/11/2024 10:30 AM EDT Medication Management [facility] [address] [place] [phone] Jose Angel Martinez PharmD [address] [place] [address] documented as of this encounter Goals Goal [...] hyperglycemia, with long-term current use of insulin ([facility]) documented in this encounter Additional Health Concerns Assessment Noted Time PHQ-9 Depression Total Score: 5 01/31/20 24 11:17 AM EST documented as of this encounter Care Teams Market Investigator Relationship Specialty Start Date End Date Alma Quijano MD [address] [place] [address] PCP - General Family Medicine 02/20/18 Jose Angel Martinez, MarissaD [address] [place] [address] Pharmacist Internal Medicine 09/19/22 documented as of this encounter
--- OUTSIDE RECORDS SUMMARY | 2024-10-18 09:59 | XMS_ITS | Encounter Summary ---
Author Organization [employer] Address [address] [facility] 7t [place] [address] Care Team Providers Care [employer] Teacher Name Role Phone Alma Quijano MD Primary Care Provider [phone] Jose Angel Martinez PharmD Unavailable [phone] Reason for Visit * Reason Onset Date Comments Appointment Request 11/08/2022 Encounter Details Date Type Department Care Team ([facility] Contact Info) Description 11/08/2022 Telephone [facility] MEDICINE [address] [place], [place] [phone] Alma Quijano MD [address] [place], [place] [phone] Appointment Request Social History Tobacco Use Types [...] to traveling. Patient will be back 12/15/22. Violin Mechanic attempted to r/s appt and was unable to due to last week being unavailable. documented in this encounter Plan of Treatment Upcoming Encounters Date Type Department Care Team (Late st Contact Info) Description 11/05/2024 9:40 AM EDT Office Visit [facility] OPTOMETRY [address] [place] [address] 11/08/2024 9:30 AM EDT Clinical Support [facility] MEDICINE [address] [place] [address] 11/11/2024 10:30 AM EDT Medication Management [facility] [address] [place] [address] Jose Angel Martinez PharmD [address] [place] [address] documented as of this encounter Goals Goal [...] documented as of this encounter Care Teams [employer] Teacher Relationship Specialty Start Date End Date Alma Quijano MD [address] [place] [phone] PCP - General Family Medicine 02/20/18 Jose Angel Martinez PharmD [address] [place] [phone] Pharmacist Internal Medicine 09/19/22 documented as of this encounter
--- OUTSIDE RECORDS SUMMARY | 2024-10-18 09:59 | XMS_ITS | Encounter Summary ---
Author Organization [employer] Address [address] [facility] 7t [place] [address] Care Team Providers Care Stamp Analyst Name Role Phone Alma Quijano MD Primary Care Provider [phone] Jose Angel Martinez PharmD Unavailable [phone] Reason for Visit * Reason Comments Med Refill Encounter Details Date Type Department Care Team ([facility] Contact Info) Description 03/17/2023 Refill [facility] MEDICINE [address] [place] [address] Jose Angel Martinez, PharmD [address] [place] [address] Type 2 diabetes mellitus with hyperglycemia, with long-term current use of insulin ([facility]) Social History Tobacco Use Types Packs/Day [...] Description 11/05/2024 9:40 AM EDT Office Visit [facility] OPTOMETRY [address] [place], [place] [phone] 11/08/2024 9:30 AM EDT Clinical Support [facility] [address] [place] [address] 11/11/2024 10:30 AM EDT Medication Management [address] [address] Jose Angel Martinez, Giovanna [address] [place] [address] documented as of this encounter Goals Goal Patient Goal Type Associated Problems Recent Progress Patient-Stated? Author Blood Pressure < 140/90 Blood Pressure 110/50(2024 1:53 PM EDT) No Jose Angel Martinez PharmJennifer Hemoglobin A1c < 7 Result Component 7(10/07/2024 1:58 PM EDT) No Jose Angel Martinez PharmD documented as of this encounter Visit Diagnoses Diagnosis Type 2 diabetes mellitus with hyperglycemia, with long-term current use of insulin ([facility]) documented in this encounter Additional Health Concerns Assessment Noted Time PHQ-9 Depression Total Score: 0 06/08/19 23 1:07 PM EDT documented as of this encounter Care Teams Stamp Analyst Relationship Specialty Start Date End Date Alma Quijano MD [address] [place] [phone] PCP - General Family Medicine 02/20/18 Jose Angel Martinez PharmD [address] [place] [phone] Pharmacist Internal Medicine 09/19/22 documented as of this encounter
--- OUTSIDE RECORDS SUMMARY | 2024-10-18 09:59 | XMS_ITS | Clinical Summary ---
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 [facility] Lymphocytes Percent Auto 21.4 20 - 40 % [facility] Monocytes Percent Auto 7.1 2 - 11 % [facility] Eosinophils Percent Auto 0.5 0 - 4 % [facility] Basophils Percent Auto 0.1 0 - 2 % [facility] NRBC Pct Auto 0.0 0.0 - 0.2 /100WBC [facility] Neutrophils Absolute Auto 5.7 2.0 - 8.3 x10*3/uL [facility] Imm Gran Abs Auto 0.06(H) 0.00 - 0.03 X10*3/uL [facility] Lymphocytes Absolute Auto 1.7 1.2 - 4.9 X10*3/uL [facility] Monocytes Absolute Auto 0.6 0.1 - 1.2 X10*3/uL [facility] Eosinophils Absolute Auto 0.0 0.0 - 0.4 X10*3/uL [facility] Basophils Absolute Auto 0.0 0.0 - 0.2 X10*3/uL [facility] NRBC Abs Auto 0.000 0.0 - 0.012 X10*3/uL [facility] 09/12/2024 1:32 PM EDT 09/12/2024 1:32 PM EDT us Generic External Data Provider LAB BLOOD ORDERAB LES Final Result Performing Organization Address City/State/[facility] Co de Phone Number [facility] [address] [place] [address] [phone] * BI Mammogram Screening Tomosynthesis Bilateral (05/24/2024 2:15 PM EDT) Anatomical Region Laterality Modality Breast Bilateral Mammography 05/24/2024 2:15 PM EDT Narrative 05/31/2024 3:24 PM EDT [facility] [address] [place] [address] Mammography Report Signed Patient: Cori Marino MR#: [id number] : 1955 Acct:[id number] Age/Sex: 68 / F ADM Date: 05/24/24 Loc: TIM Attending Dr: Alma Quijano MD Ordering Physician: Alma Quijano MD Results: 1Negative Date of Service: 05/24/24 Follow Up: 1 Year From [facility] ina Mammogram Procedure(s): MM tomosynthesis screening BI Accession Number(s): [id number] cc: Alma Quijano MD EXAMINATION: MM SCREENING [...] 05/31/24 1521 DD/ 1415 TD/TT: 05/24/24 1436 Biology Intern: Procedure Note Donotuseinterpreter, Image - 05/31/2024 [facility] [address] [place] [address] Mammography Report Signed Patient: Cori Marino EMR#: [id number] : 1955cct:[id number] Age/Sex: 68 / FADM Date: 05/24/24 Loc: TIM Attending Dr: Alma Quijano MD Ordering Physician: Alma Quijano MDResults: 1Negative Date of Service: 05/24/24Follow Up: 1 Year From Orig ina Mammogram Procedure(s): MM tomosynthesis screening BI Accession Number(s): [id number] cc: Alma Quijano MD EXAMINATION: MM SCREENING [...] 05/31/24 1521 DD/ 1415 TD/TT: 05/24/24 1436 Biology Intern: Alma Quijano MD IMG BI PROCEDURES Final Result * (ABNORMAL) Lipid Panel with Reflex to Direct LDL (05/10/2024 8:09 AM EDT) Triglycerides 97 <150 mg/dL [facility] Comment:Desirable Triglyceri de: less than 150 mg/dLBorderline High Triglyceride 150-199 mg/dLHigh Triglyceride: 200-499 mg/dLVery High Triglyceride: greater than or equal to 5OO mg/dL Cholesterol 102 <200 mg/dL [facility] Comment:Desirable Cholestero l: less than 200 mg/dLBorderline High Cholesterol: 200-239 mg/dLHigh Cholesterol: greater than 239 mg/dL LDL Cholesterol Calculated 48 <100 mg/dL [facility] Comment:Desirable LDL: less than 100 mg/dLNear Optimal/Above Optimal LDL: 110- 129 mg/dLBorderline High LDL: 130-159 mg/dLHigh LDL: 160-189 mg/dLVery High LDL: greater than or equal to 190 mg/dL HDL Cholesterol 35(L) >40 mg/dL [facility] Comment:Desirable HDL: great er than 40 mg/dL Note: This HDL assay may give artificially low results in patients with liver disease. Blood 05/10/2024 8:09 AM EDT 05/10/2024 11:07 AM EDT Alma Quijano MD LAB BLOOD ORDERABLES Final Resul t [facility] [address] [place] [phone] * Albumin, Random Urine W/Creatinine (05/10/2024 8:09 AM EDT) Creatinine, Urine 64.00 mg/dL [facility] Microalbumin Urine 6.0 mg/L [facility] Microalbum Creatinine Ratio Ur 9.3 <30 ug/mg cr [facility] Comment:Albumin/Creatinine R atio Reference Ranges: Normal: < 30 ug/mg creatinine Microalbuminuria: 30 - 300 ug/mg creatinineClinical Albuminuria: > 300 ug/mg creatinine Urine 05/10/2024 8:09 AM EDT 05/10/2024 11:18 AM EDT us Alma Quijano MD LAB URINE ORDERABLES Final Resul t [facility] [address] [place] [address] [phone] * HPV mRNA E6/E7 w/Reflex to HPV Genotypes 16, 18/45 (05/02/2023 9:48 AM EDT) HPV nRNA E6/E7 Not Detected Not Detected [facility] Comment:Methodology: Transcr iption-Mediated AmplificationThis assay detects E6/E7 viral messenger RNA (mRNA) from 14high-risk HPV types (16,18,31,33,35,39,45,51,52,56,58,59,66,68).Cervical sources are required for HPV testing.If a vaginal source from a patient who has had atotal hysterectomy with removal of cervix wassubmitted, please contact the testing laboratoryfor alternative testing options.For additional information, please refer [email or web address]/faq/[email or web address](This link if provided for information/educational purposes only.)THIS TEST WAS PERFORMED AT:[employer] [place] [id number] GODINEZ MD HPV mRNA E6/E7 TNP [facility] HPV 16 RNA [facility] HPV 18/45 RNA [facility] Vaginal Fluid Cervix uteri structure / Unknown 05/02/2023 9:48 AM EDT 05/03/2023 2:23 PM EDT [facility] - 05/05/2023 7:38 AM EDT Collection Date: [id number] by: KIMI Colby: Cervix Alma Quijano MD LAB CYTOLOGY ORDERABLES Final Re sult [facility] [address] [place] [phone] * Pap Smear (05/02/2023 9:48 AM EDT) Swab 05/02/2023 9:48 AM EDT 05/03/2023 12:25 PM EDT [facility] - 05/11/2023 6:49 AM EDT ----- ------- Name: Cori Marino Age/Sex: 67/F : 1955 Unit#: [id number] Attend Dr: Alma Quijano MD Re05/02/23 Status: DEP REF Location: HOChongLNP Disch: ----- ------- SPEC : [id number] RECD: 05/03/23-1225 STATUS: JONNIE VALENTINE NUM: [id number] VU: 05/02/23 [facility] DR: Alma Quijano MD ENTERED: 05/03/23 SP TYPE: Pap Smr OTHR DR: ORDERED: Pap Smear Interpretation Satisfactory for evaluation. No endocervical cells seen. Fungal organisms consistent with Carmelita species. Negative for intraepithelial lesion or malignancy. HPV mRNA E6/E7: NOT DETECTED This assay detects E6/E7 viral messenger RNA (mRNA) from 14 high-risk HPV types (16, 18, 31, 33, 35, 39, 45, 51, 52, 56, 58, 59, 66, 68) HPV testing performed by [employer] [place], [place]. See reference laboratory portion of the EMR for entire report. Clinical Information LMP: Postmenopausal Previous PAP test: Unknown date/findings Material Received ThinPrep-Vaginal/Cervical ----- ------- Signed (signature on file) HAZEL Brown (ASCP) 05/11/23 0649 ----- ------- END OF REPORT Alma Quijano MD LAB CYTOLOGY ORDERABLES Final Re sult [facility] [address] [place] [phone] * Diabetes Eye Exam (12/09/2022) Eye Exam Normal Normal Eye Tech HEALTH MAINTENANCE Final Result * Colonoscopy (01/06/2020) Colonoscopy Normal Normal Jarrett Craft MD HEALTH MAINTENANCE Final Res ult from Last 3 Months or Most Recently Relevant to Health Maintenance Insurance [facility] [employer] OPT[employer] (HMO D-SNP) Care Teams Regional Sales Executive Relationship Specialty Start Date End Date Alma Quijano MD [address] [place] [address] PCP - General Family Medicine 02/20/18 Jose Angel Martinez, PharmD [address] [place] [phone] Pharmacist Internal Medicine 09/19/22
--- OUTSIDE RECORDS SUMMARY | 2024-10-18 09:59 | XMS_ITS | Encounter Summary ---
Author Organization [employer] Address [address] [facility] 7t [place] [address] Care Team Providers Care Program Admin Name Role Phone Alma Quijano MD Primary Care Provider [phone] Jose Angel Martinez PharmD Unavailable [phone] Encounter Details Date Type Department Care Team ([facility] st Contact Info) Description 01/24/[address] [facility] [address] [place] [address] Alma Quijano MD [address] [place], [place] [phone] Social History Tobacco Use Types Packs/Day Years [...] Description 11/05/2024 9:40 AM EDT Office Visit [facility] [address] [place] [address] 11/08/2024 9:30 AM EDT Clinical [address] [facility] [address] [place] [address] 11/11/2024 10:30 AM EDT Medication Management [facility] [address] [place] [address] Jose Angel Martinez PharmD [address] [place] [address] documented as of this encounter Goals Goal [...] 01/06/2020 documented in this encounter Results * Colonoscopy (01/06/2020) Colonoscopy Normal Normal Jarrett Craft MD HEALTH MAINTENANCE Final Res ult documented in this encounter Visit Diagnoses Not on filedocumented in this encounter Additional Health Concerns Assessment Noted Time PHQ-9 Depression Total Score: 0 06/08/19 23 1:07 PM EDT documented as of this encounter Care Teams Program Admin Relationship Specialty Start Date End Date Alma Quijano MD [address] [place] [address] PCP - General Family Medicine 02/20/18 Jose Angel Martinez, MarissaD [address] [place] [address] Pharmacist Internal Medicine 09/19/22 documented as of this encounter
--- OUTSIDE RECORDS SUMMARY | 2024-10-18 10:00 | XMS_ITS | Encounter Summary ---
Author Organization [employer] Address [address] [facility] [address] 7t [place] [address] Care Team Providers Care Bariatric Surgeon Name Role Phone Alma Quijano MD Primary Care Provider [phone] Jose Angel aMrtinez PharmD Unavailable [phone] Encounter Details Date Type Department Care Team (Late st Contact Info) Description 09/02/2024 Telephone [facility] MED & PEDS [address] [place], [place] [phone] Alma Quijano MD [address] [place] [address] Social History Tobacco Use Types Packs/Day Years [...] Description 11/05/2024 9:40 AM EDT Office Visit [facility] OPTOMETRY [address] [place] [address] 11/08/2024 9:30 AM EDT Clinical Support [facility] MEDICINE [address] [place] [address] 11/11/2024 10:30 AM EDT Medication Management [facility] MED[facility]INE [address] [place] [phone] Jose Angel Martinez, PharmD [address] [place] [address] documented as of this encounter Goals Goal [...] documented as of this encounter Care Teams Bariatric Surgeon Relationship Specialty Start Date End Date Alma Quijano MD [address] [place] [address] PCP - General Family Medicine 02/20/18 Jose Angel Martinez, MarissaD [address] [place] [address] Pharmacist Internal Medicine 09/19/22 documented as of this encounter
--- OUTSIDE RECORDS SUMMARY | 2024-10-18 10:00 | XMS_ITS | Encounter Summary ---
Author Organization [employer] Address 75 [facility] 7t h Floor [place] [phone] Care Team Providers Care Shop And Alteration Tailor Name Role Phone Alma Quijano MD Primary Care Provider [phone] Jose Angel Martinez PharmD Unavailable [phone] Reason for Visit * Reason Comments Med Refill Encounter Details Date Type Department Care Team ([facility] Contact Info) Description 09/02/2024 Refill [facility] MEDICINE [address] [place] [address] Alma Quijano MD [address] [place] [address] Vitamin B12 deficiency Social History Tobacco Use [...] 9:40 AM EDT Office Visit [facility] OPTOMETRY [address] [place] [address] 11/08/2024 9:30 AM EDT Clinical Support [facility] MEDICINE [address] [place] [address] 11/11/2024 10:30 AM EDT Medication Management [facility] MEDICINE [address] [place] [phone] Jose Angel Martinez PharmD [address] [place] [address] documented as of this encounter Goals Goal [...] documented as of this encounter Care Teams Shop And Alteration Tailor Relationship Specialty Start Date End Date Alma Quijano MD [address] [place] [address] PCP - General Family Medicine 02/20/18 Jose Angel Martinez, PharmD [address] [place] [address] Pharmacist Internal Medicine 09/19/22 documented as of this encounter
--- OUTSIDE RECORDS SUMMARY | 2024-10-18 10:00 | XMS_ITS | Encounter Summary ---
Author Organization [employer] Address [address] [facility] 7t [place] [address] Care Team Providers Care Denture Packer Name Role Phone Alma Quijano MD Primary Care Provider [phone] Jose Angel Martinez PharmD Unavailable [phone] Encounter Details Date Type Department Care Team ([facility] Contact Info) Description 02/28/2022 Orders Only [facility] CHC MED & PEDS [address] [place], [place] [phone] Anu Robledo LPN Social History Tobacco Use [...] Department Care Team (Late Contact Info) Description 11/05/2024 9:40 AM EDT Office Visit [facility] OPTOMETRY [address] [place], [place] [phone] 11/08/2024 9:30 AM EDT Clinical Support [facility] MEDICINE [address] [place], [place] [phone] 11/11/2024 10:30 AM EDT Medication Management [facility] MEDICINE [address] [place] [phone] Jose Angel Martinez, PharmD [address] [place] [address] documented as of this encounter Visit Diagnoses Not on filedocumented in this encounter Care Teams Denture Packer Relationship Specialty Start Date End Date Alma Quijano MD [address] [place] [address] PCP - General Family Medicine 02/20/18 Jose Angel Martinez, PharmD [address] [place] [address] Pharmacist Internal Medicine 09/19/22 documented as of this encounter
--- OUTSIDE RECORDS SUMMARY | 2024-10-18 10:00 | XMS_ITS | Encounter Summary ---
Author Organization [employer] Address [address] [facility] 7t [place] [address] Care Team Providers Care Chairman President And Chief Executive Officer Name Role Phone Alma Quijano MD Primary Care Provider [phone] Jose Angel Martinez PharmD Unavailable [phone] Encounter Details Date Type Department Care Team (Late Contact Info) Description 03/01/2022 Abstract [facility] MEDICINE [address] [place] [phone] Alma Quijano MD [address] [place] [address] Social History Tobacco Use Types Packs/Day Years [...] Description 11/05/2024 9:40 AM EDT Office Visit [facility] OPTOMETRY [address] [place] [address] 11/08/2024 9:30 AM EDT Clinical Support [facility] MEDICINE [address] [place] [address] 11/11/2024 10:30 AM EDT Medication Management [facility] MEDICINE [address] [place] [address] Jose Angel Martinez, Giovanna [address] [place] [address] documented as of this encounter Visit Diagnoses Not on filedocumented in this encounter Care Teams Chairman President And Chief Executive Officer Relationship Specialty Start Date End Date Alma Quijano MD [address] [place] [address] PCP - General Family Medicine 02/20/18 Jose Angel Martinez, PharmD [address] [place] [address] Pharmacist Internal Medicine 09/19/22 documented as of this encounter
--- OUTSIDE RECORDS SUMMARY | 2024-10-18 10:00 | XMS_ITS | Encounter Summary ---
Author Organization [employer] Address [address] [facility] 7t [place] [address] Care Team Providers Care Advertising Dispatch Clerks Supervisor Name Role Phone Alma Quijano MD Primary Care Provider [phone] Jose Angel Martinez PharmD Unavailable [phone] Reason for Visit * Reason Comments Med Refill Encounter Details Date Type Department Care Team ([facility] Contact Info) Description 07/27/2022 Refill [facility] MEDICINE [address] [place] [address] Alma Quijano MD [address] [place] [address] Social History Tobacco Use Types Packs/Day Years [...] Upcoming Encounters Date Type Department Care Team ([facility] Contact Info) Description 11/05/2024 9:40 AM EDT Office Visit [facility] OPTOMETRY [address] [place] [address] 11/08/2024 9:30 AM EDT Clinical Support [facility] MEDICINE [address] [place] [address] 11/11/2024 10:30 AM EDT Medication Management [facility] MEDICINE [address] [place] [address] Jose Angel Martinez, PharmD [address] [place] [address] documented as of this encounter Visit Diagnoses Not on filedocumented in this encounter Additional Health Concerns Assessment Noted Time PHQ-9 Depression Total Score: 0 06/08/19 23 1:07 PM EDT documented as of this encounter Care Teams Advertising Dispatch Clerks Supervisor Relationship Specialty Start Date End Date Alma Quijano MD [address] [place] [address] PCP - General Family Medicine 02/20/18 Jose Angel Martinez, PharmD [address] [place] [address] Pharmacist Internal Medicine 09/19/22 documented as of this encounter
--- OUTSIDE RECORDS SUMMARY | 2024-10-18 10:00 | XMS_ITS | Encounter Summary ---
Author Organization [employer] Address 75 [facility] 7t [place] [address] Care Team Providers Care Motorcycle Subassembly Repairer Name Role Phone Alma Quijano MD Primary Care Provider [phone] Jose Angel Martinez PharmD Unavailable [phone] Encounter Details Date Type Department Care Team (Late Contact Info) Description 09/08/2022 Orders Only [facility] MEDICINE [address] [place] [phone] Alma Quijano MD [address] [place] [phone] Acquired hypothyroidism (Primary Dx) Social History Tobacco [...] EDT Office Visit [facility] OPTOMETRY [address] [place] [address] 11/08/2024 9:30 AM EDT Clinical Support [facility] [address] [place] [address] 11/11/2024 10:30 AM EDT Medication Management [facility] [address] [place] [address] Jose Angel Martinez, PharmD [address] [place] [address] Scheduled Orders Name Type Priority Associated Diagnoses Orde r Schedule TSH W/Reflex to FT4 Lab Routine Acquired hypothyroidism Expected: 12/09/2022 (Approximate), Expires: 09/09/2023 documented as of this encounter Visit Diagnoses Diagnosis Acquired hypothyroidism- Primary Unspecified hypothyroidism documented in this encounter Additional Health Concerns Assessment Noted Time PHQ-9 Depression Total Score: 0 06/08/19 23 1:07 PM EDT documented as of this encounter Care Teams Motorcycle Subassembly Repairer Relationship Specialty Start Date End Date Alma Quijano MD [address] [place] [address] PCP - General Family Medicine 02/20/18 Jose Angel Martinez, PharmD [address] [place] [address] Pharmacist Internal Medicine 09/19/22 documented as of this encounter
--- OUTSIDE RECORDS SUMMARY | 2024-10-18 10:00 | XMS_ITS | Encounter Summary ---
Author Organization [employer] Address [address] [facility] 7t h Floor [place] [phone] Care Team Providers Care Pot Runner Name Role Phone Alma Quijano MD Primary Care Provider [phone] Jose Angel Martinez PharmD Unavailable [phone] Reason for Visit * Reason Comments Med Refill Encounter Details Date Type Department Care Team (Late Contact Info) Description 10/19/[address] [facility] MEDICINE [address] [place] [phone] Name, MD Jovi [address] [place] [address] Vitamin B12 deficiency Social History Tobacco Use [...] Upcoming Encounters Date Type Department Care Team ([facility] Contact Info) Description 11/05/2024 9:40 AM EDT Office Visit [facility] OPTOMETRY [address] [place] [address] 11/08/2024 9:30 AM EDT Clinical Support [facility] MEDICINE [address] [place] [address] 11/11/2024 10:30 AM EDT Medication Management [facility] MEDICINE [address] [place] [address] Jose Agnel Martinez PharmD [address] [place] [address] documented as of this encounter Goals Goal [...] documented as of this encounter Care Teams Pot Runner Relationship Specialty Start Date End Date Alma Quijano MD [address] [place] [address] PCP - General Family Medicine 02/20/18 Jose Angel Martinez PharmD [address] [place] [address] Pharmacist Internal Medicine 09/19/22 documented as of this encounter
--- OUTSIDE RECORDS SUMMARY | 2024-10-18 10:00 | XMS_ITS | Encounter Summary ---
Author Organization [employer] Address [address] [facility] 7t [place] [address] Care Team Providers Care Roofing Apprentice Name Role Phone Alma Quijano MD Primary Care Provider [phone] Jose Angel Martinez PharmD Unavailable [phone] Encounter Details Date Type Department Care Team (Late Contact Info) Description 07/13/2022 Orders Only [facility] [address] [place] [id number] Alma Quijano MD [address] [place] [phone] Calculus of gallbladder without cholecystitis without obstruction [...] Description 11/05/2024 9:40 AM EDT Office Visit [facility] [address] [place] [address] 11/08/2024 9:30 AM EDT Clinical Support [facility] [address] [place] [address] 11/11/2024 10:30 AM EDT Medication Management [facility] [address] [place] [address] Jose Angel Martinez, PharmD [address] [place] [phone] documented as of this encounter Visit Diagnoses Diagnosis Calculus of gallbladder without cholecystitis without obstruction- Primary RUQ pain Abdominal pain, right upper quadrant documented in this encounter Additional Health Concerns Assessment Noted Time PHQ-9 Depression Total Score: 0 06/08/19 23 1:07 PM EDT documented as of this encounter Care Teams Roofing Apprentice Relationship Specialty Start Date End Date Alma Quijano MD [address] [place] [phone] PCP - General Family Medicine 02/20/18 Jose Angel Martinez, PharmD [address] [place] [phone] Pharmacist Internal Medicine 09/19/22 documented as of this encounter
[2024-10-18 10:12] LABS: Alanine Aminotransferase 22 U/L (0-31); Albumin Level 4.2 g/dL (3.5-5.0); Alkaline Phosphatase 66 U/L (39-117); Anion Gap 10 (12-20); Aspartate Amino Transferase 23 U/L (5-31); Blood Urea Nitrogen 15 mg/dL (9-16); Calcium 9.3 mg/dL (8.4-10.2); Carbon Dioxide 31 mmol/L (22-29); Chloride 109 mmol/L (96-108); Creatinine Clr Calc Pharmacy 32.0; Estimated Glomerular Filt Rate > 60; Lipase 9 U/L (8-78); Magnesium 2.4 mg/dL (1.6-2.6); Potassium 5.1 mmol/L (3.3-5.1); Sodium 145 mmol/L (135-145); Total Protein 6.6 g/dL (6.5-8.0)
[2024-10-18 11:02] VITALS: BP 120/42; PULSE 58; RESP 18; O2SAT 97
[2024-10-18 11:27] LABS: Appearance Urine Clear; Glucose Urine UA >=1000 mg/dL (Negative); PH 6.0 (5.0-9.0); Specific Gravity - Urine >= 1.030 (1.005-1.025); UMIC TRIGGER UACC YES
[2024-10-18 12:00] VITALS: BP 121/60; PULSE 58; RESP 16; TEMP 36.6; O2SAT 98
[2024-10-18 12:29] VITALS: BP 121/60; PULSE 58; RESP 16; TEMP 36.6; O2SAT 98
== END 2024-10-18 12:30 | disposition home or self-care (01) ==
PROVIDERS: Physician Assistant Medical; Emergency Provider Emergency Medicine; PCP Family Medicine
DX: R10.9 Unspecified abdominal pain (principal); E21.3 Hyperparathyroidism, unspecified; E11.9 Type 2 diabetes mellitus without complications; J45.909 Unspecified asthma, uncomplicated
CPT/HCPCS: 36415; 74018; 80053; 81001; 83690; 83735; 85025; 99283; 99284

== ENCOUNTER → 2024-10-18 09:36 | Outpatient (BNV) | payer OTHER, SELFPAY | PROVIDERS: Emergency Provider Emergency Medicine; PCP Family Medicine; Visit Provider Radiology Diagnostic Radiology | DX: R10.30 Lower abdominal pain, unspecified (principal) | CPT/HCPCS: 74018 ==

== ENCOUNTER 2024-12-10 10:48 | Outpatient (REF) | payer OTHER, SELFPAY ==
--- OUTSIDE RECORDS SUMMARY | 2024-12-10 13:09 | XMS_ITS | Encounter Summary ---
Author Organization [employer] Address [address] [facility] 7t [place] [address] Care Team Providers Care Printed Circuit Board Reworker Name Role Phone Alma Quijano MD Primary Care Provider [phone] Jose Angel Martinez PharmD Unavailable [phone] Reason for Visit * Reason Comments Med Refill Encounter Details Date Type Department Care Team ([facility] Contact Info) Description 10/14/2024 Refill [facility] [address] [place] [address] Jose Angel Martinez, PharmD [address] [place] [address] Type 2 diabetes mellitus with hyperglycemia, with long-term current use of insulin ([facility]) Social History Tobacco Use Types Packs/Day Years [...] Care Team (Late st Contact Info) Description 01/01/2025 10:15 AM EST Office Visit [address] [address] Alma Quijano MD [address] [place] [address] 02/07/2025 10:30 AM EST Medication Management [address] [address] Jose Angel Martinez PharmD [address] [place] [address] documented as of this encounter Goals Goal Patient Goal Type Associated Problems Recent Progress Patient-Stated? Author Blood Pressure < 140/90 Blood Pressure 122/50(2024 10:37 AM EDT) No Jose Anegl Martinez PharmD Hemoglobin A1c < 7 Result Component 7(10/07/2024 1:58 PM EDT) No Jose Angel Martinez PharmD documented as of this encounter Visit Diagnoses Diagnosis Type 2 diabetes mellitus with hyperglycemia, with long-term current use of insulin (HCC) documented in this encounter Additional Health Concerns Assessment Noted Time PHQ-9 Depression Total Score: 5 01/31/20 24 11:17 AM EST documented as of this encounter Care Teams Printed Circuit Board Reworker Relationship Specialty Start Date End Date Alma Quijano MD [address] [place] [address] PCP - General Family Medicine 02/20/18 Jose Angel Martinez, MarissaD [address] [place] [address] Pharmacist Internal Medicine 09/19/22 documented as of this encounter
--- OUTSIDE RECORDS SUMMARY | 2024-12-10 13:09 | XMS_ITS | Encounter Summary ---
Author Organization [employer] Address [address] [facility] 7t [place] [address] Care Team Providers Care Export Agent Name Role Phone Alma Quijano MD Primary Care Provider [phone] Jose Angel Martinez PharmD Unavailable [phone] Encounter Details Date Type Department Care Team (Late st Contact Info) Description 07/31/[address] [facility] [address] [place], [place] [phone] Alma Quijano MD [address] [place], [place] [phone] Type 2 diabetes mellitus with hyperglycemia, with long-term current use of insulin ([facility]) (Primary Dx); Osteoporosis without current [...] Description 01/01/2025 10:15 AM EST Office Visit [address] [address] Alma Quijano MD [address] [place] [address] 02/07/2025 10:30 AM EST Medication Management [address] [address] Jose Angel Martinez, Giovanna [address] [place] [phone] Scheduled Orders Name Type Priority Associated Diagnoses Orde r Schedule Lipid Panel with Reflex to Direct LDL Lab Routine Type 2 diabetes mellitus with hyperglycemia, with long-term current use of insulin ([facility]) Expected: 07/31/2023 (Approximate), Expires: 07/30/2024 documented as of this encounter Goals Goal Patient Goal Type Associated Problems Recent Progress Patient-Stated? Author Blood Pressure < 140/90 Blood Pressure 122/50(2024 10:37 AM EDT) No Jose Angel Martinez, PharmJennifer Hemoglobin A1c < 7 Result Component 7(10/07/2024 1:58 PM EDT) No Jose Angel Martinez, Giovanna documented as of this encounter Procedures Procedure Name Priority Date/Time Associated Diagnosis Comments ALBUMIN, RANDOM URINE W/CREATININE Routine 08/01/2023 8:24 AM EDT Type 2 diabetes mellitus with hyperglycemia, with long-term current use of insulin ([facility]) TSH Routine 08/01/2023 8:24 AM EDT Acquired hypothyroidism T4, FREE Routine 08/01/2023 8:24 AM EDT Acquired hypothyroidism COMPREHENSIVE METABOLIC PANEL Routine 08/01/2023 8:24 AM EDT Type 2 diabetes mellitus with hyperglycemia, with long-term current use of insulin ([facility]) documented in this encounter Results * TSH (08/01/2023 8:24 AM EDT) Thyroid Stimulating Hormone 3.13 0.32 - 4.0 uIU/mL [facility] Comment:Note: A sustained TS H level above 2.5 uIU/mL may warrant further investigation. TSH 3rd Generation ([facility]) Blood Venous blood specimen / Unknown 08/01/2023 8:24 AM EDT 08/01/2023 11:09 AM EDT us Alma Quijano MD LAB BLOOD ORDERABLES Final Resul t Performing Organization Address City/[facility]/ZIP Co de Phone Number [facility] [address] [place] [phone] * T4, Free (08/01/2023 8:24 AM EDT) Free T4 (Free Thyroxine) 0.87 0.71 - 1.85 ng/dL [facility] Blood Venous blood specimen / Unknown 08/01/2023 8:24 AM EDT 08/01/2023 11:09 AM EDT us Alma Quijano MD LAB BLOOD ORDERABLES Final Resul t Performing Organization Address City/[facility]/ZIP Co de Phone Number [facility] [address] [place] [phone] * (ABNORMAL) Comprehensive Metabolic Panel (08/01/2023 8:24 AM EDT) Sodium 143 135 - 145 mmol/L [facility] Potassium 4.1 3.3 - 5.1 mmol/L [facility] Chloride 108 96 - 108 mmol/L [facility] Carbon Dioxide 27 22 - 29 mmol/L [facility] Anion Gap 12 12 - 20 [facility] Urea Nitrogen (BUN) 17(H) 9 - 16 mg/dL [facility] Creatinine, Serum 0.79 0.5 - 1.4 mg/dL [facility] Estimated Glomerular Filt Rate >60 [facility] Comment:NOTE: For -Am erican individuals, multiply the result by 1.210.Chronic Kidney Disease: Estimated GFR < 60 mL/min/[id number] Kidney Disease: Estimated GFR < 15 mL/min/1.73m2 Glucose 161(H) 60 - 115 mg/dL [facility] Calcium 9.5 8.4 - 10.2 mg/dL [facility] Bilirubin, Total 0.6 0.0 - 1.0 mg/dL [facility] Aspartate Amino Transferase 16 5 - 31 U/L [facility] Alanine Aminotransferase 18 0 - 31 U/L [facility] Total Protein 7.3 6.5 - 8.0 g/dL [facility] Albumin Level 4.1 3.5 - 5.0 g/dL [facility] Alkaline Phosphatase 68 39 - 117 U/L [facility] Blood Venous blood specimen / Unknown 08/01/2023 8:24 AM EDT 08/01/2023 11:09 AM EDT us Alma Quijano MD LAB BLOOD ORDERABLES Final Resul t [facility] [address] [place] [phone] * Albumin, Random Urine W/Creatinine (08/01/2023 8:24 AM EDT) Creatinine, Urine 80.05 mg/dL [facility] Microalbumin Urine 18.0 mg/L H [facility] Microalbum Creatinine Ratio Ur 22.4 <30 ug/mg cr [facility] Comment:Albumin/Creatinine R atio Reference Ranges: Normal: < 30 ug/mg creatinine Microalbuminuria: 30 - 300 ug/mg creatinineClinical Albuminuria: > 300 ug/mg creatinine Urine 08/01/2023 8:24 AM EDT 08/01/2023 11:14 AM EDT us Alma Quijano MD LAB URINE ORDERABLES Final Resul t [facility] [address] [place] [address] [phone] documented in this encounter Visit Diagnoses Diagnosis Type 2 diabetes mellitus with hyperglycemia, with long-term current use of insulin (HCC)- Primary Osteoporosis without current pathological fracture, unspecified osteoporosis type Primary hypertension Unspecified essential hypertension Acquired hypothyroidism Unspecified hypothyroidism documented in this encounter Additional Health Concerns Assessment Noted Time PHQ-9 Depression Total Score: 0 06/08/19 23 1:07 PM EDT documented as of this encounter Care Teams Export Agent Relationship Specialty Start Date End Date Alma Quijano MD [address] [place] [address] PCP - General Family Medicine 02/20/18 Jose Angel Martinez, Giovanna [address] [place] [address] Pharmacist Internal Medicine 09/19/22 documented as of this encounter
--- OUTSIDE RECORDS SUMMARY | 2024-12-10 13:09 | XMS_ITS | Encounter Summary ---
Author Organization [email or web address] Address [address] [facility] 7t [place] [address] Care Team Providers Care Wildlife Conservationist Name Role Phone Alma Quijano MD Primary Care Provider [phone] Jose Angel Martinez PharmD Unavailable [phone] Reason for Visit * Reason Onset Date Comments Call Back Request 12/09/2024 Encounter Details Date Type Department Care Team ([facility] Contact Info) Description 12/09/2024 Telephone [facility] MEDICINE [address] [place] [address] Alma Quijano MD [address] [place] [address] Call Back Request Social History Tobacco Use Types Packs/Day [...] as of this encounter Miscellaneous Notes * Addendum Note - Ayde Means RN - 12/10/2024 10:19 AM EDTAddended by: AYDE MEANS on: 12/10/2024 10:19 AM Modules accepted: Orders * Telephone Encounter - Ayde Means RN - 12/10/2024 10:17 AM EDT Telephone call returned to daughter Charley on HIPAA. Confirmed upcoming imaging 12/16/[address] abdomen Pelvis w/contrast order by PCP. Informed they will need labs for BUN and creatinine prior to contrast media. Daughter worried it wont be resulted in time. Informed CMP usually resulted within 24 hrs and will be viewable to [facility] imaging department d/t integrated interface. Informed orders placed, not fasting. Can bring pt to the lab today or tomorrow so that they have results ready in time. Charley agrees with plan. * Telephone Encounter - Chiquita Garcia - 12/10/2024 10:11 AM EDT Tc from pt daughter requesting pt gets a call back regarding if labs are needed prior to MRI on 12/16 Contact pt at [phone] * Telephone Encounter - Jimbo Rob - 12/09/2024 8:32 AM EDT Patient walked in requesting labs before upcoming CT Scan on Monday12/16/24. Patient was under theimpression labs had already been ordered but nothing on file at this time. documented in this encounter Plan of Treatment Upcoming Encounters Date Type Department Care Team (Late st Contact Info) Description 01/01/2025 10:15 AM EST Office Visit [address] [address] Alma Quijano MD [address] [place] [address] 02/07/2025 10:30 AM EST Medication Management [address] [address] Jose Angel Martinez PharmD [address] [place] [phone] Scheduled Orders Name Type Priority Associated Diagnoses Orde r Schedule Comprehensive Metabolic Panel Lab Routine Health care maintenance Expected: 12/10/2024 (Approximate), Expires: 12/10/2025 documented as of this encounter Goals Goal Patient Goal Type Associated Problems Recent Progress Patient-Stated? Author Blood Pressure < 140/90 Blood Pressure 122/50(2024 10:37 AM EDT) No Jose Angel Martinez, PharmD Hemoglobin A1c < 7 Result Component 7(10/07/2024 1:58 PM EDT) No Jose Angel Martinez PharmD documented as of this encounter Visit Diagnoses Diagnosis Health care maintenance documented in this encounter Additional Health Concerns Assessment Noted Time PHQ-9 Depression Total Score: 5 01/31/20 24 11:17 AM EST documented as of this encounter Care Teams Wildlife Conservationist Relationship Specialty Start Date End Date Alma Quijano MD [address] [place] [address] PCP - General Family Medicine 02/20/18 Jose Angel Martinez, MarissaD [address] [place] [address] Pharmacist Internal Medicine 09/19/22 documented as of this encounter
--- OUTSIDE RECORDS SUMMARY | 2024-12-10 13:09 | XMS_ITS | Clinical Summary ---
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 Attending Dr: Alma Quijano MD Ordering Physician: Amla Quijano MD Results: 1Negative Date of Service: 05/24/24 Follow Up: 1 Year From Orig [facility] Mammogram Procedure(s): MM tomosynthesis screening BI Accession Number(s): [id number] cc: Alma Quijano MD EXAMINATION: MM SCREENING [...] 05/31/24 1521 DD/ 1415 TD/TT: 05/24/24 1436 System Trainer: Procedure Note Donotuseinterpreter, Image - 05/31/2024 [facility] [address] [place] [address] Mammography Report Signed Patient: Cori Marino EMR#: [id number] : 1955cct:[id number] Age/Sex: 68 / FADM Date: 05/24/24 Loc: JEREMIAHO Attending Dr: Alma Quijano MD Ordering Physician: Alma Quijano MDResults: 1Negative Date of Service: 05/24/24Follow Up: 1 Year From Orig ina Mammogram Procedure(s): MM tomosynthesis screening BI Accession Number(s): [id number] cc: Alma Quijano MD EXAMINATION: MM SCREENING [...] 05/31/24 1521 DD/ 1415 TD/TT: 05/24/24 1436 System Trainer: Alma Quijano MD IMG BI PROCEDURES Final Result * (ABNORMAL) Lipid Panel with Reflex to Direct LDL (05/10/2024 8:09 AM EDT) Triglycerides 97 <150 mg/dL [facility] Comment:Desirable Triglyceri de: less than 150 mg/dLBorderline High Triglyceride 150-199 mg/dLHigh Triglyceride: 200-499 mg/dLVery High Triglyceride: greater than or equal to 5OO mg/dL Cholesterol 102 <200 mg/dL [facility] Comment:Desirable Cholestero l: less than 200 mg/dLBorderline High Cholesterol: 200-239 mg/dLHigh Cholesterol: greater than 239 mg/dL LDL Cholesterol Calculated 48 <100 mg/dL [facility] Comment:Desirable LDL: less than 100 mg/dLNear Optimal/Above Optimal LDL: 110- 129 mg/dLBorderline High LDL: 130-159 mg/dLHigh LDL: 160-189 mg/dLVery High LDL: greater than or equal to 190 mg/dL HDL Cholesterol 35(L) >40 mg/dL [facility] Comment:Desirable HDL: great er than 40 mg/dL Note: This HDL assay may give artificially low results in patients with liver disease. Blood 05/10/2024 8:0 9 AM EDT 05/10/2024 11:07 AM EDT us Alma Quijano MD LAB BLOOD ORDERABLES Final Resul t Performing Organization Address City/[facility]/ZIP Co de Phone Number [facility] [address] [place] [phone] * Albumin, Random Urine W/Creatinine (05/10/2024 8:09 AM EDT) Creatinine, Urine 64.00 mg/dL [facility] Microalbumin Urine 6.0 mg/L H [facility] Microalbum Creatinine Ratio Ur 9.3 <30 ug/mg cr [facility] Comment:Albumin/Creatinine R atio Reference Ranges: Normal: < 30 ug/mg creatinine Microalbuminuria: 30 - 300 ug/mg creatinineClinical Albuminuria: > 300 ug/mg creatinine Urine 05/10/2024 8:09 AM EDT 05/10/2024 11:18 AM EDT Alma Qujiano MD LAB URINE ORDERABLES Final Resul t Performing Organization Address [facility]/ZIP Co de Phone Number [facility] [address] [place] [phone] * HPV mRNA E6/E7 w/Reflex to HPV Genotypes 16, 18/45 (05/02/2023 9:48 AM EDT) HPV nRNA E6/E7 Not Detected Not Detected [facility] Comment:Methodology: Transcr iption-Mediated AmplificationThis assay detects E6/E7 viral messenger RNA (mRNA) from 14high-risk HPV types (16,18,31,33,35,39,45,51,52,56,58,59,66,68).Cervical sources are required for HPV testing.If a vaginal source from a patient who has had atotal hysterectomy with removal of cervix wassubmitted, please contact the testing laboratoryfor alternative testing options.For additional information, please refer [email or web address](This link if provided for information/educational purposes only.)THIS TEST WAS PERFORMED AT:[facility] [place] [phone] GODINEZ MD HPV mRNA E6/E7 TNP [facility] HPV 16 RNA TNP [facility] HPV 18/45 RNA TNP [facility] Vaginal Fluid Cervix uteri structure / Unknown 05/02/2023 9:48 AM EDT 05/03/2023 2:23 PM EDT Narrative [facility] - 05/05/2023 7:38 AM EDT Collection Date: [id number] by: KIMI Colby: Cervix us Alma Quijano MD LAB CYTOLOGY ORDERABLES Final Re sult [facility] [address] [place] [address] [phone] * Pap Smear (05/02/2023 9:48 AM EDT) Swab 05/02/2023 9:48 AM EDT 05/03/2023 12:25 PM EDT Narrative [facility] - 05/11/2023 6:49 AM EDT ----- ------- Name: Cori Marino Age/Sex: 67/F : 1955 Unit#: [id number] Attend Dr: Alma Quijano MD Re05/02/23 Status: DEP REF Location: HO.LNP Disch: ----- ------- SPEC : [id number] RECD: 05/03/23 STATUS: JONNIE VALENTINE NUM: [id number] VU: 05/02/23-48 [facility] DR: Alma Quijano MD ENTERED: 05/03/23-125 SP TYPE: Pap Smr OTHR DR: ORDERED: [...] 59, 66, 68) HPV testing performed by [employer] [facility], [place], [place]. See reference laboratory portion of the EMR for entire report. Clinical Information LMP: Postmenopausal Previous PAP test: Unknown date/findings Material Received ThinPrep-Vaginal/Cervical ----- ------- Signed (signature on file) HAZEL Brown (ASCP) 05/11/23 0649 ----- ------- END OF REPORT Alma Quijano MD LAB CYTOLOGY ORDERABLES Final Re sult [facility] [address] [place] [phone] [phone] * Diabetes Eye Exam (12/09/2022) Eye Exam Normal Normal [facility] HEALTH MAINTENANCE Final Result * Colonoscopy (01/06/2020) Colonoscopy Normal Normal Jarrett Craft MD HEALTH MAINTENANCE Final Res ult from Last 3 Months or Most Recently Relevant to Health Maintenance Insurance [employer] [facility] RESIDENTIAL OPTIONS (HMO D-SNP) [place] [address] Care Teams Rn Anesthesiology Relationship Specialty Start Date End Date Alma Quijano MD [address] [place] [phone] PCP - General Family Medicine 02/20/18 Jose Angel Martinez, MarissaD [address] [place] [phone] Pharmacist Internal Medicine 09/19/22
--- OUTSIDE RECORDS SUMMARY | 2024-12-10 13:09 | XMS_ITS | Encounter Summary ---
Author Organization [employer] Address [address] [place] [address] 7[address] [place] [address] Care Team Providers Care Maintenance Controller Name Role Phone Alma Quijano MD Primary Care Provider [phone] Jose Angel Martinez PharmD Unavailable [phone] Reason for Visit * Reason Comments Med Refill Encounter Details Date Type Department Care Team ([facility] Contact Info) Description 05/09/2022 Refill [facility] [address] [place] [phone] Alma Qujiano MD [address] [place] [address] [phone] Social History Tobacco Use Types Packs/Day Years [...] Upcoming Encounters Date Type Department Care Team ([facility] Contact Info) Description 01/01/2025 10:15 AM EST Office Visit [facility] [address] [place] [address] [phone] Alma Quijano MD [address] [place] [address] [phone] 02/07/2025 10:30 AM EST Medication Management [facility] [address] [place] [address] [phone] Jose Angel Martinez, PharmD [address] [place] [address] documented as of this encounter Visit Diagnoses Not on filedocumented in this encounter Care Teams Maintenance Controller Relationship Specialty Start Date End Date Alma Quijano MD [address] [place] [address] 82729 PCP - General Family Medicine 02/20/18 Jose Angel Martinez, Giovanna [address] [place] [address] [phone] Pharmacist Internal Medicine 09/19/22 documented as of this encounter
--- OUTSIDE RECORDS SUMMARY | 2024-12-10 13:09 | XMS_ITS | Encounter Summary ---
Author Organization [employer] Address [address] [facility] 7t [place] [address] Care Team Providers Care Usability Engineer Name Role Phone Alma Quijano MD Primary Care Provider [phone] Jose Angel Martinez PharmD Unavailable [phone] Reason for Visit * Reason Comments Med Refill Encounter Details Date Type Department Care Team ([facility] Contact Info) Description 07/27/2022 Refill [facility] [address] [place] [address] [phone] Alma Quijano MD [address] [place] [address] [phone] Social History Tobacco Use Types Packs/Day Years [...] Upcoming Encounters Date Type Department Care Team ([facility] Contact Info) Description 01/01/2025 10:15 AM EST Office Visit [facility] [address] [place] [address] [phone] Alma Quijano MD [address] [place] [address] [phone] 02/07/2025 10:30 AM EST Medication Management [facility] [address] [place] [address] Jose Angel Martinez, PharmD [address] [place] [address] documented as of this encounter Visit Diagnoses Not on filedocumented in this encounter Additional Health Concerns Assessment Noted Time PHQ-9 Depression Total Score: 0 06/08/19 23 1:07 PM EDT documented as of this encounter Care Teams Usability Engineer Relationship Specialty Start Date End Date Alma Quijano MD [address] [place] [address] PCP - General Family Medicine 02/20/18 Jose Angel Martinez, PharmD [address] [place] [address] 739[address] Pharmacist Internal Medicine 09/19/22 documented as of this encounter
--- OUTSIDE RECORDS SUMMARY | 2024-12-10 13:09 | XMS_ITS | Encounter Summary ---
Author Organization [employer] Address [address] [facility] 7t [place] [address] Care Team Providers Care Dual Rate Supervisor Name Role Phone Alma Quijano MD Primary Care Provider [phone] Jose Angel Martinez PharmD Unavailable [phone] Encounter Details Date Type Department Care Team ([facility] Contact Info) Description 01/24/2023 Abstract [facility] [address] [place] [address] Alma Quijano MD [address] [place], [place] [phone] Social History Tobacco Use Types Packs/Day Years [...] Description 01/01/2025 10:15 AM EST Office Visit [facility] [address] [place] [phone] Alma Quijano MD [address] [place] [phone] 02/07/2025 10:30 AM EST Medication Management [address] [address] Jose Angel Martinez PharmD [address] [place] [address] [phone] documented as of this encounter Goals Goal Patient Goal Type Associated Problems Recent Progress Patient-Stated? Author Blood Pressure < 140/90 Blood Pressure 122/50(2024 10:37 AM EDT) No Jose Angel Martinez PharmD [...] documented as of this encounter Care Teams Dual Rate Supervisor Relationship Specialty Start Date End Date Alma Quijano MD [address] [place] [address] PCP - General Family Medicine 02/20/18 Jose Angel Martinez, MarissaD [address] [place] [address] Pharmacist Internal Medicine 09/19/22 documented as of this encounter
--- OUTSIDE RECORDS SUMMARY | 2024-12-10 13:09 | XMS_ITS | Encounter Summary ---
Author Organization [employer] Address [address] [place] [address] 7t [place] [address] Care Team Providers Care Carpenter Mate Name Role Phone Alma Quijano MD Primary Care Provider [phone] Jose Angel Martinez PharmD Unavailable [phone] Reason for Visit * Reason Comments Med Refill Encounter Details Date Type Department Care Team ([facility] Contact Info) Description 04/28/2022 Refill [facility] [address] [place] [phone] Geetha Macedo ANP [address] [place] [address] [phone] Social History Tobacco Use Types Packs/Day Years [...] Upcoming Encounters Date Type Department Care Team ([facility] Contact Info) Description 01/01/2025 10:15 AM EST Office Visit [facility] [address] [place] [address] [phone] Alma Quijano MD [address] [place] [address] [phone] 02/07/2025 10:30 AM EST Medication Management [facility] [address] [place] [address] [phone] Jose Angel Martinez, PharmD [address] [place] [phone] documented as of this encounter Visit Diagnoses Not on filedocumented in this encounter Care Teams Carpenter Mate Relationship Specialty Start Date End Date Alma Quijano MD [address] [place] [address] [phone] PCP - General Family Medicine 02/20/18 Jose Angel Martinez, MarissaD [address] [place] [address] Pharmacist Internal Medicine 09/19/22 documented as of this encounter
--- OUTSIDE RECORDS SUMMARY | 2024-12-10 13:09 | XMS_ITS | Encounter Summary ---
Author Organization [employer] Address [address] [facility] [address] 7t [place] [address] Care Team Providers Care Plant And Maintenance Technician Name Role Phone Alma Quijano MD Primary Care Provider [phone] Jose Angel Martinez PharmD Unavailable [phone] Encounter Details Date Type Department Care Team (Late st Contact Info) Description 01/24/2023 Abstract [facility] [address] [place] [address] Ewa Waldrop [place] Social History Tobacco Use [...] 10:15 AM EST Office Visit [facility] [address] [place] [phone] Alma Quijano MD [address] [place] [phone] 02/07/2025 10:30 AM EST Medication Management [address] [phone] Jose Angel Martinez PharmD [address] [place] [phone] documented as of this encounter Goals Goal [...] encounter Results * Diabetes Eye Exam (12/09/2022) [facility] Signature Eye Exam Normal Normal [facility] HEALTH MAINTENANCE Final Result documented in this encounter Visit Diagnoses Not on filedocumented in this encounter Additional Health Concerns Assessment Noted Time PHQ-9 Depression Total Score: 0 06/08/19 23 1:07 PM EDT documented as of this encounter Care Teams Plant And Maintenance Technician Relationship Specialty Start Date End Date Alma Quijano MD [address] [place] [address] 125[address] PCP - General Family Medicine 02/20/18 Jose Angel Martinez, PharmD [address] [place] [address] Pharmacist Internal Medicine 09/19/22 documented as of this encounter
--- OUTSIDE RECORDS SUMMARY | 2024-12-10 13:09 | XMS_ITS | Encounter Summary ---
Author Organization [employer] Address [address] [facility] 7t [place] [address] Care Team Providers Care Eviscerator Name Role Phone Alma Quijano MD Primary Care Provider [phone] Jose Angel Martinez PharmD Unavailable [phone] Encounter Details Date Type Department Care Team (Late st Contact Info) Description 05/26/2023 Orders Only [facility] [address] [place], [place] [phone] Alma Quijano MD [address] [place], [place] [phone] Osteoporosis, unspecified osteoporosis type, unspecified pathological fracture [...] Description 01/01/2025 10:15 AM EST Office Visit [address] [address] Alma Quijano MD [address] [place] [phone] 02/07/2025 10:30 AM EST Medication Management [address] [phone] Jose Angel Martinez PharmD [address] [place] [phone] documented as of this encounter Goals Goal [...] documented as of this encounter Care Teams Eviscerator Relationship Specialty Start Date End Date Alma Quijano MD [address] [place] [phone] PCP - General Family Medicine 02/20/18 Jose Angel Martinez PharmD [address] [place] [address] Pharmacist Internal Medicine 09/19/22 documented as of this encounter
--- OUTSIDE RECORDS SUMMARY | 2024-12-10 13:09 | XMS_ITS | Encounter Summary ---
Author Organization [employer] Address [address] [facility] 7t [place] [address] Care Team Providers Care Glaciologist Name Role Phone Alma Quijano MD Primary Care Provider [phone] Jose Angel Martinez PharmD Unavailable [phone] Reason for Visit * Reason Comments Med Refill Encounter Details Date Type Department [facility] Description 03/17/2023 Refill [facility] [address] [place] [address] Jose Angel Martinez, PharmD [address] [place] [address] Type 2 diabetes mellitus with hyperglycemia, with long-term current use of insulin ([facility]) Social History Tobacco Use Types Packs/Day Years [...] Description 01/01/2025 10:15 AM EST Office Visit [address] [address] Alma Quijano MD [address] [place] [address] 02/07/2025 10:30 AM EST Medication Management [address] [address] Jose Angel Martinez PharmD [address] [place] [phone] documented as of this encounter Goals Goal Patient Goal Type Associated Problems Recent Progress Patient-Stated? Author Blood Pressure < 140/90 Blood Pressure 122/50(2024 10:37 AM EDT) No Jose Angel Martinez PharmJennifer Hemoglobin [...] documented as of this encounter Care Teams Glaciologist Relationship Specialty Start Date End Date Alma Quijano MD [address] [place] [phone] PCP - General Family Medicine 02/20/18 Jose Angel Martinez, PharmD [address] [place] [phone] Pharmacist Internal Medicine 09/19/22 documented as of this encounter
--- OUTSIDE RECORDS SUMMARY | 2024-12-10 13:09 | XMS_ITS | Encounter Summary ---
Author Organization [employer] Address [address] [facility] 7t [place] [address] Care Team Providers Care Supervisor Offset Plate Preparation Name Role Phone Alma Quijano MD Primary Care Provider [phone] Jose Angel Martinez PharmD Unavailable [phone] Reason for Referral * Consultation (Routine) - Authorized Specialty Diagnoses / Procedures Referred By Contac t Referred To Contact Pharmacy Diagnoses Type 2 diabetes mellitus with hyperglycemia, with long-term current use of insulin ([facility]) Alma Quijano MD [address] [place] [phone] Phone: tel: fax: Referral ID Status Reason Start Date Expiration Date Visits Requested Visits Authorized [id number] Authorized Consult and Treat 11/11/2024 11/11/2025 6 6 Encounter Details Date Type Department Care Team ([facility] Contact Info) Description 11/11/2024 Orders Only [facility] [address] [place] [address] [phone] Alma Quijano MD [address] [place] [address] [phone] Type 2 diabetes mellitus with hyperglycemia, with long-term current use of insulin ([facility]) (Primary Dx) Social History Tobacco Use Types [...] 10:15 AM EST Office Visit [facility] [address] [place] [phone] Alma Quijano MD [address] [place] [phone] 02/07/2025 10:30 AM EST Medication Management [facility] [address] [place] [phone] Jose Angel Martinez, PharmD [address] [place] [phone] Scheduled Referrals Name Type Priority Associated Diagnoses Orde r Schedule Referral to Pharmacy CDTM Outpatient Referral Routine Type 2 diabetes mellitus with hyperglycemia, with long-term current use of insulin ([facility]) Ordered: 11/11/2024 documented as of this encounter Goals Goal [...] hyperglycemia, with long-term current use of insulin ([facility])- Primary documented in this encounter Additional Health Concerns Assessment Noted Time PHQ-9 Depression Total Score: 5 01/31/20 24 11:17 AM EST documented as of this encounter Care Teams Supervisor Offset Plate Preparation Relationship Specialty Start Date End Date Alma Quijano MD [address] [place] [address] PCP - General Family Medicine 02/20/18 Jose Angel Martinez PharmD [address] [place] [address] Pharmacist Internal Medicine 09/19/22 documented as of this encounter
--- OUTSIDE RECORDS SUMMARY | 2024-12-10 13:09 | XMS_ITS | Encounter Summary ---
Author Organization [employer] Address [address] 7t [place] [address] Care Team Providers Care Fashion Consultant Selling Name Role Phone Alma Quijano MD Primary Care Provider [phone] Jose Angel Martinez PharmD Unavailable [phone] Encounter Details Date Type Department Care Team (Late st Contact Info) Description 09/02/2024 Telephone [facility] PEDS [address] [place], [place] [phone] Alma Quijano MD [address] [place] [address] Social History Tobacco Use Types Packs/Day Years [...] Upcoming Encounters Date Type Department Care Team ([facility] st Contact Info) Description 01/01/2025 10:15 AM EST Office Visit [address] [address] Alma Quijano MD [address] [place] [address] 02/07/2025 10:30 AM EST Medication Management [address] [address] Jose Angel Martinez PharmD [address] [place] [phone] documented as of this encounter Goals Goal [...] documented as of this encounter Care Teams Fashion Consultant Selling Relationship Specialty Start Date End Date Alma Quijano MD [address] [place] [address] PCP - General Family Medicine 02/20/18 Jose Angel Martinez, MarissaD [address] [place] [address] Pharmacist Internal Medicine 09/19/22 documented as of this encounter
--- OUTSIDE RECORDS SUMMARY | 2024-12-10 13:09 | XMS_ITS | Encounter Summary ---
Author Organization [employer] Address [address] [facility] 7t [place] [address] Care Team Providers Care Electronic Warfare Officer Name Role Phone Alma Quijano MD Primary Care Provider [phone] Jose Angel Martinez PharmD Unavailable [phone] Encounter Details Date Type Department Care Team (Late Contact Info) Description 07/13/2022 Orders Only [facility] [address] [place] [address] [phone] Alma Quijano MD [address] [place] [address] [phone] Calculus of gallbladder without cholecystitis without obstruction [...] Department Care Team (Late Contact Info) Description 01/01/2025 10:15 AM EST Office Visit [facility] [address] [place] [address] [phone] Alma Quijano MD [address] [place] [address] [phone] 02/07/2025 10:30 AM EST Medication Management [facility] [address] [place] [address] Jose Angel Martinez, PharmD 230 [place] [address] documented as of this encounter Visit Diagnoses Diagnosis Calculus of gallbladder without cholecystitis without obstruction- Primary RUQ pain Abdominal pain, right upper quadrant documented in this encounter Additional Health Concerns Assessment Noted Time PHQ-9 Depression Total Score: 0 06/08/19 23 1:07 PM EDT documented as of this encounter Care Teams Electronic Warfare Officer Relationship Specialty Start Date End Date Alma Quijano MD [address] [place] [address] PCP - General Family Medicine 02/20/18 Jose Angel Martinez, PharmD [address] [place] [phone] Pharmacist Internal Medicine 09/19/22 documented as of this encounter
--- OUTSIDE RECORDS SUMMARY | 2024-12-10 13:09 | XMS_ITS | Encounter Summary ---
Author Organization [employer] Address [address] [facility] 7t [place] [address] Care Team Providers Care Fiscal Agent Name Role Phone Alma Quijano MD Primary Care Provider [phone] Jose Angel Martinez PharmD Unavailable [phone] Reason for Visit * Reason Onset Date Comments Appointment Request 11/08/2022 Encounter Details Date Type Department Care Team ([facility] Contact Info) Description 11/08/2022 Telephone [facility] MED[facility]INE [address] [place], [place] [phone] Alma Quijano MD 230 [place], [place] [phone] Appointment Request Social History Tobacco Use Types [...] to traveling. Patient will be back 12/15/22. Sap Business Analyst attempted to r/s appt and was unable to due to last week being unavailable. documented in this encounter Plan of Treatment Upcoming Encounters Date Type Department Care Team (Late st Contact Info) Description 01/01/2025 10:15 AM EST Office Visit [facility] [place] [address] Alma Quijano MD 230 [facility] [place], [place] [phone] 02/07/2025 10:30 AM EST Medication Management [facility] [address] [place], [place] [phone] Jose Angel Martinez PharmD [address] [place], [place] [phone] documented as of this encounter Goals Goal [...] documented as of this encounter Care Teams Fiscal Agent Relationship Specialty Start Date End Date [place] [address] PCP - General Family Medicine 02/20/18 Jose Angel Martinez PharmD [address] [place], [place] [phone] Pharmacist Internal Medicine 09/19/22 documented as of this encounter
--- OUTSIDE RECORDS SUMMARY | 2024-12-10 13:09 | XMS_ITS | Encounter Summary ---
Author Organization [employer] Address [address] [facility] 7t [place] [address] Care Team Providers Care Outboard Motors Experimental Mechanic Name Role Phone Alma Quijano MD Primary Care Provider [phone] Jose Angel Martinez PharmD Unavailable [phone] Reason for Referral * Consultation (Routine) - Closed Specialty Diagnoses / Procedures Referred By Contac t Referred To Contact Pharmacy Diagnoses Type 2 diabetes mellitus with hyperglycemia, with long-term current use of insulin (HCC) Primary hypertension Moderate persistent asthma without complication Alma Quijano MD [address] [place] [phone] Phone: tel: fax: Referral ID Status Reason Start Date Expiration Date V isits Requested Visits Authorized [id number] Closed Consult and Treat 01/02/2024 01/01/2025 6 6 Encounter Details Date Type Department Care Team (Late st Contact Info) Description 01/02/2024 Orders Only [facility] [address] [place] [address] [phone] Alma Quijano MD [address] [place] [address] [phone] Type 2 diabetes mellitus with hyperglycemia, with [...] Description 01/01/2025 10:15 AM EST Office Visit [facility] [address] [place] [address] Alma Quijano MD [address] [place] [phone] 02/07/2025 10:30 AM EST Medication Management [facility] [address] [place] [phone] Jose Angel Martinez, PharmD [address] [place] [phone] Scheduled Referrals Name Type Priority Associated Diagnoses Orde r Schedule Referral to Pharmacy CDTM Outpatient Referral Routine Type 2 diabetes mellitus with hyperglycemia, with long-term current use of insulin ([facility]) Primary hypertension Moderate persistent asthma without complication [...] with long-term current use of insulin ([facility])- Primary Primary hypertension Unspecified essential hypertension Moderate persistent asthma without complication documented in this encounter Additional Health Concerns Assessment Noted Time PHQ-9 Depression Total Score: 0 06/08/19 1:07 PM EDT documented as of this encounter Care Teams Outboard Motors Experimental Mechanic Relationship Specialty Start Date End Date Alma Quijano MD [address] [place] [address] PCP - General Family Medicine 02/20/18 Jose Angel Martinez, Giovanna [address] [place] [address] Pharmacist Internal Medicine 09/19/22 documented as of this encounter
--- OUTSIDE RECORDS SUMMARY | 2024-12-10 13:10 | XMS_ITS | Encounter Summary ---
Author Organization [employer] Address [address] [facility] 7t h Floor [place] [phone] Care Team Providers Care Pattern Room Attendant Name Role Phone Alma Quijano MD Primary Care Provider Jose Angel Martinez PharmD Unavailable [phone] Encounter Details Date Type Department Care Team (Late Contact Info) Description 09/08/2022 Orders Only [facility] [address] [place] [address] [phone] Alma Quijano MD [address] [place] [address] [phone] Acquired hypothyroidism (Primary Dx) Social History Tobacco [...] Description 01/01/2025 10:15 AM EST Office Visit [facility] [address] [place] [address] [phone] Alma Quijano MD [address] [place] [address] [phone] 02/07/2025 10:30 AM EST Medication Management [facility] 230 [place] [address] Jose Angel Martinez, PharmD 230 [place] [address] Scheduled Orders Name Type Priority Associated Diagnoses Orde r Schedule TSH W/Reflex to FT4 Lab Routine Acquired hypothyroidism Expected: 12/09/2022 (Approximate), Expires: 09/09/2023 documented as of this encounter Visit Diagnoses Diagnosis Acquired hypothyroidism- Primary Unspecified hypothyroidism documented in this encounter Additional Health Concerns Assessment Noted Time PHQ-9 Depression Total Score: 0 06/08/19 23 1:07 PM EDT documented as of this encounter Care Teams Pattern Room Attendant Relationship Specialty Start Date End Date Alma Quijano MD [address] [place] [address] PCP - General Family Medicine 02/20/18 Jose Angel Martinez, MarissaD [address] [place] [phone] Pharmacist Internal Medicine 09/19/22 documented as of this encounter
--- OUTSIDE RECORDS SUMMARY | 2024-12-10 13:10 | XMS_ITS | Encounter Summary ---
Author Organization [employer] Address [address] [place] [address] 7t [place] [address] Care Team Providers Care Cable Strander Name Role Phone Alma Quijano MD Primary Care Provider [phone] Jose Angel Martinez PharmD Unavailable [phone] Reason for Visit * Reason Comments Med Refill Encounter Details Date Type Department Care Team ([facility] Contact Info) Description 10/19/2022 Refill [facility] [address] [place] [phone] Name, MD Jovi [address] [place] [phone] Vitamin B12 deficiency Social History Tobacco Use [...] Care Team ([facility] Contact Info) Description 01/01/2025 10:15 AM EST Office Visit [facility] [address] [place] [phone] Alma Quijano MD [address] [place] [address] [phone] 02/07/2025 10:30 AM EST Medication Management [facility] [address] [place] [address] Jose Angel Martinez PharmD 230 [place] [address] documented as of this encounter Goals Goal [...] documented as of this encounter Care Teams Cable Strander Relationship Specialty Start Date End Date Alma Quijano MD [address] [place] [phone] PCP - General Family Medicine 02/20/18 Jose Angel Martinez PharmD [address] [place] [address] Pharmacist Internal Medicine 09/19/22 documented as of this encounter
--- OUTSIDE RECORDS SUMMARY | 2024-12-10 13:10 | XMS_ITS | Encounter Summary ---
Author Organization [employer] Address [address] [facility] 7t h Floor [place] [phone] Care Team Providers Care Quality Assurance Qa Lab Technician Name Role Phone Alma Quijano MD Primary Care Provider [phone] Jose Angel Martinez PharmD Unavailable [phone] Reason for Visit * Reason Comments Med Refill Encounter Details Date Type Department Care Team ([facility] Contact Info) Description 09/02/2024 Refill [facility] [address] [place] [address] Alma Quijano MD [address] [place] [address] Vitamin B12 deficiency Social History Tobacco Use [...] Description 01/01/2025 10:15 AM EST Office Visit [address] [address] Alma Quijano MD [address] [place] [address] 02/07/2025 10:30 AM EST Medication Management [address] [address] Jose Angel Martinez PharmD [address] [place] [address] documented as of this encounter Goals Goal [...] documented as of this encounter Care Teams Quality Assurance Qa Lab Technician Relationship Specialty Start Date End Date Alma Quijano MD 230 [place] [address] PCP - General Family Medicine 02/20/18 Jose Angel Martinez, MarissaD 230 [place] [address] Pharmacist Internal Medicine 09/19/22 documented as of this encounter
--- OUTSIDE RECORDS SUMMARY | 2024-12-10 13:10 | XMS_ITS | Encounter Summary ---
Author Organization [employer] Address [address] [facility] 7t [place] [address] Care Team Providers Care Shift Nurse Manager Name Role Phone Alma Quijano MD Primary Care Provider [phone] Jose Angel Martinez PharmD Unavailable [phone] Encounter Details Date Type Department Care Team (Late Contact Info) Description 03/01/2022 Abstract [facility] MEDICINE [address] [place] [address] [phone] Alma Quijano MD [address] [place] [address] [phone] Social History Tobacco Use Types Packs/Day Years [...] Description 01/01/2025 10:15 AM EST Office Visit [facility] MEDICINE [address] [place] [address] [phone] Alma Quijano MD [address] [place] [address] [phone] 02/07/2025 10:30 AM EST Medication Management [facility]INE [address] [place] [address] Jose Angel Martinez, PharmD 230 [place] [address] documented as of this encounter Visit Diagnoses Not on filedocumented in this encounter Care Teams Shift Nurse Manager Relationship Specialty Start Date End Date Alma Quijano MD [address] [place] [phone] PCP - General Family Medicine 02/20/18 Jose Angel Martinez, MarissaD [address] [place] [address] Pharmacist Internal Medicine 09/19/22 documented as of this encounter
--- OUTSIDE RECORDS SUMMARY | 2024-12-10 13:10 | XMS_ITS | Encounter Summary ---
Author Organization [employer] Address [address] [facility] 7t [place] [address] Care Team Providers Care Kicking Machine Operator Name Role Phone Alma Quijano MD Primary Care Provider [phone] Jose Angel Martinez PharmD Unavailable [phone] Encounter Details Date Type Department Care Team ([facility] Contact Info) Description 02/28/2022 Orders Only [facility] CH[facility] MED & PEDS [address] [place], [place] [phone] Anu Robledo LPN Social History Tobacco Use [...] [facility] Contact Info) Description 01/01/2025 10:15 AM EST Office Visit [address] [phone] Alma Quijano MD [address] [place] [address] [phone] 02/07/2025 10:30 AM EST Medication Management [address] [phone] Jose Angel Martinez, PharmD [address] [place] [address] documented as of this encounter Visit Diagnoses Not on filedocumented in this encounter Care Teams Kicking Machine Operator Relationship Specialty Start Date End Date Alma Quijano MD [address] [place] [phone] PCP - General Family Medicine 02/20/18 Jose Angel Martinez, PharmD [address] [place] [phone] Pharmacist Internal Medicine 09/19/22 documented as of this encounter
[2024-12-10 18:16] LABS: Alanine Aminotransferase 20 U/L (0-31); Albumin Level 4.2 g/dL (3.5-5.0); Alkaline Phosphatase 70 U/L (39-117); Anion Gap 10 (12-20); Aspartate Amino Transferase 23 U/L (5-31); Blood Urea Nitrogen 16 mg/dL (9-16); Calcium 9.0 mg/dL (8.4-10.2); Carbon Dioxide 29 mmol/L (22-29); Chloride 106 mmol/L (96-108); Estimated Glomerular Filt Rate > 60; Potassium 4.1 mmol/L (3.3-5.1); Sodium 141 mmol/L (135-145); Total Protein 6.5 g/dL (6.5-8.0)
== END 2024-12-10 10:49 | disposition home or self-care (01) ==
LOC: HO.HHCL 10:48
PROVIDERS: PCP Family Medicine; Visit Provider Family Medicine
DX: Z00.00 Encounter for general adult medical examination without abnormal findings (principal)
CPT/HCPCS: 36415; 80053

== ENCOUNTER 2024-12-14 15:42 | Emergency (ER) | payer OTHER, SELFPAY ==
--- NOTE | ~2024-12-14 | CT_ITS ---
CLINICAL HISTORY: syncope CT head without contrast Comparison: None Findings: No intracranial mass, midline shift, hydrocephalus, or acute hemorrhage. No CT evidence of acute ischemia. Visualized paranasal sinuses and mastoid air cells normal. Orbits unremarkable. No skull fracture Impression: 1. No acute intracranial abnormalities. This document has been electronically signed by: Nadir Esteves MD on 12/14/2024 18:29:55
--- NOTE | ~2024-12-14 | CT_ITS ---
CLINICAL HISTORY: + ddimer Exam: Contrast-enhanced chest CT pulmonary angiogram with multiplanar reformats. Comparison: 06/05/2024 Findings: There is no pulmonary embolism or thoracic aortic dissection. No mediastinal or hilar masses or adenopathy. No pleural or pericardial effusions. Images below the diaphragms reveal no acute abnormalities. Lungs are free of focal consolidation. No pulmonary nodules or parenchymal lesions. No pneumothorax. Airways appear patent. There is a minimal bilateral basilar atelectasis. Minimal mosaic attenuation is nonspecific although may be seen in small airways disease. There is mild lower lobe bronchial wall thickening. Osseous structures reveal no destructive osseous lesions. Impression: 1. No pulmonary embolism, aortic dissection or pulmonary consolidation. 2. Mild bronchial wall thickening as described above. This document has been electronically signed by: Nadir Esteves MD on 12/14/2024 18:28:53
--- NOTE | ~2024-12-14 | XR_ITS ---
CLINICAL HISTORY: cp 1 view chest x-ray. Comparison: 06/12/2021 Findings: No consolidation or effusion. Cardiac and mediastinal contours appear stable. Bones unremarkable. Impression: 1. No acute pulmonary disease. This document has been electronically signed by: Nadir Esteves MD on 12/14/2024 17:11:29
[2024-12-14 15:51] VITALS: BP 152/70; PULSE 86; O2SAT 99
[2024-12-14 15:57] VITALS: BP 171/88; PULSE 66; RESP 20; TEMP 37.1; O2SAT 99; BMI 31.6
--- NOTE | 2024-12-14 16:09 | ED.GENADULT ---
HPI - General Adult General Chief complaint: Anxiety Stated complaint: Fall CP Time Seen by Provider: 12/14/24 16:02 History of Present Illness HPI narrative: Patient is 69 years old presents today with having chest pain after an argument. Has a history of diabetes. Has a history of hypertension. The pain is mid chest. Similar to previous anxiety attack. There is no fever no chills. Patient's did fell. There was no head injury. Patient denies any fever chills. Denies any focal weakness. Patient is from home. History of anxiety in the past. No history of blood clots in the past. Related Data Home Medications ?Medication ?Instructions ?Recorded ?Confirmed amitriptyline 25 mg tablet 25 mg PO DAILY 11/25/19 08/15/22 aspirin 81 mg tablet,delayed 81 mg PO DAILY 11/25/19 08/15/22 release (Adult Aspirin Regimen) atorvastatin 40 mg tablet 40 mg PO DAILY 11/25/19 08/15/22 buspirone 15 mg tablet 15 mg PO BID 11/25/19 08/15/22 cholecalciferol (vitamin D3) 25 25 mcg PO DAILY 11/25/19 08/15/22 mcg (1,000 unit) capsule cyanocobalamin (vitamin B-12) 1,000 mcg PO DAILY 11/25/19 08/15/22 1,000 mcg capsule fluticasone propionate 50 1 spray intranasal DAILY 11/25/19 08/15/22 mcg/actuation nasal spray,suspension gabapentin 300 mg capsule 300 mg PO BID 11/25/19 08/15/22 lisinopril 2.5 mg tablet 2.5 mg PO DAILY 11/25/19 08/15/22 loratadine 10 mg tablet (Allergy 10 mg PO DAILY 11/25/19 08/15/22 Relief (loratadine)) mirtazapine 30 mg tablet 30 mg PO BEDTIME 11/25/19 08/15/22 omeprazole 20 mg capsule,delayed 20 mg PO DAILY 11/25/19 08/15/22 release insulin glargine 100 unit/mL (3 24 unit subcut QPM 03/23/20 08/15/22 mL) subcutaneous pen (Lantus Solostar U-100 Insulin) insulin lispro 100 unit/mL 3 unit subcut TID 07/26/21 06/26/23 subcutaneous pen (Humalog KwikPen (U-100) Insulin) dulaglutide 1.5 mg/0.5 mL 1.5 mg subcut QWEEK 07/29/22 08/15/22 subcutaneous pen injector (Trulicity) alendronate 70 mg tablet 70 mg PO QWEEK 06/07/23 cetirizine 10 mg tablet 10 mg PO DAILY PRN 09/12/24 mometasone 200 mcg/actuation HFA 1 puff inhalation BID 09/12/24 aerosol inhaler (Asmanex HFA) montelukast 10 mg tablet 10 mg PO QPM 09/12/24 Previous Rx's ?Medication ?Instructions ?Recorded levothyroxine 50 mcg capsule 50 mcg PO DAILY 30 days #30 caps 01/04/21 Allergies Allergy/AdvReac Type Severity Reaction Status Date / Time No Known Allergies Allergy Mild NONE Verified 12/14/24 16:01 Review of Systems Review of Systems: Positive chest pain Yes all other systems are reviewed and are negative PMFSH Past Medical History Attestation statement: The following information was validated with the patient. 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 Vitamin D deficiency Hypothyroidism Hyperparathyroidism Surgical History Hx laparoscopic cholecystectomy (08/17/22) H/O colonoscopy History of surgery on arm Hx of section Hx of tubal ligation Family History Family History Mother Diabetes Family/Other Breast cancer Social History Social History Alcohol intake: never Patient Tobacco Use Status: Never used Tobacco Smoked in Last 30 Days: No Use of substances other than those prescribed or required for medical reasons: No Advance Directives: No Advance Directives Information Provided: No Advance Directives Date on File: 12/05/19 Do you have a plan to hurt others: No Plan Physical Exam ED Exam Exam: Appearance: Alert. Oriented X3. No acute distress. Eyes: Pupils equal, round and reactive to light. ENT: Pharynx normal. Neck: Normal inspection. Neck supple. No lymph nodes noted. No crepitus CVS: Normal heart rate and rhythm. Pulses normal. Normal S1 and S2 Respiratory: No respiratory distress. Breath sounds normal. No Wheezing. No rales Abdomen: Soft and nontender. No rigidity. No distention. good BS x4 Skin: Skin warm and dry. Normal skin color. Normal skin turgor. Extremities: No lower extremity edema. Neurovascular intact to all extremities. No Lacerations. No Rash Neuro: Oriented X 3. No motor deficit. No sensory deficit. Moving all extermities. No slurred speech Vital Signs: Vital Signs - 24 hr 12/14/24 15:57 Temperature 98.7 F Pulse Rate 66 Respiratory Rate 20 Blood Pressure 171/88 H Pulse Oximetry 99 BMI result Body Mass Index 31.6 Medications Administered Discontinued Medications Generic Name Dose Route Start Last Admin Trade Name Freq PRN Reason Stop Dose Admin Iohexol 100 ml 12/14/24 17:37 12/14/24 17:37 Iohexol 350 Mg/Ml 100 Ml Infus..Btl IV 12/14/24 17:38 65 ml ONCE ONE Administration Ondansetron HCl 4 mg 12/14/24 17:11 12/14/24 17:17 Ondansetron Hcl 4 Mg/2 Ml Vial IVPUSH 12/14/24 17:12 4 mg ONCE ONE Administration Medical Decision Making Medical Decision Making [facility] Narrative: Patient presented with a history of panic attack. Two sets of cardiac enzymes are negative. My interpretation patient's CT head was grossly negative. No evidence of bleeding. Patient's CT angio chest was done as patient had an elevated D-dimer. It was grossly negative. No evidence for PE. My interpretation patient's chest x-rays were negative for pneumonia. No rib fracture. My interpretation patient's EKG showed a sinus rhythm heart rate is 60 AR QRS QTC within normal limits is no acute ST segment elevation. She has a history of diabetes hypertension. Does have multitude of risk factor no history of coronary artery disease patient's troponin is negative chest pain is atypical for ACS. Heart score is less than 3. Will have patient follow-up on an outpatient basis. Currently in stable condition. Differential Diagnosis Differential Diagnoses: The differential diagnosis associated with the presentation includes ACS, pneumonia, pneumothorax Admission/Observation Consideration of admission/observation: Escalation of care including admission/observation considered Lab Data [facility] Lab Attestation statement: I reviewed the patient's lab results. 12/14/24 16:30 12/14/24 16:30 Labs: Lab Results 12/14/24 12/14/24 12/14/24 Range/Units 16:30 18:08 18:51 WBC 7.5 (4.8-10.8) X10*3/uL RBC 4.22 (4.20-5.50) X10*6/uL Hgb 13.3 (12.0-16.0) g/dl Hct 38.3 (37.0-47.0) % MCV 90.8 (80.0-98.0) fL MCH 31.5 (27.0-33.0) pg MCHC 34.7 (31.0-35.0) g/dl RDW 13.0 (11.0-16.0) % Plt Count 191 D (160-400) X10*3/uL MPV 10.3 (9.4-12.3) fL Immature Gran % (Auto) 0.4 (0.0-0.4) % Neut % (Auto) 74.1 H (45-73) % Lymph % (Auto) 17.6 L (20-40) % [place] % (Auto) 7.5 (2-11) % Eos % (Auto) 0.3 (0-4) % Baso % (Auto) 0.1 (0-2) % Lymph # (Auto) 1.3 (1.2-4.9) X10*3/uL [place] # (Auto) 0.6 (0.1-1.2) X10*3/uL Eos # (Auto) 0.0 (0.0-0.4) X10*3/uL Baso # (Auto) 0.0 (0.0-0.2) X10*3/uL Abs Immat Gran (auto) 0.03 (0.00-0.03) X10*3/uL Absolute Neuts (auto) 5.6 (2.0-8.3) x10*3/uL Absolute Nucleated RBC 0.000 (0.0-0.012) X10*3/uL Nucleated RBC % (auto) 0.0 (0.0-0.2) /100WBC D-Dimer High Sensitivty 394 NG/ML Sodium 140 (135-145) mmol/L Potassium 3.9 (3.3-5.1) mmol/L Chloride 108 (96-108) mmol/L Carbon Dioxide 24 (22-29) mmol/L Anion Gap 12 (12-20) BUN 17 H (9-16) mg/dL Creatinine 0.82 (0.5-1.4) mg/dL Estim Creat Clear Calc 37.9 Estimated GFR > 60 Random Glucose 240 H (60-115) mg/dL Calcium 8.9 (8.4-10.2) mg/dL Total Bilirubin 0.4 (0.0-1.0) mg/dL Direct Bilirubin 0.1 (0.0-0.5) mg/dL AST 24 (5-31) U/L ALT 19 (0-31) U/L Alkaline Phosphatase 66 (39-117) U/L Troponin I High Sens < 2.7 4.6 D (<3.5-17.0) ng/L Total Protein 6.3 L (6.5-8.0) g/dL Albumin 4.1 (3.5-5.0) g/dL Urine Color Yellow Urine Appearance Clear Urine pH 5.5 (5.0-9.0) Ur Specific [place] 1.025 (1.005-1.025) Urine Protein Negative (Neg-Trace) mg/dL Urine Glucose (UA) >=1000 H (Negative) mg/dL Urine Ketones Negative (Negative) mg/dL Urine Blood Negative (Negative) Urine Nitrite Negative (Negative) Ur Leukocyte Esterase Negative (Negative) Urine RBC 0-2 (0-2) /HPF Urine WBC 0-5 (0-5) /HPF Ur Squamous Epith Cells 0-2 (0-2) /HPF Urine Bacteria None Seen (None Seen) Hyaline Casts 0-2 (0-2) /LPF Independent Interpretation I performed an independent interpretation of an: EKG (Sinus heart rate is 60 AR QRS QTC within normal limits is no acute ST segment elevation.) and CT Scan (CT head grossly negative. CT angio chest no gross infiltrate) Radiology Impression Discussion of test interpretation with radiology: I have reviewed the radiologist's reading. External Record Review External record reviewed: Office record (Outpatient Pulmonary note reviewed) Chronic Conditions Patient?s care impacted by: Diabetes and Hypertension Social Determinants Patient?s care significantly limited by Social Determinants of Health including: Problems related to primary support group Discharge Plan Discharge Clinical Impression: Chest pain, Anxiety Patient Disposition: Home, Self-Care Instructions: Anxiety (ED), Chest Pain (DC) Prescriptions: No Action insulin lispro [Humalog KwikPen Insulin] 100 unit/mL insulin pen 3 unit subcut TID levothyroxine 50 mcg capsule 50 mcg PO DAILY 30 Days Qty: 30 11RF buspirone 15 mg tablet 15 mg PO BID lisinopril 2.5 mg tablet 2.5 mg PO DAILY loratadine [Allergy Relief (loratadine)] 10 mg tablet 10 mg PO DAILY fluticasone propionate 50 mcg/actuation spray,suspension 1 spray intranasal DAILY Rx Instructions: administer into each nostril gabapentin 300 mg capsule 300 mg PO BID aspirin [Adult Aspirin Regimen] 81 mg tablet,delayed release (DR/EC) 81 mg PO DAILY cyanocobalamin (vitamin B-12) 1,000 mcg capsule 1,000 mcg PO DAILY amitriptyline 25 mg tablet 25 mg PO DAILY cholecalciferol (vitamin D3) 25 mcg (1,000 unit) capsule 25 mcg PO DAILY mirtazapine 30 mg tablet 30 mg PO BEDTIME omeprazole 20 mg capsule,delayed release(DR/EC) 20 mg PO DAILY atorvastatin 40 mg tablet 40 mg PO DAILY Lantus Solostar U-100 Insulin 100 unit/mL (3 mL) insulin pen 24 unit subcut QPM alendronate 70 mg tablet 70 mg PO QWEEK Trulicity 1.5 mg/0.5 mL pen injector 1.5 mg subcut QWEEK cetirizine 10 mg tablet 10 mg PO DAILY PRN montelukast 10 mg tablet 10 mg PO QPM Asmanex HFA 200 mcg/actuation HFA aerosol inhaler 1 puff inhalation BID Referrals: Alma Quijano MD [Primary Care Provider, Internal Medicine] - 12/17/24 Camden Gill MD [Physician, Cardiology] - 12/17/24 Print Language: Pakistani
[2024-12-14 16:41] LABS: MANUAL DIFF FLAG NO
[2024-12-14 16:44] LABS: Hematocrit 38.3 % (37.0-47.0); Hemoglobin 13.3 g/dl (12.0-16.0); Imm Gran Abs Auto 0.03 X10*3/uL (0.00-0.03); Imm Gran Pct Auto 0.4 % (0.0-0.4); Lymphocytes Absolute Auto 1.3 X10*3/uL (1.2-4.9); Mean Corpuscular HGB Conc 34.7 g/dl (31.0-35.0); Mean Corpuscular Hemoglobin 31.5 pg (27.0-33.0); Mean Corpuscular Volume 90.8 fL (80.0-98.0); NRBC Abs Auto 0.000 X10*3/uL (0.0-0.012); NRBC Pct Auto 0.0 /100WBC (0.0-0.2); Platelet Count 191 X10*3/uL (160-400); Red Blood Count 4.22 X10*6/uL (4.20-5.50); White Blood Count 7.5 X10*3/uL (4.8-10.8)
[2024-12-14 16:56] LABS: D Dimer High Sensitivity 394 NG/ML
[2024-12-14 17:00] LABS: Alanine Aminotransferase 19 U/L (0-31); Albumin Level 4.1 g/dL (3.5-5.0); Alkaline Phosphatase 66 U/L (39-117); Anion Gap 12 (12-20); Aspartate Amino Transferase 24 U/L (5-31); Blood Urea Nitrogen 17 mg/dL (9-16); Calcium 8.9 mg/dL (8.4-10.2); Carbon Dioxide 24 mmol/L (22-29); Chloride 108 mmol/L (96-108); Creatinine Clr Calc Pharmacy 37.9; Estimated Glomerular Filt Rate > 60; Potassium 3.9 mmol/L (3.3-5.1); Sodium 140 mmol/L (135-145); Total Protein 6.3 g/dL (6.5-8.0)
[2024-12-14 17:09] LABS: Troponin-I High Sensitivity < 2.7 ng/L (<3.5-17.0)
[2024-12-14] MEDS: iohexoL 350 MG/ML 100 ML INFUS..BTL IV (17:37)
[2024-12-14 18:23] LABS: Appearance Urine Clear; Glucose Urine UA >=1000 mg/dL (Negative); PH 5.5 (5.0-9.0); Specific Gravity - Urine 1.025 (1.005-1.025); UMIC TRIGGER UACC YES
[2024-12-14 19:19] LABS: Troponin-I High Sensitivity 4.6 ng/L (<3.5-17.0)
--- NOTE | 2024-12-14 19:57 | ECG_ITS ---
Test Reason : CHEST PAIN Blood Pressure : */* mmHG Vent. Rate : 66 BPM Atrial Rate : 66 BPM P-R Int : 138 ms QRS Dur : 78 ms QT Int : 436 ms P-R-T Axes : 70 22 67 degrees QTcB Int : 457 ms Normal sinus rhythm Normal ECG When compared with ECG of 25-May-2019 14:18, Nonspecific T wave abnormality no longer evident in Inferior leads T wave inversion no longer evident in Anterior leads Referred By: Natacha Villagran Electronically Signed By: MOHAN WALDEN MD
[2024-12-14 20:14] VITALS: BP 107/39; PULSE 59; RESP 16; TEMP 36.2; O2SAT 93
[2024-12-14 20:27] VITALS: BP 0/0; PULSE 0; RESP 0; TEMP -17.7; TEMP 0; O2SAT 0
== END 2024-12-14 20:29 | disposition home or self-care (01) ==
PROVIDERS: Emergency Provider Emergency Medicine Emergency Medical Services; PCP Family Medicine
DX: R07.89 Other chest pain (principal); E11.9 Type 2 diabetes mellitus without complications; F41.9 Anxiety disorder, unspecified; R79.1 Abnormal coagulation profile; R55 Syncope and collapse; Z79.899 Other long term (current) drug therapy
CPT/HCPCS: 36415; 70450; 71045; 71275; 80048; 80076; 81001; 84484; 85025; 85379; 93005; 96374; 99284; J2405; Q9967

== ENCOUNTER → 2024-12-14 16:13 | Outpatient (BNV) | payer OTHER, SELFPAY | PROVIDERS: Emergency Provider Emergency Medicine Emergency Medical Services; PCP Family Medicine; Visit Provider Radiology Diagnostic Radiology | DX: J98.09 Other diseases of bronchus, not elsewhere classified (principal); R55 Syncope and collapse; R07.9 Chest pain, unspecified | CPT/HCPCS: 70450; 71045; 71275 ==

== ENCOUNTER → 2024-12-14 19:57 | Outpatient (BNV) | payer OTHER, SELFPAY | PROVIDERS: Emergency Provider Emergency Medicine Emergency Medical Services; PCP Family Medicine; Visit Provider Internal Medicine Cardiovascular Disease | DX: R07.9 Chest pain, unspecified (principal) | CPT/HCPCS: 93010 ==

== ENCOUNTER 2024-12-16 11:27 | Outpatient (REF) | payer OTHER, SELFPAY ==
--- NOTE | ~2024-12-16 | CT_ITS ---
EXAMINATION: CT ABDOMEN PELVIS WITH IV CONTRAST HISTORY: abdominal mass COMPARISON: Comparison is made with the prior examination dated 05/23/2022. TECHNIQUE: CT scan of the abdomen and pelvis was performed following administration of 85 mL Omnipaque 350 using standard departmental protocol. Coronal and sagittal reformatted images were generated and reviewed. The patient received oral contrast material. This CT exam was performed with one or more of the following dose reduction techniques: automated exposure control, adjustment of the mA and/or kV according to patient size, use of iterative reconstruction technique. DLP: 276 mGy-cm FINDINGS: LOWER CHEST: The visualized lung bases are clear. There is no pleural effusion. CARDIOVASCULATURE: The heart is normal in size. There is no pericardial effusion. LIVER: The liver is normal in size and contour. No liver mass is identified. The hepatic and portal veins are patent. GALLBLADDER / BILE DUCTS: The gallbladder is surgically absent. There is mild dilatation of the intrahepatic bile ducts and the common bile duct, likely related to prior cholecystectomy.. SPLEEN: The spleen is normal in size. No focal splenic lesion is identified. PANCREAS: The pancreas is unremarkable in appearance. ADRENAL GLANDS: Within normal limits. KIDNEYS/RETROPERITONEUM: No renal calculi are identified. There is no hydronephrosis. No renal masses are identified. LYMPH NODES: No abdominal or pelvic lymphadenopathy. VASCULATURE: The abdominal aorta demonstrates atherosclerotic calcification, but is normal in caliber. MESENTERY/PERITONEUM: No free fluid. No masses. There is no free intraperitoneal gas. STOMACH: The stomach is unremarkable. SMALL BOWEL: The small bowel is normal in caliber. COLON: There is diverticulosis of the sigmoid colon, without evidence of diverticulitis. APPENDIX: The appendix is not seen, however no inflammatory changes are seen adjacent to the cecum. URINARY BLADDER/PELVIC ORGANS: The urinary bladder is collapsed, limiting evaluation. The uterus is prominent, but unchanged in size from the prior study. There is a probable 10 mm left fundal fibroid. BONES / SOFT TISSUES: There is a rectal diastasis at the level of the umbilicus. The bones are intact. CT/CT abdomen pelvis w IV con IMPRESSION: 1. Prominent uterus with a probable 10 mm left fundal fibroid. This could be further evaluated with ultrasound if desired. 2. Diverticulosis of the sigmoid colon, without evidence of diverticulitis. Electronically signed by: Baltazar Barba MD 12/16/2024 02:02 PM EDT RP
[2024-12-16] MEDS: Barium Sulfate Oral (Mocha) 450 ML ORAL.SUSP 900 ML PO (13:48)
[2024-12-16] MEDS: iohexoL 350 MG/ML 100 ML INFUS..BTL 85 ML IV (13:48)
--- OUTSIDE RECORDS SUMMARY | 2024-12-16 14:45 | XMS_ITS | Encounter Summary ---
Author Organization [employer] Address [address] [place] [address] [address] [place] [address] Care Team Providers Care Political Organizer Name Role Phone Alma Quijano MD Primary Care Provider [phone] Jose Angel Martinez PharmD Unavailable [phone] Reason for Visit * Reason Comments Med Refill Encounter Details Date Type Department Care Team ([facility] Contact Info) Description 05/09/2022 Refill [facility] [address] [place] [phone] Alma Quijano MD [address] [place] [address] [phone] Social History Tobacco Use Types Packs/Day Years [...] Upcoming Encounters Date Type Department Care Team ([facility] Contact Info) Description 01/01/2025 10:15 AM EST Office Visit [facility] [address] [place] [address] [phone] Alma Quijano MD [address] [place] [address] [phone] 02/07/2025 10:30 AM EST Medication Management [facility] [address] [place] [address] [phone] Jose Angel Martinez, PharmD [address] [place] [address] [phone] documented as of this encounter Visit Diagnoses Not on filedocumented in this encounter Care Teams Political Organizer Relationship Specialty Start Date End Date Alma Quijano MD [address] [place] [address] [phone] PCP - General Family Medicine 02/20/18 Jose Angel Martinez, Giovanna [address] [place] [address] [phone] Pharmacist Internal Medicine 09/19/22 documented as of this encounter
--- OUTSIDE RECORDS SUMMARY | 2024-12-16 14:45 | XMS_ITS | Encounter Summary ---
Author Organization [employer] Address [address] [facility] [address] [place] [address] Care Team Providers Care Tree Thinner Name Role Phone Alma Quijano MD Primary Care Provider [phone] Jose Angel Martinez PharmD Unavailable [phone] Encounter Details Date Type Department Care Team (Late Contact Info) Description 07/13/2022 Orders Only [facility] [address] [place] [address] [phone] Alma Quijano MD [address] [place] [address] [phone] Calculus of gallbladder without cholecystitis without obstruction [...] Description 01/01/2025 10:15 AM EST Office Visit [facility] [address] [place] [address] [phone] Alma Quijano MD [address] [place] [address] [phone] 02/07/2025 10:30 AM EST Medication Management [facility] [address] [place] [address] Jose Angel Martinez, PharmD [address] [place] [address] documented as of this encounter Visit Diagnoses Diagnosis Calculus of gallbladder without cholecystitis without obstruction- Primary RUQ pain Abdominal pain, right upper quadrant documented in this encounter Additional Health Concerns Assessment Noted Time PHQ-9 Depression Total Score: 0 06/08/19 23 1:07 PM EDT documented as of this encounter Care Teams Tree Thinner Relationship Specialty Start Date End Date Alma Quijano MD [address] [place] [address] [phone] PCP - General Family Medicine 02/20/18 Jose Angel Martinez, PharmD [address] [place] [address] [phone] Pharmacist Internal Medicine 09/19/22 documented as of this encounter
--- OUTSIDE RECORDS SUMMARY | 2024-12-16 14:45 | XMS_ITS | Encounter Summary ---
Author Organization [employer] Address [address] [facility] [address] [address] 7t [place] [address] Care Team Providers Care Shipping Lead Person Name Role Phone Alma Quijano MD Primary Care Provider [phone] Jose Angel Martinez PharmD Unavailable [phone] Encounter Details Date Type Department Care Team ([facility] Contact Info) Description 2024 Orders Only GENERIC EXTERNAL DATA DEPARTMENT Provider, Generic External Data Social History Tobacco Use Types Packs/Day Years [...] 01/01/2025 10:15 AM EST Office Visit [address] [address] Alma Quijano MD [address] [place] [address] 02/07/2025 10:30 AM EST Medication Management [address] [address] Jose Angel Martinez, Giovanna [address] [place] [address] documented as of this encounter Goals Goal Patient Goal Type Associated Problems Recent Progress Patient-Stated? Author Blood Pressure < 140/90 Blood Pressure 122/50(2024 10:37 AM EDT) No Jose Angel Martinez, PharmJennifer Hemoglobin A1c < 7 Result Component 7(10/07/2024 1:58 PM EDT) No Jose Angel Martinez PharmD documented as of this encounter Procedures Procedure Name Priority Date/Time Associated Diagnosis Comments HIGH SENSITIVITY TROPONIN I Routine 2024 6:[address] HEAD WO CONTRAST Routine 2024 6 :29 PM EDT CTA CHEST PE PROTOCAL Routine 2024 6:28 PM EDT URINALYSIS, COMPLETE, WITH REFLEX TO CULTURE Routine 2024 6:08 PM EDT documented in this encounter Results * High Sensitivity Troponin I (2024 6:51 PM EDT) TROPONIN I HIGH SENSITIVITY 4.6 <3.5 - 17.0 ng/L [facility] Comment:The [facility] high sens itivity Troponin-I results should beused in conjunction with other diagnostic information suchas ECG, clinical observations and information, and patientsymptoms to aid in the diagnosis of DC. 2024 6:51 PM EDT 2024 6:57 PM EDT us Generic External Data Provider LAB BLOOD ORDERAB LES Final Result Performing Organization Address City/State/[facility] Co de Phone Number [facility] [address] [place] [address] [phone] * CT Head w/o Contrast (2024 6:29 PM EDT) Anatomical Region Laterality Modality Head, Neck Computed Tomogra phy 2024 6:29 PM EDT Narrative 2024 6:31 PM EDT [place] [address] CT Scan Report Signed Patient: Cori Marino MR#: [id number] : 1955 Acct:[id number] Age/Sex: 69 / F ADM Date: 12/14/24 Loc: HO.ED Attending Dr: Ordering Physician: Natacha Villagran MD Date of Service: 12/14/24 Procedure(s): CT head/brain wo IV con Accession Number(s): [id number] cc: Natacha Villagran MD; Alma Quijano MD Report Number: [id number]: Total DLP = 0.00 mGy-cm Reason for Exam: syncope CLINICAL HISTORY: syncope CT head without contrast Comparison: None Findings: No intracranial mass, midline shift, hydrocephalus, or acute hemorrhage. No CT evidence of acute ischemia. Visualized paranasal sinuses and mastoid air cells normal. Orbits unremarkable. No skull fracture Impression: 1. No acute intracranial abnormalities. This document has been electronically signed by: Nadir Esteves MD on 2024 18:29:55 Dictated By: Nadir Esteves MD Signed By: <Electronically signed by Nadir Esteves MD in OV> 12/14/241829 DD/ 28 TD/TT: 12/14/241828 Bible Reader: Procedure Note Donotuseinterpreter, Image - [address] [address] [address] Scan Report Signed Patient: Cori Marino EMR#: [id number] : 1955cct:[id number] Age/Sex: 69 / FADM Date: 12/14/24 Loc: .ED Attending Dr: Ordering Physician: Natacha Villagran MD Date of Service: 12/14/24 Procedure(s): CT head/brain wo IV con Accession Number(s): [id number] cc: Natacha Villagran MD; Alma Quijano MD Report Number: [id number]: Total DLP = 0.00 mGy-cm Reason for Exam: syncope CLINICAL HISTORY: syncope CT head without contrast Comparison: None Findings: No intracranial mass, midline shift, hydrocephalus, or acute hemorrhage. No CT evidence of acute ischemia. Visualized paranasal sinuses and mastoid air cells normal. Orbits unremarkable. No skull fracture Impression: 1. No acute intracranial abnormalities. This document has been electronically signed by: Nadir Esteves MD on 2024 18:29:55 Dictated By: Nadir Esteves MD Signed By: <Electronically signed by Nadir Esteves MD in OV> 12/14/241829 DD/ 28 TD/TT: 12/14/241828 Bible Reader: [facility] External Provider IMG CT PROCEDURES Edited Result - Final * CTA Chest PE Protocal (2024 6:28 PM EDT) Anatomical Region Laterality Modality Body, Chest Computed Tomogra phy 2024 6:28 PM EDT Narrative 2024 6:30 PM EDT [address] [address] [address] Scan Report Signed Patient: Cori Marino MR#: [id number] : 1955 Acct:[id number] Age/Sex: 69 / F ADM Date: 12/14/24 Loc: HO.ED Attending Dr: Ordering Physician: Natacha Villagran MD Date of Service: 12/14/24 Procedure(s): CT angio chest PE protocol Accession Number(s): [id number] cc: Natacha Villagran MD; Alma Quijano MD Report Number: [id number]: Total DLP = 945.00 mGy-cm Reason for Exam: + ddimer CLINICAL HISTORY: + ddimer Exam: Contrast-enhanced chest CT pulmonary angiogram with multiplanar reformats. Comparison: 06/05/2024 Findings: There is no pulmonary embolism or thoracic aortic dissection. No mediastinal or hilar masses or adenopathy. No pleural or pericardial effusions. Images below the diaphragms reveal no acute abnormalities. Lungs are free of focal consolidation. No pulmonary nodules or parenchymal lesions. No pneumothorax. Airways appear patent. There is a minimal bilateral basilar atelectasis. Minimal mosaic attenuation is nonspecific although may be seen in small airways disease. There is mild lower lobe bronchial wall thickening. Osseous structures reveal no destructive osseous lesions. Impression: 1. No pulmonary embolism, aortic dissection or pulmonary consolidation. 2. Mild bronchial wall thickening as described above. This document has been electronically signed by: Nadir Esteves MD on 2024 18:28:53 Dictated By: Nadir Esteves MD Signed By: <Electronically signed by Nadir Esteves MD in OV> 12/14/241828 DD/ 27 TD/TT: 12/14/241827 Bible Reader: Procedure Note Donotuseinterpreter, Image - [address] [address] [address] Scan Report Signed Patient: Cori Marino EMR#: [id number] : 1955cct:[id number] Age/Sex: 69 / FADM Date: 12/14/24 Loc: HO.ED Attending Dr: Ordering Physician: Natacha Villagran MD Date of Service: 12/14/24 Procedure(s): CT angio chest PE protocol Accession Number(s): [id number] cc: Natacha Villagran MD; Alma Quijano MD Report Number: [id number]: Total DLP = 945.00 mGy-cm Reason for Exam: + ddimer CLINICAL HISTORY: + ddimer Exam: Contrast-enhanced chest CT pulmonary angiogram with multiplanar reformats. Comparison: 06/05/2024 Findings: There is no pulmonary embolism or thoracic aortic dissection. No mediastinal or hilar masses or adenopathy. No pleural or pericardial effusions. Images below the diaphragms reveal no acute abnormalities. Lungs are free of focal consolidation. No pulmonary nodules or parenchymal lesions. No pneumothorax. Airways appear patent. There is a minimal bilateral basilar atelectasis. Minimal mosaic attenuation is nonspecific although may be seen in small airways disease. There is mild lower lobe bronchial wall thickening. Osseous structures reveal no destructive osseous lesions. Impression: 1. No pulmonary embolism, aortic dissection or pulmonary consolidation. 2. Mild bronchial wall thickening as described above. This document has been electronically signed by: Nadir Esteves MD on 2024 18:28:53 Dictated By: Nadir Esteves MD Signed By: <Electronically signed by Nadir Esteves MD in OV> 12/14/241828 DD/ 27 TD/TT: 12/14/241827 Bible Reader: us [facility] External Provider IMG CT PROCEDURES Edited Result - Final * (ABNORMAL) Urinalysis, Complete, with Reflex to Culture (2024 6:08 PM EDT) Color Urine Yellow [facility] Appearance Urine Clear [facility] PH 5.5 5.0 - 9.0 [facility] Glucose Urine UA >=1000(A) Negative mg/dL [facility] Urine Blood Negative Negative [facility] Specific [place] - Urine 1.025 1.005 - 1.025 [facility] Urine Protein Negative Neg-Trace mg/dL [facility] Urine Ketones Negative Negative mg/dL [facility] Nitrite Urine Negative Negative [facility] Leukocyte Esterase Urine Negative Negative [facility] RBC Urine 0-2 0 - 2 /HPF [facility] Urine WBC 0-5 0 - 5 /HPF [facility] Urine Squamous Epithelial Cell 0-2 0 - 2 /HPF [facility] Urine Bacteria None Seen None Seen [facility] Hyaline Casts, Urine 0-2 0 - 2 /LPF [facility] 2024 6:08 PM EDT 2024 6:19 PM EDT Narrative [facility] - 2024 6:31 PM EDT 1807Urine, Clean Catch us Generic External Data Provider LAB URINE ORDERAB LES Final Result [facility] [address] [place] [address] [phone] documented in this encounter Visit Diagnoses Not on filedocumented in this encounter Additional Health Concerns Assessment Noted Time PHQ-9 Depression Total Score: 5 01/31/20 24 11:17 AM EST documented as of this encounter Care Teams Shipping Lead Person Relationship Specialty Start Date End Date Alma Qujiano MD [address] [place] [address] PCP - General Family Medicine 02/20/18 Jose Angel Martinez, Giovanna [address] [place] [address] Pharmacist Internal Medicine 09/19/22 documented as of this encounter
--- OUTSIDE RECORDS SUMMARY | 2024-12-16 14:45 | XMS_ITS | Encounter Summary ---
Author Organization [employer] Address [address] [facility] 7t [place] [address] Care Team Providers Care Tie Mill Operator Name Role Phone Alma Quijano MD Primary Care Provider [phone] Jose Angel Martinez PharmD Unavailable [phone] Reason for Visit * Reason Comments Med Refill Encounter Details Date Type Department Care Team ([facility] Contact Info) Description 03/17/2023 Refill [facility] [address] [place] [address] Jose Angel Martinez, PharmD [address] [place] [address] Type 2 diabetes mellitus with hyperglycemia, with long-term current use of insulin ([facility]) Social History Tobacco Use Types [...] Description 01/01/2025 10:15 AM EST Office Visit [address] [address] Alma Quijano MD [address] [place] [address] 02/07/2025 10:30 AM EST Medication Management [address] [address] Jose Angel Martinez PharmD [address] [place] [address] documented as of this encounter Goals Goal [...] documented as of this encounter Care Teams Tie Mill Operator Relationship Specialty Start Date End Date Alma Quijano MD [address] [place] [address] PCP - General Family Medicine 02/20/18 Jose Angel Martinez, PharmD [address] [place] [address] Pharmacist Internal Medicine 09/19/22 documented as of this encounter
--- OUTSIDE RECORDS SUMMARY | 2024-12-16 14:45 | XMS_ITS | Encounter Summary ---
Author Organization [employer] Address 75 [facility] 7t [place] [address] Care Team Providers Care Quality Control Expert Name Role Phone Alma Quijano MD Primary Care Provider [phone] Jose Angel Martinez PharmD Unavailable [phone] Encounter Details Date Type Department Care Team ([facility] st Contact Info) Description 01/24/[address] [facility] [address] [place] [address] Alma Quijano MD [address] [place], [place] [phone] Social History Tobacco Use Types Packs/Day Years [...] 10:15 AM EST Office Visit [facility] [address] [place] [address] Alma Quijano MD [address] [place] [address] 02/07/2025 10:30 AM EST Medication Management [address] [address] Jose Angel Martinez PharmD [address] [place] [address] documented as of this encounter Goals Goal [...] as of this encounter Care Teams Quality Control Expert Relationship Specialty Start Date End Date Alma Quijano MD [address] [place] [address] PCP - General Family Medicine 02/20/18 Jose Angel Martinez, MarissaD [address] [place] [address] Pharmacist Internal Medicine 09/19/22 documented as of this encounter
--- OUTSIDE RECORDS SUMMARY | 2024-12-16 14:45 | XMS_ITS | Encounter Summary ---
Author Organization [employer] Address 75 [facility] 7t [place] [address] Care Team Providers Care Information Services Consultant Name Role Phone Alma Quijano MD Primary Care Provider [phone] Jose Angel Martinez PharmD Unavailable [phone] Encounter Details Date Type Department Care Team (Late Contact Info) Description 03/01/2022 Abstract [facility] [address] [place] [address] [phone] Alma Quijano MD [address] [place] [address] [phone] Social History Tobacco Use Types Packs/Day Years [...] 10:15 AM EST Office Visit [facility] [address] [place] [address] [phone] Alma Quijano MD [address] [place] [address] [phone] 02/07/2025 10:30 AM EST Medication Management [facility] [address] [place] [address] Jose Angel Martinez, PharmD [address] [place] [address] documented as of this encounter Visit Diagnoses Not on filedocumented in this encounter Care Teams Information Services Consultant Relationship Specialty Start Date End Date Alma Quijano MD [address] [place] [address] PCP - General Family Medicine 02/20/18 Jose Angel Martinez, MarissaD [address] [place] [phone] Pharmacist Internal Medicine 09/19/22 documented as of this encounter
--- OUTSIDE RECORDS SUMMARY | 2024-12-16 14:45 | XMS_ITS | Encounter Summary ---
Author Organization [employer] Address 75 [facility] 7t [place] [address] Care Team Providers Care Shirt Maker Name Role Phone Alma Quijano MD Primary Care Provider [phone] Jose Angel Martinez PharmD Unavailable [phone] Encounter Details Date Type Department Care Team (Late st Contact Info) Description 05/26/2023 Orders Only [facility] [address] [place], [place] [phone] Alma Quijano MD [address] [place], [place] [phone] Osteoporosis, unspecified osteoporosis type, unspecified pathological fracture [...] Description 01/01/2025 10:15 AM EST Office Visit [address] [address] Alma Quijano MD [address] [place] [address] 02/07/2025 10:30 AM EST Medication Management [address] [address] Jose Angel Martinez PharmD [address] [place] [phone] documented as of this encounter Goals Goal [...] documented as of this encounter Care Teams Shirt Maker Relationship Specialty Start Date End Date Alma Quijano MD [address] [place] [phone] PCP - General Family Medicine 02/20/18 Jose Angel Martinez PharmD [address] [place] [address] Pharmacist Internal Medicine 09/19/22 documented as of this encounter
--- OUTSIDE RECORDS SUMMARY | 2024-12-16 14:45 | XMS_ITS | Encounter Summary ---
Author Organization [employer] Address [address] [facility] 7t [place] [address] Care Team Providers Care Line Tender Flakeboard Name Role Phone Alma Quijano MD Primary Care Provider [phone] Jose Angel Martinez PharmD Unavailable [phone] Encounter Details Date Type Department Care Team (Late st Contact Info) Description 07/31/2023 Orders Only [facility] [address] [place], [place] [phone] Alma Quijano MD [address] [place], [place] [phone] Type 2 diabetes mellitus with hyperglycemia, with long-term current use of insulin ([facility]) (Primary Dx); Osteoporosis without current pathological fracture, [...] Description 01/01/2025 10:15 AM EST Office Visit [address] [address] Alma Quijano MD [address] [place] [address] 02/07/2025 10:30 AM EST Medication Management [address] [address] Jose Angel Martinez, Giovanna [address] [place] [address] Scheduled Orders Name Type Priority Associated Diagnoses Orde r Schedule Lipid Panel with Reflex to Direct LDL Lab Routine Type 2 diabetes mellitus with hyperglycemia, with long-term current use of insulin ([facility]) Expected: 07/31/2023 (Approximate), Expires: 07/30/2024 documented as [...] hyperglycemia, with long-term current use of insulin ([facility]) TSH Routine 08/01/2023 8:24 AM EDT Acquired hypothyroidism T4, FREE Routine 08/01/2023 8:24 AM EDT Acquired hypothyroidism COMPREHENSIVE METABOLIC PANEL Routine 08/01/2023 8:24 AM EDT Type 2 diabetes mellitus with hyperglycemia, with long-term current use of insulin ([facility]) documented in this encounter Results * TSH (08/01/2023 8:24 AM EDT) Thyroid Stimulating Hormone 3.13 0.32 - 4.0 uIU/mL [facility] Comment:Note: A sustained TS H level above 2.5 uIU/mL may warrant further investigation. TSH 3rd Generation ([facility]) Blood Venous blood specimen / Unknown 08/01/2023 8:24 AM EDT 08/01/2023 11:09 AM EDT us Alma Quijano MD LAB BLOOD ORDERABLES Final Resul t Performing Organization Address City/[facility]/ZIP Co de Phone Number [facility] [address] [place] [phone] * T4, Free (08/01/2023 8:24 AM EDT) Free T4 (Free Thyroxine) 0.87 0.71 - 1.85 ng/dL [facility] Blood Venous blood specimen / Unknown 08/01/2023 8:24 AM EDT 08/01/2023 11:09 AM EDT us Alma Quijano MD LAB BLOOD ORDERABLES Final Resul t Performing Organization Address City/[facility]/ZIP Co de Phone Number [facility] [address] [place] [phone] * (ABNORMAL) Comprehensive Metabolic Panel (08/01/2023 8:24 AM EDT) Sodium 143 135 - 145 mmol/L [facility] Potassium 4.1 3.3 - 5.1 mmol/L [facility] Chloride 108 96 - 108 mmol/L [facility] Carbon Dioxide 27 22 - 29 mmol/L [facility] Anion Gap 12 12 - 20 [facility] Urea Nitrogen (BUN) 17(H) 9 - 16 mg/dL [facility] Creatinine, Serum 0.79 0.5 - 1.4 mg/dL [facility] Estimated Glomerular Filt Rate >60 [facility] Comment:NOTE: For -Am erican individuals, multiply the result by 1.210.Chronic Kidney Disease: Estimated GFR < 60 mL/min/1.48b8Hyslju Kidney Disease: Estimated GFR < 15 mL/min/1.73m2 Glucose 161(H) 60 - 115 mg/dL [facility] Calcium 9.5 8.4 - 10.2 mg/dL [facility] Bilirubin, Total 0.6 0.0 - 1.0 mg/dL [facility] Aspartate Amino Transferase 16 5 - 31 U/L [facility] Alanine Aminotransferase 18 0 - 31 U/L [facility] Total Protein 7.3 6.5 - 8.0 g/dL [facility] Albumin Level 4.1 3.5 - 5.0 g/dL [facility] Alkaline Phosphatase 68 39 - 117 U/L [facility] Blood Venous blood specimen / Unknown 08/01/2023 8:24 AM EDT 08/01/2023 11:09 AM EDT us Alma Quijano MD LAB BLOOD ORDERABLES Final Resul t [facility] [address] [place] [address] [phone] * Albumin, Random Urine W/Creatinine (08/01/2023 8:24 AM EDT) Creatinine, Urine 80.05 mg/dL [facility] Microalbumin Urine 18.0 mg/L [facility] Microalbum Creatinine Ratio Ur 22.4 <30 ug/mg cr [facility] Comment:Albumin/Creatinine R atio Reference Ranges: Normal: < 30 ug/mg creatinine Microalbuminuria: 30 - 300 ug/mg creatinineClinical Albuminuria: > 300 ug/mg creatinine Urine 08/01/2023 8:24 AM EDT 08/01/2023 11:14 AM EDT us Alma Quijano MD LAB URINE ORDERABLES Final Resul t [facility] [address] [place] [address] [phone] documented in this encounter Visit Diagnoses [...] documented as of this encounter Care Teams Line Tender Flakeboard Relationship Specialty Start Date End Date Alma Quijano MD [address] [place] [address] PCP - General Family Medicine 02/20/18 Jose Angel Martinez, Giovanna [address] [place] [address] Pharmacist Internal Medicine 09/19/22 documented as of this encounter
--- OUTSIDE RECORDS SUMMARY | 2024-12-16 14:45 | XMS_ITS | Encounter Summary ---
Author Organization [employer] Address [address] [facility] 7t [place] [address] Care Team Providers Care Mixing Plant Operator Name Role Phone Alma Quijano MD Primary Care Provider [phone] Jose Angel Martinez PharmD Unavailable [phone] Reason for Referral * Consultation (Routine) - Closed Specialty Diagnoses / Procedures Referred By Contac t Referred To Contact Pharmacy Diagnoses Type 2 diabetes mellitus with hyperglycemia, with long-term current use of insulin (HCC) Primary hypertension Moderate persistent asthma without complication Alma Quijano MD [address] [place] [address] Phone: tel: fax: Referral ID Status Reason Start Date Expiration Date V isits Requested Visits Authorized [id number] Closed Consult and Treat 01/02/2024 01/01/2025 6 6 Encounter Details Date Type Department Care Team (Late st Contact Info) Description 01/02/2024 Orders Only [facility] [address] [place] [address] [phone] Alma Quijano MD [address] [place] [address] [phone] Type 2 diabetes mellitus with hyperglycemia, with [...] EST Office Visit [facility] [address] [place] [phone] Alma Quijano MD [address] [place] [address] 02/07/2025 10:30 AM EST Medication Management [facility] [address] [place] [phone] Jose Angel Martinez, PharmD [address] [place] [phone] Scheduled Referrals Name Type Priority Associated Diagnoses Orde r Schedule Referral to Pharmacy CDTM Outpatient Referral Routine Type 2 diabetes mellitus with hyperglycemia, with long-term current use of insulin ([facility]) Primary hypertension Moderate persistent asthma without [...] hyperglycemia, with long-term current use of insulin ([facility])- Primary Primary hypertension Unspecified essential hypertension Moderate persistent asthma without complication documented in this encounter Additional Health Concerns Assessment Noted Time PHQ-9 Depression Total Score: 0 06/08/19 1:07 PM EDT documented as of this encounter Care Teams Mixing Plant Operator Relationship Specialty Start Date End Date Alma Quijano MD [address] [place] [address] PCP - General Family Medicine 02/20/18 Jose Angel Martinez, Giovanna [address] [place] [address] Pharmacist Internal Medicine 09/19/22 documented as of this encounter
--- OUTSIDE RECORDS SUMMARY | 2024-12-16 14:45 | XMS_ITS | Encounter Summary ---
Author Organization [employer] Address [address] [facility] 7t [place] [address] Care Team Providers Care Bulk Sugar Handler Name Role Phone Alma Quijano MD Primary Care Provider [phone] Jose Angel Martinez PharmD Unavailable [phone] Reason for Visit * Reason Comments Med Refill Encounter Details Date Type Department Care Team ([facility] Contact Info) Description 04/28/2022 Refill [facility] MEDICINE [address] [place] [phone] Geetha Macedo ANP [address] [place] [address] [phone] Social History Tobacco Use Types Packs/Day Years [...] Upcoming Encounters Date Type Department Care Team ([facility] Contact Info) Description 01/01/2025 10:15 AM EST Office Visit [facility] MEDICINE [address] [place] [address] [phone] Alma Quijano MD [address] [place] [address] [phone] 02/07/2025 10:30 AM EST Medication Management [facility] MEDICINE [address] [place] [address] [phone] Jose Angel Martinez, PharmD [address] [place] [phone] documented as of this encounter Visit Diagnoses Not on filedocumented in this encounter Care Teams Bulk Sugar Handler Relationship Specialty Start Date End Date Alma Quijano MD [address] [place] [phone] PCP - General Family Medicine 02/20/18 Jose Angel Martinez, MarissaD [address] [place] [phone] Pharmacist Internal Medicine 09/19/22 documented as of this encounter
--- OUTSIDE RECORDS SUMMARY | 2024-12-16 14:45 | XMS_ITS | Encounter Summary ---
Author Organization [employer] Address [address] [facility] [address] [place] [address] Care Team Providers Care Make Up Worker Name Role Phone Alma Quijano MD Primary Care Provider [phone] Jose Angel Martinez PharmD Unavailable [phone] Encounter Details Date Type Department Care Team ([facility] st Contact Info) Description 12/11/2024 Orders Only [facility] MEDICINE [address] [place] [address] Alma Quijano MD [address] [place], [place] [phone] Abdominal mass of other site (Primary Dx) Social History Tobacco Use Types [...] Description 01/01/2025 10:15 AM EST Office Visit [address] [address] Alma Quijano MD [address] [place] [phone] 02/07/2025 10:30 AM EST Medication Management [address] [address] Jose Angel Martinez PharmD [address] [place] [phone] documented as of this encounter Goals Goal Patient Goal Type Associated Problems Recent Progress Patient-Stated? Author Blood Pressure < 140/90 Blood Pressure 122/50(2024 10:37 AM EDT) No Jose Angel Martinez, PharmJennifer Hemoglobin A1c < 7 Result Component 7(10/07/2024 1:58 PM EDT) No Jose Angel Martinez PharmD documented as of this encounter Procedures Procedure Name Priority Date/Time Associated Diagnosis Comments XR CHEST 1 VIEW Routine 2024 5:11 PM EDT documented in this encounter Results * XR Chest 1 View (2024 5:11 PM EDT) Anatomical Region Laterality Modality Chest Radiographic Orly ging 2024 5:11 PM EDT Narrative 2024 5:12 PM EDT [address] [address] XRay Report Signed Patient: Cori Marino MR#: [id number] : 1955 Acct:[id number] Age/Sex: 69 / F ADM Date: 12/14/24 Loc: .ED Attending Dr: Ordering Physician: Natacha Villagran MD Date of Service: 12/14/24 Procedure(s): XR chest 1V Accession Number(s): [id number] cc: Natacha Villagran MD; Alma Quijano MD Reason for Exam: cp CLINICAL HISTORY: cp 1 view chest x-ray. Comparison: 06/12/2021 Findings: No consolidation or effusion. Cardiac and mediastinal contours appear stable. Bones unremarkable. Impression: 1. No acute pulmonary disease. This document has been electronically signed by: Nadir Esteves MD on 2024 17:11:29 Dictated By: Nadir Esteves MD Signed By: <Electronically signed by Nadir Esteves MD in OV> 12/14/241711 DD/ 10 TD/TT: 12/14/241710 Wealth Management Director: Procedure Note Donotuseinterpreter, Image - [address] [address] XRay Report Signed Patient: Cori Marino EMR#: [id number] : 1955cct:[id number] Age/Sex: 69 / FADM Date: 12/14/24 Loc: .ED Attending Dr: Ordering Physician: Natacha Villagran MD Date of Service: 12/14/24 Procedure(s): XR chest 1V Accession Number(s): [id number] cc: Natacha Villagran MD; Alma Quijano MD Reason for Exam: cp CLINICAL HISTORY: cp 1 view chest x-ray. Comparison: 06/12/2021 Findings: No consolidation or effusion. Cardiac and mediastinal contours appear stable. Bones unremarkable. Impression: 1. No acute pulmonary disease. This document has been electronically signed by: Nadir Esteves MD on 2024 17:11:29 Dictated By: Nadir Esteves MD Signed By: <Electronically signed by Nadir Esteves MD in OV> 12/14/241711 DD/ 10 TD/TT: 12/14/241710 Wealth Management Director: [facility] External Provider IMG XR PROCEDURES Edited Result - Final documented in this encounter Visit Diagnoses Diagnosis Abdominal mass of other site- Primary documented in this encounter Additional Health Concerns Assessment Noted Time PHQ-9 Depression Total Score: 5 01/31/20 24 11:17 AM EST documented as of this encounter Care Teams Make Up Worker Relationship Specialty Start Date End Date Alma Quijano MD [address] [place] [address] PCP - General Family Medicine 02/20/18 Jose Angel Maritnez, MarissaD [address] [place] [address] Pharmacist Internal Medicine 09/19/22 documented as of this encounter
--- OUTSIDE RECORDS SUMMARY | 2024-12-16 14:45 | XMS_ITS | Encounter Summary ---
Author Organization [employer] Address [address] [facility] [address] 7[address] [place] [address] Care Team Providers Care Collection Card Clerk Name Role Phone Alma Quijano MD Primary Care Provider [phone] Jose Angel Martinez PharmD Unavailable [phone] Encounter Details Date Type Department Care Team (Late st Contact Info) Description 01/24/2023 Abstract [facility] MEDICINE [address] [place] [address] Ewa Waldrop [place] Social History Tobacco Use [...] Description 01/01/2025 10:15 AM EST Office Visit [facility] MEDICINE [address] [place] [phone] Alma Quijano MD [address] [place] [phone] 02/07/2025 10:30 AM EST Medication Management [address] [address] Jose Angel Martinez PharmD [address] [place] [phone] documented as of this encounter Goals Goal [...] encounter Results * Diabetes Eye Exam (12/09/2022) [facility] Signature Eye Exam Normal Normal [facility] HEALTH MAINTENANCE Final Result documented in this encounter Visit Diagnoses Not on filedocumented in this encounter Additional Health Concerns Assessment Noted Time PHQ-9 Depression Total Score: 0 06/08/19 23 1:07 PM EDT documented as of this encounter Care Teams Collection Card Clerk Relationship Specialty Start Date End Date Alma Quijano MD [address] [place] [phone] PCP - General Family Medicine 02/20/18 Jose Angel Martinez, PharmD [address] [place] [address] Pharmacist Internal Medicine 09/19/22 documented as of this encounter
--- OUTSIDE RECORDS SUMMARY | 2024-12-16 14:45 | XMS_ITS | Encounter Summary ---
Author Organization [employer] Address [address] [facility] [address] [place] [address] Care Team Providers Care Machine Molder Name Role Phone Alma Quijano MD Primary Care Provider [phone] Jose Angel Martinez PharmD Unavailable [phone] Encounter Details Date Type Department Care Team (Late st Contact Info) Description 09/02/2024 Telephone [facility] [address] [place], [place] [phone] Alma Quijano MD [address] [place] [address] Social History Tobacco Use Types Packs/Day Years [...] Upcoming Encounters Date Type Department Care Team ([facility] st Contact Info) Description 01/01/2025 10:15 AM EST Office Visit [address] [address] Alma Quijano MD [address] [place] [phone] 02/07/2025 10:30 AM EST Medication Management [address] [address] Jose Angel Martinez PharmD [address] [place] [phone] documented as of this encounter Goals Goal [...] documented as of this encounter Care Teams Machine Molder Relationship Specialty Start Date End Date Alma Quijano MD [address] [place] [phone] PCP - General Family Medicine 02/20/18 Jose Angel Martinez, MarissaD [address] [place] [phone] Pharmacist Internal Medicine 09/19/22 documented as of this encounter
--- OUTSIDE RECORDS SUMMARY | 2024-12-16 14:45 | XMS_ITS | Encounter Summary ---
Author Organization [employer] Address [address] [facility] 7t [place] [address] Care Team Providers Care Oil Pump Station Operator Chief Name Role Phone Alma Quijano MD Primary Care Provider [phone] Jose Angel Martinez PharmD Unavailable [phone] Reason for Visit * Reason Comments Med Refill Encounter Details Date Type Department Care Team ([facility] Contact Info) Description 10/19/2022 Refill [facility] MEDICINE [address] [place] [phone] Name, MD Jovi [address] [place] [phone] Vitamin B12 deficiency Social History Tobacco Use [...] Date Type Department Care Team ([facility] Contact Info) Description 01/01/2025 10:15 AM EST Office Visit [facility] MEDICINE [address] [place] [phone] Alma Quijano MD [address] [place] [address] [phone] 02/07/2025 10:30 AM EST Medication Management [facility] MEDICINE [address] [place] [address] Jose Angel Martinez PharmD [address] [place] [address] documented as of this encounter Goals Goal [...] documented as of this encounter Care Teams Oil Pump Station Operator Chief Relationship Specialty Start Date End Date Alma Quijano MD [address] [place] [phone] PCP - General Family Medicine 02/20/18 Jose Angel Martinez PharmD [address] [place] [phone] Pharmacist Internal Medicine 09/19/22 documented as of this encounter
--- OUTSIDE RECORDS SUMMARY | 2024-12-16 14:45 | XMS_ITS | Clinical Summary ---
Author Organization [employer] Address [address] [facility] [address] [place] [address] Care Team Providers [employer] Name Role Phone Alma Quijano MD Primary Care Provider [phone] Jose Angel Martinez PharmD Unavailable [phone] Allergies Active Allergy Reactions Criticality Noted Date Comments Glyburide Hives 03/22/2010 Pioglitazone Unknown 03/22/2010 Medications Blood Glucose Monitoring Suppl (MedTech SolutionsStyle [place] Lite) w/Device kit USE TO TEST BLOOD [...] polyneuropathy, with long-term current use of insulin ([facility]) USE TWICE DAILY DIRECTED 100 each 11 05/06/19 23 Active TRUEplus Lancets 33G miscIndications:Ty pe 2 diabetes mellitus with hyperglycemia (HCC) TEST BLOOD SUGAR SIX TIMES DAILY 200 each 11 09/22/19 23 Active Diclofenac Sodium 1 % gel APPLY 2-3 GRAMS TO AFFECTED AREA(S) TWICE DAILY NEEDED FOR PAIN 10/11/19 24 Active Continuous Glucose Communications Media Professor (FreeStyle James 2 [place]) deviceIndications: Type 2 diabetes mellitus with hyperglycemia, with long-term current use of insulin ([facility]) Use as directed 1 each 12/01/19 24 Active Aspirin Low Dose 81 MG EC tabletIndications: At high risk for cardiovascular disease TAKE 1 TABLET BY MOUTH AT BEDTIME 90 tablet 3 12/18/19 24 Active cetirizine (ZyrTEC) 10 MG tablet TAKE 1 TABLET BY MOUTH ONCE DAILY NEEDED 90 tablet 3 12/18/19 24 Active Pentips Generic Pen [place] 32G X 4 MM miscIndications:Ty pe 2 diabetes mellitus with diabetic polyneuropathy, with long-term current use of insulin ([facility]) USE DIRECTED FOUR TIMES DAILY 100 each 02/05/20 24 Active Mometasone Furoate (Asmanex HFA) 200 MCG/ACT aerosol INHALE 1 PUFF TWICE DAILY. RINSE MOUTH AFTER USING. 13 g 02/13/20 24 Active glucose blood (FreeStyle Precision Burton Test) test stripIndications:T ype 2 diabetes mellitus with hyperglycemia, with long-term current use of insulin ([facility]) TEST BLOOD SUGAR up to three times daily NEEDED for hypoglycemia or sensor failure. 50 strip 11 02/19/20 24 Active alendronate (Fosamax) 70 MG tablet take 1 tablet once a week with 6 to 8 oz of water 30 min before first food of day. do not lie down for 30 minutes 4 tablet 11 05/03/19 25 Active atorvastatin (Lipitor) 80 MG tabletIndications: [...] hyperglycemia, with long-term current use of insulin ([facility]) TAKE 1 TABLET BY MOUTH EVERY MORNING 90 tablet 1 07/17/19 25 Active Tirzepatide (Mounjaro) 5 MG/0.5ML solution auto-injectorIndic ations:Type 2 diabetes mellitus with hyperglycemia, with long-term current use of insulin ([facility]) Inject 5 mg under the skin 1 [...] MORNING 90 tablet 1 09/03/19 25 Active insulin glargine (Lantus SoloStar) 100 UNIT/ML penIndications:Lian betic polyneuropathy associated with type 2 diabetes mellitus (HCC) INJECT 28 UNITS SUBCUTANEOUSLY EVERY EVENING 15 mL 3 10/31/19 25 Active Continuous Glucose Sensor (FreeStyle James 2 Plus Sensor) miscIndications:Ty pe 2 diabetes mellitus with hyperglycemia, with long-term current use of insulin (HCC) 1 Device every 15 days. Scan every 8 hours to check blood sugar. Change sensor every 15 days. 2 each 11/12/19 25 Active Active Problems Problem Noted Date [...] Assessment & Plan (06/07/2022 5:13 PM EDT): -[facility] provider: Frankie Maloney -Current medications: fluoxetine 20 mg daily; mirtazapine 15 mg qhs -Buspirone was discontinued by her psychiatrist. -Continue current [facility] session. Hypothyroidism 03/01/2022 Assessment & Plan (05/08/2024 [...] 06/29/20 -orthopedic providers: [place] -second opinion with [facility] -most recent X-ray in July 2024 showing [...] Plan (10/08/2023 6:52 AM EDT): -Co-managed with cardiolgoistTEN, last seen in Dec [...] Plan (06/07/2022 1:11 PM EDT): -Co-managed with cardioTEN magaña, last seen in Nov 2021 -05/27/17 Cardiac [...] (03/02/2022 3:12 PM EST): -Co-managed with cardiolgoist, TEN, last seen in Nov 2021 -05/27/17 Cardiac [...] Assessment & Plan (10/11/2024 5:34 PM EDT): -[facility] provider: [facility] -Current medications: fluoxetine 20 mg daily; mirtazapine 15 mg qhs -Buspirone was discontinued by her psychiatrist. -Continue current [facility] session. Assessment & Plan (02/03/2024 6:37 AM EST): -S provider: Frankie Haider -Current medications: fluoxetine 20 mg daily; mirtazapine 15 mg qhs -Buspirone was discontinued by her psychiatrist. -Continue current S session. Assessment & Plan (01/24/2023 1:37 PM EST): -S provider: Frankie Maloney -Current medications: fluoxetine 20 mg daily; mirtazapine 15 mg qhs -Buspirone was discontinued by her psychiatrist. -Continue current [facility] session. Assessment & Plan (09/01/2022 12:46 PM EDT): -S provider: Frankie Haider -Current medications: fluoxetine 20 mg daily; mirtazapine 15 mg qhs -Buspirone was discontinued by her psychiatrist. -Continue current [facility] session. Assessment & Plan (06/07/2022 5:13 PM EDT): -S provider: Frankie Maloney -Current medications: fluoxetine 20 mg daily; mirtazapine 15 mg qhs -Buspirone was discontinued by her psychiatrist. -Continue current [facility] session. Asthma 03/17/2015 Assessment & Plan (10/11/2024 5:39 PM EDT): -following with [facility] pulmonology, Dr. Wright, last seen in August [...] PM EDT): - patient was evaluated by trimmer loader - patient dislikes wearing hearing aid - [...] co-managed with our pharmacist, Jose Angel Martinez [facility], PharmD. Last seen in Nov 2022. Last [...] co-managed with our pharmacist, Jose Angel Martinez RP, PharmD. Last seen in Nov 2022. Last [...] co-managed with our pharmacist, Jose Angel Martinez RP, PharmD. Last seen in Nov 2022. Last [...] 5:39 PM EST): -currently prescribed gabapentin by library acquisitions technician. -current gabapentin dose is 800 mg bid, and it seems high for pt -discussed about judicious use Assessment & Plan (09/01/2022 12:42 PM EDT): -currently prescribed gabapentin by library acquisitions technician. -current gabapentin dose is 800 mg bid, and it seems high for pt -discussed about judicious use Assessment & Plan (06/21/2022 9:25 AM EDT): -currently prescribed gabapentin by library acquisitions technician. -current gabapentin dose is 800 mg bid, and it seems high for pt -discussed about judicious use Assessment & Plan (03/01/2022 6:30 AM EST): -currently prescribed gabapentin by library acquisitions technician. -current gabapentin dose is 800 mg bid, [...] Encounters Date Type Department Care Team Description 2024 Orders Only GENERIC EXTERNAL DATA DEPARTMENT Provider, Generic External Data 12/11/2024 Orders Only [address] [address] Alma Quijano MD Abdominal mass of other site (Primary Dx) 12/09/[address] [address] Alma Quijano MD Call Back Request 11/14/2024 Telephone [facility] [address] [place] [address] Alma Quijano MD Prior Authorization 11/11/2024 Orders Only [address] [address] Alma Quijano MD Type 2 diabetes mellitus with hyperglycemia, with long-term current use of insulin ([facility]) (Primary Dx) 11/11/[address] [address] Alma Quijano MD 11/11/2024 Travel 11/08/2024 9:30 AM EDT Clinical Support [address] [address] Negrita Pope RN Mild cognitive impairment 11/08/2024 Travel 10/30/2024 Refill [facility] [address] [place] [address] Isamar Julio MD Diabetic polyneuropathy associated with type 2 diabetes mellitus ([facility]/HCC) 10/18/[address] [facility] External Provider, [facility] 10/14/2024 Refill [facility] [address] [place] [address] Jose Angel Martinez, MarissaD Type 2 diabetes mellitus with hyperglycemia, with long-term current use of insulin ([facility]) 10/07/2024 1:45 PM EDT Office Visit [facility] [address] [place] [address] Alma Quijano MD Type 2 diabetes mellitus with hyperglycemia, with long-term current use of insulin ([facility]) (Primary Dx); Primary hypertension; Right forearm pain; History of fracture of forearm; Pulmonary nodule; Moderate persistent asthma without complication; Abdominal mass of other site; Mild cognitive impairment; 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; Bilateral hearing loss, unspecified hearing loss type; Diabetic polyneuropathy associated with type 2 diabetes mellitus (CMS/HCC); Major depressive disorder, remission status unspecified, unspecified whether recurrent 10/07/2024 Travel 10/04/[address] [address] Alma Quijano MD chart prep 10/01/2024 Travel from Last 3 Months Immunizations Immunization [...] Description 01/01/2025 10:15 AM EST Office Visit [facility] [address] [place] [phone] Alma Quijano MD [address] [place] [phone] 02/07/2025 10:30 AM EST Medication Management [address] [address] Jose Angel Martinez, PharmD [address] [place] [phone] Health Maintenance Due Date Last Done Comments CT Colonography 1955 FIT DNA/Cologuard 1955 FIT 1955 FOBT 1955 Sigmoidoscopy 1955 Hepatitis C Screening 12/15/1975 Diabetes: Foot Exam 10/04/2024 10/05/2023, 10/05/2023, 10/05/2023, Additional history exists COVID-19 Vaccine ( season) 2024 01/25/2021, 01/04/2021 Eye Exam 12/09/2024 12/09/2022 Diabetes: Hemoglobin A1C 01/07/2025 025, 08/05/2024, 04/22/2024, Additional history exists Alcohol/Substance [...] Name Priority Date/Time Associated Diagnosis Comments CT ABDOMEN PELVIS W CONTRAST Routine 12/16/2024 1:33 PM EDT Abdominal mass of other site HIGH SENSITIVITY TROPONIN I Routine 2024 6:[address] HEAD WO CONTRAST Routine 2024 6 :29 PM EDT CTA CHEST PE PROTOCAL Routine 2024 6:28 PM EDT URINALYSIS, COMPLETE, WITH REFLEX TO CULTURE Routine 2024 6:08 PM EDT XR CHEST 1 VIEW Routine 2024 5:11 PM EDT COMPREHENSIVE METABOLIC PANEL Routine 12/10/2024 11:15 AM EDT Health care maintenance URINALYSIS, COMPLETE, WITH REFLEX TO CULTURE Routine [...] hyperglycemia, with long-term current use of insulin ([facility]) POCT GLUCOSE Routine 10/07/2024 1:56 PM EDT Type 2 diabetes mellitus with hyperglycemia, with long-term current use of insulin ([facility]) BI MAMMOGRAM SCREENING TOMOSYNTHESIS BILATERAL Routine 05/24/2024 2:15 PM EDT ALBUMIN, RANDOM URINE W/CREATININE Routine 05/10/2024 8:09 AM EDT Type 2 diabetes mellitus with hyperglycemia, with long-term current use of insulin ([facility]) LIPID PANEL WITH REFLEX TO DIRECT LDL Routine 05/10/2024 8:09 AM EDT Type 2 diabetes mellitus with hyperglycemia, with long-term current use of insulin ([facility]) HPV MRNA E6/E7 REFLEX TO HPV 16, 18/45 Routine 05/02/2023 9:48 AM EDT Encounter for well woman exam with routine gynecological exam PAP SMEAR Routine 05/02/2023 9:48 AM EDT Encounter for well woman exam with routine gynecological exam DIABETES EYE EXAM Routine 12/09/2022 COLONOSCOPY Routine 01/06/2020 from Last 3 Months or Most Recently Relevant to Health Maintenance Results * CT Abdomen Pelvis w/ Contrast (12/16/2024 1:33 PM EDT) Anatomical Region Laterality Modality Body, Pelvis, Abdomen Computed T omography 12/16/2024 1:33 PM EDT Narrative 12/16/2024 2:05 PM EDT [place] [address] CT Scan Report Signed Patient: Cori Marino MR#: [id number] : 1955 Acct:[id number] Age/Sex: 69 / F ADM Date: 12/16/24 Loc: HO.CT Attending Dr: Alma Quijano MD Ordering Physician: Alma Quijano MD Date of Service: 12/16/24 Procedure(s): CT abdomen pelvis w IV con Accession Number(s): [id number] cc: Alma Quijano MD Report Number: [id number]: Total DLP = 276.00 mGy-cm Reason for Exam: abdominal mass EXAMINATION: CT ABDOMEN PELVIS WITH IV CONTRAST HISTORY: abdominal mass COMPARISON: Comparison is made with the prior examination dated 05/23/2022. TECHNIQUE: CT scan of the abdomen and pelvis was performed following administration of 85 mL Omnipaque 350 using standard departmental protocol. Coronal and sagittal reformatted images were generated and reviewed. The patient received oral contrast material. This CT exam was performed with one or more of the following dose reduction techniques: automated exposure control, adjustment of the mA and/or kV according to patient size, use of iterative reconstruction technique. DLP: 276 mGy-cm FINDINGS: LOWER CHEST: The visualized lung bases are clear. There is no pleural effusion. CARDIOVASCULATURE: The heart is normal in size. There is no pericardial effusion. LIVER: The liver is normal in size and contour. No liver mass is identified. The hepatic and portal veins are patent. GALLBLADDER / BILE DUCTS: The gallbladder is surgically absent. There is mild dilatation of the intrahepatic bile ducts and the common bile duct, likely related to prior cholecystectomy.. SPLEEN: The spleen is normal in size. No focal splenic lesion is identified. PANCREAS: The pancreas is unremarkable in appearance. ADRENAL GLANDS: Within normal limits. KIDNEYS/RETROPERITONEUM: No renal calculi are identified. There is no hydronephrosis. No renal masses are identified. LYMPH NODES: No abdominal or pelvic lymphadenopathy. VASCULATURE: The abdominal aorta demonstrates atherosclerotic calcification, but is normal in caliber. MESENTERY/PERITONEUM: No free fluid. No masses. There is no free intraperitoneal gas. STOMACH: The stomach is unremarkable. SMALL BOWEL: The small bowel is normal in caliber. COLON: There is diverticulosis of the sigmoid colon, without evidence of diverticulitis. APPENDIX: The appendix is not seen, however no inflammatory changes are seen adjacent to the cecum. URINARY BLADDER/PELVIC ORGANS: The urinary bladder is collapsed, limiting evaluation. The uterus is prominent, but unchanged in size from the prior study. There is a probable 10 mm left fundal fibroid. BONES / SOFT TISSUES: There is a rectal diastasis at the level of the umbilicus. The bones are intact. CT/CT abdomen pelvis w IV con IMPRESSION: 1. Prominent uterus with a probable 10 mm left fundal fibroid. This could be further evaluated with ultrasound if desired. 2. Diverticulosis of the sigmoid colon, without evidence of diverticulitis. Electronically signed by: Baltazar Barba MD 12/16/2024 02:02 PM EDT RP Dictated By: Baltazar Barba MD Signed By: <Electronically signed by Baltazar Barba MD in OV> 12/16/24 1402 DD/ 1333 TD/TT: 12/16/24 1349 [employer] Clerk: Procedure Note Donotuseinterpreter, Image - 12/16/[address] [address] [address] Scan Report Signed Patient: Cori Marino EMR#: [id number] : 1955cct:[id number] Age/Sex: 69 / FADM Date: 12/16/24 Loc: HO.CT Attending Dr: Alma Quijano MD Ordering Physician: Alma Quijano MD Date of Service: 12/16/24 Procedure(s): CT abdomen pelvis w IV con Accession Number(s): [id number] cc: Alma Quijano MD Report Number: [id number]: Total DLP = 276.00 mGy-cm Reason for Exam: abdominal mass EXAMINATION: CT ABDOMEN PELVIS WITH IV CONTRAST HISTORY: abdominal mass COMPARISON: Comparison is made with the prior examination dated 05/23/2022. TECHNIQUE: CT scan of the abdomen and pelvis was performed following administration of 85 mL Omnipaque 350 using standard departmental protocol. Coronal and sagittal reformatted images were generated and reviewed. The patient received oral contrast material. This CT exam was performed with one or more of the following dose reduction techniques: automated exposure control, adjustment of the mA and/or kV according to patient size, use of iterative reconstruction technique. DLP: 276 mGy-cm FINDINGS: LOWER CHEST: The visualized lung bases are clear. There is no pleural effusion. CARDIOVASCULATURE: The heart is normal in size. There is no pericardial effusion. LIVER: The liver is normal in size and contour. No liver mass is identified. The hepatic and portal veins are patent. GALLBLADDER / BILE DUCTS: The gallbladder is surgically absent. There is mild dilatation of the intrahepatic bile ducts and the common bile duct, likely related to prior cholecystectomy.. SPLEEN: The spleen is normal in size. No focal splenic lesion is identified. PANCREAS: The pancreas is unremarkable in appearance. ADRENAL GLANDS: Within normal limits. KIDNEYS/RETROPERITONEUM: No renal calculi are identified. There is no hydronephrosis. No renal masses are identified. LYMPH NODES: No abdominal or pelvic lymphadenopathy. VASCULATURE: The abdominal aorta demonstrates atherosclerotic calcification, but is normal in caliber. MESENTERY/PERITONEUM: No free fluid. No masses. There is no free intraperitoneal gas. STOMACH: The stomach is unremarkable. SMALL BOWEL: The small bowel is normal in caliber. COLON: There is diverticulosis of the sigmoid colon, without evidence of diverticulitis. APPENDIX: The appendix is not seen, however no inflammatory changes are seen adjacent to the cecum. URINARY BLADDER/PELVIC ORGANS: The urinary bladder is collapsed, limiting evaluation. The uterus is prominent, but unchanged in size from the prior study. There is a probable 10 mm left fundal fibroid. BONES / SOFT TISSUES: There is a rectal diastasis at the level of the umbilicus. The bones are intact. CT/CT abdomen pelvis w IV con IMPRESSION: 1. Prominent uterus with a probable 10 mm left fundal fibroid. This could be further evaluated with ultrasound if desired. 2. Diverticulosis of the sigmoid colon, without evidence of diverticulitis. Electronically signed by: Baltazar Barba MD 12/16/2024 02:02 PM EDT RP Dictated By: Baltazar Barba MD Signed By: <Electronically signed by Baltazar Barba MD in OV> 12/16/24 1402 DD/ 1333 TD/TT: 12/16/24 1349 [employer]age [employer] Clerk: us Alma Quijano MD IMG CT PROCEDURES Final Result * High Sensitivity Troponin I (2024 6:51 PM EDT) TROPONIN I HIGH SENSITIVITY 4.6 <3.5 - 17.0 ng/L [facility] Comment:The Barrera high sens itivity Troponin-I results should beused in conjunction with other diagnostic information suchas ECG, clinical observations and information, and patientsymptoms to aid in the diagnosis of [place]. 2024 6:51 PM EDT 2024 6:57 PM EDT us Generic External Data Provider LAB BLOOD ORDERAB LES Final Result [facility] [address] [place] [address] [phone] * CT Head w/o Contrast (2024 6:29 PM EDT) Anatomical Region Laterality Modality Head, Neck Computed Tomogra phy 2024 6:29 PM EDT Narrative 2024 6:31 PM EDT [address] [address] [address] Scan Report Signed Patient: Cori Marino MR#: [id number] : 1955 Acct:[id number] Age/Sex: 69 / F ADM Date: 12/14/24 Loc: HO.ED Attending Dr: Ordering Physician: Natacha Villagran MD Date of Service: 12/14/24 Procedure(s): CT head/brain wo IV con Accession Number(s): [id number] cc: Natacha Villagran MD; Alma Quijano MD Report Number: [id number]: Total DLP = 0.00 mGy-cm Reason for [...] in OV> 12/14/241829 DD/ 28 TD/TT: 12/14/241828 [employer] Clerk: Procedure Note Donotuseinterpreter, Image - [address] [place] [address] [address] Scan Report Signed Patient: Cori Marino EMR#: [id number] : 8Acct:[id number] Age/Sex: 69 / FADM Date: 12/14/24 Loc: HO.ED Attending Dr: Ordering Physician: Natacha Villagran MD Date of Service: 12/14/24 Procedure(s): CT head/brain wo IV con Accession Number(s): [id number] cc: Natacha Villagran MD; Alma Quijano MD Report Number: [id number]: Total DLP = 0.00 mGy-cm Reason for [...] in OV> 12/14/241829 DD/ 28 TD/TT: 12/14/241828 [employer] Clerk: [facility] External Provider IMG CT PROCEDURES Edited Result - Final * CTA Chest PE Protocal (2024 6:28 PM EDT) Anatomical Region Laterality Modality Body, Chest Computed Tomogra phy 2024 6:28 PM EDT Narrative 2024 6:30 PM EDT [place] [address] CT Scan Report Signed Patient: Cori Marino MR#: [id number] : 1955 Acct:[id number] Age/Sex: 69 / F ADM Date: 12/14/24 Loc: HO.ED Attending Dr: Ordering Physician: Natacha Villagran MD Date of Service: 12/14/24 Procedure(s): CT angio chest PE protocol Accession Number(s): [id number] cc: Natacha Villagran MD; Alma Quijano MD Report Number: [id number]: Total DLP = 945.00 mGy-cm Reason for [...] document has been electronically signed by: Nadir sEteves MD on 2024 18:28:53 Dictated By: Nadir Esteves MD Signed By: <Electronically signed by Nadir Esteves MD in OV> 12/14/241828 DD/ 27 TD/TT: 12/14/241827 [employer] Clerk: Procedure Note Donotuseinterpreter, Image - [address] [address] [address] Scan Report Signed Patient: Cori Marino EMR#: [id number] : 1955cct:[id number] Age/Sex: 69 / FADM Date: 12/14/24 Loc: .ED Attending Dr: Ordering Physician: Natacha Villagran MD Date of Service: 12/14/24 Procedure(s): CT angio chest PE protocol Accession Number(s): [id number] cc: Natacha Villagran MD; Alma Quijano MD Report Number: [id number]: Total DLP = 945.00 mGy-cm Reason for [...] in OV> 12/14/241828 DD/ 27 TD/TT: 12/14/241827 [employer] Damage Clerk: [facility] External Provider IMG CT PROCEDURES Edited Result - Final * (ABNORMAL) Urinalysis, Complete, with Reflex to Culture (2024 6:08 PM EDT) Only the most recent of2 resultswithin the time period is included. Color Urine Yellow [facility] Appearance Urine Clear [facility] PH 5.5 5.0 - 9.[address] [facility] Glucose Urine UA >=1000(A) Negative mg/dL [facility] Urine Blood Negative Negative [facility] Specific [place] - Urine 1.025 1.005 - 1.[address] [facility] Urine Protein Negative Neg-Trace mg/dL [facility] Urine Ketones Negative Negative mg/dL [facility] Nitrite Urine Negative Negative [facility] Leukocyte Esterase Urine Negative Negative [facility] RBC Urine 0-2 0 - 2 /HPF [facility] Urine WBC 0-5 0 - 5 /HPF [facility] Urine Squamous Epithelial Cell 0-2 0 - 2 /HPF [facility] Urine Bacteria None Seen None Seen [facility] Hyaline Casts, Urine 0-2 0 - 2 /LPF [facility] 2024 6:08 PM EDT 2024 6:19 PM EDT Narrative [facility] - 2024 6:31 PM EDT 1807Urine, Clean Catch Generic External Data Provider LAB URINE ORDERAB LES Final Result [facility] [address] [place] [phone] * XR Chest 1 View (2024 5:11 PM EDT) Anatomical Region Laterality Modality Chest Radiographic Orly ging 2024 5:11 PM EDT Narrative 2024 5:12 PM EDT [address] [address] XRay Report Signed Patient: Cori Marino MR#: [id number] : 1955 Acct:[id number] Age/Sex: 69 / F ADM Date: 12/14/24 Loc: .ED Attending Dr: Ordering Physician: Natacha Villagran MD Date of Service: 12/14/24 Procedure(s): XR chest 1V Accession Number(s): [id number] cc: Natacha Villagran MD; Alma Quijano MD [...] in OV> 12/14/241711 DD/ 10 TD/TT: 12/14/241710 [employer]age [employer] Damage Clerk: Procedure Note Donotuseinterpreter, Image - [address] [address] XRay Report Signed Patient: Cori Marino EMR#: [id number] : 1955cct:[id number] Age/Sex: 69 / FADM Date: 12/14/24 Loc: .ED Attending Dr: Ordering Physician: Natacha Villagran MD Date of Service: 12/14/24 Procedure(s): XR chest 1V Accession Number(s): [id number] cc: Natacha Villagran MD; Alma Quijano MD [...] in OV> 12/14/241711 DD/ 10 TD/TT: 12/14/241710 [employer] Shortage [employer] Damage Clerk: us [facility] External Provider IMG XR PROCEDURES Edited Result - Final * (ABNORMAL) Comprehensive Metabolic Panel (12/10/2024 11:15 AM EDT) Only the most recent of2 resultswithin the time period is included. Sodium 141 135 - 145 mmol/L [facility] Potassium 4.1 3.3 - 5.1 mmol/L [facility] Chloride 106 96 - 108 mmol/L [facility] Carbon Dioxide 29 22 - 29 mmol/L [facility] Anion Gap 10(L) 12 - [address] [facility] Urea Nitrogen (BUN) 16 9 - 16 mg/dL [facility] Creatinine, Serum 0.77 0.5 - 1.4 mg/dL [facility] Estimated Glomerular Filt Rate >[address] [facility] Comment:Chronic Kidney Disea se: Estimated GFR < 60 mL/min/1.75b5Pjvirk Kidney Disease: Estimated GFR < 15 mL/min/1.73m2 Glucose 182(H) 60 - 115 mg/dL [facility] Calcium 9.0 8.4 - 10.2 mg/dL [facility] Bilirubin, Total 0.5 0.0 - 1.0 mg/dL [facility] Aspartate Amino Transferase 23 5 - 31 U/L [facility] Alanine Aminotransferase 20 0 - 31 U/L [facility] Total Protein 6.5 6.5 - 8.0 g/dL [facility] Albumin Level 4.2 3.5 - 5.0 g/dL [facility] Alkaline Phosphatase 70 39 - 117 U/L [facility] Blood Venous blood specimen / Unknown 12/10/2024 11:15 AM EDT 12/10/2024 1:34 PM EDT us Alma Quijano MD LAB BLOOD ORDERABLES Final Resul t [facility] [address] [place] [phone] [phone] * (ABNORMAL) CBC auto differential (10/18/2024 9:52 AM EDT) White Blood Count 5.6 4.8 - 10.8 X10*3/uL [facility] Red Blood Count 4.39 4.20 - 5.50 X10*6/uL [facility] Hemoglobin 14.2 12.0 - 16.0 g/dl [facility] Hematocrit 40.3 37.0 - 47.0 % [facility] Mean Corpuscular Volume 91.8 80.0 - 98.[address] [facility] Mean Corpuscular Hemoglobin 32.3 27.0 - 33.[address] [facility] Mean Corpuscular HGB Conc 35.2(H) 31.0 - 35.0 g/dl [facility] Red Cell Distribution Width 13.0 11.0 - 16.0 % [facility] Platelet Count 152(L) 160 - 400 X10*3/uL [facility] Mean Platelet Volume 9.7 9.4 - 12.[address] [facility] Neutrophils Percent Auto 69.2 45 - 73 % [facility] Imm Gran Pct Auto 0.2 0.0 - 0.4 % [facility] Lymphocytes Percent Auto 21.1 20 - 40 % [facility] Monocytes Percent Auto 8.8 2 - 11 % [facility] Eosinophils Percent Auto 0.5 0 - 4 % [facility] Basophils Percent Auto 0.2 0 - 2 % [facility] NRBC Pct Auto 0.0 0.0 - 0.2 /100WBC [facility] Neutrophils Absolute Auto 3.9 2.0 - 8.3 x10*3/uL [facility] Imm Gran Abs Auto 0.01 0.00 - 0.03 X10*3/uL [facility] Lymphocytes Absolute Auto 1.2 1.2 - 4.9 X10*3/uL [facility] Monocytes Absolute Auto 0.5 0.1 - 1.2 X10*3/uL [facility] Eosinophils Absolute Auto 0.0 0.0 - 0.4 X10*3/uL [facility] Basophils Absolute Auto 0.0 0.0 - 0.2 X10*3/uL [facility] NRBC Abs Auto 0.000 0.0 - 0.012 X10*3/uL [facility] 10/18/2024 9:52 AM EDT 10/18/2024 9:56 AM EDT us Generic External Data Provider LAB BLOOD ORDERAB LES Final Result Performing Organization Address [facility]/ZIP Co de Phone Number [facility] [address] [place] [phone] * Magnesium (10/18/2024 9:52 AM EDT) Magnesium 2.4 1.6 - 2.6 mg/dL [facility] 10/18/2024 9:52 AM EDT 10/18/2024 9:56 AM EDT us Generic External Data Provider LAB BLOOD ORDERAB LES Final Result Performing Organization Address City/[facility]/ZIP Co de Phone Number [facility] [address] [place] [phone] * Lipase (10/18/2024 9:52 AM EDT) Lipase 9 8 - 78 U/L [facility] 10/18/2024 9:52 AM EDT 10/18/2024 9:56 AM EDT us Generic External Data Provider LAB BLOOD ORDERAB LES Final Result Performing Organization Address City/[facility]/ZIP Co de Phone Number [facility] [address] [place] [phone] * XR KUB and Upright 2 Views (10/18/2024 9:45 AM EDT) Anatomical Region Laterality Modality Radiographic Orly ging 10/18/2024 9:45 AM EDT Narrative 10/18/2024 9:58 AM EDT [address] [address] XRay Report Signed Patient: Cori Marino MR#: [id number] : 1955 Acct:[id number] Age/Sex: 68 / F ADM Date: 10/18/24 Loc: HO.ED Attending Dr: Ordering Physician: Cari Aldridge Date of Service: 10/18/24 Procedure(s): XR KUB Accession Number(s): [id number] cc: Cari Aldridge; Alma Quijano MD EXAMINATION: [...] MD in OV> 10/18/2455 DD/ 4 TD/TT: 10/18/24949 [employer] Shortage And Damage Clerk: Procedure Note Donotuseinterpreter, Image - 10/18/[address] [address] XRay Report Signed Patient: Cori Marino EMR#: [id number] : 1955cct:[id number] Age/Sex: 68 / FADM Date: 10/18/24 Loc: HO.ED Attending Dr: Ordering Physician: Cari Aldridge Date of Service: 10/18/24 Procedure(s): XR KUB Accession Number(s): [id number] cc: Cari Aldridge; Alma Quijano MD EXAMINATION: [...] MD in OV> 10/18/2455 DD/ 4 TD/TT: 10/18/24 0950 [employer] Shortage And Damage Clerk: [facility] External Provider IMG XR PROCEDURES Edited Result - Final * Creatinine, Serum (10/18/2024 8:09 AM EDT) Creatinine, Serum 0.78 0.5 - 1.4 mg/dL [facility] Estimated Glomerular Filt Rate >[address] [facility] Comment:Chronic Kidney Disea se: Estimated GFR < 60 mL/min/1.83s3Eyiftt Kidney Disease: Estimated GFR < 15 mL/min/1.73m2 Blood Venous blood specimen / Unknown 10/18/2024 8:09 AM EDT 10/18/2024 11:38 AM EDT Alma Quijano MD LAB BLOOD ORDERABLES Final Resul t Performing Organization Address City/[facility]/ZIP Co de Phone Number [facility] [address] [place] [phone] * BUN (Blood Urea Nitrogen) (10/18/2024 8:09 AM EDT) Urea Nitrogen (BUN) 14 9 - 16 mg/dL [facility] Blood Venous blood specimen / Unknown 10/18/2024 8:09 AM EDT 10/18/2024 11:38 AM EDT Alma Quijano MD LAB BLOOD ORDERABLES Final Resul t Performing Organization Address [facility] Co de Phone Number [facility] [address] [place] [phone] * (ABNORMAL) POCT HGB A1C (10/07/2024 1:58 PM EDT) Hemoglobin A1C 7.0(A) 4.0 - 5.7 % QC Media Lot # [id number] Lot# Expiration Date 162, Blood 10/07/2024 1:58 PM EDT Alma Quijano MD POINT OF CARE TEST ENTER/EDIT OR DERABLES Final Result * (ABNORMAL) POCT Glucose (10/07/2024 1:56 PM EDT) Glucose Blood, POC 253(A) 60 - 200 mg/dL QC Media Lot # [id number] Lot# Expiration Date [id number] Blood Capillary blood specimen / Unknown 10/07/2024 1:56 PM EDT Alma Quijano MD POINT OF CARE TEST ENTER/EDIT OR DERABLES Final Result * BI Mammogram Screening Tomosynthesis Bilateral (05/24/2024 2:15 PM EDT) Anatomical Region Laterality Modality Breast Bilateral Mammography 05/24/2024 2:15 PM EDT [facility] 05/31/2024 3:24 PM EDT [facility] [address] [place] [address] Mammography Report Signed Patient: Cori Marino MR#: [id number] : 1955 Acct:[id number] Age/Sex: 68 / F ADM Date: 05/24/24 Loc: HO.MAMMO Attending Dr: Alma Quijano MD Ordering Physician: Alma Quijano MD Results: 1Negative Date of Service: 05/24/24 Follow Up: 1 Year From Orig inal Mammogram Procedure(s): MM tomosynthesis screening BI Accession Number(s): [id number] cc: Alma Quijano MD EXAMINATION: MM SCREENING [...] 05/31/24 1521 DD/ 1415 TD/TT: 05/24/24 1436 [employer] Shortage And Damage Clerk: Procedure Note Donotuseinterpreter, Image - 05/31/2024 [facility] [address] [place], [place] [address] Mammography Report Signed Patient: Cori Marino EMR#: [id number] : 8Acct:[id number] Age/Sex: 68 / FADM Date: 05/24/24 Loc: HO.MAMMO Attending Dr: Alma Quijano MD Ordering Physician: Alma Quijano MDResults: 1Negative Date of Service: 05/24/24Follow Up: 1 Year From Orig ina Mammogram Procedure(s): MM tomosynthesis screening BI Accession Number(s): [id number] cc: Alma Quijano MD EXAMINATION: MM SCREENING [...] 05/31/24 1521 DD/ 1415 TD/TT: 05/24/24 1436 Overage Shortage And Damage Clerk: us Alma Quijano MD IMG BI PROCEDURES Final Result * (ABNORMAL) Lipid Panel with Reflex to Direct LDL (05/10/2024 8:09 AM EDT) Triglycerides 97 <150 mg/dL [facility] Comment:Desirable Triglyceri de: less than 150 mg/dLBorderline High Triglyceride 150-199 mg/dLHigh Triglyceride: 200-499 mg/dLVery High Triglyceride: greater than or equal to 5OO mg/dL Cholesterol 102 <200 mg/dL [facility] Comment:Desirable Cholestero l: less than 200 mg/dLBorderline High Cholesterol: 200-239 mg/dLHigh Cholesterol: greater than 239 mg/dL LDL Cholesterol Calculated 48 <100 mg/dL [facility] Comment:Desirable LDL: less than 100 mg/dLNear Optimal/Above Optimal LDL: 110- 129 mg/dLBorderline High LDL: 130-159 mg/dLHigh LDL: 160-189 mg/dLVery High LDL: greater than or equal to 190 mg/dL HDL Cholesterol 35(L) >40 mg/dL [facility] Comment:Desirable HDL: great er than 40 mg/dL Note: This HDL assay may give artificially low results in patients with liver disease. Blood 05/10/2024 8:09 AM EDT 05/10/2024 11:07 AM EDT us Alma Quijano MD LAB BLOOD ORDERABLES Final Resul t [facility] [address] [place] [phone] * Albumin, Random Urine W/Creatinine (05/10/2024 8:09 AM EDT) Creatinine, Urine 64.00 mg/dL [facility] Microalbumin Urine 6.0 mg/L [facility] Microalbum Creatinine Ratio Ur 9.3 <30 ug/mg cr [facility] Comment:Albumin/Creatinine R atio Reference Ranges: Normal: < 30 ug/mg creatinine Microalbuminuria: 30 - 300 ug/mg creatinineClinical Albuminuria: > 300 ug/mg creatinine Urine 05/10/2024 8:09 AM EDT 05/10/2024 11:18 AM EDT us Alma Quijano MD LAB URINE ORDERABLES Final Resul t Performing Organization Address City/[facility]/ZIP Co de Phone Number [facility] [address] [place] [phone] * HPV mRNA E6/E7 w/Reflex to HPV Genotypes 16, 18/45 (05/02/2023 9:48 AM EDT) HPV nRNA E6/E7 Not Detected Not Detected [facility] Comment:Methodology: Transcr iption-Mediated AmplificationThis assay detects E6/E7 viral messenger RNA (mRNA) from 14high-risk HPV types (16,18,31,33,35,39,45,51,52,56,58,59,66,68).Cervical sources are required for HPV testing.If a vaginal source from a patient who has had atotal hysterectomy with removal of cervix wassubmitted, please contact the testing laboratoryfor alternative testing options.For additional information, please refer tohttp://education.friendfund/faq/ORP098x6(This link if provided for information/educational purposes only.)THIS TEST WAS PERFORMED AT:[facility] [place] [phone] GODINEZ MD HPV mRNA E6/E7 [facility] HPV 16 RNA [facility] HPV 18/45 RNA [facility] Vaginal Fluid Cervix uteri structure / Unknown 05/02/2023 9:48 AM EDT 05/03/2023 2:23 PM EDT Narrative [facility] - 05/05/2023 7:38 AM EDT Collection Date: [id number] by: KIMI Colby: Cervix us Alma Quijano MD LAB CYTOLOGY ORDERABLES Final Re sult [facility] [address] [place] [address] [phone] * Pap Smear (05/02/2023 9:48 AM EDT) Swab 05/02/2023 9:48 AM EDT 05/03/2023 12:25 PM EDT [facility] - 05/11/2023 6:49 AM EDT ----- ------- Name: Cori Marino Age/Sex: 67/F : 1955 Unit#: [id number] Attend Dr: Alma Quijano MD Re05/02/23 Status: [facility] REF Location: [facility] Disch: ----- ------- SPEC : [id number] RECD: 05/03/23-1224 STATUS: JONNIE VALENTINE NUM: [id number] VU: 05/02/[address] [facility] [address]: Alma Quijano MD ENTERED: 05/03/23-1251 SP TYPE: Pap Smr [facility] DR: ORDERED: Pap Smear Interpretation Satisfactory for evaluation. No endocervical cells seen. Fungal organisms consistent with Carmelita species. Negative for intraepithelial lesion or malignancy. HPV mRNA E6/E7: NOT DETECTED This assay detects E6/E7 viral messenger RNA (mRNA) from 14 high-risk HPV types (16, 18, 31, 33, 35, 39, 45, 51, 52, 56, 58, 59, 66, 68) HPV testing performed by [facility] [employer], [place], [place]. See reference laboratory portion of the EMR for entire report. Clinical Information LMP: Postmenopausal Previous PAP test: Unknown date/findings Material Received ThinPrep-Vaginal/Cervical ----- ------- Signed (signature on file) HAZEL Brown (ASCP) 05/11/23 0649 ----- ------- END OF REPORT Alma Quijano MD LAB CYTOLOGY ORDERABLES Final Re sult [address] [phone] * Diabetes Eye Exam (12/09/2022) Eye Exam Normal Normal Eye Tech HEALTH MAINTENANCE Final Result * Colonoscopy (01/06/2020) Colonoscopy Normal Normal Jarrett Craft MD HEALTH MAINTENANCE Final Res ult from Last 3 Months or Most Recently Relevant to Health Maintenance Insurance [facility] STANDARD [facility] [employer] OPTIONS (HMO D-SNP) Care Teams [employer] Relationship Specialty Start Date End Date Alma Quijano MD [address] [place] [phone] PCP - General Family Medicine 02/20/18 Jose Angel Martinez, PharmD [address] [place] [phone] Pharmacist Internal Medicine 09/19/22
--- OUTSIDE RECORDS SUMMARY | 2024-12-16 14:45 | XMS_ITS | Encounter Summary ---
Author Organization [employer] Address [address] [facility] 7t [place] [address] Care Team Providers Care English Drawer Name Role Phone Alma Quijano MD Primary Care Provider [phone] Jose Angel Martinez PharmD Unavailable [phone] Reason for Referral * Consultation (Routine) - Authorized Specialty Diagnoses / Procedures Referred By Contac t Referred To Contact Pharmacy Diagnoses Type 2 diabetes mellitus with hyperglycemia, with long-term current use of insulin ([facility]) Alma Quijano MD [address] [place] [phone] Phone: tel: fax: Referral ID Status Reason Start Date Expiration Date Visits Requested Visits Authorized [id number] Authorized Consult and Treat 11/11/2024 11/11/2025 6 6 Encounter Details Date Type Department Care Team ([facility] Contact Info) Description 11/11/2024 Orders Only [facility] [address] [place] [address] [phone] Alma Quijano MD [address] [place] [address] [phone] Type 2 diabetes mellitus with hyperglycemia, with long-term current use of insulin ([facility]) (Primary Dx) Social History Tobacco Use Types [...] Description 01/01/2025 10:15 AM EST Office Visit [facility] [address] [place] [phone] Alma Quijano MD [address] [place] [phone] 02/07/2025 10:30 AM EST Medication Management [facility] [address] [place] [phone] Jose Angel Martinez, PharmD [address] [place] [phone] Scheduled Referrals Name Type Priority Associated Diagnoses Orde r Schedule Referral to Pharmacy CDTM Outpatient Referral Routine Type 2 diabetes mellitus with hyperglycemia, with long-term current use of insulin ([facility]) Ordered: 11/11/2024 documented as of this encounter [...] hyperglycemia, with long-term current use of insulin ([facility])- Primary documented in this encounter Additional Health Concerns Assessment Noted Time PHQ-9 Depression Total Score: 5 01/31/20 24 11:17 AM EST documented as of this encounter Care Teams English Drawer Relationship Specialty Start Date End Date Alma Quijano MD [address] [place] [address] PCP - General Family Medicine 02/20/18 Jose Angel Martinez PharmD [address] [place] [address] Pharmacist Internal Medicine 09/19/22 documented as of this encounter
--- OUTSIDE RECORDS SUMMARY | 2024-12-16 14:45 | XMS_ITS | Encounter Summary ---
Author Organization [employer] Address [address] [facility] 7t [place] [address] Care Team Providers Care Technical Illustrations Map Inker Name Role Phone Alma Quijano MD Primary Care Provider [phone] Jose Angel Martinez PharmD Unavailable [phone] Reason for Visit * Reason Comments Med Refill Encounter Details Date Type Department Care Team ([facility] Contact Info) Description 07/27/2022 Refill [facility] [address] [place] [address] [phone] Alma Quijano MD [address] [place] [address] [phone] Social History Tobacco Use Types Packs/Day Years [...] Upcoming Encounters Date Type Department Care Team ([facility] Contact Info) Description 01/01/2025 10:15 AM EST Office Visit [facility] [address] [place] [address] [phone] Alma Quijano MD [address] [place] [address] [phone] 02/07/2025 10:30 AM EST Medication Management [facility] [address] [place] [address] Jose Angel Martinez, PharmD [address] [place] [address] documented as of this encounter Visit Diagnoses Not on filedocumented in this encounter Additional Health Concerns Assessment Noted Time PHQ-9 Depression Total Score: 0 06/08/19 23 1:07 PM EDT documented as of this encounter Care Teams Technical Illustrations Map Inker Relationship Specialty Start Date End Date Alma Quijano MD [address] [place] [address] PCP - General Family Medicine 02/20/18 Jose Angel Martinez, PharmD [address] [place] [phone] Pharmacist Internal Medicine 09/19/22 documented as of this encounter
--- OUTSIDE RECORDS SUMMARY | 2024-12-16 14:45 | XMS_ITS | Encounter Summary ---
Author Organization [employer] Address [address] [facility] 7t [place] [address] Care Team Providers Care Straightener Name Role Phone Alma Quijano MD Primary Care Provider [phone] Jose Angel Martinez PharmD Unavailable [phone] Encounter Details Date Type Department Care Team ([facility] Contact Info) Description 02/28/2022 Orders Only [facility] [address] [place], [place] [phone] Anu Robledo LPN Social History Tobacco Use [...] Upcoming Encounters Date Type Department Care Team ([facility] Contact Info) Description 01/01/2025 10:15 AM EST Office Visit [address] [phone] Alma Quijano MD [address] [place] [address] [phone] 02/07/2025 10:30 AM EST Medication Management [address] [phone] Jose Angel Martinez, PharmD [address] [place] [address] documented as of this encounter Visit Diagnoses Not on filedocumented in this encounter Care Teams Straightener Relationship Specialty Start Date End Date Alma Quijano MD [address] [place] [phone] PCP - General Family Medicine 02/20/18 Jose Angel Martinez, PharmD [address] [place] [phone] Pharmacist Internal Medicine 09/19/22 documented as of this encounter
--- OUTSIDE RECORDS SUMMARY | 2024-12-16 14:45 | XMS_ITS | Encounter Summary ---
Author Organization [employer] Address [address] [facility] 7t [place] [address] Care Team Providers Care Tube Skiver Name Role Phone Alma Quijano MD Primary Care Provider [phone] Jose Angel Martinez PharmD Unavailable [phone] Reason for Visit * Reason Onset Date Comments Appointment Request 11/08/2022 Encounter Details Date Type Department Care Team ([facility] Contact Info) Description 11/08/2022 Telephone [facility] [address] [place], [place] [phone] Alma Quijano MD [address] [place], [place] [phone] Appointment Request Social History Tobacco Use Types [...] to traveling. Patient will be back 12/15/22. Fermentation Scientist attempted to r/s appt and was unable to due to last week being unavailable. documented in this encounter Plan of Treatment Upcoming Encounters Date Type Department Care Team (Late st Contact Info) Description 01/01/2025 10:15 AM EST Office Visit [facility] [place] [address] Alma Quijano MD [address] [facility] [place], [place] [phone] 02/07/2025 10:30 AM EST Medication Management [facility] [place], [place] [phone] Jose Angel Martinez PharmD [address] [place], [place] [phone] documented as of this encounter Goals Goal [...] documented as of this encounter Care Teams Tube Skiver Relationship Specialty Start Date End Date [place] [address] PCP - General Family Medicine 02/20/18 Jose Angel Martinez PharmD [address] [place], [place] [phone] Pharmacist Internal Medicine 09/19/22 documented as of this encounter
--- OUTSIDE RECORDS SUMMARY | 2024-12-16 14:45 | XMS_ITS | Encounter Summary ---
Author Organization [employer] Address [address] [facility] 7t h Floor [place] [phone] Care Team Providers Care Product Marketing Director Name Role Phone Alma Quijano MD Primary Care Provider [phone] Jose Angel Martinez PharmD Unavailable [phone] Encounter Details Date Type Department Care Team (Late Contact Info) Description 09/08/2022 Orders Only [facility] [address] [place] [address] [phone] Alma Quijano MD [address] [place] [address] [phone] Acquired hypothyroidism (Primary Dx) Social History Tobacco [...] 10:15 AM EST Office Visit [facility] [address] [place] [address] [phone] Alma Quijano MD [address] [place] [address] [phone] 02/07/2025 10:30 AM EST Medication Management [facility] [address] [place] [address] Jose Angel Martinez, PharmD [address] [place] [address] Scheduled Orders Name Type Priority Associated Diagnoses [...] of this encounter Care Teams Product Marketing Director Relationship Specialty Start Date End Date Alma Quijano MD [address] [place] [address] [phone] PCP - General Family Medicine 02/20/18 Jose Angel Martinez, MarissaD [address] [place] [phone] Pharmacist Internal Medicine 09/19/22 documented as of this encounter
--- OUTSIDE RECORDS SUMMARY | 2024-12-16 14:45 | XMS_ITS | Encounter Summary ---
Author Organization [employer] Address [address] [facility] 7t [place] [address] Care Team Providers Care Animal Control Officer Name Role Phone Alma Quijano MD Primary Care Provider [phone] Jose Angel Martinez PharmD Unavailable [phone] Reason for Visit * Reason Comments Med Refill Encounter Details Date Type Department Care Team ([facility] Contact Info) Description 10/14/2024 Refill [facility] [address] [place] [address] Jose Angel Martinez, PharmD [address] [place] [address] Type 2 diabetes mellitus with hyperglycemia, with long-term current use of insulin ([facility]) Social History Tobacco Use Types [...] Description 01/01/2025 10:15 AM EST Office Visit [address] [address] Alma Quijano MD [address] [place] [phone] 02/07/2025 10:30 AM EST Medication Management [address] [address] Jose Angel Martinez PharmD [address] [place] [phone] documented as of this encounter Goals Goal [...] documented as of this encounter Care Teams Animal Control Officer Relationship Specialty Start Date End Date Alma Quijano MD [address] [place] [address] PCP - General Family Medicine 02/20/18 Jose Angel Martinez, MarissaD [address] [place] [address] Pharmacist Internal Medicine 09/19/22 documented as of this encounter
--- OUTSIDE RECORDS SUMMARY | 2024-12-16 14:45 | XMS_ITS | Encounter Summary ---
Author Organization [employer] Address [address] [place] [id number] Care Team Providers Care Woodworking Machine Feeder Name Role Phone Alma Quijano MD Primary Care Provider [phone] Jose Angel Martinez PharmD Unavailable [phone] Reason for Visit * Reason Comments Med Refill Encounter Details Date Type Department Care Team ([facility] Contact Info) Description 09/02/2024 Refill [facility] MED[facility]INE [address] [place] [address] Alma Quijano MD [address] [place] [address] Vitamin B12 deficiency Social History Tobacco Use [...] 01/01/2025 10:15 AM EST Office Visit [address] [address] Alma Quijano MD [address] [place] [phone] 02/07/2025 10:30 AM EST Medication Management [address] [address] Jose Angel Martinez PharmD [address] [place] [address] documented as of this encounter Goals Goal [...] documented as of this encounter Care Teams Woodworking Machine Feeder Relationship Specialty Start Date End Date Alma Quijano MD [address] [place] [address] PCP - General Family Medicine 02/20/18 Jose Angel Martinez, MarissaD [address] [place] [address] Pharmacist Internal Medicine 09/19/22 documented as of this encounter
== END 2024-12-16 11:28 | disposition home or self-care (01) ==
LOC: HO.CT 11:27
PROVIDERS: PCP Family Medicine; Visit Provider Family Medicine
DX: R19.09 Other intra-abdominal and pelvic swelling, mass and lump (principal)
CPT/HCPCS: 74177; Q9967

== ENCOUNTER → 2024-12-16 11:29 | Outpatient (BNV) | payer OTHER, SELFPAY | PROVIDERS: PCP Family Medicine; Visit Provider Radiology Diagnostic Radiology | DX: K57.30 Diverticulosis of large intestine without perforation or abscess without bleeding (principal) | CPT/HCPCS: 74177 ==

== ENCOUNTER 2025-01-07 09:12 | Outpatient (AMB) | payer OTHER, SELFPAY ==
--- NOTE | 2025-01-07 09:17 | MHC.OFFVIS ---
Vital Signs 01/07/25 09:18 Height 4 ft 3 in Weight 110 lb BMI 29.7 BP 98/62 Blood Pressure Location Lt brachial Position Sitting Pulse 64 Pulse Source Pulse Oximeter Pulse Oximetry (%) 96 Oxygen Delivery Method Room Air Intake Visit Reasons: Asthma Production Statistical Clerk Required: Yes Production Statistical Clerk Name: Anu Kilpatrick Jon Information Interpreted: non-clinical & clinical Allergies No Known Allergies Allergy (Mild, Verified 01/07/25 09:24) NONE HPI HPI Asthma: Details: 69-year-old lady, lifetime nonsmoker, has had a CT abdomen for an endocrinologic workup that demonstrated 4 mm lower lobe lung nodule and the she was referred for further follow-up and evaluation.? Patient denies any family or personal history of lung disease.? She denies any pulmonary related concerns or complaints at this time. Patient has had a follow-up CT scan in April of 2023 that showed stable pulmonary nodules. Her repeat CT scan in May of 2024 showed further stability. She continues to use Asmanex and albuterol MDI with good control of her asthma symptoms. Her allergy symptoms are now well controlled on Singulair and loratadine. 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 Vitamin D deficiency Hypothyroidism Hyperparathyroidism Surgical History Hx laparoscopic cholecystectomy (08/17/22) H/O colonoscopy History of surgery on arm Hx of section Hx of tubal ligation Family History Mother Diabetes Family/Other Breast cancer Social History Alcohol intake: never Patient Tobacco Use Status: Never used Tobacco Advance Directives Date on File: 12/05/19 Review of Systems Const Denies daytime sleepiness, Denies excessive sweating, Denies fatigue, Denies fever(s), Denies lethargy, Denies malaise, Denies night sweats, Denies snoring and Denies weight loss Eyes Denies blurry vision and Denies itchy eyes ENT Denies nasal congestion, Denies post nasal drip, Denies sinus pain, Denies sinus pressure and Denies other ( Thrush) Card Denies chest pain, Denies pedal edema, Denies dyspnea, Denies orthopnea and Denies paroxysmal nocturnal dyspnea Resp Denies cough, Denies hemoptysis, Denies excessive phlegm production, Denies dyspnea, Denies snoring and Denies wheezing GI Denies abdominal pain and Denies heartburn Musc Denies myalgias, Denies arthralgias and Denies joint swelling Skin/Breast Denies rash Neuro Denies memory loss and Denies seizure-like activity Psych Denies abnormal sleep pattern, Denies anxiety and Denies memory loss Endo Denies excessive sweating, Denies fatigue and Denies heat intolerance Edmundo/Lymph Denies easy bruising Aller/Immun Denies itchy eyes, Denies seasonal rhinorrhea and Denies wheezing Physical Exam Vital Signs: Last Vital Signs Pulse 64 01/07/25 09:18 BP 98/62 01/07/25 09:18 Pulse Ox 96 01/07/25 09:18 Oxygen Delivery Method Room Air 01/07/25 09:18 BMI result Body Mass Index 29.7 Const General: no acute distress and alert Nutritional Appearance: not obese Orientation/consciousness: Other orientation findings ( oriented) HEENT Head: Yes atraumatic Eyes General: appearance normal, both eyes and all related structures Sclerae: sclerae normal EOM: EOMs intact bilaterally Neck Neck: Yes supple Lymphatic: no lymphadenopathy noted Resp Effort & Inspection: normal respiratory effort and no use of accessory muscles Auscultation: clear to auscultation bilaterally Cardio Rate: regular rate Rhythm: regular rhythm Heart sounds: no gallops, no murmurs and no rubs Skin General skin exam: other ( warm) Extrem General: No clubbing, No cyanosis and No edema Assessment & Plan Assessment & Plan (1) Asthma: Code(s): J45.909 - Unspecified asthma, uncomplicated Category: Medical Plan: Well controlled on Asmanex and albuterol MDI. Continue current regimen. (2) Environmental allergies: Code(s): Z91.09 - Other allergy status, other than to drugs and biological substances Category: Medical Plan: Well controlled on Singulair and loratadine. Continue current regimen. Coding Level of Care Code Est Pt Level 4 (91583) Diagnoses Asthma J45.909 Environmental allergies Z91.09
[2025-01-07 09:18] VITALS: BP 98/62; PULSE 64; O2SAT 96; BMI 29.7
== END 2025-01-07 09:33 | disposition home or self-care (01) ==
LOC: HO.HPS 09:12
PROVIDERS: PCP Family Medicine; Visit Provider Internal Medicine Pulmonary Disease
DX: J45.909 Unspecified asthma, uncomplicated (principal); Z91.09 Other allergy status, other than to drugs and biological substances
CPT/HCPCS: 99214

== ENCOUNTER → 2025-01-07 09:12 | Outpatient (BNVA) | payer OTHER, SELFPAY | PROVIDERS: PCP Family Medicine; Visit Provider Internal Medicine Pulmonary Disease | DX: J45.909 Unspecified asthma, uncomplicated (principal); Z91.09 Other allergy status, other than to drugs and biological substances | CPT/HCPCS: 99212 ==

== ENCOUNTER 2025-02-07 14:38 | Outpatient (REF) | payer OTHER, SELFPAY ==
--- NOTE | ~2025-02-07 | US_ITS ---
EXAMINATION: US PELVIS CLINICAL INFORMATION: Pelvic pain. Uterine fibroids COMPARISON: Correlated to CT dated December 16, 2024. TECHNIQUE: Ultrasound of the pelvis is performed using both transabdominal and transvaginal transducers along with Doppler. Transvaginal imaging is performed due to inadequate visualization transabdominally. FINDINGS: Uterus: The uterus is anteversion and measures 12 x 5 x 7 cm. Volume: 209 cc. The double wall endometrial thickness is 13 mm. 2.9 cm isoechoic soft tissue lesion in the right side of the fundus. 3.0 cm isoechoic soft tissue lesion in the posterior left fundus of the uterus. Adnexa: The ovaries are not identified.. No free fluid in the cul-de-sac. US/US pelvic and transvaginal IMPRESSION: Uterine fibroids in the fundus. Thickened endometrial stripe which is abnormal for a postmenopausal woman. Electronically signed by: Reed Murphy MD 02/07/2025 03:37 PM EST
--- OUTSIDE RECORDS SUMMARY | 2025-02-07 16:03 | XMS_ITS | Encounter Summary ---
Author Organization [employer] Address [address] [facility] 7t [place] [address] Care Team Providers Care Wastewater Plant Operator Name Role Phone Alma Quijano MD Primary Care Provider [phone] Jose Angel Martinez PharmD Unavailable [phone] Reason for Referral * Consultation (Routine) - Closed Specialty Diagnoses / Procedures Referred By Contac t Referred To Contact Pharmacy Diagnoses Type 2 diabetes mellitus with hyperglycemia, with long-term current use of insulin (HCC) Primary hypertension Moderate persistent asthma without complication Alma Quijano MD [address] [place] [phone] Phone: tel: fax: Referral ID Status Reason Start Date Expiration Date V isits Requested Visits Authorized [id number] Closed Consult and Treat 01/02/2024 01/01/2025 6 6 Encounter Details Date Type Department Care Team (Late st Contact Info) Description 01/02/2024 Orders Only [facility] MED[facility]INE [address] [place] [address] [phone] Alma Quijano MD [address] [place] [address] [phone] Type 2 diabetes mellitus with hyperglycemia, with [...] as of this encounter Plan of Treatment Scheduled Referrals Name Type Priority Associated Diagnoses Orde r Schedule Referral to Pharmacy CDTM Outpatient Referral Routine Type 2 diabetes mellitus with hyperglycemia, with long-term current use of insulin ([facility]) Primary hypertension Moderate persistent asthma without complication Ordered: 01/02/2024 documented as of this encounter Goals Goal Patient Goal Type Associated Problems Recent Progress Patient-Stated? Author Blood Pressure < 140/90 Blood Pressure 110/60(2024 10:37 AM EST) No Jose Angel Martinez, Giovanna Hemoglobin A1c < 7 Result Component 7.1( 10:46 AM EST) No Jose Angel Martinez, Giovanna documented as of this encounter Visit Diagnoses Diagnosis Type 2 diabetes mellitus with hyperglycemia, with long-term current use of insulin ([facility])- Primary Primary hypertension Unspecified essential hypertension Moderate persistent asthma without complication documented in this encounter Additional Health Concerns Assessment Noted Time PHQ-9 Depression Total Score: 0 04/18/20 23 1:07 PM EDT documented as of this encounter Care Teams Wastewater Plant Operator Relationship Specialty Start Date End Date Alma Quijano MD [address] [place] [address] PCP - General Family Medicine 02/20/18 Jose Angel Martinez, MarissaD [address] [place] [address] Pharmacist Internal Medicine 09/19/22 documented as of this encounter
--- OUTSIDE RECORDS SUMMARY | 2025-02-07 16:03 | XMS_ITS | Encounter Summary ---
Author Organization [employer] Address [address] [place] [address] 7 [place] [address] Care Team Providers Care Hebrew Professor Name Role Phone Alma Quijano MD Primary Care Provider [phone] Jose Angel Martinez PharmD Unavailable [phone] Reason for Visit * Reason Comments Med Refill Encounter Details Date Type Department Care Team ([facility] Contact Info) Description 05/09/2022 Refill [facility] MEDICINE [address] [place] [phone] Alma Quijano MD [address] [place] [phone] Social History Tobacco Use Types Packs/Day Years [...] as of this encounter Plan of Treatment Not on file documented as of this encounter Visit Diagnoses Not on filedocumented in this encounter Care Teams Hebrew Professor Relationship Specialty Start Date End Date Alma Quijano MD [address] [place] [address] [phone] PCP - General Family Medicine 02/20/18 Jose Angel Martinez, PharmD [address] [place] [address] [phone] Pharmacist Internal Medicine 09/19/22 documented as of this encounter
--- OUTSIDE RECORDS SUMMARY | 2025-02-07 16:03 | XMS_ITS | Encounter Summary ---
Author Organization [employer] Address [address] [facility] 7t [place] [address] Care Team Providers Care Sas Etl Developer Name Role Phone Alma Quijano MD Primary Care Provider [phone] Jose Angel Martinez PharmD Unavailable [phone] Reason for Visit * Reason Comments Med Refill Encounter Details Date Type Department Care Team ([facility] Contact Info) Description 10/14/2024 Refill [facility] MEDICINE [address] [place] [address] Jose Angel Martinez, PharmD [address] [place] [address] Type 2 diabetes mellitus with hyperglycemia, with long-term current use of insulin ([facility]) Social History Tobacco Use Types [...] on file documented as of this encounter Goals Goal Patient Goal Type Associated Problems Recent Progress Patient-Stated? Author Blood Pressure < 140/90 Blood Pressure 110/60(2024 10:37 AM EST) No Jose Angel Martinez PharmD Hemoglobin A1c < 7 Result Component 7.1( 10:46 AM EST) No Jose Angel Martinez PharmD documented as of this encounter Visit Diagnoses Diagnosis Type 2 diabetes mellitus with hyperglycemia, with long-term current use of insulin (HCC) documented in this encounter Additional Health Concerns Assessment Noted Time PHQ-9 Depression Total Score: 5 01/31/20 24 11:17 AM EST documented as of this encounter Care Teams Sas Etl Developer Relationship Specialty Start Date End Date Alma Quijano MD [address] [place] [id number] PCP - General Family Medicine 02/20/18 Jose Angel Martinez PharmD [address] [place] [address] Pharmacist Internal Medicine 09/19/22 documented as of this encounter
--- OUTSIDE RECORDS SUMMARY | 2025-02-07 16:03 | XMS_ITS | Encounter Summary ---
Author Organization [employer] Address [address] [facility] 7t [place] [address] Care Team Providers Care Electromechanical Assembler Name Role Phone Alma Quijano MD Primary Care Provider [phone] Jose Angel Martinez PharmD Unavailable [phone] Reason for Visit * Reason Comments Med Refill Encounter Details Date Type Department Care Team ([facility] Contact Info) Description 04/28/2022 Refill [facility] MEDICINE [address] [place] [address] Geetha Macedo ANP [address] [place] [address] Social History Tobacco Use Types Packs/Day Years [...] on filedocumented in this encounter Care Teams Electromechanical Assembler Relationship Specialty Start Date End Date Alma Quijano MD [address] [place] [address] PCP - General Family Medicine 02/20/18 Jose Angel Martinez, PharmD [address] [place] [phone] Pharmacist Internal Medicine 09/19/22 documented as of this encounter
--- OUTSIDE RECORDS SUMMARY | 2025-02-07 16:04 | XMS_ITS | Encounter Summary ---
Author Organization [employer] Address [address] [facility] 7t [place] [address] Care Team Providers Care Screen Printing Supervisor Name Role Phone Alma Quijano MD Primary Care Provider [phone] Jose Angel Martinez PharmD Unavailable [phone] Reason for Referral * Consultation (Routine) - Pending Review Specialty Diagnoses / Procedures Referred By Contirais t Referred To Contact Obstetrics and Gynecology Diagnoses Thickened endometrium Dyslipidemia Alma Quijano MD [address] [place] [address] Phone: tel: fax: Referral ID Status Reason Start Date Expiration Date Visits Requested Visits Authorized [id number] Pending Review Specialty Services Required 02/07/2026 1 1 Encounter Details Date Type Department Care Team ([facility] Contact Info) Description 02/07/2025 Orders Only [facility] MEDICINE [address] [place] [id number] Alma Quijano MD [address] [place] [address] [phone] Thickened endometrium (Primary Dx); Dyslipidemia Social History Tobacco Use Types Packs/Day [...] Scheduled Referrals Name Type Priority Associated Diagnoses Order Schedule Referral to Obstetrics / Gynecology Outpatient Referral Routine Thickened endometrium Dyslipidemia Expected: 02/07/2025 (Approximate), Expires: 02/07/2026 documented as of this encounter Goals Goal Patient Goal Type Associated Problems Recent Progress Patient-Stated? Author Blood Pressure < 140/90 Blood Pressure 110/60(02/07 10:37 AM EST) No Jose Angel Martinez, Giovanna Hemoglobin A1c < 7 Result Component 7.1(02/08/20 10:46 AM EST) No Jose Angel Martinez, PharmJennifer Help patients manage their type 2 diabetes Care Plan Help patients manage their type 2 diabetes No Jimbo Rivas Weekly blood pressure task Care Plan Weekly blood pressure task No Jimbo Rivas Help patients manage their type 2 diabetes Care Plan Help patients manage their type 2 diabetes No Jimbo Rivas Patient has chronic kidney disease Care Plan Patient has chronic kidney disease No Jimbo Rivas Help patients manage their type 2 diabetes Care Plan Help patients manage their type 2 diabetes No Jimbo Rivas Patient has diabetic neuropathy Care Plan Patient has diabetic neuropathy No Jimbo Rivas Weekly blood pressure task Care Plan Weekly blood pressure task No Jimbo Rivas Weekly blood pressure task Care Plan Weekly blood pressure task No Jimbo Rivas Patient has chronic kidney disease Care Plan Patient has chronic kidney disease No Jimbo Rivas Patient has chronic kidney disease Care Plan Patient has chronic kidney disease No Jimbo Rivas Patient has diabetic neuropathy Care Plan Patient has diabetic neuropathy No Jimbo Rivas Patient has diabetic neuropathy Care Plan Patient has diabetic neuropathy No Jimbo Rivas Weekly blood pressure task Care Plan Weekly blood pressure task No Chito Rivas Weekly blood pressure task Care Plan Weekly blood pressure task No Chito Rivas Weekly blood pressure task Care Plan Weekly blood pressure task No Chito Rivas Patient has chronic kidney disease Care Plan Patient has chronic kidney disease No Chito Rivas Patient has chronic kidney disease Care Plan Patient has chronic kidney disease No Chito Rivas Patient has chronic kidney disease Care Plan Patient has chronic kidney disease No Chito Rivas Patient has diabetic neuropathy Care Plan Patient has diabetic neuropathy No Chito Rivas Patient has diabetic neuropathy Care Plan Patient has diabetic neuropathy No Chito Rivas Patient has diabetic neuropathy Care Plan Patient has diabetic neuropathy No Chito Rivas Weekly blood pressure task Care Plan Weekly blood pressure task No Chito Rivas Weekly blood pressure task Care Plan Weekly blood pressure task No Chito Rivas Weekly blood pressure task Care Plan Weekly blood pressure task No Chito Rivas Patient has chronic kidney disease Care Plan Patient has chronic kidney disease No Chito Rivas Patient has chronic kidney disease Care Plan Patient has chronic kidney disease No Chito Rivas Patient has chronic kidney disease Care Plan Patient has chronic kidney disease No Chito Rivas Patient has diabetic neuropathy Care Plan Patient has diabetic neuropathy No Chito Rivas Patient has diabetic neuropathy Care Plan Patient has diabetic neuropathy No Chito Rivas Patient has diabetic neuropathy Care Plan Patient has diabetic neuropathy No Chito Rivas Weekly blood pressure task Care Plan Weekly blood pressure task No Alma Quijano MD Weekly blood pressure task Care Plan Weekly blood pressure task No Alma Quijano MD Weekly blood pressure task Care Plan Weekly blood pressure task No Alma Quijano MD Patient has chronic kidney disease Care Plan Patient has chronic kidney disease No Alma Quijano MD Patient has chronic kidney disease Care Plan Patient has chronic kidney disease No Alma Quijano MD Patient has chronic kidney disease Care Plan Patient has chronic kidney disease No Alma Quijano MD Patient has diabetic neuropathy Care Plan Patient has diabetic neuropathy No Alma Quijano MD Patient has diabetic neuropathy Care Plan Patient has diabetic neuropathy No Alma Quijano MD Patient has diabetic neuropathy Care Plan Patient has diabetic neuropathy No Alma Quijano MD Weekly blood pressure task Care Plan Weekly blood pressure task No Alma Quijano MD Weekly blood pressure task Care Plan Weekly blood pressure task No Alma Quijano MD Weekly blood pressure task Care Plan Weekly blood pressure task No Alma Quijano MD Patient has chronic kidney disease Care Plan Patient has chronic kidney disease No Alma Quijano MD Patient has chronic kidney disease Care Plan Patient has chronic kidney disease No Alma Quijano MD Patient has chronic kidney disease Care Plan Patient has chronic kidney disease No Alma Quijano MD Patient has diabetic neuropathy Care Plan Patient has diabetic neuropathy No Alma Quijano MD Patient has diabetic neuropathy Care Plan Patient has diabetic neuropathy No Alma Quijano MD Patient has diabetic neuropathy Care Plan Patient has diabetic neuropathy No Alma Quijano MD Weekly blood pressure task Care Plan Weekly blood pressure task No Jose Angel Martinez PharmD Weekly blood pressure task Care Plan Weekly blood pressure task No Jose Angel Martinez PharmD Weekly blood pressure task Care Plan Weekly blood pressure task No Jose Angel Martinez, PharmD Patient has chronic kidney disease Care Plan Patient has chronic kidney disease No Jose Angel Martinez, PharmD Patient has chronic kidney disease Care Plan Patient has chronic kidney disease No MartinezMalgorzataJose Angel, PharmD Patient has chronic kidney disease Care Plan Patient has chronic kidney disease No MartinezJose Angel, PharmD Patient has diabetic neuropathy Care Plan Patient has diabetic neuropathy No Jose Angel Martinez, PharmD Patient has diabetic neuropathy Care Plan Patient has diabetic neuropathy No Jose Angel Martinez, PharmD Patient has diabetic neuropathy Care Plan Patient has diabetic neuropathy No Jose Angel Martinez, PharmJennifer Weekly blood pressure task Care Plan Weekly blood pressure task No Alma Quijano MD Weekly blood pressure task Care Plan Weekly blood pressure task Alma Carrillo MD Weekly blood pressure task Care Plan Weekly blood pressure task Alma Carrillo MD Patient has chronic kidney disease Care Plan Patient has chronic kidney disease Alma Carrillo MD Patient has chronic kidney disease Care Plan Patient has chronic kidney disease Alma Carrillo MD Patient has chronic kidney disease Care Plan Patient has chronic kidney disease Alma Carrillo MD Patient has diabetic neuropathy Care Plan Patient has diabetic neuropathy Alma Carrillo MD Patient has diabetic neuropathy Care Plan Patient has diabetic neuropathy Alma Carrillo MD Patient has diabetic neuropathy Care Plan Patient has diabetic neuropathy Alma Carrillo MD Weekly blood pressure task Care Plan Weekly blood pressure task Alma Carrillo MD Weekly blood pressure task Care Plan Weekly blood pressure task Alma Carrillo MD Weekly blood pressure task Care Plan Weekly blood pressure task Alma Carrillo MD Patient has chronic kidney disease Care Plan Patient has chronic kidney disease Alma Carrillo MD Patient has chronic kidney disease Care Plan Patient has chronic kidney disease Alma Carrillo MD Patient has chronic kidney disease Care Plan Patient has chronic kidney disease Alma Carrillo MD Patient has diabetic neuropathy Care Plan Patient has diabetic neuropathy Alma Carrillo MD Patient has diabetic neuropathy Care Plan Patient has diabetic neuropathy Alma Carrillo MD Patient has diabetic neuropathy Care Plan Patient has diabetic neuropathy Alma Carrillo MD documented as of this encounter Visit Diagnoses Diagnosis Thickened endometrium- Primary Nonspecific (abnormal) findings on radiological and other examination of genitourinary organs Dyslipidemia Other and unspecified hyperlipidemia documented in this encounter Additional Health Concerns Active Problems Noted Date Diagnosed Date Help patients manage their type 2 diabetes 01/01 Weekly blood pressure task 01/01/2025 Help patients manage their type 2 diabetes 01/01 Patient has chronic kidney disease 01/01/2025 Help patients manage their type 2 diabetes 01/01 Patient has diabetic neuropathy 01/01/2025 Weekly blood pressure task 01/01/2025 Weekly blood pressure task 01/01/2025 Patient has chronic kidney disease 01/01/2025 Patient has chronic kidney disease 01/01/2025 Patient has diabetic neuropathy 01/01/2025 Patient has diabetic neuropathy 01/01/2025 Weekly blood pressure task 01/01/2025 Weekly blood pressure task 01/01/2025 Weekly blood pressure task 01/01/2025 Patient has chronic kidney disease 01/01/2025 Patient has chronic kidney disease 01/01/2025 Patient has chronic kidney disease 01/01/2025 Patient has diabetic neuropathy 01/01/2025 Patient has diabetic neuropathy 01/01/2025 Patient has diabetic neuropathy 01/01/2025 Weekly blood pressure task 01/02/2025 Weekly blood pressure task 01/02/2025 Weekly blood pressure task 01/02/2025 Patient has chronic kidney disease 01/02/2025 Patient has chronic kidney disease 01/02/2025 Patient has chronic kidney disease 01/02/2025 Patient has diabetic neuropathy 01/02/2025 Patient has diabetic neuropathy 01/02/2025 Patient has diabetic neuropathy 01/02/2025 Weekly blood pressure task 01/03/2025 Weekly blood pressure task 01/03/2025 Weekly blood pressure task 01/03/2025 Patient has chronic kidney disease 01/03/2025 Patient has chronic kidney disease 01/03/2025 Patient has chronic kidney disease 01/03/2025 Patient has diabetic neuropathy 01/03/2025 Patient has diabetic neuropathy 01/03/2025 Patient has diabetic neuropathy 01/03/2025 Weekly blood pressure task 01/03/2025 Weekly blood pressure task 01/03/2025 Weekly blood pressure task 01/03/2025 Patient has chronic kidney disease 01/03/2025 Patient has chronic kidney disease 01/03/2025 Patient has chronic kidney disease 01/03/2025 Patient has diabetic neuropathy 01/03/2025 Patient has diabetic neuropathy 01/03/2025 Patient has diabetic neuropathy 01/03/2025 Weekly blood pressure task 02/07/2025 Weekly blood pressure task 02/07/2025 Weekly blood pressure task 02/07/2025 Patient has chronic kidney disease 02/07/2025 Patient has chronic kidney disease 02/07/2025 Patient has chronic kidney disease 02/07/2025 Patient has diabetic neuropathy 02/07/2025 Patient has diabetic neuropathy 02/07/2025 Patient has diabetic neuropathy 02/07/2025 Weekly blood pressure task 02/07/2025 Weekly blood pressure task 02/07/2025 Weekly blood pressure task 02/07/2025 Patient has chronic kidney disease 02/07/2025 Patient has chronic kidney disease 02/07/2025 Patient has chronic kidney disease 02/07/2025 Patient has diabetic neuropathy 02/07/2025 Patient has diabetic neuropathy 02/07/2025 Patient has diabetic neuropathy 02/07/2025 Weekly blood pressure task 02/07/2025 Weekly blood pressure task 02/07/2025 Weekly blood pressure task 02/07/2025 Patient has chronic kidney disease 02/07/2025 Patient has chronic kidney disease 02/07/2025 Patient has chronic kidney disease 02/07/2025 Patient has diabetic neuropathy 02/07/2025 Patient has diabetic neuropathy 02/07/2025 Patient has diabetic neuropathy 02/07/2025 Assessment Noted Time PHQ-9 Depression Total Score: 5 01/31/20 24 11:17 AM EST documented as of this encounter Care Teams Screen Printing Supervisor Relationship Specialty Start Date End Date Alma Quijano MD [address] [place] [address] PCP - General Family Medicine 02/20/18 Jose Angel Martinez, MarissaD [address] [place] [address] Pharmacist Internal Medicine 09/19/22 documented as of this encounter
--- OUTSIDE RECORDS SUMMARY | 2025-02-07 16:04 | XMS_ITS | Encounter Summary ---
Author Organization [employer] Address [address] [facility] [address] [place] [address] Care Team Providers Care Film Casting Operator Name Role Phone Alma Quijano MD Primary Care Provider [phone] Jose Angel Martinez PharmD Unavailable [phone] Encounter Details Date Type Department Care Team (Late st Contact Info) Description 01/24/2023 Abstract [facility] MEDICINE [address] [place] [address] Ewa Waldrop [place] Social History Tobacco Use [...] Eye Exam (12/09/2022) Eye Exam Normal Normal [facility] HEALTH MAINTENANCE Final Result documented in this encounter Visit Diagnoses Not on filedocumented in this encounter Additional Health Concerns Assessment Noted Time PHQ-9 Depression Total Score: 0 06/08/19 23 1:07 PM EDT documented as of this encounter Care Teams Film Casting Operator Relationship Specialty Start Date End Date Alma Quijano MD [address] [place] [address] PCP - General Family Medicine 02/20/18 Jose Angel Martinez PharmD [address] [place] [address] Pharmacist Internal Medicine 09/19/22 documented as of this encounter
--- OUTSIDE RECORDS SUMMARY | 2025-02-07 16:04 | XMS_ITS | Encounter Summary ---
Author Organization [employer] Address [address] [facility] 7t [place] [address] Care Team Providers Care Photographic Supervisor Name Role Phone Alma Quijano MD Primary Care Provider [phone] Jose Angel Martinez PharmD Unavailable [phone] Reason for Visit * Reason Comments Med Refill Encounter Details Date Type Department Care Team ([facility] Contact Info) Description 07/27/2022 Refill [facility] MEDICINE [address] [place] [address] Alma Quijano MD [address] [place] [address] Social History Tobacco Use Types Packs/Day Years [...] documented as of this encounter Care Teams Photographic Supervisor Relationship Specialty Start Date End Date Alma Quijano MD [address] [place] [address] PCP - General Family Medicine 02/20/18 Jose Angel Martinez, PharmD [address] [place] [address] Pharmacist Internal Medicine 09/19/22 documented as of this encounter
--- OUTSIDE RECORDS SUMMARY | 2025-02-07 16:04 | XMS_ITS | Encounter Summary ---
Author Organization [employer] Address [address] [facility] 7t [place] [address] Care Team Providers Care Napkin Band Wrapper Name Role Phone Alma Quijano MD Primary Care Provider [phone] Jose Angel Martinez PharmD Unavailable [phone] Encounter Details Date Type Department Care Team ([facility] st Contact Info) Description 09/08/2022 Orders Only [facility]ICINE [address] [place] [address] Alma Quijano MD [address] [place], [place] [phone] Acquired hypothyroidism (Primary Dx) Social History Tobacco [...] of this encounter Plan of Treatment Scheduled Orders Name Type Priority Associated Diagnoses Orde r Schedule TSH W/Reflex to FT4 Lab Routine Acquired hypothyroidism Expected: 12/09/2022 (Approximate), Expires: 09/09/2023 documented as of this encounter Visit Diagnoses Diagnosis Acquired hypothyroidism- Primary Unspecified hypothyroidism documented in this encounter Additional Health Concerns Assessment Noted Time PHQ-9 Depression Total Score: 0 06/08/19 23 1:07 PM EDT documented as of this encounter Care Teams Napkin Band Wrapper Relationship Specialty Start Date End Date Alma Quijano MD [address] [place], [place] [phone] PCP - General Family Medicine 02/20/18 Jose Angel Martinez, MarissaD [address] [place] [address] Pharmacist Internal Medicine 09/19/22 documented as of this encounter
--- OUTSIDE RECORDS SUMMARY | 2025-02-07 16:04 | XMS_ITS | Encounter Summary ---
Author Organization [employer] Address [address] [facility] 7t [place] [address] Care Team Providers Care Mold Builder Name Role Phone Alma Quijano MD Primary Care Provider [phone] Jose Angel Martinez PharmD Unavailable [phone] Encounter Details Date Type Department Care Team (Latest Contact Info) Description 02/07/2025 Travel Social History Tobacco Use Types Packs/Day Years [...] 110/60(02/07 10:37 AM EST) No Jose Angel Martinez PharmD Hemoglobin A1c < 7 Result Component 7.1(02/08/20 10:46 AM EST) No Jose Angel Martinez PharmD Help patients manage their type 2 diabetes [...] Plan Patient has chronic kidney disease No Rob Chito Patient has chronic kidney disease Care Plan Patient has chronic kidney disease No Rob Chito Patient has diabetic neuropathy Care Plan Patient has diabetic neuropathy No Chito Rivas Patient has diabetic neuropathy Care Plan Patient has diabetic neuropathy No Rob Chito Patient has diabetic neuropathy Care Plan Patient has diabetic neuropathy No Rob Chito Weekly blood pressure task Care Plan Weekly [...] Care Plan Weekly blood pressure task No MartinezMalgorzataJose Angel, PharmD Patient has chronic kidney disease Care Plan Patient has chronic kidney disease No MartinezMalgorzataJose Angel, PharmD Patient has chronic kidney disease Care Plan Patient has chronic kidney disease No MartinezMalgorzataJose Angel, PharmD Patient has chronic kidney disease Care Plan Patient has chronic kidney disease No MartinezJose Angel, PharmD Patient has diabetic neuropathy Care Plan Patient has diabetic neuropathy No MartinezJose Angel cardoso, PharmD Patient has diabetic neuropathy Care Plan Patient has diabetic neuropathy No MartinezJose Angel cardoso, PharmD Patient has diabetic neuropathy Care Plan Patient has diabetic neuropathy No Jose Angel Martinez, PharmD Weekly blood pressure task Care Plan [...] Plan Patient has chronic kidney disease No Samm, Alma, MD Patient has chronic kidney disease Care Plan Patient has chronic kidney disease Alma Carrillo MD Patient has diabetic neuropathy Care Plan Patient has diabetic neuropathy Alma Carrillo MD Patient has diabetic neuropathy Care Plan Patient has diabetic neuropathy Amla Carrillo MD Patient has diabetic neuropathy Care Plan Patient has diabetic neuropathy lAma Carrillo MD documented as of this encounter Visit Diagnoses Not on filedocumented in this encounter Additional Health Concerns Active [...] documented as of this encounter Care Teams Mold Builder Relationship Specialty Start Date End Date Alma Quijano MD [address] [place] [address] PCP - General Family Medicine 02/20/18 Jose Angel Martinez, PharmD [address] [place] [address] Pharmacist Internal Medicine 09/19/22 documented as of this encounter
--- OUTSIDE RECORDS SUMMARY | 2025-02-07 16:04 | XMS_ITS | Encounter Summary ---
Author Organization [employer] Address [address] [facility] 7t h Floor [place] [id number] Care Team Providers Care Yarn Hauler Name Role Phone Alma Quijano MD Primary Care Provider [phone] Jose Angel Martinez PharmD Unavailable [phone] Reason for Visit * Reason Comments Med Refill Encounter Details Date Type Department Care Team ([facility] Contact Info) Description 10/19/2022 Refill [facility] [address] [place] [address] Name, MD Jovi [address] [place] [address] Vitamin B12 deficiency Social History Tobacco Use [...] 10:37 AM EST) No Jose Angel Martinez, PharmD Hemoglobin A1c < 7 Result Component 7.1( 10:46 AM EST) No Jose Angel Martinez, PharmD documented as of this encounter Visit Diagnoses Diagnosis Vitamin B12 deficiency Other B-complex deficiencies documented in this encounter Additional Health Concerns Assessment Noted Time PHQ-9 Depression Total Score: 0 06/08/19 23 1:07 PM EDT documented as of this encounter Care Teams Yarn Hauler Relationship Specialty Start Date End Date Alma Quijano MD [address] [place] [address] PCP - General Family Medicine 02/20/18 Jose Angel Martinez, MarissaD [address] [place] [address] Pharmacist Internal Medicine 09/19/22 documented as of this encounter
--- OUTSIDE RECORDS SUMMARY | 2025-02-07 16:04 | XMS_ITS | Encounter Summary ---
Author Organization [employer] Address [address] [facility] [address] [place] [address] Care Team Providers Care Ribber Name Role Phone Alma Quijano MD Primary Care Provider [phone] Jose Angel Martinez PharmD Unavailable [phone] Encounter Details Date Type Department Care Team (Late st Contact Info) Description 09/02/2024 Telephone [facility] MED [facility] PEDS [address] [place], [place] [phone] Alma Quijano MD [address] [place] [address] Social History Tobacco Use Types Packs/Day Years [...] documented as of this encounter Care Teams Ribber Relationship Specialty Start Date End Date Alma Quijano MD [address] [place] [address] PCP - General Family Medicine 02/20/18 Jose Angel Martinez PharmD [address] [place] [address] Pharmacist Internal Medicine 09/19/22 documented as of this encounter
--- OUTSIDE RECORDS SUMMARY | 2025-02-07 16:04 | XMS_ITS | Encounter Summary ---
Author Organization [employer] Address [address] [facility] [address] [place] [address] Care Team Providers Care Ortho/Prosthetic Aide Name Role Phone Alma Quijano MD Primary Care Provider [phone] Jose Angel Martinez PharmD Unavailable [phone] Encounter Details Date Type Department Care Team ([facility] st Contact Info) Description 12/11/2024 Orders Only [facility] MEDICINE [address] [place] [address] Alma Quijano MD [address] [place], [place] [phone] Abdominal mass of other site (Primary Dx) [...] PM EDT Narrative 2024 5:12 PM EDT [address] [address] XRay Report Signed Patient: Cori Marino MR#: [id number] : 1955 Acct:[id number] Age/Sex: 69 / F ADM Date: 12/14/24 Loc: HO.ED Attending Dr: Ordering Physician: Natacha Villagran MD Date of Service: 12/14/24 Procedure(s): XR chest 1V Accession Number(s): [id number] cc: Natacha Villagran MD; Alma Quijano MD [...] in OV> 12/14/241711 DD/ 10 TD/TT: 12/14/241710 Psych Nurse: Procedure Note Donotuseinterpreter, Image - [address] [place] [address] XRay Report Signed Patient: Cori Marino EMR#: [id number] : 8Acct:[id number] Age/Sex: 69 / FADM Date: 12/14/24 Loc: .ED Attending Dr: Ordering Physician: Natacha Villagran MD Date of Service: 12/14/24 Procedure(s): XR chest 1V Accession Number(s): [id number] cc: Natacha Villagran MD; Alma Quijano MD [...] in OV> 12/14/241711 DD/ 10 TD/TT: 12/14/241710 Psych Nurse: [facility] External Provider IMG XR PROCEDURES Edited Result - Final documented in this encounter Visit Diagnoses Diagnosis Abdominal mass of other site- Primary documented in this encounter Additional Health Concerns Assessment Noted Time PHQ-9 Depression Total Score: 5 01/31/20 24 11:17 AM EST documented as of this encounter Care Teams Ortho/Prosthetic Aide Relationship Specialty Start Date End Date Alma Quijano MD [address] [place] [address] PCP - General Family Medicine 02/20/18 Jose Angel Martinez, MarissaD [address] [place] [address] Pharmacist Internal Medicine 09/19/22 documented as of this encounter
--- OUTSIDE RECORDS SUMMARY | 2025-02-07 16:04 | XMS_ITS | Encounter Summary ---
Author Organization [employer] Address [address] [facility] 7t [place] [address] Care Team Providers Care Real Estate Specialist Name Role Phone Alma Quijano MD Primary Care Provider [phone] Jose Angel Martinez PharmD Unavailable [phone] Encounter Details Date Type Department Care Team (Late st Contact Info) Description 07/13/2022 Orders Only [facility] MEDICINE [address] [place] [address] Alma Quijano MD [address] [place] [address] Calculus of gallbladder without cholecystitis without obstruction [...] documented as of this encounter Care Teams Real Estate Specialist Relationship Specialty Start Date End Date Alma Quijano MD [address] [place] [address] PCP - General Family Medicine 02/20/18 Jose Angel Martinez, MarissaD [address] [place] [address] Pharmacist Internal Medicine 09/19/22 documented as of this encounter
--- OUTSIDE RECORDS SUMMARY | 2025-02-07 16:04 | XMS_ITS | Encounter Summary ---
Author Organization [employer] Address [address] [facility] 7t [place] [address] Care Team Providers Care Dental Insurance Biller Name Role Phone Alma Quijano MD Primary Care Provider [phone] Jose Angel Martinez PharmD Unavailable [phone] Encounter Details Date Type Department Care Team (Late st Contact Info) Description 05/26/2023 Orders Only [facility] MEDICINE [address] [place], [place] [phone] Alma Quijano MD [address] [place], [place] [phone] Osteoporosis, unspecified osteoporosis type, unspecified pathological fracture [...] documented as of this encounter Care Teams Dental Insurance Biller Relationship Specialty Start Date End Date Alma Quijano MD [address] [place] [address] PCP - General Family Medicine 02/20/18 Jose Angel Martinez PharmD [address] [place] [address] Pharmacist Internal Medicine 09/19/22 documented as of this encounter
--- OUTSIDE RECORDS SUMMARY | 2025-02-07 16:04 | XMS_ITS | Encounter Summary ---
Author Organization [employer] Address [address] [facility] [address] 7[address] [place] [address] Care Team Providers Care Albacore Fishing Boat Crewman Name Role Phone Alma Quijano MD Primary Care Provider [phone] Jose Angel Martinez PharmD Unavailable [phone] Encounter Details Date Type Department Care Team ([facility] Contact Info) Description 01/01/2025 Telephone [facility] MEDICINE [address] [place] [address] Alma Quijano MD [address] [place], [place] [phone] Social History Tobacco Use Types Packs/Day Years [...] encounter Miscellaneous Notes * Telephone Encounter - Chito Rivas - 01/01/2025 1:15 PM EST Tc from pt requesting reschedule 01/01 appointment repairer typewriter unable to do limited availability Please contract pt at [phone] documented in this encounter Plan of Treatment Not on file documented as of this encounter Goals Goal Patient Goal Type Associated Problems Recent Progress Patient-Stated? Author Blood Pressure < 140/90 Blood Pressure 110/60(02/07 10:37 AM EST) No Jose Angel Martinez, Giovanna Hemoglobin A1c < 7 Result Component 7.1(02/08/20 10:46 AM EST) No Jose Angel Martinez, Giovanna Help patients manage their type 2 diabetes [...] Patient has diabetic neuropathy No Chito Rivas documented as of this encounter Visit Diagnoses [...] neuropathy 01/01/2025 Patient has diabetic neuropathy 01/01/2025 Assessment Noted Time PHQ-9 Depression Total Score: 5 01/31/20 24 11:17 AM EST documented as of this encounter Care Teams Albacore Fishing Boat Crewman Relationship Specialty Start Date End Date Alma Quijano MD [address] [place] [address] PCP - General Family Medicine 02/20/18 Jose Angel Martinez, PharmD [address] [place] [address] Pharmacist Internal Medicine 09/19/22 documented as of this encounter
--- OUTSIDE RECORDS SUMMARY | 2025-02-07 16:04 | XMS_ITS | Encounter Summary ---
Author Organization [employer] Address [address] [facility] 7t [place] [address] Care Team Providers Care A R Collections Rep Name Role Phone Alma Quijano MD Primary Care Provider [phone] Jose Angel Martinez PharmD Unavailable [phone] Encounter Details Date Type Department Care Team ([facility] Contact Info) Description 01/03/2025 Results Follow-Up [facility] MEDICINE [address] [place] [address] Alma Quijano MD [address] [place] [address] CT Abdomen Pelvis w/ Contrast Social History Tobacco Use Types Packs/Day Years [...] manage their type 2 diabetes No Jimbo Riavs Weekly blood pressure task Care Plan Weekly [...] Care Plan Weekly blood pressure task No Rob Chito Weekly blood pressure task Care Plan Weekly blood pressure task No Rob Chito Patient has chronic kidney [...] Care Plan Weekly blood pressure task No Rob Chito Weekly blood pressure task Care Plan Weekly blood pressure task No Chito Rivas Weekly blood pressure task Care Plan Weekly blood pressure task No Rob Chito Patient has chronic kidney [...] Plan Patient has chronic kidney disease No lAma Quijano MD Patient has chronic kidney disease [...] Patient has diabetic neuropathy lAma Carrillo MD Patient has diabetic neuropathy Care [...] neuropathy 01/03/2025 Patient has diabetic neuropathy 01/03/2025 Assessment Noted Time PHQ-9 Depression Total Score: 5 01/31/20 24 11:17 AM EST documented as of this encounter Care Teams A R Collections Rep Relationship Specialty Start Date End Date Alma Quijano MD [address] [place] [address] PCP - General Family Medicine 02/20/18 Jose Angel Martinez, MarissaD [address] [place] [address] Pharmacist Internal Medicine 09/19/22 documented as of this encounter
--- OUTSIDE RECORDS SUMMARY | 2025-02-07 16:04 | XMS_ITS | Encounter Summary ---
Author Organization [employer] Address [address] [place] [address] 7t [place] [address] Care Team Providers Care Crop Quantitative Geneticist Name Role Phone Alma Quijano MD Primary Care Provider [phone] Jose Angel Martinez PharmD Unavailable [phone] Reason for Referral * Imaging (Routine) - Authorized Specialty Diagnoses / Procedures Referred By Contac t Referred To Contact Radiology Diagnoses Pelvic pain Fibroids Procedures US Pelvis Transvaginal Alma Quijano MD [address] [place] [address] Phone: tel: fax: [address] [address] Phone: tel: fax: Referral ID Status Reason Start Date Expiration Date V isits Requested Visits Authorized [id number] Authorized 01/03/2025 01/03/2026 1 1 * Imaging (Routine) - Authorized Specialty Diagnoses / Procedures Referred By Contac t Referred To Contact Radiology Diagnoses Pelvic pain Fibroids Procedures Us Pelvis complete Alma Quijano MD [address] [place], [place] Phone: tel: fax: [address] [address] Phone: tel: fax: Referral ID Status Reason Start Date Expiration Date V isits Requested Visits Authorized [id number] Authorized 01/03/2025 01/03/2026 1 1 Encounter Details Date Type Department Care Team (Late st Contact Info) Description 01/03/2025 Orders Only [facility] MEDICINE [address] [place] [address] Alma Quijano MD [address] [place] [address] Pelvic pain (Primary Dx); Fibroids Social History Tobacco Use Types Packs/Day Years [...] Type Priority Associated Diagnoses Orde r Schedule Us Pelvis complete Imaging Routine Pelvic pain Fibroids Expected: 01/03/2025, Expires: 01/03/2026 documented as of this encounter Goals Goal [...] Care Plan Patient has diabetic neuropathy No RobChito Patient has diabetic neuropathy Care Plan Patient [...] has diabetic neuropathy No Alma Quijano MD documented as of this encounter Procedures Procedure Name Priority Date/Time Associated Diagnosis Comments US PELVIS TRANSVAGINAL Routine 02/07/2025 2:59 PM EST Pelvic pain Fibroids documented in this encounter Results * US Pelvis Transvaginal (02/07/2025 2:59 PM EST) Anatomical Region Laterality Modality Pelvis Ultrasound 02/07/2025 2:59 PM EST Narrative 02/07/2025 3:39 PM EST [place] [address] Ultrasound Report Signed Patient: Cori Marino MR#: [id number] : 1955 Acct:[id number] Age/Sex: 69 / F ADM Date: 02/07/25 Loc: HO.US Attending Dr: Alma Quijano MD Ordering Physician: Alma Quijano MD Date of Service: 02/07/25 Procedure(s): US pelvic and transvaginal Accession Number(s): [id number] cc: Alma Quijano MD Reason for Exam: pelvic pain, fibroids EXAMINATION: US PELVIS CLINICAL INFORMATION: Pelvic pain. Uterine fibroids COMPARISON: Correlated to CT dated December 16, 2024. TECHNIQUE: Ultrasound of the pelvis is performed using both transabdominal and transvaginal transducers along with Doppler. Transvaginal imaging is performed due to inadequate visualization transabdominally. FINDINGS: Uterus: The uterus is anteversion and measures 12 x 5 x 7 cm. Volume: 209 cc. The double wall endometrial thickness is 13 mm. 2.9 cm isoechoic soft tissue lesion in the right side of the fundus. 3.0 cm isoechoic soft tissue lesion in the posterior left fundus of the uterus. Adnexa: The ovaries are not identified.. No free fluid in the cul-de-sac. US/US pelvic and transvaginal IMPRESSION: Uterine fibroids in the fundus. Thickened endometrial stripe which is abnormal for a postmenopausal woman. Electronically signed by: Reed Murphy MD 02/07/2025 03:37 PM EST RP Dictated By: Reed Chandler MD Signed By: <Electronically signed by Reed Means MD in OV> 02/07/25 1537 DD/ 1459 TD/TT: 02/07/25 1520 Comb Capper: Procedure Note Donotuseinterpreter, Image - 02/07/[address] [address] Ultrasound Report Signed Patient: Cori Marino EMR#: [id number] : 1955cct:[id number] Age/Sex: 69 / FADM Date: 02/07/25 Loc: HO.US Attending Dr: Alma Quijano MD Ordering Physician: Alma Quijano MD Date of Service: 02/07/25 Procedure(s): US pelvic and transvaginal Accession Number(s): [id number] cc: Alma Quijano MD Reason for Exam: pelvic pain, fibroids EXAMINATION: US PELVIS CLINICAL INFORMATION: Pelvic pain. Uterine fibroids COMPARISON: Correlated to CT dated December 16, 2024. TECHNIQUE: Ultrasound of the pelvis is performed using both transabdominal and transvaginal transducers along with Doppler. Transvaginal imaging is performed due to inadequate visualization transabdominally. FINDINGS: Uterus: The uterus is anteversion and measures 12 x 5 x 7 cm. Volume: 209 cc. The double wall endometrial thickness is 13 mm. 2.9 cm isoechoic soft tissue lesion in the right side of the fundus. 3.0 cm isoechoic soft tissue lesion in the posterior left fundus of the uterus. Adnexa: The ovaries are not identified.. No free fluid in the cul-de-sac. US/US pelvic and transvaginal IMPRESSION: Uterine fibroids in the fundus. Thickened endometrial stripe which is abnormal for a postmenopausal woman. Electronically signed by: Reed Murphy MD 02/07/2025 03:37 PM EST RP Dictated By: Reed Chandler MD Signed By: <Electronically signed by Reed Means MDin OV> 02/07/25 1537 DD/ 1459 TD/TT: 02/07/25 1520 Comb Capper: us Alma Quijano MD [facility] PROCEDURES Final Result documented in this encounter Visit Diagnoses Diagnosis Pelvic pain- Primary Fibroids Leiomyoma of uterus, unspecified documented in this encounter Additional Health Concerns [...] documented as of this encounter Care Teams Crop Quantitative Geneticist Relationship Specialty Start Date End Date Alma Quijano MD [address] [place] [address] PCP - General Family Medicine 02/20/18 Jose Angel Martinez, MarissaD [address] [place] [address] Pharmacist Internal Medicine 09/19/22 documented as of this encounter
--- OUTSIDE RECORDS SUMMARY | 2025-02-07 16:04 | XMS_ITS | Encounter Summary ---
Author Organization [employer] Address [address] [facility] 7t h Floor [place] [id number] Care Team Providers Care Associate Application Developer Name Role Phone Alma Quijano MD Primary Care Provider [phone] Jose Angel Martinez PharmD Unavailable [phone] Reason for Visit * Reason Comments Med Refill Encounter Details Date Type Department Care Team ([facility] Contact Info) Description 09/02/2024 Refill [facility] MEDICINE [address] [place] [address] Alma Quijano MD [address] [place] [address] Vitamin B12 deficiency Social History Tobacco Use [...] documented as of this encounter Care Teams Associate Application Developer Relationship Specialty Start Date End Date Alma Quijano MD [address] [place] [address] PCP - General Family Medicine 02/20/18 Jose Angel Martinez, MarissaD [address] [place] [address] Pharmacist Internal Medicine 09/19/22 documented as of this encounter
--- OUTSIDE RECORDS SUMMARY | 2025-02-07 16:04 | XMS_ITS | Encounter Summary ---
Author Organization [employer] Address [address] [facility] 7t [place] [address] Care Team Providers Care Head Of Loss Prevention Name Role Phone Alma Quijano MD Primary Care Provider [phone] Jose Angel Martinez PharmD Unavailable [phone] Reason for Visit * Reason Onset Date Comments Appointment Request 11/08/2022 Encounter Details Date Type Department Care Team ([facility] Contact Info) Description 11/08/2022 Telephone [facility] MEDICINE [address] [place], [place] [phone] Alma Quijano MD 230 [place], [place] [phone] Appointment Request Social History Tobacco Use Types [...] to traveling. Patient will be back 12/15/22. Shellfish Grower attempted to r/s appt and was unable [...] as of this encounter Care Teams Head Of Loss Prevention Relationship Specialty Start Date End Date Alma Quijano MD [address] [place] [address] PCP - General Family Medicine 02/20/18 Jose Angel Martinez PharmD [address] [place] [address] Pharmacist Internal Medicine 09/19/22 documented as of this encounter
--- OUTSIDE RECORDS SUMMARY | 2025-02-07 16:04 | XMS_ITS | Encounter Summary ---
Author Organization [employer] Address [address] [facility] [address] 7[address] [place] [address] Care Team Providers Care Forest Examiner Name Role Phone Alma Quijano MD Primary Care Provider [phone] Jose Angel Martinez PharmD Unavailable [phone] Encounter Details Date Type Department Care Team ([facility] st Contact Info) Description 01/24/2023 Abstract [facility] MEDICINE [address] [place] [address] Alma Quijano MD [address] [place], [place] [phone] Social History Tobacco Use Types Packs/Day Years [...] documented as of this encounter Care Teams Forest Examiner Relationship Specialty Start Date End Date Alma Quijano MD [address] [place] [address] PCP - General Family Medicine 02/20/18 Jose Angel Martinez PharmD [address] [place] [address] Pharmacist Internal Medicine 09/19/22 documented as of this encounter
--- OUTSIDE RECORDS SUMMARY | 2025-02-07 16:04 | XMS_ITS | Clinical Summary ---
Author Organization [employer] Address [address] [place] [address] Care Team Providers Care Dimensional Integration Engineer Name Role Phone Alma Quijano MD Primary Care Provider [phone] Jose Angel Martinez PharmD Unavailable [phone] Allergies Active Allergy Reactions Criticality Noted Date Comments Glyburide Hives 03/22/2010 Pioglitazone Unknown 03/22/2010 Medications FLUoxetine (PROzac) 20 MG capsule Take 20 mg by mouth in the morning. Active gabapentin (Neurontin) 800 MG tablet Take 800 mg by mouth 2 times daily. Active mirtazapine (Remeron) 15 MG tablet Take 15 mg by mouth at bedtime. Active Diclofenac Sodium 1 % gel APPLY 2-3 GRAMS TO AFFECTED AREA(S) TWICE DAILY NEEDED FOR PAIN Active Aspirin Low Dose 81 MG EC tabletIndication s:At high risk for cardiovascular disease TAKE 1 TABLET BY MOUTH AT BEDTIME 90 tablet 3 Active cetirizine (ZyrTEC) 10 MG tablet TAKE 1 TABLET BY MOUTH ONCE DAILY NEEDED 90 tablet 3 Active Pentips Generic Pen Lawn 32G X 4 MM miscIndications: Type 2 diabetes mellitus with diabetic polyneuropathy, with long-term current use of insulin (HCC) USE DIRECTED FOUR TIMES DAILY 100 each Active Mometasone Furoate (Asmanex HFA) 200 MCG/ACT aerosol INHALE 1 PUFF TWICE DAILY. RINSE MOUTH AFTER USING. 13 g Active glucose blood (FreeStyle Precision Burton Test) test stripIndications :Type 2 diabetes mellitus with hyperglycemia, with long-term current use of insulin ([facility]) TEST BLOOD SUGAR up to three times daily NEEDED for hypoglycemia or sensor failure. 50 strip 11 024 Active alendronate (Fosamax) 70 MG tablet take 1 tablet once a week with 6 to 8 oz of water 30 min before first food of day. do not lie down for 30 minutes 4 tablet 01/25/20 25 10:14 AM EST 025 Active atorvastatin (Lipitor) 80 MG tabletIndication s:Dyslipidemia TAKE 1 TABLET BY MOUTH EVERY EVENING 30 tablet 01/25/20 25 10:14 AM EST 025 Active lisinopril 5 MG tablet TAKE 1 TABLET BY MOUTH EVERY MORNING 90 tablet 3 025 Active montelukast (Singulair) 10 MG tablet TAKE 1 TABLET BY MOUTH EVERY EVENING 90 tablet 3 025 Active Tirzepatide (Mounjaro) 5 MG/0.5ML solution auto-injectorInd ications:Type 2 diabetes mellitus with hyperglycemia, with long-term current use of insulin ([facility]) Inject 5 mg under the skin 1 (one) time per week. 2 mL 5 01/10/20 25 8:09 AM EST 025 Active omeprazole (PriLOSEC) [address] capsule Take 1 capsule (20 mg) by mouth in the morning. Do not crush or chew. 90 capsule 025 Active cholecalciferol (Vitamin D-3) 25 MCG tabletIndication s:Vitamin B12 deficiency TAKE 1 TABLET BY MOUTH EVERY MORNING 90 tablet 1 025 Active cyanocobalamin (Vitamin B-12) 1000 MCG tabletIndication s:Vitamin B12 deficiency TAKE 1 TABLET BY MOUTH EVERY MORNING 90 tablet 1 025 Active Continuous Glucose Sensor (FreeStyle James 2 Plus Sensor) miscIndications: Type 2 diabetes mellitus with hyperglycemia, with long-term current use of insulin ([facility]) 1 Device every 15 days. Scan every 8 hours to check blood sugar. Change sensor every 15 days. 2 each 01/23/20 25 10:28 AM EST 025 Active Continuous Glucose Stock Patch Sawyer (FreeStyle James 2 [place]) deviceIndication s:Type 2 diabetes mellitus with hyperglycemia, with long-term current use of insulin ([facility]) Use as directed 1 each 01/08/20 25 10:17 AM EST 025 Active Lancets misc Use to test blood sugar up to 3 times daily in case of CGM failure 100 each 11 01/08/20 25 10:17 AM EST 025 Active Alcohol Swabs 70 % pads Use to test blood sugar up to 3 times daily in case of CGM failure 100 each 11 01/08/20 25 10:17 AM EST 025 Active Jardiance 25 MGIndications:Ty pe 2 diabetes mellitus with hyperglycemia, with long-term current use of insulin (HCC) TAKE 1 TABLET BY MOUTH EVERY MORNING 90 tablet 1 Active insulin glargine (Lantus SoloStar) 100 UNIT/ML penIndications:D iabetic polyneuropathy associated with type 2 diabetes mellitus (HCC) INJECT 24 UNITS SUBCUTANEOUSLY EVERY morning 15 mL 5 025 Active Blood Glucose Monitoring Suppl (FreeStyle [place] Lite) w/Device kit USE TO TEST BLOOD SUGAR DIRECTED 022 2024 Discontinued(M ed list cleanup (will not trigger notification to Pharmacy)) Alcohol Swabs (Alcohol Prep) 70 % padsIndications: Type 2 diabetes mellitus with diabetic polyneuropathy, with long-term current use of insulin (HCC) USE TWICE DAILY DIRECTED 100 each 11 023 2024 Discontinued(M ed list cleanup (will not trigger notification to Pharmacy)) TRUEplus Lancets 33G miscIndications: Type 2 diabetes mellitus with hyperglycemia (HCC) TEST BLOOD SUGAR SIX TIMES DAILY 200 each 11 023 2024 Discontinued(M ed list cleanup (will not trigger notification to Pharmacy)) Jardiance 25 MGIndications:Ty pe 2 diabetes mellitus with hyperglycemia, with long-term current use of insulin (HCC) TAKE 1 TABLET BY MOUTH EVERY MORNING 90 tablet 1 025 2024 Discontinued insulin glargine (Lantus SoloStar) 100 UNIT/ML penIndications:D iabetic polyneuropathy associated with type 2 diabetes mellitus (HCC) INJECT 28 UNITS SUBCUTANEOUSLY EVERY EVENING 15 mL 3 025 2024 Discontinued(R eorder (will not trigger notification to Pharmacy)) FREESTYLE LITE test strip Use to test blood sugar up to 3 times daily in case of CGM failure 100 each 11 01/08/20 25 10:17 AM EST 025 2024 Discontinued(A lternate therapy) Blood Glucose Monitoring Suppl (FreeStyle [place] Lite) w/Device kit Use to test blood sugar up to 3 times daily in case of CGM failure 1 kit 01/08/20 25 10:17 AM EST 025 2024 Discontinued(A lternate therapy) Active Problems Problem Noted Date Diagnosed Date [...] Assessment & Plan (06/07/2022 5:13 PM EDT): -[facility] provider: Frankie Maloney -Current medications: fluoxetine 20 mg daily; mirtazapine 15 mg qhs -Buspirone was discontinued by her psychiatrist. -Continue current [facility] session. Hypothyroidism 03/01/2022 Assessment & Plan (05/08/2024 [...] 06/29/20 -orthopedic providers: [place] -second opinion with [facility] -most recent X-ray in July 2024 showing [...] Plan (02/01/2024 5:39 PM EST): -Co-managed with cardiolTEN feliciano, last [...] Plan (10/08/2023 6:52 AM EDT): -Co-managed with cardioTEN magaña, last seen [...] Plan (07/11/2023 11:09 AM EDT): -Co-managed with TEN parmar, last seen in Dec 2022 -05/27/17 Cardiac [...] Plan (05/15/2023 5:30 AM EDT): -Co-managed with TEN parmar, last seen in Dec 2022 -05/27/17 Cardiac [...] Plan (01/24/2023 5:25 AM EST): -Co-managed with cardiolgoistTEN, last seen in [...] Plan (09/01/2022 12:42 PM EDT): -Co-managed with cardiolgoTEN garcia, last [...] Plan (10/11/2024 5:34 PM EDT): -S provider: Frankie Maloney -Current medications: fluoxetine 20 mg daily; mirtazapine 15 mg qhs -Buspirone was discontinued by her psychiatrist. -Continue current S session. Assessment & Plan (02/03/2024 6:37 AM EST): -S provider: Frankie Maloney -Current medications: fluoxetine 20 mg daily; mirtazapine 15 mg qhs -Buspirone was discontinued by her psychiatrist. -Continue current [facility] session. Assessment & Plan (01/24/2023 1:37 PM EST): -S provider: Frankie Maloney -Current medications: fluoxetine 20 mg daily; mirtazapine 15 mg qhs -Buspirone was discontinued by her psychiatrist. -Continue current S session. Assessment & Plan (09/01/2022 12:46 PM EDT): -S provider: Frankie Maloney -Current medications: fluoxetine 20 mg daily; mirtazapine 15 mg qhs -Buspirone was discontinued by her psychiatrist. -Continue current [facility] session. Assessment & Plan (06/07/2022 5:13 PM EDT): -[place] provider: Frankie [place] -Current medications: fluoxetine 20 mg daily; mirtazapine 15 mg qhs -Buspirone was discontinued by her psychiatrist. -Continue current [facility] session. Asthma 03/17/2015 Assessment & Plan (10/11/2024 5:39 PM EDT): -following with [facility] pulmonology, Dr. Wright, last seen in August [...] PM EDT): - patient was evaluated by missile inspector - patient dislikes wearing hearing aid - [...] 7.1% on 01/22/24 -Co-managed with our pharmacist, Marissa JuarezD, CDTM, last seen on 01/22/24 -Continue working [...] working on lifestyle modifications -Glucose monitoring: Freestyle Jaems CGM and Freestyle lite BG monitor -Continue [...] co-managed with our pharmacist, Jose Angel Martinez [facility], PharmD. Last seen in Nov 2022. Last [...] on lifestyle modifications -s/p CGM evaluation by MOHINDERE RN -Continue Lantus to 28 units qhs. [...] 5:39 PM EST): -currently prescribed gabapentin by modern and contemporary art curator. -current gabapentin dose is 800 mg bid, and it seems high for pt -discussed about judicious use Assessment & Plan (09/01/2022 12:42 PM EDT): -currently prescribed gabapentin by modern and contemporary art curator. -current gabapentin dose is 800 mg bid, and it seems high for pt -discussed about judicious use Assessment & Plan (06/21/2022 9:25 AM EDT): -currently prescribed gabapentin by modern and contemporary art curator. -current gabapentin dose is 800 mg bid, and it seems high for pt -discussed about judicious use Assessment & Plan (03/01/2022 6:30 AM EST): -currently prescribed gabapentin by modern and contemporary art curator. -current gabapentin dose is 800 mg bid, [...] Encounters Date Type Department Care Team Description 02/07/2025 Results Follow-Up [facility] [address] [place] [address] Alma Quijano MD US Pelvis Transvaginal 02/07/2025 Orders Only [facility] [address] [place], [place] [address] Alma Quijano MD Thickened endometrium (Primary Dx); Dyslipidemia 02/07/2025 Travel 01/31/2025 Travel 01/19/2025 Refill [facility] [address] [place], [place] [address] Jose Angel Martinez, PharmD Type 2 diabetes mellitus with hyperglycemia, with long-term current use of insulin (HCC) 01/03/2025 Results Follow-Up [facility] [address] [place], [place] [address] Abdomen Pelvis w/ Contrast 01/03/2025 Orders Only [facility] [address] [place] [address] Alma Quijano MD Pelvic pain (Primary Dx); Fibroids 01/02/2025 Refill [facility] [address] [place] [phone] Alma Quijano MD Type 2 diabetes mellitus with hyperglycemia, with long-term current use of insulin (HCC) 01/01/2025 Telephone [facility] [address] [place], [place] [address] Alma Quijano MD 01/01/2025 Telephone [facility] [address] [facility] [place] [address] Alma Quijano MD Telephone call 2024 Orders Only GENERIC EXTERNAL DATA DEPARTMENT Provider, Generic External Data 12/11/2024 Orders Only [address] [address] Alma Quijano MD Abdominal mass of other site (Primary Dx) 12/09/[address] [address] Alma Quijano MD Call Back Request 11/14/2024 Telephone [facility] [address] [place], [place] [phone] Alma Quijano MD Prior Authorization 11/11/2024 Orders Only [address] [address] Alma Quijano MD Type 2 diabetes mellitus with hyperglycemia, with long-term current use of insulin ([facility]) (Primary Dx) 11/11/[address] [address] Alma Quijano MD 11/11/2024 Travel 11/08/2024 9:30 AM EDT Clinical Support [address] [address] Negrita Pope RN Mild cognitive impairment 11/08/2024 Travel from Last 3 Months Immunizations Immunization [...] Sign Reading Time Taken Comments Blood Pressure 110/60 02/07/2025 10:37 AM EST Pulse 56 02/07/2025 10:37 AM EST Temperature 37 C (98.6 F) 10/07/2024 1:53 PM EDT Respiratory Rate 16 10/07/2024 1:53 PM EDT Oxygen Saturation 98% 10/07/2024 1:53 PM EDT Inhaled Oxygen Concentration - - Weight 51.6 kg (113 lb 12.8 oz) 10/07/2024 1:53 PM EDT Height 124.5 cm (4' 1 ) 10/07/2024 1:53 PM EDT Body Mass Index 33.32 10/07/2024 1:53 PM EDT Plan of Treatment Health Maintenance Due Date Last Done Comments CT Colonography 1955 FIT DNA/Cologuard 1957 FIT 1957 FOBT 1955 Sigmoidoscopy 1957 Alcohol/Substance Use Screening 1969 Hepatitis C Screening 12/15/1975 Diabetes: Foot Exam 10/04/2024 10/05/2023, 10/05/2023, 10/05/2023, Additional history exists COVID-19 Vaccine ( season) 2024 01/25/2021, 01/04/2021 Eye Exam 12/09/2024 12/09/2022 Depression Screening 01/30/2025 01/31/2024, 01/31/20 24 SDOH Screening 01/30/2025 01/31/2024 Diabetes: Hemoglobin A1C 05/08/2025 025, 10/07/2024, 08/05/2024, Additional history exists Diabetes: Urine Protein Screening 05/10/2025 05/10/2024, 08/01/2023, 09/02/2022, Additional history exists Lipid Panel 05/10/2025 05/10/2024, 0602/2023, 09/02/2022, Additional history exists Mammogram 05/24/2025 05/24/2024, [...] 10:37 AM EST) No Jose Angel Martinez, PharmJennifer Hemoglobin A1c < 7 Result Component 7.1(02/08/20 10:46 AM EST) No Jose Angel Martinez, PharmD Help patients manage their type 2 [...] Care Plan Weekly blood pressure task No lAma Quijano MD Weekly blood pressure task Care [...] Patient has diabetic neuropathy No Jose Angel Martinez PharmJennifer Weekly blood pressure task Care Plan [...] Plan Patient has diabetic neuropathy No Alma Quijaon MD Patient has diabetic neuropathy Care Plan [...] has diabetic neuropathy No Alma Quijano MD Procedures Procedure Name Priority Date/Time Associated Diagnosis Comments US PELVIS TRANSVAGINAL Routine 02/07/2025 2:59 PM EST Pelvic pain Fibroids POCT GLYCATED HEMOGLOBIN, TOTAL Routine 02/07/2025 10:46 AM EST Type 2 diabetes mellitus with hyperglycemia, with long-term current use of insulin (HCC) CT ABDOMEN PELVIS W CONTRAST Routine 12/16/2024 [...] 12/10/2024 11:15 AM EDT Health care maintenance BI MAMMOGRAM SCREENING TOMOSYNTHESIS BILATERAL Routine 05/24/2024 2:15 PM EDT ALBUMIN, RANDOM URINE W/CREATININE Routine 05/10/2024 8:09 AM EDT Type 2 diabetes mellitus with hyperglycemia, with long-term current use of insulin ([facility]) LIPID PANEL WITH REFLEX TO DIRECT LDL Routine 05/10/2024 8:09 AM EDT Type 2 diabetes mellitus with hyperglycemia, with long-term current use of insulin ([facility]) HPV MRNA E6/E7 REFLEX TO HPV 16, 18/45 Routine 05/02/2023 9:48 AM EDT Encounter for well woman exam with routine gynecological exam PAP SMEAR Routine 05/02/2023 9:48 AM EDT Encounter for well woman exam with routine gynecological exam DIABETES EYE EXAM Routine 12/09/2022 COLONOSCOPY Routine 01/06/2020 from Last 3 Months or Most Recently Relevant to Health Maintenance Results * US Pelvis Transvaginal (02/07/2025 2:59 PM EST) Anatomical Region Laterality Modality Pelvis Ultrasound 02/07/2025 2:59 PM EST Narrative 02/07/2025 3:39 PM EST [address] [address] Ultrasound Report Signed Patient: Cori Marino MR#: [id number] : 1955 Acct:[id number] Age/Sex: 69 / F ADM Date: 02/07/25 Loc: HO.US Attending Dr: Alma Quijano MD Ordering Physician: Alma Quijano MD Date of Service: 02/07/25 Procedure(s): US pelvic and transvaginal Accession Number(s): [id number] cc: Alma Quijano MD Reason for Exam: [...] by: Reed Murphy MD 02/07/2025 03:37 PM [facility] Dictated By: Reed Chandler MD Signed By: <Electronically signed by Reed Means MD in OV> 02/07/25 1537 DD/ 1459 TD/TT: 02/07/25 1520 Dental Hygiene Instructor: Procedure Note Donotuseinterpreter, Image - 02/07/[address] [address] Ultrasound Report Signed Patient: Cori Marino EMR#: [id number] : 8Acct:[id number] Age/Sex: 69 / FADM Date: 02/07/25 Loc: HO.US Attending Dr: Alma Quijano MD Ordering Physician: Alma Quijano MD Date of Service: 02/07/25 Procedure(s): US pelvic and transvaginal Accession Number(s): [id number] cc: Alma Quijano MD Reason for Exam: [...] Reed Murphy MD 02/07/2025 03:37 PM EST Dictated By: Reed Chandler MD Signed By: <Electronically signed by Reed Means MDin OV> 02/07/25 1537 DD/ 1459 TD/TT: 02/07/25 1520 Dental Hygiene Instructor: us Alma Quijano MD IMG US PROCEDURES Final Result * (ABNORMAL) POCT Hgb A1c (02/07/2025 10:46 AM EST) Hemoglobin A1C 7.1(A) 4.0 - 5.7 % QC Media Lot # [id number] Lot# Expiration Date Blood 02/07/2025 10:4 6 AM EST Alma Quijano MD POINT OF CARE TEST ENTER/EDIT OR DERABLES Final Result * CT Abdomen Pelvis w/ Contrast (12/16/2024 1:33 PM EDT) Anatomical Region Laterality Modality Body, Pelvis, Abdomen Computed T omography 12/16/2024 1:33 PM EDT Narrative 12/16/2024 2:05 PM EDT [place] [address] CT Scan Report Signed Patient: Cori Marino MR#: [id number] : 1955 Acct:[id number] Age/Sex: 69 / F ADM Date: 12/16/24 Loc: HO.CT Attending Dr: Alma Quijano MD Ordering Physician: Alma Quijano MD Date of Service: 12/16/24 Procedure(s): CT abdomen pelvis w IV con Accession Number(s): [id number] cc: Alma Quijano MD Report Number: [id number]: Total DLP = 276.00 mGy-cm Reason for [...] Baltazar Barba MD 12/16/2024 02:02 PM EDT Dictated By: Baltazar Barba MD Signed By: <Electronically signed by Baltazar Barba MD in OV> 12/16/24 1402 DD/ 1333 TD/TT: 12/16/24 1349 Dental Hygiene Instructor: Procedure Note Donotuseinterpreter, Image - 12/16/[address] [address] [address] Scan Report Signed Patient: Cori Marino EMR#: [id number] : 8Acct:[id number] Age/Sex: 69 / FADM Date: 12/16/24 Loc: HO.CT Attending Dr: Alma Quijano MD Ordering Physician: Alma Quijano MD Date of Service: 12/16/24 Procedure(s): CT abdomen pelvis w IV con Accession Number(s): [id number] cc: Alma Quijano MD Report Number: [id number]: Total DLP = 276.00 mGy-cm Reason for [...] Baltazar Barba MD 12/16/2024 02:02 PM EDT Dictated By: Baltazar Barba MD Signed By: <Electronically signed by Baltazar Barba MD in OV> 12/16/24 1402 DD/ 1333 TD/TT: 12/16/24 1349 Dental Hygiene Instructor: us Alma Quijano MD IMG CT PROCEDURES Final Result * High Sensitivity Troponin I (2024 6:51 PM EDT) TROPONIN I HIGH SENSITIVITY 4.6 <3.5 - 17.0 ng/L [facility] Comment:The Barrera high sens itivity Troponin-I results should beused in conjunction with other diagnostic information suchas ECG, clinical observations and information, and patientsymptoms to aid in the diagnosis of CA. 2024 6:51 PM EDT 2024 6:57 PM EDT us Generic External Data Provider LAB BLOOD ORDERAB LES Final Result [facility] [address] [place] [phone] * CT Head w/o Contrast (2024 6:29 PM EDT) Anatomical Region Laterality Modality Head, Neck Computed Tomogra phy 2024 6:29 PM EDT Narrative 2024 6:31 PM EDT [address] [place] [address] CT Scan Report Signed Patient: Cori Marino MR#: [id number] : 1955 Acct:[id number] Age/Sex: 69 / F ADM Date: 12/14/24 Loc: HO.ED Attending Dr: Ordering Physician: Natacha Villagran MD Date of Service: 12/14/24 Procedure(s): CT head/brain wo IV con Accession Number(s): [id number] cc: Natacha Villagran MD; Alma Quijano MD Report Number: [id number]: Total DLP = 0.00 mGy-cm Reason for [...] in OV> 12/14/241829 DD/ 28 TD/TT: 12/14/241828 Dental Hygiene Instructor: Procedure Note Donotuseinterpreter, Image - [address] [address] [address] Scan Report Signed Patient: Cori Marino EMR#: [id number] : 1955cct:[id number] Age/Sex: 69 / FADM Date: 12/14/24 Loc: .ED Attending Dr: Ordering Physician: Natacha Villagran MD Date of Service: 12/14/24 Procedure(s): CT head/brain wo IV con Accession Number(s): [id number] cc: Natacha Villagran MD; Alma Quijano MD Report Number: [id number]: Total DLP = 0.00 mGy-cm Reason for [...] in OV> 12/14/241829 DD/ 28 TD/TT: 12/14/241828 Dental Hygiene Instructor: [facility] External Provider IMG CT PROCEDURES Edited Result - Final * CTA Chest PE Protocal (2024 6:28 PM EDT) Anatomical Region Laterality Modality Body, Chest Computed Tomogra phy 2024 6:28 PM EDT Narrative 2024 6:30 PM EDT [place] [address] CT Scan Report Signed Patient: Cori Marino MR#: [id number] : 1955 Acct:[id number] Age/Sex: 69 / F ADM Date: 12/14/24 Loc: .ED Attending Dr: Ordering Physician: Natacha Villagran MD Date of Service: 12/14/24 Procedure(s): CT angio chest PE protocol Accession Number(s): [id number] cc: Natacha Villagran MD; Alma Quijano MD Report Number: [id number]: Total DLP = 945.00 mGy-cm Reason for [...] in OV> 12/14/241828 DD/ 27 TD/TT: 12/14/241827 Dental Hygiene Instructor: Procedure Note Donotuseinterpreter, Image - [address] [place] [address] [address] Scan Report Signed Patient: Cori Marino EMR#: [id number] : 8Acct:[id number] Age/Sex: 69 / FADM Date: 12/14/24 Loc: HO.ED Attending Dr: Ordering Physician: Natacha Villagran MD Date of Service: 12/14/24 Procedure(s): CT angio chest PE protocol Accession Number(s): [id number] cc: Natacha Villagran MD; Alma Quijano MD Report Number: [id number]: Total DLP = 945.00 mGy-cm Reason for [...] in OV> 12/14/241828 DD/ 27 TD/TT: 12/14/241827 Dental Hygiene Instructor: [facility] External Provider IMG CT PROCEDURES Edited Result - Final * (ABNORMAL) Urinalysis, Complete, with Reflex to Culture (2024 6:08 PM EDT) Color Urine Yellow [facility] Appearance Urine Clear [facility] PH 5.5 5.0 - 9.0 [facility] Glucose Urine UA >=1000(A) Negative mg/dL [facility] Urine Blood Negative Negative [facility] Specific [place] - Urine 1.025 1.005 - 1.025 [facility] Urine Protein Negative Neg-Trace mg/dL [facility] Urine Ketones Negative Negative mg/dL [facility] Nitrite Urine Negative Negative [facility] Leukocyte Esterase Urine Negative Negative [facility] RBC Urine 0-2 0 - 2 /HPF [facility] Urine WBC 0-5 0 - 5 /HPF [facility] Urine Squamous Epithelial Cell 0-2 0 - 2 /HPF [facility] Urine Bacteria None Seen None Seen [facility] Hyaline Casts, Urine 0-2 0 - 2 /LPF [facility] 2024 6:08 PM EDT 2024 6:19 PM EDT Narrative [facility] - 2024 6:31 PM EDT 1807Urine, Clean Catch Generic External Data Provider LAB URINE ORDERAB LES Final Result [facility] [address] [place] [address] [phone] * XR Chest 1 View (2024 5:11 PM EDT) Anatomical Region Laterality Modality Chest Radiographic Orly ging 2024 5:11 PM EDT Narrative 2024 5:12 PM EDT [address] [address] XRay Report Signed Patient: Cori Marino MR#: [id number] : 1955 Acct:[id number] Age/Sex: 69 / F ADM Date: 12/14/24 Loc: .ED Attending Dr: Ordering Physician: Natacha Villagran MD Date of Service: 12/14/24 Procedure(s): XR chest 1V Accession Number(s): [id number] cc: Natacha Villagran MD; Alma Quijano MD [...] in OV> 12/14/241711 DD/ 10 TD/TT: 12/14/241710 Dental Hygiene Instructor: Procedure Note Donotuseinterpreter, Image - [address] [address] XRay Report Signed Patient: Cori Marino EMR#: [id number] : 8Acct:[id number] Age/Sex: 69 / FADM Date: 12/14/24 Loc: .ED Attending Dr: Ordering Physician: Natacha Villagran MD Date of Service: 12/14/24 Procedure(s): XR chest 1V Accession Number(s): [id number] cc: Natacha Villagran MD; Alma Quijano MD [...] in OV> 12/14/241711 DD/ 10 TD/TT: 12/14/241710 Dental Hygiene Instructor: us [facility] External Provider IMG XR PROCEDURES Edited Result - Final * (ABNORMAL) Comprehensive Metabolic Panel (12/10/2024 11:15 AM EDT) Sodium 141 135 - 145 mmol/L [facility] Potassium 4.1 3.3 - 5.1 mmol/L [facility] Chloride 106 96 - 108 mmol/L [facility] Carbon Dioxide 29 22 - 29 mmol/L [facility] Anion Gap 10(L) 12 - 20 [facility] Urea Nitrogen (BUN) 16 9 - 16 mg/dL [facility] Creatinine, Serum 0.77 0.5 - 1.4 mg/dL [facility] Estimated Glomerular Filt Rate >60 [facility] Comment:Chronic Kidney Disea se: Estimated GFR < 60 mL/min/[id number] Kidney Disease: Estimated GFR < 15 mL/min/1.73m2 Glucose 182(H) 60 - 115 mg/dL [facility] Calcium 9.0 8.4 - 10.2 mg/dL [facility] Bilirubin, Total 0.5 0.0 - 1.0 mg/dL [facility] Aspartate Amino Transferase 23 5 - 31 U/L [facility] Alanine Aminotransferase 20 0 - 31 U/L [facility] Total Protein 6.5 6.5 - 8.0 g/dL [facility] Albumin Level 4.2 3.5 - 5.0 g/dL [facility] Alkaline Phosphatase 70 39 - 117 U/L [facility] Blood Venous blood specimen / Unknown 12/10/2024 11:15 AM EDT 12/10/2024 1:34 PM EDT us Alma Quijano MD LAB BLOOD ORDERABLES Final Resul t [facility] [address] [place] [phone] * BI Mammogram Screening Tomosynthesis Bilateral (05/24/2024 2:15 PM EDT) Anatomical Region Laterality Modality Breast Bilateral Mammography 05/24/2024 2:15 PM EDT Narrative 05/31/2024 3:24 PM EDT [address] [place] [address] Mammography Report Signed Patient: Cori Marino MR#: [id number] : 1955 Acct:[id number] Age/Sex: 68 / F ADM Date: 05/24/24 Loc: TIM Attending Dr: Alma Quijano MD Ordering Physician: Alma Quijano MD Results: 1Negative Date of Service: 05/24/24 Follow Up: 1 Year From [facility] Mammogram Procedure(s): MM tomosynthesis screening BI Accession Number(s): [id number] cc: Alma Quijano MD EXAMINATION: MM SCREENING [...] 05/31/24 1521 DD/ 1415 TD/TT: 05/24/24 1436 Dental Hygiene Instructor: Procedure Note Donotuseinterpreter, Image - 05/31/2024 [facility] [address] [place], [place] [address] Mammography Report Signed Patient: Cori Marino EMR#: [id number] : 1955cct:[id number] Age/Sex: 68 / FADM Date: 05/24/24 Loc: TIM Attending Dr: Alma Quijano MD Ordering Physician: Alma Quijano MDResults: 1Negative Date of Service: 05/24/24Follow Up: 1 Year From Orig inal Mammogram Procedure(s): MM tomosynthesis screening BI Accession Number(s): [id number] cc: Alma Quijano MD EXAMINATION: MM SCREENING [...] 05/31/24 1521 DD/ 1415 TD/TT: 05/24/24 1436 Dental Hygiene Instructor: Alma Quijano MD IMG BI PROCEDURES Final Result * (ABNORMAL) Lipid Panel with Reflex to Direct LDL (05/10/2024 8:09 AM EDT) Triglycerides 97 <150 mg/dL [facility] Comment:Desirable Triglyceri de: less than 150 mg/dLBorderline High Triglyceride 150-199 mg/dLHigh Triglyceride: 200-499 mg/dLVery High Triglyceride: greater than or equal to 5OO mg/dL Cholesterol 102 <200 mg/dL [facility] Comment:Desirable Cholestero l: less than 200 mg/dLBorderline High Cholesterol: 200-239 mg/dLHigh Cholesterol: greater than 239 mg/dL LDL Cholesterol Calculated 48 <100 mg/dL [facility] Comment:Desirable LDL: less than 100 mg/dLNear Optimal/Above Optimal LDL: 110- 129 mg/dLBorderline High LDL: 130-159 mg/dLHigh LDL: 160-189 mg/dLVery High LDL: greater than or equal to 190 mg/dL HDL Cholesterol 35(L) >40 mg/dL [facility] Comment:Desirable HDL: great er than 40 mg/dL Note: This HDL assay may give artificially low results in patients with liver disease. Blood 05/10/2024 8:09 AM EDT 05/10/2024 11:07 AM EDT Alma Quijano MD LAB BLOOD ORDERABLES Final Resul t [facility] [address] [place] [phone] * Albumin, Random Urine W/Creatinine (05/10/2024 8:09 AM EDT) Creatinine, Urine 64.00 mg/dL [facility] Microalbumin Urine 6.0 mg/L [facility] Microalbum Creatinine Ratio Ur 9.3 <30 ug/mg cr [facility] Comment:Albumin/Creatinine R atio Reference Ranges: Normal: < 30 ug/mg creatinine Microalbuminuria: 30 - 300 ug/mg creatinineClinical Albuminuria: > 300 ug/mg creatinine Urine 05/10/2024 8:09 AM EDT 05/10/2024 11:18 AM EDT us Alma Quijano MD LAB URINE ORDERABLES Final Resul t [facility] [address] [place] [phone] * HPV mRNA E6/E7 w/Reflex to HPV Genotypes 16, 18/45 (05/02/2023 9:48 AM EDT) HPV nRNA E6/E7 Not Detected Not Detected [facility] Comment:Methodology: Transcr iption-Mediated AmplificationThis assay detects E6/E7 viral messenger RNA (mRNA) from 14high-risk HPV types (16,18,31,33,35,39,45,51,52,56,58,59,66,68).Cervical sources are required for HPV testing.If a vaginal source from a patient who has had atotal hysterectomy with removal of cervix wassubmitted, please contact the testing laboratoryfor alternative testing options.For additional information, please refer [email or web address](This link if provided for information/educational purposes only.)THIS TEST WAS PERFORMED AT:[facility] [place] [phone] GODINEZ MD HPV mRNA E6/E7 TNP [facility] HPV 16 RNA [facility] HPV 18/45 RNA [facility] Vaginal Fluid Cervix uteri structure / Unknown 05/02/2023 9:48 AM EDT 05/03/2023 2:23 PM EDT [facility] - 05/05/2023 7:38 AM EDT Collection Date: [id number] by: KIMI Colby: Cervix Alma Quijano MD LAB CYTOLOGY ORDERABLES Final Re sult [facility] [address] [place] [phone] * Pap Smear (05/02/2023 9:48 AM EDT) Swab 05/02/2023 9:48 AM EDT 05/03/2023 12:25 PM EDT [facility] - 05/11/2023 6:49 AM EDT ----- ------- Name: Cori Marino Age/Sex: 67/F : 1955 Unit#: [id number] Attend Dr: Alma Quijano MD Re05/02/23 Status: DEP REF Location: [facility] Disch: ----- ------- SPEC : [id number] RECD: 05/03/233 STATUS: JONNIE VALENTINE NUM: [id number] VU: 05/02/[address] [facility] [address]: Alma Quijano MD ENTERED: 05/03/23-1252 SP TYPE: Pap [facility] DR: ORDERED: Pap Smear Interpretation Satisfactory for evaluation. No endocervical cells seen. Fungal organisms consistent with Carmelita species. Negative for intraepithelial lesion or malignancy. HPV mRNA E6/E7: NOT DETECTED This assay detects E6/E7 viral messenger RNA (mRNA) from 14 high-risk HPV types (16, 18, 31, 33, 35, 39, 45, 51, 52, 56, 58, 59, 66, 68) HPV testing performed by [facility], [place], [place]. See reference laboratory portion of the EMR for entire report. Clinical Information LMP: Postmenopausal Previous PAP test: Unknown date/findings Material Received ThinPrep-Vaginal/Cervical ----- ------- Signed (signature on file) HAZEL Brown (ASCP) 05/11/23 0649 ----- ------- END OF REPORT Alma Quijano MD LAB CYTOLOGY ORDERABLES Final Re sult [facility] [address] [place] [phone] * Diabetes Eye Exam (12/09/2022) Eye Exam Normal Normal Eye Tech HEALTH MAINTENANCE Final Result * Colonoscopy (01/06/2020) Colonoscopy Normal Normal us Jarrett Craft MD HEALTH MAINTENANCE Final Res ult from Last 3 Months or Most Recently Relevant to Health Maintenance Additional Health Concerns Active Problems Noted Date [...] neuropathy 02/07/2025 Patient has diabetic neuropathy 02/07/2025 Insurance [facility] [employer] (O D-SNP) CLAIRE HARPER [id number] Care Teams Dimensional Integration Engineer Relationship Specialty Start Date End Date Alma Quijano MD [address] [place] [address] PCP - General Family Medicine 02/20/18 Jose Angel Martinez, PharmD [address] [place] [address] Pharmacist Internal Medicine 09/19/22
--- OUTSIDE RECORDS SUMMARY | 2025-02-07 16:04 | XMS_ITS | Encounter Summary ---
Author Organization [employer] Address [address] [facility] 7t [place] [address] Care Team Providers Care Flash Oven Operator Name Role Phone Alma Quijano MD Primary Care Provider [phone] Jose Angel Martinez PharmD Unavailable [phone] Reason for Referral * Consultation (Routine) - Authorized Specialty Diagnoses / Procedures Referred By Contac t Referred To Contact Pharmacy Diagnoses Type 2 diabetes mellitus with hyperglycemia, with long-term current use of insulin ([facility]) Alma Quijano MD [address] [place] [phone] Phone: tel: fax: Referral ID Status Reason Start Date Expiration Date Visits Requested Visits Authorized [id number] Authorized Consult and Treat 11/11/2024 11/11/2025 6 6 Encounter Details Date Type Department Care Team ([facility] Contact Info) Description 11/11/2024 Orders Only [facility] [address] [place] [address] [phone] Alma Quijano MD [address] [place] [address] [phone] Type 2 diabetes mellitus with hyperglycemia, with long-term current use of insulin ([facility]) (Primary Dx) Social History Tobacco Use [...] with long-term current use of insulin ([facility]) Ordered: 11/11/2024 documented as of this [...] long-term current use of insulin (HCC)- Primary documented in this encounter Additional Health Concerns Assessment Noted Time PHQ-9 Depression Total Score: 5 01/31/20 24 11:17 AM EST documented as of this encounter Care Teams Flash Oven Operator Relationship Specialty Start Date End Date Alma Quijano MD [address] [place] [address] PCP - General Family Medicine 02/20/18 Jose Angel Martinez, MarissaD [address] [place] [address] Pharmacist Internal Medicine 09/19/22 documented as of this encounter
--- OUTSIDE RECORDS SUMMARY | 2025-02-07 16:04 | XMS_ITS | Encounter Summary ---
Author Organization [employer] Address [address] [facility] 7t [place] [address] Care Team Providers Care Soap Maker Name Role Phone Alma Quijano MD Primary Care Provider [phone] Jose Angel Martinez PharmD Unavailable [phone] Encounter Details Date Type Department Care Team (Late st Contact Info) Description 03/01/2022 Abstract [facility] [address] [place] [address] Alma Quijano MD [address] [place], [place] [phone] Social History Tobacco Use Types Packs/Day Years [...] on filedocumented in this encounter Care Teams Soap Maker Relationship Specialty Start Date End Date Alma Quijano MD [address] [place], [place] [phone] PCP - General Family Medicine 02/20/18 Jose Angel Martinez PharmD [address] [place] [phone] Pharmacist Internal Medicine 09/19/22 documented as of this encounter
--- OUTSIDE RECORDS SUMMARY | 2025-02-07 16:04 | XMS_ITS | Encounter Summary ---
Author Organization [employer] Address [address] [facility] 7[address] [place] [address] Care Team Providers Care Acetylene Burner Name Role Phone Alma Quijano MD Primary Care Provider [phone] Jose Angel Martinez PharmD Unavailable [phone] Reason for Visit * Reason Comments Med Refill Encounter Details Date Type Department Care Team ([facility] Contact Info) Description 03/17/2023 Refill [facility] [address] [place] [address] Jose Angel Martniez, PharmD [address] [place] [address] Type 2 diabetes mellitus with hyperglycemia, with long-term current use of insulin ([facility]) Social History Tobacco Use Types [...] documented as of this encounter Care Teams Acetylene Burner Relationship Specialty Start Date End Date Alma Quijano MD [address] [place] [address] PCP - General Family Medicine 02/20/18 Jose Angel Martinez PharmD [address] [place] [address] Pharmacist Internal Medicine 09/19/22 documented as of this encounter
--- OUTSIDE RECORDS SUMMARY | 2025-02-07 16:04 | XMS_ITS | Encounter Summary ---
Author Organization [employer] Address [address] [facility] 7t [place] [address] Care Team Providers Care Fishing Vessel Mate Name Role Phone Alma Quijano MD Primary Care Provider [phone] Jose Angel Martinez PharmD Unavailable [phone] Encounter Details Date Type Department Care Team (Late st Contact Info) Description 07/31/2023 Orders Only [facility] [address] [place], [place] [phone] Alma Quijano MD [address] [place], [place] [phone] Type 2 diabetes mellitus with hyperglycemia, with long-term current use of insulin ([facility]) (Primary Dx); Osteoporosis without current pathological fracture, [...] PharmJennifer Hemoglobin A1c < 7 Result Component 7.1( 10:46 AM EST) No Jose Angel Martinez PharmD documented as of this encounter Procedures Procedure Name Priority Date/Time Associated Diagnosis Comments ALBUMIN, RANDOM URINE W/CREATININE Routine 08/01/2023 8:24 AM EDT Type 2 diabetes mellitus with hyperglycemia, with long-term current use of insulin ([facility]) TSH Routine 08/01/2023 8:24 AM EDT Acquired hypothyroidism T4, FREE Routine 08/01/2023 8:24 AM EDT Acquired hypothyroidism COMPREHENSIVE METABOLIC PANEL Routine 08/01/2023 8:24 AM EDT Type 2 diabetes mellitus with hyperglycemia, with long-term current use of insulin (CMS/HCC) documented in this encounter Results * TSH (08/01/2023 8:24 AM EDT) Thyroid Stimulating Hormone 3.13 0.32 - 4.0 uIU/mL [facility] Comment:Note: A sustained TS H level above 2.5 uIU/mL may warrant further investigation. TSH 3rd Generation ([facility]) Blood Venous blood specimen / Unknown 08/01/2023 8:24 AM EDT 08/01/2023 11:09 AM EDT Alma Quijano MD LAB BLOOD ORDERABLES Final Resul t Performing Organization Address City/[facility] Co de Phone Number [facility] [address] [place] [phone] * T4, Free (08/01/2023 8:24 AM EDT) Free T4 (Free Thyroxine) 0.87 0.71 - 1.85 ng/dL [facility] Blood Venous blood specimen / Unknown 08/01/2023 8:24 AM EDT 08/01/2023 11:09 AM EDT Alma Quijano MD LAB BLOOD ORDERABLES Final Resul t Performing Organization Address [facility] de Phone Number [facility] [address] [place] [phone] * (ABNORMAL) Comprehensive Metabolic Panel (08/01/2023 8:24 AM EDT) Sodium 143 135 - 145 mmol/L [facility] Potassium 4.1 3.3 - 5.1 mmol/L [facility] Chloride 108 96 - 108 mmol/L [facility] Carbon Dioxide 27 22 - 29 mmol/L [facility] Anion Gap 12 12 - 20 [facility] Urea Nitrogen (BUN) 17(H) 9 - 16 mg/dL [facility] Creatinine, Serum 0.79 0.5 - 1.4 mg/dL [facility] Estimated Glomerular Filt Rate >60 [facility] Comment:NOTE: For -Am erican individuals, multiply the result by 1.210.Chronic Kidney Disease: Estimated GFR < 60 mL/min/1.15t3Mzkagc Kidney Disease: Estimated GFR < 15 mL/min/1.73m2 Glucose 161(H) 60 - 115 mg/dL [facility] Calcium 9.5 8.4 - 10.2 mg/dL [facility] Bilirubin, Total 0.6 0.0 - 1.0 mg/dL [facility] Aspartate Amino Transferase 16 5 - 31 U/L [facility] Alanine Aminotransferase 18 0 - 31 U/L [facility] Total Protein 7.3 6.5 - 8.0 g/dL [facility] Albumin Level 4.1 3.5 - 5.0 g/dL [facility] Alkaline Phosphatase 68 39 - 117 U/L [facility] Blood Venous blood specimen / Unknown 08/01/2023 8:24 AM EDT 08/01/2023 11:09 AM EDT us Alma Quijano MD LAB BLOOD ORDERABLES Final Resul t Performing Organization Address City/[facility] Co de Phone Number [facility] [address] [place] [address] [phone] * Albumin, Random Urine W/Creatinine (08/01/2023 8:24 AM EDT) Creatinine, Urine 80.05 mg/dL [facility] Microalbumin Urine 18.0 mg/L [facility] Microalbum Creatinine Ratio Ur 22.4 <30 ug/mg cr [facility] Comment:Albumin/Creatinine R atio Reference Ranges: Normal: < 30 ug/mg creatinine Microalbuminuria: 30 - 300 ug/mg creatinineClinical Albuminuria: > 300 ug/mg creatinine Urine 08/01/2023 8:24 AM EDT 08/01/2023 11:14 AM EDT us Alma Quijano MD LAB URINE ORDERABLES Final Resul t Performing Organization Address City/[facility]/ZIP Co de Phone Number [facility] [address] [place] [phone] documented in this encounter Visit Diagnoses [...] documented as of this encounter Care Teams Fishing Vessel Mate Relationship Specialty Start Date End Date Alma Quijano MD [address] [place] [phone] PCP - General Family Medicine 02/20/18 Jose Angel Martinez, Giovanna [address] [place] [phone] Pharmacist Internal Medicine 09/19/22 documented as of this encounter
--- OUTSIDE RECORDS SUMMARY | 2025-02-07 16:05 | XMS_ITS | Encounter Summary ---
Author Organization [employer] Address [address] [facility] 7t [place] [address] Care Team Providers Care Yard Hand Name Role Phone Alma Quijano MD Primary Care Provider [phone] Jose Angel Martinez PharmD Unavailable [phone] Encounter Details Date Type Department Care Team (Late st Contact Info) Description 02/28/2022 Orders Only [facility] [address] [place], [place] [phone] Anu Robledo LPN Social History Tobacco Use [...] on filedocumented in this encounter Care Teams Yard Hand Relationship Specialty Start Date End Date Alma Quijano MD [address] [place] [address] [phone] PCP - General Family Medicine 02/20/18 Jose Angel Martinez, PharmD [address] [place] [address] [phone] Pharmacist Internal Medicine 09/19/22 documented as of this encounter
== END 2025-02-07 14:39 | disposition home or self-care (01) ==
LOC: HO.US 14:38
PROVIDERS: PCP Family Medicine; Visit Provider Family Medicine
DX: R10.20 Pelvic and perineal pain unspecified side (principal); D25.9 Leiomyoma of uterus, unspecified
CPT/HCPCS: 76830; 76856

== ENCOUNTER → 2025-02-07 14:43 | Outpatient (BNV) | payer OTHER, SELFPAY | PROVIDERS: PCP Family Medicine; Visit Provider Radiology Diagnostic Radiology | DX: D25.9 Leiomyoma of uterus, unspecified (principal); R10.20 Pelvic and perineal pain unspecified side | CPT/HCPCS: 76830; 76856 ==